=== PATIENT | male | born 1965 | race Caucasian/White ===

== ENCOUNTER 2024-03-07 09:35 | Inpatient (IN) ==
--- NOTE | 2024-03-07 09:56 | Emergency Department Note ---
Impression & Plan Stroke ADMIT ED Provider Note HPI: History obtained from patient. The patient is a 58-year-old gentleman who presents emergency department with a chief complaint of dizziness. Patient states that this is been ongoing for the past 3 days. Patient states this morning he woke up and he walked into a wall. Patient states that his symptoms are improved when he is at rest although not completely resolved. Patient states his symptoms seem to acutely worsen when he gets up to walk. Patient states he has had some nausea, on arrival here to the ED the patient is hypertensive but otherwise hemodynamically stable, he does not have any focal deficits on my initial evaluation. ROS: - Per HPI Differential Diagnosis: Peripheral vertigo, posterior circulation stroke, acute ischemic stroke, intracranial hemorrhage, critical electrolyte abnormalities to include hyponatremia, amongst other potential pathologies. *Outpatient medications and allergy history reviewed. PE: General: Alert HEENT: Normocephalic, trachea midline Eyes: Extraocular eye movement is intact, no scleral erythema Pulmonary: Clear to auscultation bilaterally, no wheezing Cardio: Regular rate and rhythm GI: Abdomen is soft to palpation : No suprapubic tenderness MSK: No evidence of trauma or malformation of the extremities, no edema Skin: No evidence of rash Neuro: Alert, no focal deficits, no drift of the upper extremities or lower extremities with testing against gravity, no ataxia with [id number] testing bilaterally Psychiatric: Cooperative INDEPENDENT INTERPRETATIONS: manager monitoring: (As interpreted by myself): - An order was placed for continuous cardiac monitoring - Patient was noted to be in sinus rhythm with a rate of 75 EKG: (As interpreted by myself): Rate: 72 Rhythm: Normal sinus rhythm Intervals: Within normal limits ST changes: No ST elevation Time: 0946 Interventions provided in ED: -IV fluid bolus, meclizine, aspirin NIH STROKE SCALE: 1A: Level of consciousness Alert; keenly responsive 0 1B: Ask month and age Both questions right 0 1C: 'Blink eyes' & 'squeeze hands' Performs both tasks 0 2: Horizontal extraocular movements Normal 0 3: Visual mendiola No visual loss 0 4: Facial palsy Normal symmetry 0 5A: Left arm motor drift No drift for 10 seconds 0 5B: Right arm motor drift No drift for 10 seconds 0 6A: Left leg motor drift No drift for 5 seconds 0 6B: Right leg motor drift No drift for 5 seconds 0 7: Limb Ataxia No ataxia 0 8: Sensation Normal; no sensory loss 0 9: Language/aphasia Normal; no aphasia 0 10: Dysarthria Normal 0 11: Extinction/inattention No abnormality 0 TOTAL NIH SCORE = 0 Medical Decision Making: Shortly after the patient arrived IV was established and lab work obtained. Patient was placed on manager monitoring. Patient has been symptomatic now for several days, therefore not considered a candidate for aggressive therapy such as thrombolysis for possibility of stroke. Lab work shows no leukocytosis, hemoglobin is normal, platelet count is normal, CMP does not show any critical findings, troponin is negative, EKG per my interpretation shows normal sinus rhythm without ischemic changes. CT imaging of the head as well as CT angiography of the head did not show any evidence of any critical findings, no evidence of large vessel occlusion/stroke. Patient was given IV fluids and meclizine here in the ED. On my reassessment he states that he continues to feel dizzy. Ambulatory trial was performed with the bedside RN and the patient had some difficulty walking. Therefore given his ongoing symptoms I did discuss with the patient obtaining an MRI and he is in agreement. MRI was obtained and does show evidence of an acute frontal lobe infarct in the left frontal lobe. Also noted are several areas of chronic appearing lacunar infarcts. Patient was given aspirin. I discussed this with the patient and he is in agreement for admission. Case was discussed with the on-call midlevel provider for the [facility] hospitalist service, Parvin Post PA-C, and the patient was placed for admission in stable condition to the service of Dr. Wren. Consultants/Discussions held with other healthcare providers: -Hospitalist, Dr. Wren Disposition discussion held by myself with: -Patient Diagnosis: 1. Stroke, acute, left frontal lobe 2. Ataxia on ambulation 3. History of hypertension 4. History of [id number] diabetes Disposition: Admission Isaías Giang DO Emergency Medicine Past Med/Surg History Medical History (Updated 03/07/24 @ 15:46 by Isaías Giang DO) PAOLA on CPAP HLD (hyperlipidemia) History of deviated nasal septum HTN (hypertension) Asthma Diverticulitis Bronchitis Weakness Laceration of scalp Head injury Dehydration Right knee injury Surgical History (Updated 03/07/24 @ 15:09 by Yesenia Post PA-C) Hx of vasectomy Hx of cystoscopy Hx of sinus surgery Family History Other Cancer Diabetes Heart disease Hypertension Social History (Updated 03/07/24 @ 15:10 by Yesenia Post PA-C) Smoking Status: Former smoker Tobacco Type: Cigarettes and Smokeless Tobacco (Dip or Chew) Preferred Language: Macanese Feels Safe at Home: Yes Allergies Allergies Allergy/AdvReac Type Severity Reaction Status Date / Time aspirin AdvReac Intermediate nose bleeds Verified 08/28/22 21:21 NSAIDS (Non-Steroidal AdvReac Intermediate to avoid Verified 08/28/22 21:21 Anti-Inflamma d/t stomach/esophagus irritation Pork/Porcine Containing AdvReac Intermediate diarrhea Verified 08/28/22 21:21 Products Home Meds Home Medications Medication Instructions Recorded Confirmed ascorbic acid (vitamin C) 500 mg 500 mg PO DAILY 06/28/19 08/28/22 tablet (Vitamin C) duloxetine 60 mg capsule,delayed 60 mg PO DAILY 06/28/19 08/28/22 release famotidine 40 mg tablet 40 mg PO BID 06/28/19 08/28/22 fluticasone propionate 50 2 spray intranasal BID PRN .after 06/28/19 08/28/22 mcg/actuation nasal saline irrigations spray,suspension hydrochlorothiazide 25 mg tablet 25 mg PO DAILY 06/28/19 08/28/22 levothyroxine 200 mcg tablet 200 mcg PO DAILY 06/28/19 08/28/22 lisinopril 40 mg tablet 40 mg PO DAILY 06/28/19 08/28/22 montelukast 10 mg tablet 10 mg PO DAILY 06/28/19 08/28/22 omega 2-arq-ohr-fish oil 1,000 mg 1 cap PO DAILY 06/28/19 08/28/22 (120 mg-180 mg) capsule (Fish Oil) tramadol 50 mg tablet 50 mg PO BID PRN Pain 06/28/19 08/28/22 vitamin B complex 1 tab PO DAILY 06/28/19 08/28/22 vitamin E 200 unit capsule 200 unit PO DAILY 06/28/19 08/28/22 albuterol sulfate 90 mcg/actuation 2 puff inhalation Q4 PRN Shortness 08/28/22 08/28/22 aerosol inhaler Of Breath Or Wheezing amlodipine 10 mg tablet 10 mg PO DAILY 08/28/22 08/28/22 atorvastatin 20 mg tablet 20 mg PO DAILY 08/28/22 08/28/22 cetirizine 10 mg tablet 10 mg PO DAILY 08/28/22 08/28/22 glucosamine sulfate 500 mg tablet 500 mg PO DAILY 08/28/22 08/28/22 (Glucosamine) metformin 500 mg tablet 500 mg PO BID 08/28/22 08/28/22 metoprolol succinate 25 mg 25 mg PO QAM 08/28/22 08/28/22 tablet,extended release 24 hr multivitamin 1 tab PO DAILY 08/28/22 08/28/22 sildenafil 100 mg tablet 100 mg PO DIRECTED PRN .before 08/28/22 08/28/22 intercoarse turmeric 400 mg capsule 400 mg PO DAILY 08/28/22 08/28/22 Results & Data (ED) Vital Signs Vital Signs - 24 hr 03/07/24 09:38 03/07/24 09:45 03/07/24 09:49 Temperature 36.4 C L Temperature Source Temporal Artery Scan Pulse Rate 75 75 80 Pulse Rate from SpO2 Sensor Pulse Rhythm Regular Pulse Strength Normal Respiratory Rate 20 21 Respiratory Effort / Characteristics Non-Labored Spontaneous Respiratory Depth Normal Respiratory Pattern Regular Blood Pressure 196/109 H 188/113 H Blood Pressure Mean 138 138 Blood Pressure Position Sitting Pulse Oximetry 98 97 Oxygen Delivery Method Room Air Room Air Sepsis Recent Fever Within 48 Hours No Sepsis New/Unexplained Change in Mental Status No Sepsis Action Taken by Nursing No Action Required 03/07/24 10:00 03/07/24 10:30 03/07/24 10:50 Temperature Temperature Source Pulse Rate 76 82 73 Pulse Rate from SpO2 Sensor Pulse Rhythm Pulse Strength Respiratory Rate 20 20 22 Respiratory Effort / Characteristics Respiratory Depth Respiratory Pattern Blood Pressure 176/103 H 179/110 H Blood Pressure Mean 127 133 Blood Pressure Position Pulse Oximetry 98 Oxygen Delivery Method Room Air Sepsis Recent Fever Within 48 Hours Sepsis New/Unexplained Change in Mental Status Sepsis Action Taken by Nursing 03/07/24 11:00 03/07/24 11:10 03/07/24 11:40 Temperature Temperature Source Pulse Rate 90 83 82 Pulse Rate from SpO2 Sensor 82 Pulse Rhythm Pulse Strength Respiratory Rate 16 32 H 13 Respiratory Effort / Characteristics Respiratory Depth Respiratory Pattern Blood Pressure Blood Pressure Mean Blood Pressure Position Pulse Oximetry 96 Oxygen Delivery Method Sepsis Recent Fever Within 48 Hours Sepsis New/Unexplained Change in Mental Status Sepsis Action Taken by Nursing 03/07/24 11:50 03/07/24 12:00 03/07/24 12:00 Temperature Temperature Source Pulse Rate 77 74 Pulse Rate from SpO2 Sensor 76 75 Pulse Rhythm Pulse Strength Respiratory Rate 23 27 H Respiratory Effort / Characteristics Respiratory Depth Respiratory Pattern Blood Pressure 147/85 H Blood Pressure Mean 101 Blood Pressure Position Pulse Oximetry 95 94 Oxygen Delivery Method Sepsis Recent Fever Within 48 Hours Sepsis New/Unexplained Change in Mental Status Sepsis Action Taken by Nursing 03/07/24 12:10 03/07/24 12:20 03/07/24 12:30 Temperature Temperature Source Pulse Rate 84 72 Pulse Rate from SpO2 Sensor 84 72 Pulse Rhythm Pulse Strength Respiratory Rate 25 H 21 Respiratory Effort / Characteristics Respiratory Depth Respiratory Pattern Blood Pressure 146/95 H Blood Pressure Mean 104 Blood Pressure Position Pulse Oximetry 97 96 Oxygen Delivery Method Sepsis Recent Fever Within 48 Hours Sepsis New/Unexplained Change in Mental Status Sepsis Action Taken by Nursing 03/07/24 12:30 03/07/24 12:40 03/07/24 12:50 Temperature Temperature Source Pulse Rate 76 78 73 Pulse Rate from SpO2 Sensor 73 72 73 Pulse Rhythm Pulse Strength Respiratory Rate 25 H 21 16 Respiratory Effort / Characteristics Respiratory Depth Respiratory Pattern Blood Pressure Blood Pressure Mean Blood Pressure Position Pulse Oximetry 94 93 97 Oxygen Delivery Method Sepsis Recent Fever Within 48 Hours Sepsis New/Unexplained Change in Mental Status Sepsis Action Taken by Nursing 03/07/24 13:00 03/07/24 13:00 03/07/24 13:16 Temperature Temperature Source Pulse Rate 74 78 Pulse Rate from SpO2 Sensor 75 75 Pulse Rhythm Pulse Strength Respiratory Rate 21 16 Respiratory Effort / Characteristics Respiratory Depth Respiratory Pattern Blood Pressure 110/87 Blood Pressure Mean 96 Blood Pressure Position Pulse Oximetry 93 96 Oxygen Delivery Method Sepsis Recent Fever Within 48 Hours Sepsis New/Unexplained Change in Mental Status Sepsis Action Taken by Nursing 03/07/24 13:20 03/07/24 13:30 03/07/24 13:40 Temperature Temperature Source Pulse Rate 81 72 75 Pulse Rate from SpO2 Sensor 69 72 69 Pulse Rhythm Pulse Strength Respiratory Rate 23 24 23 Respiratory Effort / Characteristics Respiratory Depth Respiratory Pattern Blood Pressure Blood Pressure Mean Blood Pressure Position Pulse Oximetry 96 95 96 Oxygen Delivery Method Sepsis Recent Fever Within 48 Hours Sepsis New/Unexplained Change in Mental Status Sepsis Action Taken by Nursing 03/07/24 13:45 Temperature Temperature Source Pulse Rate 77 Pulse Rate from SpO2 Sensor Pulse Rhythm Pulse Strength Respiratory Rate Respiratory Effort / Characteristics Respiratory Depth Respiratory Pattern Blood Pressure Blood Pressure Mean Blood Pressure Position Pulse Oximetry Oxygen Delivery Method Sepsis Recent Fever Within 48 Hours Sepsis New/Unexplained Change in Mental Status Sepsis Action Taken by Nursing Laboratory Data 03/07/24 09:50 03/07/24 09:50 Lab Results 03/07/24 03/07/24 Range/Units 09:50 10:04 WBC 7.04 (4.8-10.8) K/ul RBC 5.32 (4.70-6.10) M/uL Hgb 16.2 (14.0-18.0) g/dl Hct 45.4 (42.0-52.0) % MCV 85.3 (80.0-100.0) fL MCH 30.5 (25.0-34.0) pg MCHC 35.7 (32.0-36.0) g/dL RDW Std Deviation 38.9 (36.4-46.3) fL RDW Coeff of Chang 12.7 (11.5-14.5) % Plt Count 240 (130-400) K/uL MPV 9.7 (9.4-12.4) fL Immature Gran % (Auto) 0.6 % Neut % (Auto) 67.3 % Lymph % (Auto) 21.0 % Frederick % (Auto) 8.1 % Eos % (Auto) 1.7 % Baso % (Auto) 1.3 % Neut # (Auto) 4.74 (1.40-6.50) K/uL Lymph # (Auto) 1.48 (1.20-3.40) K/uL Frederick # (Auto) 0.57 (0.11-0.59) K/uL Eos # (Auto) 0.12 (0.00-0.50) K/uL Baso # (Auto) 0.09 (0.00-0.20) K/uL Immature Gran # (Auto) 0.04 (0.01-0.20) K/uL PT 10.7 (9.0-12.0) Seconds INR 1.0 (0.9-1.1) APTT 31 (21-31) Seconds PTT Ratio 1.1 Sodium 139 (136-145) mmol/L Potassium 3.6 (3.5-5.1) mmol/L Chloride 106 (98-107) mmol/L Carbon Dioxide 24 (21-32) mmol/L Anion Gap 9 (3-11) BUN 14 (6-23) mg/dl Creatinine 0.75 (0.6-1.4) mg/dl Est Cr Clr Drug Dosing 145.0 ml/min Est GFR ( Amer) 117.2 ml/min Est GFR (Non-Af Amer) 101.1 ml/min BUN/Creatinine Ratio 18.7 (10-20) Glucose 140 H (70-99(Fasting)) mg/dl Calcium 8.7 (8.6-10.3) mg/dl Magnesium 1.9 (1.7-2.4) mg/dl Total Bilirubin 0.6 (0.2-1.0) mg/dl AST 20 (13-39) U/L ALT 29 (7-52) U/L Alkaline Phosphatase 58 (34-104) U/L Troponin I High Sens 15.3 (0-20) pg/ml Total Protein 7.4 (6.0-8.3) gm/dl Albumin 4.3 (3.4-5.0) gm/dl Globulin 3.1 (2.5-4.0) gm/dl Albumin/Globulin Ratio 1.4 (0.9-2) Blood Type A Positive Antibody Screen NEGATIVE Administered Medications Discontinued Medications Aspirin (Aspirin Chew 324 Mg) 324 mg PO NOW STA Stop: 03/07/24 14:58 Last Admin: 03/07/24 15:10 Dose: 324 mg Documented By: DEAN Sodium Chloride (Nss) 500 mls @ 999 mls/hr IV .Q31M ONE Stop: 03/07/24 12:41 Last Infusion: 03/07/24 13:20 Dose: Infused Documented By: Admin: 03/07/24 12:18 Dose: 999 mls/hr Documented By: DEAN Ioversol (Optiray 320 125ml) 118 ml IV ONCE ONE Stop: 03/07/24 11:40 Last Admin: 03/07/24 11:34 Dose: 118 ml Documented By: JOVAN Meclizine HCl (Meclizine Hcl 25 Mg Tab) 25 mg PO NOW STA Stop: 03/07/24 12:12 Last Admin: 03/07/24 12:19 Dose: 25 mg Documented By: DEAN Imaging Data Radiologist's Impression: Head CT 04/29/24 09:[address] OF THE BRAIN; CT ANGIOGRAM OF THE BRAIN; CT ANGIOGRAM OF THE NECK CLINICAL HISTORY: Neurological deficit. Stroke like symptoms. Dizziness. COMPARISON STUDY: CT of the brain dated 06/28/2019. TECHNIQUE: Unenhanced axial CT scan of the brain is performed. Subsequently, following the IV administration of 118 of Optiray 320, CT angiogram of the head and neck was performed from the aortic arch to the vertex. Images are reviewed in the axial, sagittal, and coronal planes. 3-D MIPS images are created and assessed. IV contrast was administered without complication. All measurements were calculated based on NASCET criteria. A dose lowering technique was utilized adhering to the principles of ALARA. CT DOSE: 1204.35 mGy.cm FINDINGS: Brain parenchyma: There is age-related involutional change and a mild to moderate patchy subcortical and periventricular microhepatic disease. Chronic lacunar infarcts are noted in the right caudate head, the left basal ganglia, and the right thalamus. There is no hemorrhage, mass effect, or evidence of acute territorial ischemia by CT criteria. There is no evidence of enhancing mass lesion on the angiogram phase images. The ventricles, sulci, and cisterns are prominent secondary to involutional change. Elliott-white matter differentiation is preserved. No extra-axial fluid collection is seen. Thoracic aorta: Visualized portions of the thoracic aorta are normal in caliber. The aortic arch demonstrates standard 3-vessel anatomy. Right carotid arterial system: The right common carotid artery is widely patent, as are the right internal and external carotid arteries. Minimal calcified plaque is seen in the carotid bulb. Left carotid arterial system: The left common carotid artery is widely patent, as are the left internal and external carotid arteries. Vertebral arteries: Widely patent bilaterally noting mild left-sided dominance. Subclavian arteries: Widely patent bilaterally. Intracranial vasculature: There is atherosclerotic calcification of the cavernous carotid arteries. The sitka of Mccormick is developmentally complete. The internal carotid arteries are patent at the skull base, as are the anterior and middle cerebral arteries bilaterally. The vertebrobasilar system and posterior cerebral arteries are widely patent. The left vertebral artery is dominant. There is no aneurysm, high-grade stenosis, or focal vessel cut off seen throughout the intracranial circulation. Jugular veins: Patent bilaterally. Dural sinuses: Patent. Lung apices: Partially visualized upper lobe lung parenchyma appears clear. Soft tissues: The visualized pharyngeal soft tissues are normal in appearance noting angiographic phase technique. The oropharyngeal airway appears widely patent. The thyroid gland is mildly enlarged and heterogeneous. The salivary glands are normal in appearance. No cervical lymphadenopathy is seen. Skeletal structures: The skeletal structures appear osteopenic. The calvarium appears intact. The cervical spine is maintained noting multilevel spondylosis. Orbits: The bony orbits are intact. Orbital contents are normal as visualized. Sinuses and mastoids: Trace mucosal thickening is noted in the maxillary antra. The paranasal sinuses are otherwise clear. There is a left mastoid effusion. The right mastoid air cells are well pneumatized. IMPRESSION: 1. There is no hemorrhage, mass effect, or evidence of acute territorial ischemia by CT criteria. 2. Unremarkable CT angiogram of the brain. 3. Unremarkable CT angiogram of the neck. ACT 112: Negative or not required by law. Electronically signed by: Daryn Markham M.D. 03/07/2024 11:54 AM Head CTA 03/07/24 09:[address] OF THE BRAIN; CT ANGIOGRAM OF THE BRAIN; CT ANGIOGRAM OF THE NECK CLINICAL HISTORY: Neurological deficit. Stroke like symptoms. Dizziness. COMPARISON STUDY: CT of the brain dated 06/28/2019. TECHNIQUE: Unenhanced axial CT scan of the brain is performed. Subsequently, following the IV administration of 118 of Optiray 320, CT angiogram of the head and neck was performed from the aortic arch to the vertex. Images are reviewed in the axial, sagittal, and coronal planes. 3-D MIPS images are created and assessed. IV contrast was administered without complication. All measurements were calculated based on NASCET criteria. A dose lowering technique was utilized adhering to the principles of ALARA. CT DOSE: 1204.35 mGy.cm FINDINGS: Brain parenchyma: There is age-related involutional change and a mild to moderate patchy subcortical and periventricular microhepatic disease. Chronic lacunar infarcts are noted in the right caudate head, the left basal ganglia, and the right thalamus. There is no hemorrhage, mass effect, or evidence of acute territorial ischemia by CT criteria. There is no evidence of enhancing mass lesion on the angiogram phase images. The ventricles, sulci, and cisterns are prominent secondary to involutional change. Elliott-white matter differentiation is preserved. No extra-axial fluid collection is seen. Thoracic aorta: Visualized portions of the thoracic aorta are normal in caliber. The aortic arch demonstrates standard 3-vessel anatomy. Right carotid arterial system: The right common carotid artery is widely patent, as are the right internal and external carotid arteries. Minimal calcified plaque is seen in the carotid bulb. Left carotid arterial system: The left common carotid artery is widely patent, as are the left internal and external carotid arteries. Vertebral arteries: Widely patent bilaterally noting mild left-sided dominance. Subclavian arteries: Widely patent bilaterally. Intracranial vasculature: There is atherosclerotic calcification of the cavernous carotid arteries. The sitka of M[place] is developmentally complete. The internal carotid arteries are patent at the skull base, as are the anterior and middle cerebral arteries bilaterally. The vertebrobasilar system and posterior cerebral arteries are widely patent. The left vertebral artery is dominant. There is no aneurysm, high-grade stenosis, or focal vessel cut off seen throughout the intracranial circulation. Jugular veins: Patent bilaterally. Dural sinuses: Patent. Lung apices: Partially visualized upper lobe lung parenchyma appears clear. Soft tissues: The visualized pharyngeal soft tissues are normal in appearance noting angiographic phase technique. The oropharyngeal airway appears widely patent. The thyroid gland is mildly enlarged and heterogeneous. The salivary glands are normal in appearance. No cervical lymphadenopathy is seen. Skeletal structures: The skeletal structures appear osteopenic. The calvarium appears intact. The cervical spine is maintained noting multilevel spondylosis. Orbits: The bony orbits are intact. Orbital contents are normal as visualized. Sinuses and mastoids: Trace mucosal thickening is noted in the maxillary antra. The paranasal sinuses are otherwise clear. There is a left mastoid effusion. The right mastoid air cells are well pneumatized. IMPRESSION: 1. There is no hemorrhage, mass effect, or evidence of acute territorial ischemia by CT criteria. 2. Unremarkable CT angiogram of the brain. 3. Unremarkable CT angiogram of the neck. ACT 112: Negative or not required by law. Electronically signed by: Daryn Markham M.D. 03/07/2024 11:54 AM Neck CTA 03/07/24 09:[address] OF THE BRAIN; CT ANGIOGRAM OF THE BRAIN; CT ANGIOGRAM OF THE NECK CLINICAL HISTORY: Neurological deficit. Stroke like symptoms. Dizziness. COMPARISON STUDY: CT of the brain dated 06/28/2019. TECHNIQUE: Unenhanced axial CT scan of the brain is performed. Subsequently, following the IV administration of 118 of Optiray 320, CT angiogram of the head and neck was performed from the aortic arch to the vertex. Images are reviewed in the axial, sagittal, and coronal planes. 3-D MIPS images are created and assessed. IV contrast was administered without complication. All measurements were calculated based on NASCET criteria. A dose lowering technique was utilized adhering to the principles of ALARA. CT DOSE: 1204.35 mGy.cm FINDINGS: Brain parenchyma: There is age-related involutional change and a mild to moderate patchy subcortical and periventricular microhepatic disease. Chronic lacunar infarcts are noted in the right caudate head, the left basal ganglia, and the right thalamus. There is no hemorrhage, mass effect, or evidence of acute territorial ischemia by CT criteria. There is no evidence of enhancing mass lesion on the angiogram phase images. The ventricles, sulci, and cisterns are prominent secondary to involutional change. Elliott-white matter differentiation is preserved. No extra-axial fluid collection is seen. Thoracic aorta: Visualized portions of the thoracic aorta are normal in caliber. The aortic arch demonstrates standard 3-vessel anatomy. Right carotid arterial system: The right common carotid artery is widely patent, as are the right internal and external carotid arteries. Minimal calcified plaque is seen in the carotid bulb. Left carotid arterial system: The left common carotid artery is widely patent, as are the left internal and external carotid arteries. Vertebral arteries: Widely patent bilaterally noting mild left-sided dominance. Subclavian arteries: Widely patent bilaterally. Intracranial vasculature: There is atherosclerotic calcification of the cavernous carotid arteries. The sitka of M[place]orm[place] is developmentally complete. The internal carotid arteries are patent at the skull base, as are the anterior and middle cerebral arteries bilaterally. The vertebrobasilar system and posterior cerebral arteries are widely patent. The left vertebral artery is dominant. There is no aneurysm, high-grade stenosis, or focal vessel cut off seen throughout the intracranial circulation. Jugular veins: Patent bilaterally. Dural sinuses: Patent. Lung apices: Partially visualized upper lobe lung parenchyma appears clear. Soft tissues: The visualized pharyngeal soft tissues are normal in appearance noting angiographic phase technique. The oropharyngeal airway appears widely patent. The thyroid gland is mildly enlarged and heterogeneous. The salivary glands are normal in appearance. No cervical lymphadenopathy is seen. Skeletal structures: The skeletal structures appear osteopenic. The calvarium appears intact. The cervical spine is maintained noting multilevel spondylosis. Orbits: The bony orbits are intact. Orbital contents are normal as visualized. Sinuses and mastoids: Trace mucosal thickening is noted in the maxillary antra. The paranasal sinuses are otherwise clear. There is a left mastoid effusion. The right mastoid air cells are well pneumatized. IMPRESSION: 1. There is no hemorrhage, mass effect, or evidence of acute territorial ischemia by CT criteria. 2. Unremarkable CT angiogram of the brain. 3. Unremarkable CT angiogram of the neck. ACT 112: Negative or not required by law. Electronically signed by: Daryn Markham M.D. 03/07/2024 11:54 AM Brain MRI 03/07/24 12:59 Brain MRI WITHOUT CONTRAST HISTORY: vertigo TECHNIQUE: Multiplanar multisequence MRI of the brain was performed without the use of contrast. COMPARISON STUDY: Head CT 03/07/2024. FINDINGS: There is a 9 mm focus of restricted diffusion within the left high convexity on image 19 consistent with a small acute infarct. The midline structures are intact. Scattered foci of T2 hyperintensity seen within the periventricular and subcortical white matter of the supratentorial brain. These are nonspecific but favor mild microvascular ischemic change. There is no mass, hematoma, or midline shift. Mild mucosal thickening within the paranasal sinuses. The right mastoid air cells are clear. There is a small left mastoid effusion. The major vascular flow-voids at the skull base are well-maintained. There are old lacunar infarcts within the bilateral basal ganglia and bilateral thalami. The orbits are unremarkable. IMPRESSION: 1. A 9 mm acute infarct within the left posterior frontal lobe at the high convexity. 2. Old lacunar infarcts within the bilateral basal ganglia and thalami. 3. Mild atrophy and microvascular ischemic changes. ACT 112: Negative or not required by law. Electronically signed by: Daniel Boles M.D. 03/07/2024 2:50 PM Discharge Plan Visit Data Chief Complaint: Vertigo Stated Complaint: DIZZY/HARD TO WALK WOBBLY/ ED Provider: Isaías Giang Discharge Problem: Stroke Forms Stand Alone Forms: [facility] Prescriptions Prescriptions: No Action vitamin E 200 unit Capsule 200 unit PO DAILY famotidine 40 mg tablet 40 mg PO BID tramadol 50 mg tablet 50 mg PO BID PRN (Reason: Pain) ascorbic acid (vitamin C) [Vitamin C] 500 mg Tablet 500 mg PO DAILY vitamin B complex Tablet 1 tab PO DAILY montelukast 10 mg tablet 10 mg PO DAILY levothyroxine 200 mcg tablet 200 mcg PO DAILY hydrochlorothiazide 25 mg tablet 25 mg PO DAILY lisinopril 40 mg tablet 40 mg PO DAILY fluticasone propionate 50 mcg/actuation spray,suspension 2 spray intranasal BID PRN (Reason: .after saline irrigations) duloxetine 60 mg capsule,delayed release(DR/EC) 60 mg PO DAILY omega 3-uud-zql-fish oil [Fish Oil] 1,000 mg (120 mg-180 mg) Capsule 1 cap PO DAILY multivitamin Tablet 1 tab PO DAILY metformin 500 mg tablet 500 mg PO BID atorvastatin 20 mg tablet 20 mg PO DAILY cetirizine 10 mg Tablet 10 mg PO DAILY glucosamine sulfate [Glucosamine] 500 mg Tablet 500 mg PO DAILY Rx Instructions: administer with a meal sildenafil 100 mg tablet 100 mg PO DIRECTED PRN (Reason: .before intercoarse) amlodipine 10 mg tablet 10 mg PO DAILY metoprolol succinate 25 mg tablet extended release 24 hr 25 mg PO QAM albuterol sulfate 90 mcg/actuation HFA aerosol inhaler 2 puff INHALATION Q4 PRN (Reason: Shortness Of Breath Or Wheezing) turmeric 400 mg Capsule 400 mg PO DAILY Referrals Referrals: Sophie Licea MD [Primary Care Provider] - Discharge Problem: Stroke Qualifiers: CVA mechanism: unspecified Qualified Code(s): I63.9 - Cerebral infarction, unspecified
[2024-03-07 10:11] LABS: Basophils # (auto) 0.09 K/uL (0.00-0.20); Basophils % (auto) 1.3 %; Eosinophils # (auto) 0.12 K/uL (0.00-0.50); Eosinophils % (auto) 1.7 %; Hematocrit (blood only) 45.4 % (42.0-52.0); Hemoglobin 16.2 g/dl (14.0-18.0); Immature Granulocytes # (auto) 0.04 K/uL (0.01-0.20); Immature Granulocytes % (auto) 0.6 %; Lymphocytes # (auto) 1.48 K/uL (1.20-3.40); Mean Corpuscular Hemoglobin 30.5 pg (25.0-34.0); Mean Corpuscular Hgb Conc 35.7 g/dL (32.0-36.0); Mean Corpuscular Volume 85.3 fL (80.0-100.0); Mean Platelet Volume 9.7 fL (9.4-12.4); Monocytes # (auto) 0.57 K/uL (0.11-0.59); Monocytes % (auto) 8.1 %; Neutrophils # (auto) 4.74 K/uL (1.40-6.50); Neutrophils % (auto) 67.3 %; Platelet Count 240 K/uL (130-400); RDW Coefficient of Variation 12.7 % (11.5-14.5); RDW Standard Deviation 38.9 fL (36.4-46.3); Red Blood Count 5.32 M/uL (4.70-6.10); White Blood Count 7.04 K/ul (4.8-10.8)
[2024-03-07 10:30] LABS: Albumin Globulin Ratio 1.4 (0.9-2); Albumin Level 4.3 gm/dl (3.4-5.0); BUN Creatinine Ratio 18.7 (10-20); Bilirubin,Total 0.6 mg/dl (0.2-1.0); Calcium 8.7 mg/dl (8.6-10.3); Est GFR (African American) 117.2 ml/min; Est GFR (Non-African American) 101.1 ml/min; Globulin 3.1 gm/dl (2.5-4.0); Magnesium 1.9 mg/dl (1.7-2.4); Potassium 3.6 mmol/L (3.5-5.1); Total Protein 7.4 gm/dl (6.0-8.3)
[2024-03-07 10:36] LABS: Troponin I High Sensitivity 15.3 pg/ml (0-20)
[2024-03-07 10:38] LABS: Partial Thromboplastin Ratio 1.1; Partial Thromboplastin Time 31 Seconds (21-31); Prothrombin Time 10.7 Seconds (9.0-12.0)
[2024-03-07] MEDS: OPTIRAY 320 125ml IV ONE (11:34)
--- NOTE | 2024-03-07 11:55 | CT Scan Report ---
UNENHANCED CT OF THE BRAIN; CT ANGIOGRAM OF THE BRAIN; CT ANGIOGRAM OF THE NECK CLINICAL HISTORY: Neurological deficit. Stroke like symptoms. Dizziness. COMPARISON STUDY: CT of the brain dated 06/28/2019. TECHNIQUE: Unenhanced axial CT scan of the brain is performed. Subsequently, following the IV adminis tration of 118 of [address] 320, CT angiogram of the head and neck was performed from the aortic arch t o the vertex. Images are reviewed in the axial, sagittal, and coronal planes. 3-D MIPS images are cre ated and assessed. IV contrast was administered without complication. All measurements were calculate d based on NASCET criteria. A dose lowering technique was utilized adhering to the principles of ALA RA. CT DOSE: 1204.35 mGy.cm FINDINGS: Brain parenchyma: There is age-related involutional change and a mild to moderate patchy subcortical and periventricular microhepatic disease. Chronic lacunar infarcts are noted in the right caudate hea d, the left basal ganglia, and the right thalamus. There is no hemorrhage, mass effect, or evidence o f acute territorial ischemia by CT criteria. There is no evidence of enhancing mass lesion on the ang iogram phase images. The ventricles, sulci, and cisterns are prominent secondary to involutional cho ge. Elliott-white matter differentiation is preserved. No extra-axial fluid collection is seen. Thoracic aorta: Visualized portions of the thoracic aorta are normal in caliber. The aortic arch demo nstrates standard 3-vessel anatomy. Right carotid arterial system: The right common carotid artery is widely patent, as are the right int ernal and external carotid arteries. Minimal calcified plaque is seen in the carotid bulb. Left carotid arterial system: The left common carotid artery is widely patent, as are the left pharmacy graduate intern al and external carotid arteries. Vertebral arteries: Widely patent bilaterally noting mild left-sided dominance. Subclavian arteries: Widely patent bilaterally. Intracranial vasculature: There is atherosclerotic calcification of the cavernous carotid arteries. T he [place] is developmentally complete. The internal carotid arteries are patent at the skul l base, as are the anterior and middle cerebral arteries bilaterally. The vertebrobasilar system and posterior cerebral arteries are widely patent. The left vertebral artery is dominant. There is no ane urysm, high-grade stenosis, or focal vessel cut off seen throughout the intracranial circulation. Jugular veins: Patent bilaterally. Dural sinuses: Patent. Lung apices: Partially visualized upper lobe lung parenchyma appears clear. Soft tissues: The visualized pharyngeal soft tissues are normal in appearance noting angiographic pha se technique. The oropharyngeal airway appears widely patent. The thyroid gland is mildly enlarged an d heterogeneous. The salivary glands are normal in appearance. No cervical lymphadenopathy is seen. Skeletal structures: The skeletal structures appear osteopenic. The calvarium appears intact. The cer vical spine is maintained noting multilevel spondylosis. Orbits: The bony orbits are intact. Orbital contents are normal as visualized. Sinuses and mastoids: Trace mucosal thickening is noted in the maxillary antra. The paranasal sinuses are otherwise clear. There is a left mastoid effusion. The right mastoid air cells are well pneumati zed. IMPRESSION: 1. There is no hemorrhage, mass effect, or evidence of acute territorial ischemia by CT criteria. 2. Unremarkable CT angiogram of the brain. 3. Unremarkable CT angiogram of the neck. ACT 112: Negative or not required by law. Electronically signed by: Daryn Markham M.D. 03/07/2024 11:54 AM
--- OUTSIDE RECORDS SUMMARY | 2024-03-07 12:12 | External Medical Summary | Summary of Care ---
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 Role Phone Sophie Licea MD Primary Care Provide r Reason for Visit * Reason Comments eRx-Medication Refill Encounter Details Date Type Department Care Team (Late st Contact Info) Description 02/16/2024 Refill Allergy/Immunology Samantha Monte [place] [address] [facility] [place] [address] Kali Asher [facility] [address] [facility] [address] Allergies Active Allergy Reactions Criticality Noted Date Comments Ibuprofen 02/28/2008 Stomach problems Nsaids 01/10/2010 Has stomach problems Salicylates 10/17/2003 Nosebleeds documented as of this encounter (statuses as of 02/17/2024) Medications Medication Sig Dispensed Refills Start Date End Date Status Multiple Vitamins-Minerals (MULTIVITAMIN ADULT) TABS 0 Active [place]-3 Fatty Acids (FISH OIL) 1200 MG CAPS 0 Active Ascorbic Acid (VITAMIN C) 500 MG CAPS 0 Active Glucosamine 500 MG Capsule Take 1 Capsule by mouth in the morning and 1 Capsule before bedtime. 0 Active B Umawvdt-Jjpwgo-IE (B COMPLETE) TABS Take by mouth. 0 Act jonathan cetirizine (ZYRTEC) 10 MG Tablet Take 1 Tab by mouth daily. 0 8 Active Turmeric 500 MG Capsule Take 1 Capsule by mouth in the morning. 0 Active MEDICAL INSTRUCTIONS Use as directed. CPAP at bedtime on RA 0 Active oxygen GAS 3 LPM bled through CPAP 10-13 cwp during all hours of sleep 1 Each 0 9 Active Triamcinolone Acetonide 0.1 % External Cream (ARISTOCORT)Indicat ions:Other eczema APPLY TO AFFECTED AREA TWICE A DAY 60 g 1 0 Active OneTouch Verio w/Device KitIndications:Type 2 diabetes mellitus with hemoglobin A1c goal of less than 7.0% (HCC) Test once a day E11.9 1 Kit 0 1 Active Fluticasone Propionate 50 MCG/ACT Nasal Suspension (Flonase) INSTILL 2 SPRAYS INTO EACH NOSTRIL TWICE DAILY NEEDED FOR NASAL SYMPTOMS AFTER SALINE IRRIGATIONS 48 mL 4 2 Active Sildenafil Citrate 100 MG Oral TabletIndications:E rectile dysfunction TAKE 1 TAB BY MOUTH ONCE FOR 1 DOSE. 1-4 HOURS BEFORE INTERCOURSE, NO MORE THAN 1 DOSE IN 24 HOURS. 6 Tablet 3 3 Active Albuterol Sulfate HFA 108 (90 Base) MCG/ACT Inhalation Aerosol SolutionIndications :Mild intermittent asthma without complication INHALE 2 PUFFS BY MOUTH EVERY 4 HOURS NEEDED FOR COUGH,WHEEZING, OR SHORTNESS OF BREATH 18 g 1 3 Active traMADol HCl 50 MG Oral Tablet (Ultram)Indications :Generalized osteoarthritis of multiple sites TAKE 1 TABLET BY MOUTH TWICE A DAY NEEDED FOR PAIN 60 Tablet 0 3 Active CPAP every night at bedtime. 0 Active hydroCHLOROthiazide 25 MG Oral Tablet (Hydrodiuril)Indica tions:HTN, goal below 140/90 Take 1 Tablet by mouth in the morning. 90 Tablet 1 3 Active metFORMIN HCl 1000 MG Oral Tablet (Glucophage)Indicat ions:Type 2 diabetes mellitus with hemoglobin A1c goal of less than 7.0% (HCC) Take 1 Tablet by mouth daily. 180 Tablet 2 3 Active OneTouch Verio In Vitro Strip (Glucose Blood)Indications:T ype 2 diabetes mellitus with hemoglobin A1c goal of less than 7.0% (HCC) TEST ONCE A DAY DX E11.9 100 Strip 1 3 Active OneTouch Delica Lancets 33GIndications:Type 2 diabetes mellitus with hemoglobin A1c goal of less than 7.0% (HCC) TEST ONCE A DAY DX E11.9 100 Each 1 3 Active Dexcom G6 TransmitterIndicati ons:Type 2 diabetes mellitus with hemoglobin A1c goal of less than 7.0% ([facility]) USE DIRECTED . USE WITH FameCast G6 CLARITY ELVIRA FOR GLUCOSE MONITORING. DXE11.9 4 Each 1 3 Active Dexcom G6 SensorIndications:T ype 2 diabetes mellitus with hemoglobin A1c goal of less than 7.0% ([facility]) USE DIRECTED. USE WITH DEXQpyn CLARITY ELVIRA FOR GLUCOSE MONITORING. DXE11.9 9 Each 1 3 Active Trulicity 3 MG/0.5ML Subcutaneous Solution Pen-injector (Dulaglutide) INJECT 3 MG UNDER THE SKIN ONCE A WEEK. 0.5 mL 10 3 Active Famotidine 40 MG Oral Tablet (Pepcid)Indications :Reflux esophagitis TAKE 1 TABLET BY MOUTH EVERY DAY IN THE MORNING AND AT BEDTIME 180 Tablet 1 3 Active Lisinopril 40 MG Oral TabletIndications:H TN, goal below 140/90 TAKE 1 TABLET BY MOUTH EVERY DAY IN THE MORNING 90 Tablet 1 3 Active amLODIPine Besylate 10 MG Oral Tablet (Norvasc)Indication s:HTN, goal below 140/90 TAKE 1 TABLET BY MOUTH EVERY DAY IN THE MORNING 90 Tablet 3 4 Active Atorvastatin Calcium 20 MG Oral Tablet (Lipitor) TAKE 1 TABLET BY MOUTH EVERY DAY IN THE MORNING 9 Tablet 3 4 Active Metoprolol Succinate ER 25 MG Oral Tablet Extended Release 24 Hour (toPROL XL)Indications:HTN, goal below 140/90 TAKE 1 TABLET BY MOUTH EVERY DAY IN THE MORNING STRENGTH: 25 MG 90 Tablet 2 4 Active Levothyroxine Sodium 175 MCG Oral Tablet (Levoxyl)Indication s:Acquired hypothyroidism Take 1 Tablet by mouth daily first thing in the morning. 90 Tablet 3 4 Active Montelukast Sodium 10 MG Oral Tablet (Singulair) TAKE 1 TABLET BY MOUTH EVERY DAY IN THE EVENING 30 Tablet 11 4 Active Montelukast Sodium 10 MG Oral Tablet (Singulair) TAKE 1 TABLET BY MOUTH EVERY DAY IN THE EVENING 90 Tablet 3 3 02/17/20 24 Discontinued documented as of this encounter (statuses as of 02/17/2024) Active Problems Problem Noted Date Diagnosed Date Type 2 diabetes mellitus wit h hemoglobin A1c goal of less than 7.0% 03/20/2021 Controlled substance agreement signed 06/30/2019 PAOLA on CPAP 03/23/2018 Hypertrophy of both inferior nasal turbinates Deviated nasal septum 02/05/2018 Chronic maxillary sinusitis 01/29/2018 Paresthesia 10/07/2016 Rotator cuff syndrome of both shoulders 08/27/20 16 Serologic abnormality 08/27/2016 Generalized osteoarthritis of multiple sites Degenerative arthritis of finger 12/31/2015 Family history of MS (multiple sclerosis) 2013 Dyslipidemia, goal LDL below 100 10/16/2009 Overview: Per Lipid Taxonomy. chol 257, ldl 183, start Lipitor HTN, GOAL BELOW 140/90 09/14/2009 Overview: Modified per HTN Taxonomy. 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 Hypothyroidism 12/11/2003 Overview: tsh 5.86 Mild intermittent asthma without complication Allergic rhinitis Irritable bowel syndrome Reflux esophagitis Overview: a piece of meat got stuck in throat Other specified disorders of rotator cuff syndrome of shoulder and allied disorders documented as of this encounter (statuses as of 02/17/2024) Resolved Problems Problem Noted Date Diagnosed Date Resolved Date Severe obesity with body mas s index (BMI) of 35.0 to 39.9 with serious comorbidity 06/30/2019 Prediabetes 11/22/2018 09/16/2021 Overview: Per Prediabetes protocol #1 Body mass index (BMI) of 40. 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 015 Tobacco use disorder 10/31/2005 010 Arthropathy of shoulder region 10/28/2005 03/07/2019 Overview: Seen in [facility] for left shoulder pain radiating to chest, BP was real high HTN, goal below 140/90 10/28/200509/14 Overview: Modified per HTN Taxonomy. 177/104 given Castapres JOINT PAIN-SHLDER 08/04/2005 06/25/2015 OBESITY, UNSPECIFIED 02/16/2004 010 Overview: Per Obesity Taxonomy Dyslipidemia, goal LDL below 160 12/11/2003 10/16/2009 Overview: Per Lipid Taxonomy. chol 257, ldl 183, start Lipitor Calculus of kidney 9 CHR ALLRG CONJUNCTIV NEC documented as of this encounter (statuses as of 02/17/2024) Immunizations Name Administration Dates Next Due COVID-19 mRNA, LNP-s, No Pre serve, 2-Dose Series (I.Predictus) 09/17/2021,08/27/2021 Pneumococcal Conjugate Vacci ne, 20-valent ([id number]) 04/28/2022 Pneumococcal Polysaccharide PPV23 (Pneumovax) 02/06/2009 Seasonal Influenza, PF, 6 M & above, IM , (FluLaval or Fluzone) 08/11/2023,08/04/2022,07/30/2021,07/27,07/22/2019,08/30/2018 Seasonal Influenza, Quadriva lent, No Preserve, IM 07/20/2017,10/07/2016,08/25/2015 Seasonal Influenza, Split, I IV3, With Preserve, Inj 08/25/2014,07/26/2012,08/27/2011,08/02,08/15/2009,09/07/2008 TD - Tetanus/Diptheria (ADULT) 06/05/2004 TDAP (age 10 and older)(Boostrix) 03/20/2022 TDAP (age 11 and older)(Adacel) 04/02/20 11,09/07/2010(Deferred: Patient Refused) Zoster Vaccine Recombinant (Shingrix) 11/05/2020 ,07/27/2020 documented as of this encounter Social History Tobacco Use Types Packs/Day Years Used Date Smoking Tobacco: Former Cigarettes 0.1 10 0 11/09/1984 - 11/09/1994 Smokeless Tobacco: Former Chew Quit: 02/07/2006 Comments:quit chewing also Alcohol Use Standard Drinks/Week Comments Yes 0 (1 standard drink = 0.6 oz pur e alcohol) very little PHQ-2 Answer Date Recorded PHQ-2 Score 2 03/03/2020 Sex and Gender Information Value Date Recorded Sex Assigned at Male 02/25/2022 8:40 PM EDT Gender Identity Male 02/25/2022 8:40 PM EDT Sexual Orientation Straight 02/25/2022 8: 40 PM EDT Job Start Date Occupation Industry Not on file Not on file Not on file documented as of this encounter Miscellaneous Notes * Telephone Encounter - Kali Asher MD - 02/17/2024 7:38 AM EDTSigned Prescriptions: Disp Refills Montelukast Sodium 10 MG Oral Tablet (Sing*30 Tab*11 Sig: TAKE 1 TABLET BY MOUTH EVERY DAY IN THE EVENING Authorizing Provider: KALI ASHER * Telephone Encounter - Beth Carter LPN - 02/17/2024 7:19 AM EDT Pending Prescriptions: Disp Refills Montelukast Sodium 10 MG Oral Tablet [Phar*30 Tab*11 Sig: TAKE 1 TABLET BY MOUTH EVERY DAY IN THE EVENING * Telephone Encounter - Beth Carter LPN - 02/17/2024 7:19 AM EDT Pending Prescriptions: Disp Refills Montelukast Sodium 10 MG Oral Tablet (Sin*30 Tab*11 Sig: TAKE 1 TABLET BY MOUTH EVERY DAY IN THE EVENING Last Visit: 08/11/2023 (in office), Visit date not found (telemedicine) Next Visit: 08/11/2024 Last date the medication was ordered: 12/11/22 Health Maintenance Topic Date Due Hepatitis B (1 of 3 - 19+ 3-dose series) Never done Depression Screening 02/27/2021 COVID-19 Vaccine (3 - 2022-24 season) 2023 Diabetic Eye Exam 10/01/2023 Albumin/Creatinine Ratio 06/08/2024 HbA1c 06/22/2024 Diabetic Foot Exam 12/14/2024 GFR 12/23/2024 TSH 12/23/2024 Colorectal Cancer Screening 02/10/2026 Lipid Panel 12/23/2028 DTaP,Tdap,and Td Vaccines (3 - Td or Tdap) 03/20/2032 Influenza Vaccine (FLU shot) Completed Hepatitis C Screening Completed Zoster Vaccines Completed Pneumococcal Vaccine: Pediatrics (0 to 5 Years) and At-Risk Patients (6 to 64 Years) Completed MENINGOCOCCAL (MENACTRA/MENVEO) Aged Out GARDASIL-HPV IMMUNIZATION SERIES Aged Out Labs: Lab Results Component Value Date/Time CREATININE - [facility] 0.9 12/23/2023 08:41 AM CREATININE - [facility] 0.9 03/26/2020 08:08 AM CREATININE FRANCISCA - [facility] 188 06/08/2023 07:48 AM CREATININE, RANDOM URINE - [facility] 201 06/08/2023 07:48 AM CREATININE, RANDOM URINE - [facility] 74 08/27/2016 09:03 AM CREATININE-OUTSIDE LAB 1.06 09/27/2014 12:00 AM Lab Results Component Value Date/Time POTASSIUM - [facility] 3.9 12/23/2023 08:41 AM POTASSIUM - [facility] 3.7 03/26/2020 08:08 AM POTASSIUM-OUTSIDE LAB 3.8 09/27/2014 12:00 AM Lab Results Component Value Date/Time TSH - [facility] 7.69 (H) 12/23/2023 08:41 AM TSH - [facility] 4.44 (H) 08/10/2020 08:06 AM Lab Results Component Value Date/Time LDL CHOLESTEROL (CALCULATED) - [facility] 85 12/23/2023 08:41 AM LDL CHOLESTEROL (CALCULATED) - [facility] 92 02/10/2023 10:32 AM LDL CHOLESTEROL (CALCULATED) - [facility] 161 (H) 03/26/2020 08:08 AM LDL CHOLESTEROL (CALCULATED) - [facility] 111 02/05/2018 10:40 AM LDL CHOLESTEROL (DIRECT MEASURE) - [facility] 94 04/29/2022 09:33 AM LDL CHOLESTEROL (DIRECT MEASURE) - [facility] NOT APPLICABLE 03/26/2020 08:08 AM LDL CHOLESTEROL (DIRECT MEASURE) - [facility] NOT APPLICABLE 02/05/2018 10:40 AM Lab Results Component Value Date/Time ALT - [facility] 40 12/23/2023 08:41 AM ALT - [facility] 55 (H) 03/26/2020 08:08 AM Hemoglobin AIC Results: Lab Results Component Value Date/Time HEMOGLOBIN A1C - [facility] 6.3 (H) 12/23/2023 08:41 AM HEMOGLOBIN A1C - [facility] 6.0 (H) 02/10/2023 10:32 AM HEMOGLOBIN A1C - [facility] 9.1 (H) 10/03/2022 07:49 AM HEMOGLOBIN A1C - [facility] 6.1 (H) 03/26/2020 08:08 AM HEMOGLOBIN A1C - [facility] 5.6 08/31/2019 04:06 PM HEMOGLOBIN A1C - [facility] 5.9 (H) 08/30/2018 12:25 PM documented in this encounter Plan of Treatment Upcoming Encounters Date Type Department Care Team (Late st Contact Info) Description 05/17/2024 9:30 AM EDT Office Visit [facility] [employer] [address] [place] [phone] Sun Brush CRNP [address] [address] 06/14/2024 6:20 PM EDT Office [address] [facility] [address] [phone] Lukas Bain CRNP [address] [place] [address] [place] [phone] 07/15/2024 8:00 AM EDT Office Visit Rheumatology [address] [place] [phone] Lakisha Valverde CRNP [address] [place] [address] [place] [address] 08/11/2024 8:00 AM EDT Office Visit Allergy/Immunology [facility] [place] [address] [place] [address] Narda Castellano PA-C [address] [place] [address] 12/19/2024 6:40 PM EST Office Visit Family Medicine [address] [place] [phone] Sophie Licea MD [address] [place] [address] [place] [id number] Scheduled Procedures Name Priority Associated Diagnoses Date/Ti me COLONOSCOPY FLEXIBLE PROXIMAL DIAGNOSTIC Recall Colon cancer screening Health Maintenance Due Date Last Done Comments Hepatitis B (1 of 3 - 19+ 3-dose series) 1984 Cologuard 2010 Fecal Occult Blood Test 2010 Sigmoidoscopy 2010 Depression Screening 02/27/2021 02/28/2020 COVID-19 Vaccine ( season) 2023 09/17/2021, 08/27/2021 Diabetic Eye Exam 10/01/2023 10/01/2022, 09/16/2021 Albumin/Creatinine Ratio 06/08/2024 06/08/2023, 06/2 11/2021 HbA1c 06/22/2024 12/23/2023, 04/0 02/2023, 10/03/2022, Additional history exists Diabetic Foot Exam 12/14/2024 12/14/2023, 1 12/01/2021, 09/16/2021 GFR 12/23/2024 12/23/2023, 04/0 02/2023, 04/29/2022, Additional history exists TSH 12/23/2024 12/23/2023, 0711/2022, 02/10/2023, Additional history exists Colonoscopy 02/10/2026 02/11/2016, 02/11/2016 Colorectal Cancer Screening 02/10/2026 Lipid Panel 12/23/2028 12/23/2023, 04/0 02/2023, 04/29/2022, Additional history exists DTaP,Tdap,and Td Vaccines (3 - Td or Tdap) 03/20/2032 03/20/2022, 04/02/2011, 06/05/2004 Hepatitis C Screening Completed 08/25/2014 Zoster Vaccines Completed 11/05/2020, 07/27/2020 Pneumococcal Vaccine: Pediatrics (0 to 5 Years) and At-Risk Patients (6 to 64 Years) Completed 04/28/2022, 02/06/2009 Influenza Vaccine (FLU shot) Completed 01/2023, 08/04/2022, 07/30/2021, Additional history exists GARDASIL-HPV IMMUNIZATION SERIES Aged Out No longer eligible based on patient's age to complete this topic MENINGOCOCCAL (MENACTRA/MENVEO) Aged Out No longer eligible based on patient's age to complete this topic documented as of this encounter Medical Devices Not on filedocumented as of this encounter 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
--- OUTSIDE RECORDS SUMMARY | 2024-03-07 12:12 | External Medical Summary | Summary of Care ---
Author Name Unknown Organization [facility] Address [address] [place] [address] Phone [phone] Care Team Providers Care Arcade Game Technician Name Role Phone Sophie Licea MD Primary Care Provide r Reason for Visit * Reason Onset Date Comments Medication Refill 02/09/2024 Encounter Details Date Type Department Care Team (Late st Contact Info) Description 02/09/2024 Refill Family Medicine [address] [phone] Sophie Licea MD [address] [place] [address] [place] [address] Acquired hypothyroidism Allergies Active Allergy Reactions Criticality Noted Date Comments Ibuprofen 02/28/2008 Stomach problems Nsaids 01/10/2010 Has stomach problems Salicylates 10/17/2003 Nosebleeds documented as of this encounter (statuses as of 02/09/2024) Medications Medication Sig Dispensed Refills Start Date End Date Status Multiple Vitamins-Minerals (MULTIVITAMIN ADULT) TABS 0 Active [place]-3 Fatty Acids (FISH OIL) 1200 MG CAPS 0 Active Ascorbic Acid (VITAMIN C) 500 MG CAPS 0 Active Glucosamine 500 MG Capsule Take 1 Capsule by mouth in the morning and 1 Capsule before bedtime. 0 Active B Gdswmyw-Liiqds-JW (B COMPLETE) TABS Take by mouth. 0 Act jonathan cetirizine (ZYRTEC) 10 MG Tablet Take 1 Tab by mouth daily. 0 02/15/2018 Active Turmeric 500 MG Capsule Take 1 Capsule by mouth in the morning. 0 Active MEDICAL INSTRUCTIONS Use as directed. CPAP at bedtime on RA 0 Active oxygen GAS 3 LPM bled through CPAP 10-13 cwp during all hours of sleep 1 Each 0 09/09/2019 Active Triamcinolone Acetonide 0.1 % External Cream (ARISTOCORT)Indicat ions:Other eczema APPLY TO AFFECTED AREA TWICE A DAY 60 g 1 08/10/2020 Active OneTouch Verio w/Device KitIndications:Type 2 diabetes mellitus with hemoglobin A1c goal of less than 7.0% (HCC) Test once a day E11.9 1 Kit 0 09/16/2021 Active Fluticasone Propionate 50 MCG/ACT Nasal Suspension (Flonase) INSTILL 2 SPRAYS INTO EACH NOSTRIL TWICE DAILY NEEDED FOR NASAL SYMPTOMS AFTER SALINE IRRIGATIONS 48 mL 4 08/04/2022 Active Montelukast Sodium 10 MG Oral Tablet (Singulair) TAKE 1 TABLET BY MOUTH EVERY DAY IN THE EVENING 90 Tablet 3 12/11/2022 Active Sildenafil Citrate 100 MG Oral TabletIndications:E rectile dysfunction TAKE 1 TAB BY MOUTH ONCE FOR 1 DOSE. 1-4 HOURS BEFORE INTERCOURSE, NO MORE THAN 1 DOSE IN 24 HOURS. 6 Tablet 3 04/01/2023 Active Albuterol Sulfate HFA 108 (90 Base) MCG/ACT Inhalation Aerosol SolutionIndications :Mild intermittent asthma without complication INHALE 2 PUFFS BY MOUTH EVERY 4 HOURS NEEDED FOR COUGH,WHEEZING, OR SHORTNESS OF BREATH 18 g 1 04/10/2023 Active traMADol HCl 50 MG Oral Tablet (Ultram)Indications :Generalized osteoarthritis of multiple sites TAKE 1 TABLET BY MOUTH TWICE A DAY NEEDED FOR PAIN 60 Tablet 0 04/10/2023 Active CPAP every night at bedtime. 0 Active hydroCHLOROthiazide 25 MG Oral Tablet (Hydrodiuril)Indica tions:HTN, goal below 140/90 Take 1 Tablet by mouth in the morning. 90 Tablet 1 06/08/2023 Active metFORMIN HCl 1000 MG Oral Tablet (Glucophage)Indicat ions:Type 2 diabetes mellitus with hemoglobin A1c goal of less than 7.0% (HCC) Take 1 Tablet by mouth daily. 180 Tablet 2 06/08/2023 Active OneTouch Verio In Vitro Strip (Glucose Blood)Indications:T ype 2 diabetes mellitus with hemoglobin A1c goal of less than 7.0% (HCC) TEST ONCE A DAY DX E11.9 100 Strip 1 06/09/2023 Active OneJjuch Delpankaj Lancets 33GIndications:Type 2 diabetes mellitus with hemoglobin A1c goal of less than 7.0% (HCC) TEST ONCE A DAY DX E11.9 100 Each 1 06/09/2023 Active Dexcom G6 TransmitterIndicati ons:Type 2 diabetes mellitus with hemoglobin A1c goal of less than 7.0% (HCC) USE DIRECTED . USE WITH [employer] CLARITY ELVIRA FOR GLUCOSE MONITORING. DXE11.9 4 Each 1 07/29/2023 Active Dexcom G6 SensorIndications:T ype 2 diabetes mellitus with hemoglobin A1c goal of less than 7.0% (HCC) USE DIRECTED. USE WITH [employer] G6 CLARITY ELVIRA FOR GLUCOSE MONITORING. DXE11.9 9 Each 1 09/07/2023 Active Trulicity 3 MG/0.5ML Subcutaneous Solution Pen-injector (Dulaglutide) INJECT 3 MG UNDER THE SKIN ONCE A WEEK. 0.5 mL 10 10/19/2023 Active Famotidine 40 MG Oral Tablet (Pepcid)Indications :Reflux esophagitis TAKE 1 TABLET BY MOUTH EVERY DAY IN THE MORNING AND AT BEDTIME 180 Tablet 1 10/26/2023 Active Lisinopril 40 MG Oral TabletIndications:H TN, goal below 140/90 TAKE 1 TABLET BY MOUTH EVERY DAY IN THE MORNING 90 Tablet 1 10/26/2023 Active amLODIPine Besylate 10 MG Oral Tablet (Norvasc)Indication s:HTN, goal below 140/90 TAKE 1 TABLET BY MOUTH EVERY DAY IN THE MORNING 90 Tablet 3 11/23/2023 Active Atorvastatin Calcium 20 MG Oral Tablet (Lipitor) TAKE 1 TABLET BY MOUTH EVERY DAY IN THE MORNING 9 Tablet 3 11/23/2023 Active Metoprolol Succinate ER 25 MG Oral Tablet Extended Release 24 Hour (toPROL XL)Indications:HTN, goal below 140/90 TAKE 1 TABLET BY MOUTH EVERY DAY IN THE MORNING STRENGTH: 25 MG 90 Tablet 2 2023 Active Levothyroxine Sodium 175 MCG Oral Tablet (Levoxyl)Indication s:Acquired hypothyroidism Take 1 Tablet by mouth daily first thing in the morning. 90 Tablet 3 02/09/2024 Active Levothyroxine Sodium 175 MCG Oral Tablet (Levoxyl)Indication s:Acquired hypothyroidism Take 1 Tablet by mouth daily first thing in the morning. 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 07/25/2015 02/08/2018 Overview: Nonspecific white matter [...] as of this encounter (statuses as of 02/09/2024) Immunizations Name Administration Dates Next Due COVID-19 mRNA, LNP-s, No Pre serve, 2-Dose Series (Pfizer) 09/17/2021,08/27/2021 Pneumococcal Conjugate Vacci ne, 20-valent ([id number]) 04/28/2022 Pneumococcal Polysaccharide PPV23 (Pneumovax) 02/06/2009 Seasonal [...] encounter Miscellaneous Notes * Telephone Encounter - Sophie Licea MD - 02/09/2024 12:25 PM EDT Signed Prescriptions: Disp Refills Levothyroxine Sodium 175 MCG Oral Tablet (*90 Tab*3 Sig: Take 1 Tablet by mouth daily first thing in the morning. Authorizing Provider: SOPHIE LICEA * Telephone Encounter - Lorena Stanley RN - 02/09/2024 10:31 AM EDTPending Prescriptions: Disp Refills Levothyroxine Sodium 175 MCG Oral Tablet (*90 Tab*3 Sig: Take 1 Tablet by mouth daily first thing in the morning. * Telephone Encounter - Natalie Connell OSA - 02/09/2024 9:55 AM EDT Did you pend patient's preferred pharmacy and medication before forwarding?yes Pharmacy: [id number] Pending Prescriptions: Disp Refills Levothyroxine Sodium 175 MCG Oral Tablet *90 Tab*3 Sig: Take 1 Tablet by mouth daily first thing in the morning. Last Visit: 12/14/2023 (in office), Visit date not found (telemedicine) Next Visit: 06/14/2024 If no future appointments scheduled, and last appointment is greater than a year ago, please schedule patient for a follow-up appointment Last date the medication was ordered: 12.21.23 Is this request for a controlled substance?No Urine Drug Screen: Results for orders placed or performed in visit on 06/08/23 PAIN MANAGEMENT DRUG PANEL, URINE W/ INTERPRETATION Result Value Compliance Interpretation Based on the medication information provided: The absence of tramadol and o-desmethyltramadol could be due to tramadol last taken on 06/05/2023. Amphetamines Screen, U Negative Benzodiazepines Screen, U Negative Cannabinoids Screen, U Negative Cocaine Metabolite Screen, U Negative Fentanyl Screen, U Negative Hydrocodone Screen, U Negative Methadone Metabolite Screen, U Negative Morphine/Codeine Screen, U Negative Oxycodone Screen, U Negative Valid Interpretation Normal Creatinine, U 188 Narrative Cutoff Concentrations: Drug Level Amphetamines 500 ng/mL Benzodiazepines 100 ng/mL Cannabinoids 50 ng/mL Cocaine Metabolite 150 ng/mL Fentanyl 1 ng/mL Hydrocodone / Hydromorphone 300 ng/mL Methadone Metabolite 100 ng/mL Morphine / Codeine 300 ng/mL Oxycodone / Oxymorphone 100 ng/mL Screening results are presumptive and can only be used for medical purposes. Confirmatory testing is available upon request. *Note: Due to a large number of results and/or encounters for the requested time period, some results have not been displayed. A complete set of results can be found in Results Review. Patient Phone Numbers Labs: Lab Results Component Value Date/Time CREAT 0.9 12/23/2023 08:41 AM CREAT 0.9 03/26/2020 08:08 AM POTASSIUM 3.9 12/23/2023 08:41 AM POTASSIUM 3.7 03/26/2020 08:08 AM TSH 7.69 (H) 12/23/2023 08:41 AM TSH 4.44 (H) 08/10/2020 08:06 AM LDLCALC 85 12/23/2023 08:41 AM LDLCALC 161 (H) 03/26/2020 08:08 AM LDLDIRECT 94 04/29/2022 09:33 AM LDLDIRECT NOT APPLICABLE 03/26/2020 08:08 AM ALT 40 12/23/2023 08:41 AM ALT 55 (H) 03/26/2020 08:08 AM HGBA1C 6.3 (H) 12/23/2023 08:41 AM HGBA1C 6.1 (H) 03/26/2020 08:08 AM documented in this encounter Plan of Treatment Upcoming Encounters Date Type Department Care Team (Late st Contact Info) Description 05/17/2024 9:30 AM EDT Office Visit Sleep Disorders Ctr [facility] [address] [facility] [place] [phone] Sun Brush CRNP [address] [place] [address] 06/14/2024 6:20 PM EDT Office Visit Family Medicine [address] [phone] Lukas Bain CRNP [address] [place] [address] [place] [phone] 07/15/2024 8:00 AM EDT Office Visit Rheumatology [address] [place] [phone] Lakisha Valverde CRNP [address] [facility] [address] [place] [address] 08/11/2024 8:00 AM EDT Office Visit Allergy/Immunology [facility] [place] [address] [place] [address] Narda Castellano PA-C [address] [place] [address] 12/19/2024 6:40 PM EST Office [address] [phone] Sophie Licea MD [address] [place] [address] [place] [id number] Scheduled Procedures Name Priority Associated Diagnoses Date/Ti [...] 04/29/2022, Additional history exists TSH 12/23/2024 12/23/2023, 07/3 11/2022, 02/10/2023, Additional history exists Colonoscopy 02/10/2026 02/11/2016, [...] Not on filedocumented as of this encounter Visit Diagnoses Diagnosis Acquired hypothyroidism Unspecified hypothyroidism documented in this encounter Care Teams Arcade Game Technician Relationship Specialty Start Date End Date Sophie Licea MD [address] [place] [address] [place] [phone] PCP - General Family Medicine 03/07/19 documented as of this encounter
--- OUTSIDE RECORDS SUMMARY | 2024-03-07 12:13 | External Medical Summary | Summary of Care ---
Author Name Unknown Organization [facility] Address [address] [facility] [place] [address] Phone [phone] Care Team Providers Care Chief Operating Officer Name Role Phone Sophie Licea MD Primary Care Provide r Encounter Details Date Type Department Care Team (Late st Contact Info) Description 12/16/2023 Orders Only PATIENT PORTAL DO NOT DELETE THIS DEPT USED BY [place] [id number] Allergies Active Allergy Reactions Criticality Noted Date Comments Ibuprofen 02/28/2008 Stomach problems Nsaids 01/10/2010 Has stomach problems Salicylates 10/17/2003 Nosebleeds documented as of this encounter (statuses as of 12/16/2023) Medications Medication Sig Dispensed Refills Start Date End Date Status Multiple Vitamins-Minerals (MULTIVITAMIN ADULT) TABS 0 Active [place]-3 Fatty Acids (FISH OIL) 1200 MG CAPS 0 Active Ascorbic Acid (VITAMIN C) 500 MG CAPS 0 Active Glucosamine 500 MG Capsule Take 1 Capsule by mouth in the morning and 1 Capsule before bedtime. 0 Active B Yewslbj-Fvtspm-EL (B COMPLETE) TABS Take by mouth. 0 [...] Active Triamcinolone Acetonide 0.1 % External Cream (ARISTOCORT)Indicati ons:Other eczema APPLY TO AFFECTED AREA TWICE A [...] 12/11/2022 Active Sildenafil Citrate 100 MG Oral TabletIndications:Er ectile dysfunction TAKE 1 TAB BY MOUTH ONCE FOR 1 DOSE. 1-4 HOURS BEFORE INTERCOURSE, NO MORE THAN 1 DOSE IN 24 HOURS. 6 Tablet 3 04/01/2023 Active Albuterol Sulfate HFA 108 (90 Base) MCG/ACT Inhalation Aerosol SolutionIndications: Mild intermittent asthma without complication INHALE 2 PUFFS BY MOUTH EVERY 4 HOURS NEEDED FOR COUGH,WHEEZING, OR SHORTNESS OF BREATH 18 g 1 04/10/2023 Active traMADol HCl 50 MG Oral Tablet (Ultram)Indications: Generalized osteoarthritis of multiple sites TAKE 1 TABLET BY MOUTH TWICE A DAY NEEDED FOR PAIN 60 Tablet 0 04/10/2023 Active CPAP every night at bedtime. 0 Active hydroCHLOROthiazide 25 MG Oral Tablet (Hydrodiuril)Indicat ions:HTN, goal below 140/90 Take 1 Tablet by mouth in the morning. 90 Tablet 1 06/08/2023 Active metFORMIN HCl 1000 MG Oral Tablet (Glucophage)Indicati ons:Type 2 diabetes mellitus with hemoglobin A1c goal of less than 7.0% (HCC) Take 1 Tablet by mouth daily. 180 Tablet 2 06/08/2023 Active OneTouch Verio In Vitro Strip (Glucose Blood)Indications:Ty pe 2 diabetes mellitus with hemoglobin A1c goal of less than 7.0% (HCC) TEST ONCE A DAY DX E11.9 100 Strip 1 06/09/2023 Active OneTouch Delica Lancets 33GIndications:Type 2 diabetes mellitus with hemoglobin A1c goal of less than 7.0% (HCC) TEST ONCE A DAY DX E11.9 100 Each 1 06/09/2023 Active Dexcom G6 TransmitterIndicatio ns:Type 2 diabetes mellitus with hemoglobin A1c goal of less than 7.0% (HCC) USE DIRECTED . USE WITH Seeonic CLARITY ELVIRA FOR GLUCOSE MONITORING. DXE11.9 4 Each 1 07/29/2023 Active DexProperty Partner G6 SensorIndications:Ty pe 2 diabetes mellitus with hemoglobin A1c goal of less than 7.0% (HCC) USE DIRECTED. USE WITH Seeonic CLARITY ELVIRA FOR GLUCOSE MONITORING. DXE11.9 9 Each 1 09/07/2023 Active Trulicity 3 MG/0.5ML Subcutaneous Solution Pen-injector (Dulaglutide) INJECT 3 MG UNDER THE SKIN ONCE A WEEK. 0.5 mL 10 10/19/2023 Active Famotidine 40 MG Oral Tablet (Pepcid)Indications: Reflux esophagitis TAKE 1 TABLET BY MOUTH EVERY DAY IN THE MORNING AND AT BEDTIME 180 Tablet 1 10/26/2023 Active Lisinopril 40 MG Oral TabletIndications:HT N, goal below 140/90 TAKE 1 TABLET BY MOUTH EVERY DAY IN THE MORNING 90 Tablet 1 10/26/2023 Active amLODIPine Besylate 10 MG Oral Tablet (Norvasc)Indications :HTN, goal below 140/90 TAKE 1 TABLET BY MOUTH EVERY DAY IN THE MORNING 90 Tablet 3 11/23/2023 Active Atorvastatin Calcium 20 MG Oral Tablet (Lipitor) TAKE 1 TABLET BY MOUTH EVERY DAY IN THE MORNING 9 Tablet 3 11/23/2023 Active Levothyroxine Sodium 175 MCG Oral Tablet (Levoxyl)Indications :Acquired hypothyroidism Take 1 Tablet by mouth daily first thing in the morning. 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 07/25/2015 02/08/2018 Overview: Nonspecific white matter [...] as of this encounter (statuses as of 12/16/2023) Immunizations Name Administration Dates Next Due COVID-19 mRNA, LNP-s, No Pre serve, 2-Dose Series ([email or web address]) 09/17/2021,08/27/2021 Pneumococcal Conjugate Vacci ne, 20-valent ([id number]) 04/28/2022 Pneumococcal Polysaccharide PPV23 (Pneumovax) 02/06/2009 Seasonal [...] Used Date Smoking Tobacco: Former Cigarettes 0.1 0 11/09/1984 - 11/09/1994 Smokeless Tobacco: Former [...] on file documented as of this encounter Plan of Treatment Upcoming Encounters Date Type Department Care Team (Late st Contact Info) Description 05/02/2024 3:30 PM EDT Office Visit Rheumatology [address] [place] [phone] Lakisha Valverde CRNP [address] [facility] [place] [address] 05/17/2024 9:30 AM EDT Office Visit Sleep Disorders Ctr [facility] [place] [address] [place] [phone] Sun Brush CRNP [address] [place] [address] 06/14/2024 6:20 PM EDT Office Visit Family Medicine [address] [phone] Lukas Bain CRNP [address] [place] [address] [place] [address] 08/11/2024 8:00 AM EDT Office Visit Allergy/Immunology [employer] [address] [place] [address] Narda Castellano PA-C [address] [facility] [place] [address] 12/19/2024 6:40 PM EST Office Visit Family Medicine [address] [phone] Sophie Licea MD [address] [place] [address] [place] [phone] Scheduled Procedures Name Priority Associated Diagnoses Date/Ti me COLONOSCOPY FLEXIBLE PROXIMAL DIAGNOSTIC Recall Colon cancer screening Health Maintenance Due Date Last Done Comments Hepatitis B (1 of 3 - 3-dose series) 1965 Cologuard 2010 Fecal Occult Blood Test 2010 Sigmoidoscopy 2010 Depression Screening 02/27/2021 02/28/2020 COVID-19 Vaccine ( season) 2023 09/17/2021, 08/27/2021 HbA1c 08/12/2023 02/10/2023, 09/10, 04/29/2022, Additional history exists Diabetic Eye Exam 10/01/2023 10/01/2022, 09/16/2021 GFR 02/11/2024 02/10/2023, 04/10, 09/17/2021, Additional history exists Albumin/Creatinine Ratio 06/08/2024 06/08/2023, 04/10 TSH 06/08/2024 06/08/2023, 04/0 02/2023, 04/29/2022, Additional history exists Diabetic Foot Exam 12/14/2024 12/14/2023, 1 12/01/2021, 09/16/2021 Colonoscopy 02/10/2026 02/11/2016, 02/11/2016 Colorectal Cancer Screening 02/10/2026 Lipid Panel 02/11/2028 02/10/2023, 04/10, 09/17/2021, Additional history exists DTaP,Tdap,and Td Vaccines (3 [...] filedocumented as of this encounter Care Teams Chief Operating Officer Relationship Specialty Start Date End Date Sophie Licea MD [address] [place] [address] [place] [address] PCP - General Family Medicine 03/07/19 documented as of this encounter
--- OUTSIDE RECORDS SUMMARY | 2024-03-07 12:13 | External Medical Summary | Summary of Care ---
Author Name Unknown Organization [facility] Address [address] [place] [address] Phone [phone] Care Team Providers Care Assessment Manager Name Role Phone Sophie Licea MD Primary Care Provide r Reason for Visit * Reason Onset Date Comments Medication Refill 12/21/2023 Encounter Details Date Type Department Care Team (Late st Contact Info) Description 12/21/2023 Refill Family Medicine [address] [phone] Sophie Licea MD [address] [place] [address] [place] [address] Acquired hypothyroidism Allergies Active Allergy Reactions Criticality Noted Date Comments Ibuprofen 02/28/2008 Stomach problems Nsaids 01/10/2010 Has stomach problems Salicylates 10/17/2003 Nosebleeds documented as of this encounter (statuses as of 12/21/2023) Medications Medication Sig Dispensed Refills Start Date End Date Status Multiple Vitamins-Minerals (MULTIVITAMIN ADULT) TABS 0 Active [place]-3 Fatty Acids (FISH OIL) 1200 MG CAPS 0 Active Ascorbic Acid (VITAMIN C) 500 MG CAPS 0 Active Glucosamine 500 MG Capsule Take 1 Capsule by mouth in the morning and 1 Capsule before bedtime. 0 Active B Ajtziws-Iqceco-LJ (B COMPLETE) TABS Take by mouth. 0 [...] 7.0% (HCC) USE DIRECTED . USE WITH [employer] CLARITY ELVIRA FOR GLUCOSE MONITORING. DXE11.9 4 Each 1 07/29/2023 Active Dexcom G6 SensorIndications:T ype 2 diabetes mellitus with hemoglobin A1c goal of less than 7.0% (HCC) USE DIRECTED. USE WITH [employer] G6 CLARITY ELVIRA FOR GLUCOSE MONITORING. DXE11.9 [...] in the morning. 90 Tablet 3 12/21/2023 Active Levothyroxine Sodium 175 MCG Oral Tablet (Levoxyl)Indication s:Acquired hypothyroidism Take 1 Tablet by mouth daily first thing in the morning. 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 demyelination 07/25/2015 02/08/2018 Overview: Nonspecific white matter [...] as of this encounter (statuses as of 12/21/2023) Immunizations Name Administration Dates Next Due COVID-19 mRNA, LNP-s, No Pre serve, 2-Dose Series (Pfizer) 09/17/2021,08/27/2021 Pneumococcal Conjugate Vacci ne, 20-valent ([id number]) 04/28/2022 Pneumococcal Polysaccharide PPV23 (Pneumovax) 02/06/2009 Seasonal [...] Telephone Encounter - Sophie Licea MD - 12/21/2023 12:26 PM EST Signed Prescriptions: Disp Refills Levothyroxine Sodium 175 MCG Oral Tablet (*90 Tab*3 Sig: Take 1 Tablet by mouth daily first thing in the morning. Authorizing Provider: SOPHIE LICEA * Telephone Encounter - Aparna Goel CMA - 12/21/2023 11:47 AM ESTPending Prescriptions: Disp Refills Levothyroxine Sodium 175 MCG Oral Tablet (*90 Tab*3 Sig: Take 1 Tablet by mouth daily first thing in the morning. * Telephone Encounter - Alissa Herndon OSA - 12/21/2023 8:32 AM EST Did you pend patient's preferred pharmacy and medication before forwarding?yes Pharmacy: [id number] [id number] [facility] Pending Prescriptions: Disp Refills Levothyroxine Sodium 175 [...] appointment Last date the medication was ordered: [id number] 90 day supply req. Is this request for a controlled substance?No [...] Lab Results Component Value Date/Time CREAT 0.9 02/10/2023 10:32 AM CREAT 0.9 03/26/2020 08:08 AM POTASSIUM 4.4 02/10/2023 10:32 AM POTASSIUM 3.7 03/26/2020 08:08 AM TSH 1.09 06/08/2023 07:48 AM TSH 4.44 (H) 08/10/2020 08:06 AM LDLCALC 92 02/10/2023 10:32 AM LDLCALC 161 (H) 03/26/2020 08:08 AM LDLDIRECT 94 04/29/2022 09:33 AM LDLDIRECT NOT APPLICABLE 03/26/2020 08:08 AM ALT 29 02/10/2023 10:32 AM ALT 55 (H) 03/26/2020 08:08 AM HGBA1C 6.0 (H) 02/10/2023 10:32 AM HGBA1C 6.1 (H) 03/26/2020 08:08 AM documented in this encounter Plan of Treatment Upcoming Encounters Date Type Department Care Team (Late st Contact Info) Description 05/02/2024 3:30 PM EDT Office Visit Rheumatology [address] [place] [phone] Lakisha Valverde CRNP [address] [facility] [address] [place] [address] 05/17/2024 9:30 AM EDT Office Visit Sleep Disorders Ctr [facility] [place] [address] [place] [phone] Sun Brush CRNP [address] [place] [address] 06/14/2024 6:20 PM EDT Office Visit [address] [phone] Lukas Bain CRNP [address] [place] [address] [place] [address] 08/11/2024 8:00 AM EDT Office Visit Allergy/Immunology [facility] [place] [address] [place] [address] Narda Castellano PA-C [address] [place] [address] 12/19/2024 6:40 PM EST Office Visit [address] [phone] Sophie Licea MD [address] [place] [address] [place] [address] Scheduled Procedures Name Priority Associated Diagnoses Date/Ti [...] hypothyroidism documented in this encounter Care Teams Assessment Manager Relationship Specialty Start Date End Date Sophie Licea MD [address] [place] [address] [place] [address] PCP - General Family Medicine 03/07/19 documented as of this encounter
--- OUTSIDE RECORDS SUMMARY | 2024-03-07 12:13 | External Medical Summary ---
Author Name Unknown Address Unknown Organization K01:[facility] [place] - [address] [place] [id number] Laboratory Report Ordering Provider Test Date Status LEANN BHATT 12/23/2023 08:41:04 Final Observation Date Value Abnormality Reference (Units ) Status Vitamin B12 12/23/2023 08:41:04 [phone] (pg/mL) Final Performing Location [facility] [place] - [address] [place] [id number]
--- OUTSIDE RECORDS SUMMARY | 2024-03-07 12:13 | External Medical Summary ---
Author Name Unknown Address Unknown Organization [id number]:[facility]ATORY [facility] [place] - [address] [place] [address] Laboratory Report Ordering Provider Test Date Status LEANN BHATT 12/23/2023 08:41:04 Final Observation Date Value Abnormality Reference (Units ) Status TSH 12/23/2023 08:41:04 7.69 Above high normal 0. 27-4.20 (uIU/mL) Final Performing Location [facility] [place] - [address] [place] [address]
--- OUTSIDE RECORDS SUMMARY | 2024-03-07 12:13 | External Medical Summary | Summary of Care ---
Author Name Unknown Organization [facility] Address [address] [place] [address] Phone [phone] Care Team Providers Care Disk Sharpener Name Role Phone Sophie Licea MD Primary Care Provide r Reason for Visit * Reason Comments Re-Check Encounter Details Date Type Department Care Team (Late st Contact Info) Description 12/14/2023 6:40 PM EST Office Visit Family Medicine [address] [phone] Sophie Licea MD [address] [place], [place] [address] [address] Type 2 diabetes mellitus with hemoglobin A1c goal of less than 7.0% ([facility])*; HTN, GOAL BELOW 140/90; Dyslipidemia, goal LDL below 100; Acquired hypothyroidism; DM type 2 nursing care encounter ([facility]); Mild intermittent asthma without complication; Encounter for long-term (current) use of medications Allergies Active Allergy Reactions Criticality Noted Date Comments Ibuprofen 02/28/2008 Stomach problems Nsaids 01/10/2010 Has stomach problems Salicylates 10/17/2003 Nosebleeds documented as of this encounter (statuses as of 12/15/2023) Medications Medication Sig Dispensed Refills Start Date End Date Status Multiple Vitamins-Minerals (MULTIVITAMIN ADULT) TABS 0 Active [place]-3 Fatty Acids (FISH OIL) 1200 MG CAPS 0 Active Ascorbic Acid (VITAMIN C) 500 MG CAPS 0 Active Glucosamine 500 MG Capsule Take 1 Capsule by mouth in the morning and 1 Capsule before bedtime. 0 Active B Andiagi-Oihvsn-UW (B COMPLETE) TABS Take by mouth. 0 [...] 7.0% (HCC) USE DIRECTED . USE WITH [employer]EX[employer] CLARITY ELVIRA FOR GLUCOSE MONITORING. DXE11.9 4 Each 1 07/29/2023 Active Dexcom G6 SensorIndications:Ty pe 2 diabetes mellitus with hemoglobin A1c goal of less than 7.0% (HCC) USE DIRECTED. USE WITH DEXTraka G6 CLARITY ELVIRA FOR GLUCOSE MONITORING. DXE11.9 [...] as of this encounter (statuses as of 12/15/2023) Active Problems Problem Noted Date Diagnosed Date [...] as of this encounter (statuses as of 12/15/2023) Resolved Problems Problem Noted Date Diagnosed Date [...] Snoring 02/05/2018 08/30/2018 Daytime somnolence 02/05/2018 8 BLOOD TESTER demyelination 07/25/2015 02/08/2018 Overview: Nonspecific white matter [...] as of this encounter (statuses as of 12/15/2023) Immunizations Name Administration Dates Next Due COVID-19 mRNA, LNP-s, No Pre serve, 2-Dose Series (Pfizer) 09/17/2021,08/27/2021 Pneumococcal Conjugate Vacci ne, 20-valent ([id number]) 04/28/2022 Pneumococcal Polysaccharide PPV23 (Pneumovax) 02/06/2009 Seasonal [...] on file documented as of this encounter Last Filed Vital Signs Vital Sign Reading Time Taken Comments Blood Pressure 158/88 12/14/2023 6:35 PM EST Pulse 80 12/14/2023 6:35 PM EST Temperature 36.1 C (97 F) 12/14/2023 6:35 PM EST Respiratory Rate - - Oxygen Saturation 97% 12/14/2023 6:35 PM EST Inhaled Oxygen Concentration - - Weight 127 kg (280 lb) 12/14/2023 6:35 PM EST Height 177.8 cm (5' 10") 12/14/2023 6:35 PM EST Body Mass Index 40.18 12/14/2023 6:35 PM EST documented in this encounter Patient Instructions * Patient Instructions* Taina Almeida LPN - 12/14/2023 6:35 PM EST Diabetes: Keeping Feet Healthy Inspect your feet every day for signs of a problem. Diabetes can damage nerves in your feet and cause neuropathy. This condition makes it hard for you to feel injuries or sore spots. Diabetes can also change blood flow, making it harder for small problems, like a blister, to heal properly. In fact, minor injuries can quickly become serious infections that send you to the hospital. Practice self-care to protect your feet and keep them healthy. Take Special Care Inspect your feet daily for problems such as redness, blisters, cracks, dry skin, or numbness. Use a mirror to see the bottoms of your feet. Or, ask for help. Manage your diabetes. Monitor and control your blood sugar. Take all your medications as prescribed. Avoid walking barefoot, even indoors. Wash your feet with warm water and mild soap. Dry well, especially between toes. Dont treat corns or calluses yourself. Talk to your doctor or computer support specialist (a doctor who specializes in foot care) if you need assistance trimming your toenails. Use moisturizing cream or lotion if you have dry skin, but dont use it between toes. Dont use heating pads on your feet. If you have neuropathy, you could get a burn and not feel it. Stop smoking. Smoking restricts blood flow and can make it harder for wounds to heal. Have Regular Checkups Foot problems can develop quickly. So be sure to follow your healthcare teams schedule for regular checkups. During office visits, take off your shoes and socks as soon as you get in the exam room. Ask your healthcare provider to examine your feet for problems. This will make it easier to find and treat small skin irritations before they get worse. Regular checkups can also help keep track of the blood flow and feeling in your feet. If you have neuropathy, you may need to have checkups more often. Wear Proper Footwear Wearing proper footwear is very important. If areas of your feet have been damaged by too much pressure, your healthcare provider may recommend changing your footwear. In some cases, avoiding high heels or tight work boots may be all thats needed. Or, your healthcare provider may recommend special shoes or custom inserts. These help protect your feet and keep existing irritations from getting worse. If you need special footwear, ask your healthcare provider if you qualify for [employer] diabetic shoe program. Make Sure Shoes and Socks Fit Any pair of shoes--new or old--should feel comfortable as soon as you put them on. There shouldnt be any rubbing when you walk. Wear the right shoe for any activity. For instance, a running shoe is designed to keep your feet injury-free while jogging. Buy shoes at the end of the day, when your feet are larger. Make sure they provide support without feeling too loose. Make sure your socks fit, t oo. Wear soft, seamless, well-padded socks for activity. Cotton or microfiber socks are best to help to absorb sweat. To protect your feet, avoid shoes that are open-toed or open-heeled. If you have questions about what kinds of shoes and socks are best, talk to your healthcare team. Get Regular Exercise Regular exercise improves blood flow in your feet. It also increases foot strength and flexibility.Gentle exercises, like walking or riding a stationary bicycle, are best. You can also do special foot exercises. Just be sure to talk with your healthcare provider before starting any exercise program. Also mention if any exercise causes pain, redness, or other signs of foot problems. Note: If you have any kind of break in the skin of your foot or ankle, keep the area clean. Then call your doctor--especially if the area doesnt appear to be healing. [phone] [employer], [address] [place] [address], [place] [address]. All rights reserved. This information is not intended as a substitute for professional medical care. Always follow your healthcare professional's instructions. documented in this encounter Progress Notes * Sophie Licea MD - 12/14/2023 6:51 PM EST Subjective: Naresh Almendarez is a 58 year old male. Chief Complaint Patient presents with Re-Check HPI: Brief Clinical History Mr. Almendarez is a 58 year old man last seen in Family Medicine 5 months ago (06-17-23). He is not due for eval of any conditions. May be having some urinary issues. Has a lot of urgency and has to get to the bathroom right away. Has wet himself rarely if he waits too long so he no longer waits when he feels the urge to urinate.Denies any weak stream, difficulty starting stream, or dribbling. Blood pressure has been OK at home. Is usually in the 120-140 range systolic when he checks it a home. Compliant with his medications. Blood sugar was 109 this evening. Doing well with the Trulicity. Got one patch of rash where he took the Dexcom off. Has not happened any other time. Goes to [facility] for [facility] exams and will schedule an appointment. Results for orders placed or performed in visit on 06/08/23 TSH WITH FREE T4 IF INDICATED Result Value Ref Range TSH 1.09 0.27 - 4.20 uIU/mL ALBUMIN / CREATININE RATIO, URINE Result Value Ref Range Albumin, Random Urine 32.75 mg/dL Creatinine, Random Urine 201 mg/dL Albumin / Creatinine Ratio, Urine 163 (H) <30 mg/g Creat TESTOSTERONE: TOTAL, FREE AND BIOAVAILABLE Result Value Ref Range Albumin 4.6 3.8 - 5.0 g/dL Sex Hormone Binding Globulin 32 12 - 91 nmol/L Testosterone, Total 462.9 193.0 - 740.0 ng/dL Free Testosterone, Calculation 94.2 35.0 - 130.0 pg/mL Bioavailable Testosterone Calculation 235.5 79.0 - 335.0 ng/dL PAIN MANAGEMENT DRUG PANEL, URINE W/ INTERPRETATION Result Value Ref Range Compliance Interpretation Based on the medication information provided: The absence of tramadol and o-desmethyltramadol could be due to tramadol last taken on 06/05/2023. Amphetamines Screen, U Negative Negative Benzodiazepines Screen, U Negative Negative Cannabinoids Screen, U Negative Negative Cocaine Metabolite Screen, U Negative Negative Fentanyl Screen, U Negative Negative Hydrocodone Screen, U Negative Negative Methadone Metabolite Screen, U Negative Negative Morphine/Codeine Screen, U Negative Negative Oxycodone Screen, U Negative Negative Valid Interpretation Normal Creatinine, U 188 mg/dL TRAMADOL, URINE CONFIRMATION Result Value Ref Range Methodology LC-MS/MS Tramadol Confirmation, U Negative Negative O-Desmethyltramadol Confirmation, U Negative Negative *Note: Due to a large number of results and/or encounters for the requested time period, some results have not been displayed. A complete set of results can be found in Results Review. 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 Irritable bowel syndrome K58.9 Reflux esophagitis K21.00 HTN, GOAL BELOW 140/90 I10 Dyslipidemia, goal LDL below 100 E78.5 Other specified disorders of rotator cuff syndrome of shoulder and allied disorders [id number] Family history of MS (multiple sclerosis) Z82.0 Degenerative arthritis of finger M19.049 Generalized osteoarthritis of multiple sites M15.9 Rotator cuff syndrome of both shoulders M75.101, M75.102 Serologic abnormality R89.4 Paresthesia R20.2 Chronic maxillary sinusitis J32.0 Hypertrophy of both inferior nasal turbinates J34.3 Deviated nasal septum J34.2 Morbid obesity due to excess calories (HCC) E66.01 PAOLA on CPAP G47.33 Controlled substance agreement signed Z79.899 Type 2 diabetes mellitus with hemoglobin A1c goal of less than 7.0% (HCC) E11.9 Current Outpatient Medications Medication Sig Dispense Refill Multiple Vitamins-Minerals (MULTIVITAMIN ADULT) TABS [place]-3 Fatty Acids (FISH OIL) 1200 MG CAPS Ascorbic Acid (VITAMIN C) 500 MG CAPS Glucosamine 500 MG Capsule Take 1 Capsule by mouth in the morning and 1 Capsule before bedtime. B Ftrqfew-Fukkbr-XP (B COMPLETE) TABS Take by mouth. cetirizine (ZYRTEC) 10 MG Tablet Take 1 Tab by mouth daily. Turmeric 500 MG Capsule Take 1 Capsule by mouth in the morning. MEDICAL INSTRUCTIONS Use as directed. CPAP at bedtime on RA oxygen GAS 3 LPM bled through CPAP 10-13 cwp during all hours of sleep 1 Each 0 Triamcinolone Acetonide 0.1 % External Cream (ARISTOCORT) APPLY TO AFFECTED AREA TWICE A DAY 60 g 1 OneTouch Verio w/Device Kit Test once a day E11.9 1 Kit 0 Fluticasone Propionate 50 MCG/ACT Nasal Suspension (Flonase) INSTILL 2 SPRAYS INTO EACH NOSTRIL TWICE DAILY NEEDED FOR NASAL SYMPTOMS AFTER SALINE IRRIGATIONS 48 mL 4 Montelukast Sodium 10 MG Oral Tablet (Singulair) TAKE 1 TABLET BY MOUTH EVERY DAY IN THE EVENING 90Tablet 3 Sildenafil Citrate 100 MG Oral Tablet TAKE 1 TAB BY MOUTH ONCE FOR 1 DOSE. 1-4 HOURS BEFORE INTERCOURSE, NO MORE THAN 1 DOSE IN 24 HOURS. 6 Tablet 3 Albuterol Sulfate HFA 108 (90 Base) MCG/ACT Inhalation Aerosol Solution INHALE 2 PUFFS BY MOUTH EVERY 4 HOURS NEEDED FOR COUGH,WHEEZING, OR SHORTNESS OF BREATH 18 g 1 traMADol HCl 50 MG Oral Tablet (Ultram) TAKE 1 TABLET BY MOUTH TWICE A DAY NEEDED FOR PAIN 60 Tablet 0 CPAP every night at bedtime. hydroCHLOROthiazide 25 MG Oral Tablet (Hydrodiuril) Take 1 Tablet by mouth in the morning. 90 Tablet 1 metFORMIN HCl 1000 MG Oral Tablet (Glucophage) Take 1 Tablet by mouth daily. 180 Tablet 2 LawPalTouch Verio In Vitro Strip (Glucose Blood) TEST ONCE A DAY DX E11.9 100 Strip 1 OneTouch Delica Lancets 33G TEST ONCE A DAY DX E11.9 100 Each 1 Dexcom G6 Transmitter USE DIRECTED . USE WITH [employer] G6 CLARITY ELVIRA FOR GLUCOSE MONITORING. DXE11.9 4 Each 1 Dexcom G6 Sensor USE DIRECTED. USE WITH DEXTraka G6 CLARITY ELVIRA FOR GLUCOSE MONITORING. DXE11.9 9 Each 1 Trulicity 3 MG/0.5ML Subcutaneous Solution Pen-injector (Dulaglutide) INJECT 3 MG UNDER THE SKIN ONCE A WEEK. 0.5 mL 10 Famotidine 40 MG Oral Tablet (Pepcid) TAKE 1 TABLET BY MOUTH EVERY DAY IN THE MORNING AND AT BEDTIME 180 Tablet 1 Lisinopril 40 MG Oral Tablet TAKE 1 TABLET BY MOUTH EVERY DAY IN THE MORNING 90 Tablet 1 amLODIPine Besylate 10 MG Oral Tablet (Norvasc) TAKE 1 TABLET BY MOUTH EVERY DAY IN THE MORNING 90 Tablet 3 Atorvastatin Calcium 20 MG Oral Tablet (Lipitor) TAKE 1 TABLET BY MOUTH EVERY DAY IN THE MORNING 9 Tablet 3 Levothyroxine Sodium 175 MCG Oral Tablet (Levoxyl) Take 1 Tablet by mouth daily first thing in the morning. 90 Tablet 3 Metoprolol Succinate ER 25 MG Oral Tablet Extended Release 24 Hour (toPROL XL) TAKE 1 TABLET BY MOUTH EVERY DAY IN THE MORNING STRENGTH: 25 MG 90 Tablet 2 No current facility-administered medications for this visit. 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 Reflux esophagitis a piece of meat got stuck in throat Sleep apnea, obstructive Snoring 02/05/2018 Past Surgical History: Procedure Laterality Date COLONOSCOPY, DIAGNOSTIC (RECTUM) 02/11/2016 benign polyps, sm aphthous ulcer, diverticulosis, repeat 10 yrs/COLONOSCOPY FLEXIBLE PROXIMAL DIAGNOSTIC performed by Yokasta Mendoza MD at ENDOSCOPY [facility] CYSTOSCOPY 02-29-2012 stent placed CYSTOSCOPY 01/18/[address] Silver in office FLUORO ARTHROGRAM SHOULDER 01/14/07 no evidence for rotator cuff tear FRAGMENT KIDNEY STONE BY SHOCK WAVE 06/23/[address] Cr FRAGMENT KIDNEY STONE BY SHOCK WAVE 03-12-2012 ESWL (Extracorporeal Shock Wave Lithotripsy) MRI BRAIN W WO CONTRAST 07/2015 mult foci T2 prolong-repeat 1 year OTHER (INFORMATION) repair of deviated septum REMOVAL OF NOSE POLYP(S), EXTENSIVE 1994 REPAIR NASAL SEPTUM DEFECT 1994 SINUS SURGERY PROCEDURE NEC 1994 VASECTOMY 02-22-2010 Social History Socioeconomic History Marital status: Spouse name: Not on file Number of children: 0 Years of education: Not on file Highest education level: Not on file Occupational History Not on file Tobacco Use Smoking status: Former Packs/day: .1 Types: Cigarettes Start date: 11/09/1984 Quit date: 11/09/1994 Years since quittin.1 Smokeless tobacco: Former Types: Chew Quit date: 02/07/2006 Tobacco comments: quit chewing also Vaping Use Vaping Use: Never used Substance and Sexual Activity Alcohol use: Yes Comment: very little Drug use: No Sexual activity: Yes Partners: Female Other Topics Concern Not on file Social History Narrative Not on file Social Determinants of Health Financial Resource Strain: Not on file Food Insecurity: Not on file Transportation Needs: Not on file Physical Activity: Not on file Stress: Not on file Social Connections: Not on file Intimate Partner Violence: Not on file Housing Stability: Not on file Review of patient's allergies indicates: Allergen Reactions Ibuprofen Stomach problems Nsaids Has stomach problems Salicylates Nosebleeds Objective: BP 158/88 | Pulse 80 | Temp 36.1 C (97 F) (Tympanic) | Ht 1.778 m (5' 10") | Wt 127 kg (280 lb)| SpO2 97% | BMI 40.18 kg/m | BSA 2.5 m Physical Exam: General: alert, no distress, well nourished, well developed, and obese Head: Normocephalic, No masses, lesions, tenderness or abnormalities Eye Exam: PERRLA, extraocular movements intact, conjunctiva are pink and non- injected, sclera clear Ears: External ears normal, Canals clear, TM's Normal Nose: no mucosal erythema, no mucosal edema, no purulent discharge Oropharynx: no exudate, no erythema, lips, buccal mucosa, and tongue normal, and mucous membranes are moist Neck: supple, no adenopathy, no bruits Heart: regular rate & rhythm, no murmur, and no gallops Lungs: chest symmetric with normal AP diameter, no chest deformities noted, no chest wall tenderness, lungs clear to auscultation Extremities: no clubbing, no cyanosis, trace lower extremity edema bilaterally Neuro Exam: alert & oriented x 3 with fluent speech, no focal motor/sensory deficits Extensive ROS Constitutional (f/c/wt/vision/hearing): +hearing aids Resp (cough/sob/allen): Negative CV (cp/palp/fluttering/diaphoresis/allen/pnd):see above hpi GI (n/v/d/hrtburn): Negative Endo (hair/cold or heat intol/ 3 p's): see above hpi Neuro (shaking/weak/fatigu/parasthesi/): see above hpi Skin (rash/easy bruis/xerosis): Negative Psy (si/hi/halluc/): Negative (nocturia/hesit/drib/sexual review): see above hpi Lymph (swollen glands/b sx's/: Negative ASSESSMENT: Type 2 diabetes mellitus with hemoglobin A1c goal of less than 7.0% ([facility]) (Primary)--controlled with Trulicity 3 mg weekly andj Metformin 1000 mg twice daily, - HEMOGLOBIN A1C; Future; Expected date: 12/14/2023 HTN, GOAL BELOW 140/90--elevated today but has been controlled at home. Continue HCTZ 25 mg daily, metoprolol succinate 25 mg daily, amlodipine 10 mg daily, and lisinopril 40 mg daily Dyslipidemia, goal LDL below 100--continue atorvastatin 20 mg daily. - COMPREHENSIVE METABOLIC PANEL; Future; Expected date: 12/14/2023 - LIPID PANEL WITH DIRECT LDL IF TG IS HIGH; Future; Expected date: 12/14/2023 Acquired hypothyroidism--controlled with levothyroxine 175 mcg daily. Return for labs. - TSH WITH FREE T4 IF INDICATED; Future; Expected date: 12/14/2023 DM type 2 nursing care encounter (HCC) - DIABETES FOOT EXAM Mild intermittent asthma without complication--controlled. No recent flares. Continue montelukast 10 mg daily and albuterol PRN. Encounter for long-term (current) use of medications - VITAMIN B12; Future; Expected date: 12/14/2023 Follow Up: Return in about 6 months (around 06/13/2024) for Clinic Visit. | For: Clinic Visit PLAN: Continue present medication(s): Schedule labs: A1C, B12, CMP, lipid panel, and TSH Patient education: Discussed blood pressure monitoring, diabetes control. Discussed adding Detrol or similar for overactive bladder/urinary urgency but declines at this time. Follow up: in 6 month(s). Sophie Licea MD * Taina Almeida LPN - 12/14/2023 6:35 PM EST DM Foot Exam completed today. Provider aware. Taina Almeida LPN Socks and Shoes Removed for Annual Diabetic Foot Screening RIGHT FOOT: No Reddened, Cracking, Or Open Areas Noted. RIGHT Dorsalis Pedis Pulse: Palpable RIGHT Posterior Tibial Pulse: Palpable RIGHT Monofilament:Patient reports feeling monofilament pressure on plantar surface of foot LEFT FOOT: No Reddened, Cracking or Open Areas Noted. LEFT Dorsalis Pedis Pulse: Palpable LEFT Posterior Tibial Pulse: Palpable LEFT Monofilament:Patient reports feeling monofilament pressure on plantar surface of foot Do you need diabetic shoes: No documented in this encounter Nursing Notes * Taina Almeida LPN - 12/14/2023 6:35 PM EST 6 month recheck Issues with prostate? documented in this encounter Plan of Treatment Upcoming Encounters Date Type Department Care Team (Late st Contact Info) Description 05/02/2024 3:30 PM EDT Office Visit Rheumatology [address] [place] [phone] Lakisha Valverde CRNP [address] [place] [address] [place] [id number] 05/17/2024 9:30 AM EDT Office Visit [facility] Disorders [facility]tr Gerri Haque, [place] [address] [place] [phone] Sun Brush CRNP [address] [place] [id number] 06/14/2024 6:20 PM EDT Office Visit Family Medicine [address] [place] [phone] Lukas Bain CRNP [address] [place] [address] [place] [phone] 08/11/2024 8:00 AM EDT Office Visit Allergy/Immunology [facility] [place] [address] [facility] [place] [address] Narda Castellano PA-C [address] [facility] [place] [address] 12/19/2024 6:40 PM EST Office Visit Family Medicine [address] [place] [phone] Sophie Licea MD [address] [place] [address] [place] [phone] Scheduled Orders Name Type Priority Associated Diagnoses Orde r Schedule HEMOGLOBIN A1C Lab Routine Type 2 diabetes mellitus with hemoglobin A1c goal of less than 7.0% (HCC) Expected: 12/14/2023 (Approximate), Expires: 01/11/2025 COMPREHENSIVE METABOLIC PANEL Lab Routine Dyslipidemia, goal LDL below 100 Expected: 12/14/2023 (Approximate), Expires: 12/13/2024 LIPID PANEL WITH DIRECT LDL IF TG IS HIGH Lab Routine Dyslipidemia, goal LDL below 100 Expected: 12/14/2023, Expires: 12/14/2024 VITAMIN B12 Lab Routine Encounter for long-term (current) use of medications Expected: 12/14/2023 (Approximate), Expires: 12/13/2024 TSH WITH FREE T4 IF INDICATED Lab Routine Acquired hypothyroidism Expected: 12/14/2023 (Approximate), Expires: 12/13/2024 Scheduled Procedures Name Priority Associated Diagnoses Date/Ti [...] as of this encounter Visit Diagnoses Diagnosis Type 2 diabetes mellitus with hemoglobin A1c goal of less than 7.0% (HCC)- Primary HTN, GOAL BELOW 140/90 Unspecified essential hypertension Dyslipidemia, goal LDL below 100 Other and unspecified hyperlipidemia Acquired hypothyroidism Unspecified hypothyroidism DM type 2 nursing care encounter (HCC) Type II or unspecified type diabetes mellitus without mention of complication, not stated as uncontrolled Mild intermittent asthma without complication Unspecified asthma Encounter for long-term (current) use of medications Encounter for long-term (current) use of other medications documented in this encounter Care Teams Disk Sharpener Relationship Specialty Start Date End Date Sophie Licea MD [address] [place] [address] [place] [id number] PCP - General Family Medicine 03/07/19 documented as of this encounter
--- OUTSIDE RECORDS SUMMARY | 2024-03-07 12:13 | External Medical Summary ---
Author Name Unknown Address Unknown Organization [id number]:[place] [facility] [place] [address] [address] Laboratory Report Ordering Provider Test Date Status DINORAH CEBALLOS 12/23/2023 08:41:04 Final Observation Date Value Abnormality Reference (Units ) Status MYCODE SPECIMEN-SST 12/23/2023 08:41:04 Freezing of extracted DNA, whole blood and/or serum. Final Performing Location [facility] [place] [address] [address]
--- OUTSIDE RECORDS SUMMARY | 2024-03-07 12:13 | External Medical Summary ---
Author Name Unknown Address Unknown Organization [id number]:LABORATORY [facility] – [place], [place] - [address] [address] Laboratory Report Ordering Provider Test Date Status BRYONLAURAKRUNALLEANN 12/23/2023 08:41:04 Final Observation Date Value Abnormality Reference (Units ) Status BUN 12/23/2023 08:41:04 19 6-20 (mg/dL) Final Creatinine 12/23/2023 08:41:04 0.9 0.6-1.2 (mg/dL) Final Glomerular filtration rate/1.73 sq M.predicted [Volume Rate/Area] in Serum, Plasma or Blood by Creatinine-based formula (CKD-EPI) 12/23/2023 08:41:04 >90 >=60 (mL/min) Final eGFR is calculated based on the CKD-EPI 2020 equation SODIUM 12/23/2023 08:41:04 137 135-146 (m mol/L) Final Potassium 12/23/2023 08:41:04 3.9 3.5-5.1 (m mol/L) Final Cl 12/23/2023 08:41:04 100 98-107 (mm ol/L) Final CO2 12/23/2023 08:41:04 24 22-32 (mmo l/L) Final Anion gap 12/23/2023 08:41:04 13 7-15 (mmol /L) Final Glucose 12/23/2023 08:41:04 120 70-120 (mg /dL) Final Albumin 12/23/2023 08:41:04 4.7 3.8-5.0 (g /dL) Final AST (Aspartate aminotransferase) 12/23/2023 08:41:04 31 10-50 (U/L) Final Alk Phos 12/23/2023 08:41:04 66 35-130 (U/ L) Final Bilirubin, Total 12/23/2023 08:41:04 0.7 <=1 .2 (mg/dL) Final Calcium 12/23/2023 08:41:04 9.3 8.4-10.2 ( mg/dL) Final Protein 12/23/2023 08:41:04 7.0 6.0-8.3 (g /dL) Final ALT (Alanine aminotransferase) 12/23/2023 08:41:04 40 10-50 (U/L) Final Performing Location LABORATORY [facility] – [place], [place] - [address] [facility] [address]
--- OUTSIDE RECORDS SUMMARY | 2024-03-07 12:13 | External Medical Summary ---
Author Name Unknown Address Unknown Organization K01:[place] [facility] [place] [address] [address] Laboratory Report Ordering Provider Test Date Status DINORAH CEBALLOS 12/23/2023 08:41:04 Final Observation Date Value Abnormality Reference (Units ) Status MYCODE SPECIMEN-SST 12/23/2023 08:41:04 Freezing of extracted DNA, whole blood and/or serum. Final Performing Location [facility] [facility] [place] [address] [address]
--- OUTSIDE RECORDS SUMMARY | 2024-03-07 12:13 | External Medical Summary ---
Author Name Unknown Address Unknown Organization K01:[facility] [place] [address] [place] [address] Laboratory Report Ordering Provider Test Date Status LEANN BHATT 12/23/2023 08:41:04 Final Observation Date Value Abnormality Reference (Units ) Status HbA1C 12/23/2023 08:41:04 6.3 Above high normal 4. 0-5.6 (%) Final The use of HbA1c to monitor glycemic status is based on normal hemoglobin and HbA composition. This test should not be used in patients with abnormal hemoglobin that affects the half life of the red blood cell or the in vivo glycation rates. Glucose, estimated average 12/23/2023 08:41:04 134 Above high normal <126 (mg/dL) Yaniv ng Performing Location [facility] [place] [address] [place] [address]
--- OUTSIDE RECORDS SUMMARY | 2024-03-07 12:13 | External Medical Summary | Summary of Care ---
Author Name Unknown Organization [facility] Address [address] [place] [address] Phone [phone] Care Team Providers Care Major Gifts Officer Name Role Phone Sophie Licea MD Primary Care Provide r Reason for Visit * Reason Comments Outpatient Testing Encounter Details Date Type Department Care Team (Late st Contact Info) Description 12/23/2023 8:40 AM EST Laboratory Laboratory [address] [place] [phone] [facility] [address] [place] [address] Gather Other*[id number]; Type 2 diabetes mellitus with hemoglobin A1c goal of less than 7.0% ([facility]); Dyslipidemia, goal LDL below 100; Encounter for long-term (current) use of medications; Acquired hypothyroidism Allergies Active Allergy Reactions Criticality Noted Date Comments Ibuprofen 02/28/2008 Stomach problems Nsaids 01/10/2010 Has stomach problems Salicylates 10/17/2003 Nosebleeds documented as of this encounter (statuses as of 12/23/2023) Medications Medication Sig Dispensed Refills Start Date End Date Status Multiple Vitamins-Minerals (MULTIVITAMIN ADULT) TABS 0 Active [place]-3 Fatty Acids (FISH OIL) 1200 MG CAPS 0 Active Ascorbic Acid (VITAMIN C) 500 MG CAPS 0 Active Glucosamine 500 MG Capsule Take 1 Capsule by mouth in the morning and 1 Capsule before bedtime. 0 Active B Jpmljxa-Pgkcds-QQ (B COMPLETE) TABS Take by mouth. 0 [...] 7.0% (HCC) USE DIRECTED . USE WITH DEXGivU G6 CLARITY ELVIRA FOR GLUCOSE MONITORING. DXE11.9 4 Each 1 07/29/2023 Active Dexcom G6 SensorIndications:Ty pe 2 diabetes mellitus with hemoglobin A1c goal of less than 7.0% (HCC) USE DIRECTED. USE WITH DEXGivU G6 CLARITY ELVIRA FOR GLUCOSE MONITORING. DXE11.9 [...] the morning. 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 07/25/2015 02/08/2018 Overview: Nonspecific white matter [...] as of this encounter (statuses as of 12/23/2023) Immunizations Name Administration Dates Next Due COVID-19 mRNA, LNP-s, No Pre serve, 2-Dose Series ([email or web address]) 09/17/2021,08/27/2021 Pneumococcal Conjugate Vacci ne, 20-valent ([email or web address]) 04/28/2022 Pneumococcal Polysaccharide PPV23 (Pneumovax) 02/06/2009 Seasonal [...] 05/02/2024 3:30 PM EDT Office Visit Rheumatology [address] [place] [phone] Lakisha Valverde CRNP [address] [facility] [place], [place] [address] 05/17/2024 9:30 AM EDT [facility] [address] [place] [phone] Sun Brush CRNP [address] [place] [address] 06/14/2024 6:20 PM EDT Office Visit [address] [phone] Lukas Bain CRNP [address] [place] [address] [place] [address] 08/11/2024 8:00 AM EDT Office Visit Allergy/Immunology [facility] [place] [address] [place] [address] Narda Castellano PA-C [address] [place] [address] 12/19/2024 6:40 PM EST Office Visit [address] [phone] Sophie Licea MD [address] [place] [address] [place] [phone] Pending Results Name Type Priority Associated Diagnoses Date /Time MYCODE SUBSEQUENT ADULT Lab Routine MyCode Research Other*[id number] 12/23/2023 8:41 AM EST HEMOGLOBIN A1C Lab Routine Type 2 diabetes mellitus with hemoglobin A1c goal of less than 7.0% ([facility]) 12/23/2023 8:41 AM EST COMPREHENSIVE METABOLIC PANEL Lab Routine Dyslipidemia, goal LDL below 100 12/23/2023 8:41 AM EST LIPID PANEL WITH DIRECT LDL IF TG IS HIGH Lab Routine Dyslipidemia, goal LDL below 100 12/23/2023 8:41 AM EST VITAMIN B12 Lab Routine Encounter for long-term (current) use of medications 12/23/2023 8:41 AM EST TSH WITH FREE T4 IF INDICATED Lab Routine Acquired hypothyroidism 12/23/2023 8:41 AM EST MYCODE SST1 Lab Routine MyCode [employer] Other*[id number] 12/23/2023 8:41 AM EST MYCODE SST2 Lab Routine MyCode Research Other*[id number] 12/23/2023 8:41 AM EST Scheduled Procedures Name Priority Associated Diagnoses Date/Ti [...] as of this encounter Visit Diagnoses Diagnosis MyCode Research Other*[id number] Type 2 diabetes mellitus with hemoglobin A1c goal of less than 7.0% (HCC) Dyslipidemia, goal LDL below 100 Other and unspecified hyperlipidemia Encounter for long-term (current) use of medications Encounter for long-term (current) use of other medications Acquired hypothyroidism Unspecified hypothyroidism documented in this encounter Care Teams Major Gifts Officer Relationship Specialty Start Date End Date Sophie Licea MD [address] [place] [address] [place] [phone] PCP - General Family Medicine 03/07/19 documented as of this encounter
--- OUTSIDE RECORDS SUMMARY | 2024-03-07 12:13 | External Medical Summary ---
Author Name Unknown Address Unknown Organization K01:LABORATORY [facility] - [address] [address] Laboratory Report Ordering Provider Test Date Status LEANN BHATT 12/23/2023 08:41:04 Final Observation Date Value Abnormality Reference (Units ) Status T4, Free 12/23/2023 08:41:04 1.3 0.9-1.7 (n g/dL) Final Performing Location LABORATORY [facility] - [address] [address]
--- OUTSIDE RECORDS SUMMARY | 2024-03-07 12:13 | External Medical Summary ---
Author Name Unknown Address Unknown Organization K01:LAB[facility]ATORY [facility] – [place] - [address] [facility]. [facility] [address] Laboratory Report Ordering Provider Test Date Status BRYONLEATHAKRUNAL FatimaLEANN 12/23/2023 08:41:04 Final Observation Date Value Abnormality Reference (Units ) Status Triglyceride 12/23/2023 08:41:04 158 <=174 ( mg/dL) Final Triglyceride Reference Range s (mg/dL):
<150 Acceptable
150-174 Borderline high
175-499 High
>=500 Very high Cholesterol 12/23/2023 08:41:04 158 <200 (mg /dL) Final Total Cholesterol Reference Ranges (mg/dL):
<200 Desirable
200-239 Borderline high
>=240 High HDL 12/23/2023 08:41:04 41 >39 (mg/dL ) Final HDL Cholesterol Reference Ra nges (mg/dL):
>=60 High (Desirable)
<50 Low (Undesirable) For Females
<40 Low (Undesirable) For Males NON-HDL CHOLESTEROL 12/23/2023 08:41:04 117 <=159 (mg/dL) Final Non-HDL Cholesterol Referenc e Range (mg/dL):
<100 Target level for high risk ASCVD patient
<130 Optimal for general population
130-159 Near optimal for general population
160-189 Borderline High
190-219 High
>=220 Very High LDL, (calculated) 12/23/2023 08:41:04 85 <= 129 (mg/dL) Final LDL Cholesterol Reference Ra nges (mg/dL):
<70 Target level for high risk ASCVD patient
<100 Optimal for general population
100-129 Near optimal for general population
130-159 Borderline high
160-189 High
>=190 Very high Performing Location LABORATORY [facility] [place] - [address] [facility] [address]
--- OUTSIDE RECORDS SUMMARY | 2024-03-07 12:14 | External Medical Summary | Summary of Care ---
Author Name Unknown Organization [facility] Address [address] [place] [address] Phone [phone] Care Team Providers Care Mortgage Loan Specialist Name Role Phone Sophie Licea MD Primary Care Provide r Reason for Visit * Reason Comments eRx-Medication Refill Encounter Details Date Type Department Care Team (Late st Contact Info) Description 10/01/2023 Refill Family Medicine [address] [phone] Sophie Licea MD [address] [place], [place] [address] [address] HTN, goal below 140/90 Allergies Active Allergy Reactions Criticality Noted Date Comments Ibuprofen 02/28/2008 Stomach problems Nsaids 01/10/2010 Has stomach problems Salicylates 10/17/2003 Nosebleeds documented as of this encounter (statuses as of 10/02/2023) Medications Medication Sig Dispensed Refills Start Date End Date Status Multiple Vitamins-Minerals (MULTIVITAMIN ADULT) TABS 0 Active [place]-3 Fatty Acids (FISH OIL) 1200 MG CAPS 0 Active Ascorbic Acid (VITAMIN C) 500 MG CAPS 0 Active Glucosamine 500 MG Capsule Take 1 Capsule by mouth in the morning and 1 Capsule before bedtime. 0 Active B Kvrklmn-Spdyaf-CB (B COMPLETE) TABS Take by mouth. 0 [...] goal of less than 7.0% ([facility]) Test once a day E11.9 1 Kit 0 1 Active Fluticasone Propionate 50 MCG/ACT Nasal Suspension (Flonase) INSTILL 2 SPRAYS INTO EACH NOSTRIL TWICE DAILY NEEDED FOR NASAL SYMPTOMS AFTER SALINE IRRIGATIONS 48 mL 4 2 Active Montelukast Sodium 10 MG Oral Tablet (Singulair) TAKE 1 TABLET BY MOUTH EVERY DAY IN THE EVENING 90 Tablet 3 3 Active Sildenafil Citrate 100 MG Oral TabletIndications:E rectile dysfunction TAKE 1 TAB BY MOUTH ONCE FOR 1 DOSE. 1-4 HOURS BEFORE INTERCOURSE, NO MORE THAN 1 DOSE IN 24 HOURS. 6 Tablet 3 3 Active Atorvastatin Calcium 20 MG Oral Tablet (Lipitor) Take 1 Tablet by mouth in the morning. 90 Tablet 1 3 Active amLODIPine Besylate 10 MG Oral Tablet (Norvasc)Indication s:HTN, goal below 140/90 Take 1 Tablet by mouth in the morning. 90 Tablet 1 3 Active Albuterol Sulfate HFA 108 (90 [...] FOR PAIN 60 Tablet 0 3 Active Metoprolol Succinate ER 25 MG Oral Tablet Extended Release 24 Hour (toPROL XL)Indications:HTN, goal below 140/90 TAKE 1 TABLET BY MOUTH EVERY DAY IN THE MORNING Strength: 25 mg 90 Tablet 1 3 Active CPAP every night at bedtime. 0 Active hydroCHLOROthiazide 25 MG Oral Tablet (Hydrodiuril)Indica tions:HTN, goal below 140/90 Take 1 Tablet by mouth in the morning. 90 Tablet 1 3 Active Trulicity 3 MG/0.5ML Subcutaneous Solution Pen-injector (Dulaglutide) Inject 3 mg under the skin once a week. 2 mL 3 3 Active metFORMIN HCl 1000 MG Oral [...] 7.0% (HCC) USE DIRECTED . USE WITH DEXRentColumn Communications CLARITY ELVIRA FOR GLUCOSE MONITORING. DXE11.9 4 Each 1 3 Active Dexcom G6 SensorIndications:T ype 2 diabetes mellitus with hemoglobin A1c goal of less than 7.0% (HCC) USE DIRECTED. USE WITH DEXStartBull G6 CLARITY ELVIRA FOR GLUCOSE MONITORING. DXE11.9 9 Each 1 3 Active Levothyroxine Sodium 175 MCG Oral Tablet (Levoxyl)Indication s:Acquired hypothyroidism Take 1 Tablet by mouth daily first thing in the morning. 90 Tablet 1 3 Active Famotidine 40 MG Oral Tablet (Pepcid) TAKE 1 TABLET BY MOUTH EVERY DAY IN THE MORNING AND AT BEDTIME 60 Tablet 5 3 Active Lisinopril 40 MG Oral TabletIndications:H TN, goal below 140/90 TAKE 1 TABLET BY MOUTH EVERY DAY IN THE MORNING 30 Tablet 5 3 Active Lisinopril 40 MG Oral TabletIndications:H TN, goal below 140/90 TAKE 1 TABLET BY MOUTH EVERY DAY IN THE MORNING 90 Tablet 1 3 10/02/20 23 Discontinued Famotidine 40 MG Oral Tablet (Pepcid) TAKE 1 TABLET BY MOUTH EVERY DAY IN THE MORNING AND BEFORE BEDTIME 180 Tablet 1 3 10/02/20 23 Discontinued documented as of this encounter (statuses as of 10/02/2023) Active Problems Problem Noted Date Diagnosed Date Type 2 diabetes mellitus wit h hemoglobin A1c goal of less than 7.0% 03/20/2021 Controlled substance agreement signed 06/30/2019 PAOLA on CPAP 03/23/2018 Morbid obesity due to excess calories 02/08/2018 Hypertrophy of both inferior nasal turbinates Deviated [...] as of this encounter (statuses as of 10/02/2023) Resolved Problems Problem Noted Date Diagnosed Date Resolved Date Severe obesity with body mas s index (BMI) of 35.0 to 39.9 with serious comorbidity 06/30/2019 Prediabetes 11/22/2018 09/16/2021 Overview: Per Prediabetes protocol #1 Body mass index (BMI) of 40. 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 07/25/2015 02/08/2018 Overview: Nonspecific white matter [...] as of this encounter (statuses as of 10/02/2023) Immunizations Name Administration Dates Next Due COVID-19 mRNA, LNP-s, No Pre serve, 2-Dose Series ([employer]) 09/17/2021,08/27/2021 Pneumococcal Conjugate Vacci ne, 20-valent ([id number]) 04/28/2022 Pneumococcal Polysaccharide PPV23 (Pneumovax) 02/06/2009 SEASONAL INFLUENZA, PF, 6 M & Above, IM , (FLULAVAL or FLUZONE) 08/11/2023,08/04/2022,07/30/2021,07/27,07/22/2019,08/30/2018 Seasonal Influenza, Quadriva lent, No Preserve, [...] encounter Miscellaneous Notes * Telephone Encounter - Lokesh Luicano, [facility] - 10/02/2023 11:26 AM ESTSigned Prescriptions: Disp Refills Famotidine 40 MG Oral Tablet (Pepcid) 60 Tab*5 Sig: TAKE 1 TABLET BY MOUTH EVERY DAY IN THE MORNING AND AT BEDTIMEAuthorizing Provider: SOPHIE LICEA User: LOKESH LUCIANO Lisinopril 40 MG Oral Tablet 30 Tab*5 Sig: TAKE 1 TABLET BY MOUTH EVERY DAY IN THE MORNINGAuthorizing Provider: SOPHIE LICEA User: LOKESH LUCIANO documented in this encounter Plan of Treatment Upcoming Encounters Date Type Department Care Team (Late st Contact Info) Description 12/14/2023 6:40 PM EST Office Visit Family Medicine [address] [place] [phone] Sophie Licea MD [address] [place] [address] [place] [phone] 03/04/2024 10:00 AM EDT Office Visit Rheumatology [address] [place] [phone] Lakisha Valverde CRNP [address] [facility] [place] [address] 05/17/2024 9:30 AM EDT [facility] [place] [address] [place] [phone] Sun Brush CRNP [address] [place] [address] 08/11/2024 8:00 AM EDT Office Visit Allergy/Immunology [facility] [place] [address] [place] [address] Narda Castellano PA-C [address] [place] [address] Scheduled Procedures Name Priority Associated Diagnoses Date/Ti [...] exists Diabetic Eye Exam 10/01/2023 10/01/2022, 09/16/2021 Diabetic Foot Exam 10/01/2023 10/01/2022, 09/16/2021 GFR 02/11/2024 02/10/2023, 04/10, 09/17/2021, Additional history exists Albumin/Creatinine Ratio 06/08/2024 06/08/2023, 2 11/2021 TSH 06/08/2024 06/08/2023, 04/0 02/2023, 04/29/2022, Additional history exists Colonoscopy 02/10/2026 02/11/2016, 02/11/2016 [...] as of this encounter Visit Diagnoses Diagnosis HTN, goal below 140/90 Unspecified essential hypertension documented in this encounter Care Teams Mortgage Loan Specialist Relationship Specialty Start Date End Date Sophie Licea MD [address] [place] [address] [place] [phone] PCP - General Family Medicine 03/07/19 documented as of this encounter
--- OUTSIDE RECORDS SUMMARY | 2024-03-07 12:14 | External Medical Summary | Summary of Care ---
Author Name Unknown Organization [facility] Address [address] [place] [address] Phone [phone] Care Team Providers Care Machine Hamper Maker Name Role Phone Sophie Licea MD Primary Care Provide r Reason for Visit * Reason Comments eRx-Medication Refill Encounter Details Date Type Department Care Team (Late st Contact Info) Description 2023 Refill Family Medicine [address] [phone] Sophie Licea MD [address] [place], [place] [address] [address] HTN, goal below 140/90 Allergies Active Allergy Reactions Criticality Noted Date Comments Ibuprofen 02/28/2008 Stomach problems Nsaids 01/10/2010 Has stomach problems Salicylates 10/17/2003 Nosebleeds documented as of this encounter (statuses as of 2023) Medications Medication Sig Dispensed Refills Start Date End Date Status Multiple Vitamins-Minerals (MULTIVITAMIN ADULT) TABS 0 Active [place]-3 Fatty Acids (FISH OIL) 1200 MG CAPS 0 Active Ascorbic Acid (VITAMIN C) 500 MG CAPS 0 Active Glucosamine 500 MG Capsule Take 1 Capsule by mouth in the morning and 1 Capsule before bedtime. 0 Active B Tladgpp-Kkrfft-EW (B COMPLETE) TABS Take by mouth. 0 [...] 7.0% (HCC) USE DIRECTED . USE WITH [employer]de[employer]on CLARITY ELVIRA FOR GLUCOSE MONITORING. DXE11.9 4 Each 1 3 Active Dexcom G6 SensorIndications:T ype 2 diabetes mellitus with hemoglobin A1c goal of less than 7.0% (HCC) USE DIRECTED. USE WITH [employer] ELVIRA FOR GLUCOSE MONITORING. DXE11.9 9 Each [...] THE MORNING 9 Tablet 3 4 Active Levothyroxine Sodium 175 MCG Oral Tablet (Levoxyl)Indication s:Acquired hypothyroidism Take 1 Tablet by mouth daily first thing in the morning. 90 Tablet 3 4 Active Metoprolol Succinate ER 25 MG Oral Tablet Extended Release 24 Hour (toPROL XL)Indications:HTN, goal below 140/90 TAKE 1 TABLET BY MOUTH EVERY DAY IN THE MORNING STRENGTH: 25 MG 90 Tablet 2 4 Active Metoprolol Succinate ER 25 MG Oral Tablet Extended Release 24 Hour (toPROL XL)Indications:HTN, goal below 140/90 TAKE 1 TABLET BY MOUTH EVERY DAY IN THE MORNING Strength: 25 mg 90 Tablet 1 3 12/08/19 24 Discontinued documented as of this encounter (statuses as of 2023) Active Problems Problem Noted Date Diagnosed Date [...] as of this encounter (statuses as of 2023) Resolved Problems Problem Noted Date Diagnosed Date [...] Snoring 02/05/2018 08/30/2018 Daytime somnolence 02/05/2018 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 07/25/2015 02/08/2018 Overview: Nonspecific white matter [...] as of this encounter (statuses as of 2023) Immunizations Name Administration Dates Next Due COVID-19 mRNA, LNP-s, No Pre serve, 2-Dose Series ([email or web address]) 09/17/2021,08/27/2021 Pneumococcal Conjugate Vacci ne, 20-valent ([email or web address]) 04/28/2022 Pneumococcal Polysaccharide PPV23 (Pneumovax) 02/06/2009 Seasonal [...] encounter Miscellaneous Notes * [facility]38 PM ESTSigned Prescriptions: Disp Refills Metoprolol Succinate ER 25 MG Oral Tablet *90 Tab*2 Sig: TAKE 1 TABLET BY MOUTH EVERY DAY IN THE MORNING STRENGTH: 25 MGAuthorizing Provider: SOPHIE LICEA User: TY BREWSTER documented in this encounter Plan of Treatment Upcoming Encounters Date Type Department Care Team (Late st Contact Info) Description 12/09/2023 9:00 AM EST Office Visit Dermatology [address] [place] [address] Akilah Fox PA-C [address] [place] [address] [place] [address] 12/14/2023 6:40 PM EST Office Visit Family Medicine [address] [place] [phone] Sophie Licea MD [address] [place] [address] [place] [address] 05/02/2024 3:30 PM EDT Office Visit Rheumatology [address] [place] [phone] Lakisha Valverde CRNP [address] [place] [address] [place] [address] 05/17/2024 9:30 AM EDT Office Visit Sleep Disorders Ctr [facility] [address] [place] [phone] Sun Brush CRNP [address] [place] [address] 08/11/2024 8:00 AM EDT Office Visit Allergy/Immunology [facility] [place] [address] [place] [address] Narda Castellano PA-C [address] [place] [address] Scheduled Procedures Name Priority Associated Diagnoses Date/Ti [...] hypertension documented in this encounter Care Teams Machine Hamper Maker Relationship Specialty Start Date End Date Sophie Licea MD [address] [place] [address] [place] [phone] PCP - General Family Medicine 03/07/19 documented as of this encounter
--- OUTSIDE RECORDS SUMMARY | 2024-03-07 12:14 | External Medical Summary | Summary of Care ---
Author Name Unknown Organization [facility] Address [address] [place] [address] Phone [phone] Care Team Providers Care Pond Supervisor Name Role Phone Sophie Licea MD Primary Care Provide r Reason for Visit * Reason Onset Date Comments Medication Refill 11/23/2023 Encounter Details Date Type Department Care Team (Late st Contact Info) Description 11/23/2023 Refill Family Medicine [address] [phone] Sophie Licea MD [address] [place] [address] [place] [address] HTN, goal below 140/90; Acquired hypothyroidism Allergies Active Allergy Reactions Criticality Noted Date Comments Ibuprofen 02/28/2008 Stomach problems Nsaids 01/10/2010 Has stomach problems Salicylates 10/17/2003 Nosebleeds documented as of this encounter (statuses as of 11/23/2023) Medications Medication Sig Dispensed Refills Start Date End Date Status Multiple Vitamins-Minerals (MULTIVITAMIN ADULT) TABS 0 Active [place]-3 Fatty Acids (FISH OIL) 1200 MG CAPS 0 Active Ascorbic Acid (VITAMIN C) 500 MG CAPS 0 Active Glucosamine 500 MG Capsule Take 1 Capsule by mouth in the morning and 1 Capsule before bedtime. 0 Active B Wwzojrz-Ligssu-WQ (B COMPLETE) TABS Take by mouth. 0 [...] FOR PAIN 60 Tablet 0 04/10/2023 Active Metoprolol Succinate ER 25 MG Oral Tablet Extended Release 24 Hour (toPROL XL)Indications:HTN, goal below 140/90 TAKE 1 TABLET BY MOUTH EVERY DAY IN THE MORNING Strength: 25 mg 90 Tablet 1 04/30/2023 Active CPAP every night at bedtime. 0 [...] 7.0% (HCC) USE DIRECTED . USE WITH DEXMaterial Mix G6 CLARITY ELVIRA FOR GLUCOSE MONITORING. DXE11.9 4 Each 1 07/29/2023 Active Dexcom G6 SensorIndications:T ype 2 diabetes mellitus with hemoglobin A1c goal of less than 7.0% (HCC) USE DIRECTED. USE WITH DEXMaterial Mix G6 CLARITY ELVIRA FOR GLUCOSE MONITORING. DXE11.9 [...] the morning. 90 Tablet 3 11/23/2023 Active Levothyroxine Sodium 175 MCG Oral Tablet (Levoxyl)Indication s:Acquired hypothyroidism Take 1 Tablet by mouth daily first thing in the morning. 90 Tablet 1 09/30/2023 4 Discontinu ed(Refill) Atorvastatin Calcium 20 MG Oral Tablet (Lipitor) TAKE 1 TABLET BY MOUTH EVERY DAY IN THE MORNING 30 Tablet 5 10/29/2023 4 Discontinu ed(Refill) amLODIPine Besylate 10 MG Oral Tablet (Norvasc)Indication s:HTN, goal below 140/90 TAKE 1 TABLET BY MOUTH EVERY DAY IN THE MORNING 30 Tablet 5 10/29/2023 4 Discontinu ed(Refill) documented as of this encounter (statuses as of 11/23/2023) Active Problems Problem Noted Date Diagnosed Date [...] as of this encounter (statuses as of 11/23/2023) Resolved Problems Problem Noted Date Diagnosed Date [...] Snoring 02/05/2018 08/30/2018 Daytime somnolence 02/05/2018 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 07/25/2015 02/08/2018 Overview: Nonspecific white matter [...] as of this encounter (statuses as of 11/23/2023) Immunizations Name Administration Dates Next Due COVID-19 mRNA, LNP-s, No Pre serve, 2-Dose Series (Pfizer) 09/17/2021,08/27/2021 Pneumococcal Conjugate Vacci ne, 20-valent ([id number]) 04/28/2022 Pneumococcal Polysaccharide PPV23 (Pneumovax) 02/06/2009 Seasonal [...] Telephone Encounter - Sophie Licea MD - 11/23/2023 11:30 AM EST Signed Prescriptions: Disp Refills amLODIPine Besylate 10 MG Oral Tablet (Nor*90 Tab*3 Sig: TAKE 1 TABLET BY MOUTH EVERY DAY IN THE MORNING Authorizing Provider: SOPHIE LICEA Atorvastatin Calcium 20 MG Oral Tablet (Li*9 Tabl*3 Sig: TAKE 1 TABLET BY MOUTH EVERY DAY IN THE MORNING Authorizing Provider: SOPHIE LICEA Levothyroxine Sodium 175 MCG Oral Tab let (*90 Tab*3 Sig: Take 1 Tablet by mouth daily first thing in the morning. Authorizing Provider: SOPHIE LICEA * Telephone Encounter - Lorena Stanley RN - 11/23/2023 11:09 AM ESTPending Prescriptions: Disp Refills amLODIPine Besylate 10 MG Oral Tablet (Nor*90 Tab*3 Sig: TAKE 1 TABLET BY MOUTH EVERY DAY IN THE MORNING Atorvastatin Calcium 20 MG Oral Tablet (Li*9 Tabl*3 Sig: TAKE 1 TABLET BY MOUTH EVERY DAY IN THE MORNING Levothyroxine Sodium 175 MCG Oral Tablet (*90 Tab*3 Sig: Take 1 Tablet by mouth daily first thing in the morning. * Telephone Encounter - Natalie Connell OSA - 11/23/2023 10:57 AM EST Did you pend patient's preferred pharmacy and medication before forwarding?yes Pharmacy: [id number] [id number] [facility] 90 day Pending Prescriptions: Disp Refills amLODIPine Besylate 10 MG Oral Tablet (No*30 Tab*5 Atorvastatin Calcium 20 MG Oral Tablet (L*30 Tab*5 Levothyroxine Sodium 175 MCG Oral Tablet *90 Tab*1 Sig: Take 1 Tablet by mouth daily first thing in the morning. Last Visit: 06/17/2023 (in office), Visit date not found (telemedicine) Next Visit: 12/14/2023 If no future appointments scheduled, and last appointment is greater than a year ago, please schedule patient for a follow-up appointment Last date the medication was ordered: 09.30.23 Is this request for a controlled substance?No [...] 6:40 PM EST Office Visit Family Medicine [address] [place] [phone] Sophie Licea MD [address] [place] [address] [place] [phone] 01/18/2024 10:00 AM EDT Office Visit Dermatology [address] [place] [address] Akilah Fox PA-C [address] [place] [address] [place] [address] 05/02/2024 3:30 PM EDT Office Visit Rheumatology [address] [place] [phone] Lakisha Valverde CRNP [address] [facility] [place] [address] 05/17/2024 9:30 AM EDT Office Visit [facility] Disorders Ctr Gerri Haque [place] [address] [place] [phone] Sun Brush CRNP [address] [place] [address] 08/11/2024 8:00 AM EDT Office Visit Allergy/Immunology Samantha Monte [place] [address] [facility] [place] [address] Narda Castellano PA-C [address] [facility] [place] [address] Scheduled Procedures Name Priority Associated Diagnoses Date/Ti [...] HTN, goal below 140/90 Unspecified essential hypertension Acquired hypothyroidism Unspecified hypothyroidism documented in this encounter Care Teams Pond Supervisor Relationship Specialty Start Date End Date Sophie Licea MD [address] [place] [address] [place] [phone] PCP - General Family Medicine 03/07/19 documented as of this encounter
--- OUTSIDE RECORDS SUMMARY | 2024-03-07 12:14 | External Medical Summary | Summary of Care ---
Author Name Unknown Organization [facility] Address [address] [facility] [place] [address] Phone [phone] Care Team Providers Care Building Principal Name Role Phone Sophie Licea MD Primary Care Provide r Reason for Visit * Reason Comments NEW PATIENT Referred for skin ex am, spot L forearm Encounter Details Date Type Department Care Team (Late st Contact Info) Description 12/09/2023 9:00 AM EST Office Visit Dermatology [address] [place] [address] Akilah Fox PA-C [address] [place] [address] [place] [phone] Multiple nevi*; Skin exam, screening for cancer; Velásquez angioma; Seborrheic keratosis Allergies Active Allergy Reactions Criticality Noted Date Comments Ibuprofen 02/28/2008 Stomach problems Nsaids 01/10/2010 Has stomach problems Salicylates 10/17/2003 Nosebleeds documented as of this encounter (statuses as of 12/10/2023) Medications Medication Sig Dispensed Refills Start Date End Date Status Multiple Vitamins-Minerals (MULTIVITAMIN ADULT) TABS 0 Active [place]-3 Fatty Acids (FISH OIL) 1200 MG CAPS 0 Active Ascorbic Acid (VITAMIN C) 500 MG CAPS 0 Active Glucosamine 500 MG Capsule Take 1 Capsule by mouth in the morning and 1 Capsule before bedtime. 0 Active B Civcptd-Rtubod-DF (B COMPLETE) TABS Take by mouth. 0 Act gabby cetirizine (ZYRTEC) 10 MG Tablet Take 1 [...] DX E11.9 100 Strip 1 06/09/2023 Active Ruddy Pérez Lancets 33GIndications:Type 2 diabetes mellitus with hemoglobin A1c goal of less than 7.0% (HCC) TEST ONCE A DAY DX E11.9 100 Each 1 06/09/2023 Active Dexcom G6 TransmitterIndicatio ns:Type 2 diabetes mellitus with hemoglobin A1c goal of less than 7.0% (HCC) USE DIRECTED . USE WITH DEXVideoIQ G6 CLARITY ELVIRA FOR GLUCOSE MONITORING. DXE11.9 4 Each 1 07/29/2023 Active DexDNAe LTD G6 SensorIndications:Ty pe 2 diabetes mellitus with hemoglobin A1c goal of less than 7.0% (HCC) USE DIRECTED. USE WITH DEXVideoIQ G6 CLARITY ELVIRA FOR GLUCOSE MONITORING. 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 The best protection is sun avoidance. Seek shade if you can, especially between 10am to 4pm (peak sun hours). 2. Use sunscreen with an SPF (Sun Protection Factor - the number on most sunscreen bottles) of 30 or more that protects from Ultraviolet A (UVA) and Ultraviolet B (UVB) wavelength light (strongly recommend SPF 50). This is referred to as broad spectrum sun protection because it protects from most wa velengths in both spectrums of UVA and UVB light. Unfortunately, even though the protection is broad it is not complete, therefore making sun avoidance the best protection. UVB and UVA have both beenimplicated in causing skin cancers. Older sunscreens only protected from UVB and sunscreens with added UVA protection should contain Titanium dioxide, Zinc oxide, or Avobenzone. Other oil free, non-comedogenic lotion with SPF 30 or greater is fine. 3. Use sun protection if outside for 15 minutes or more. Apply 20-30 minutes before going out and reapply every 1-2 hours. No sunscreen is truly water ''proof'' and it will wash away with sweat, swimming and rubbing. 4. Wear tightly woven, loose fitting (cooler) long sleeved clothing, UV-blocking sun glasses (eyes need protection as well) and wide-brimmed hatwear (no straw hats with holes because light still getsthrough). Strongly recommended *Neutrogena Pure and Free Baby SPF 60 (have separate face and body lotions) orCeraVe AM facial lotion (with SPF 30). If looking for non toxic alternatives-look for non-izzy particle zinc. Product examples; Think sport, Think baby, Rush, OpptenanicalCashier Live, damntheradio, [place] baby. "Baby" products can be used for all ages. documented in this encounter Progress Notes * Ulysses Mathis MD - 12/10/2023 8:46 AM EST I have seen and examined the patient via teledermatology review of chart note and photos with Akilah Fox PA-C. I have reviewed and agree with the assessment and plan. * Akilah Fox PA-C - 12/09/2023 8:33 AM EST SUBJECTIVE: HPI: Naresh Almendarez is a 58 year old male seen at the request of Sophie Licea MD for evaluation and treatment of lesion/full skin exam. - Tanning bed history. + Blistering sunburns. Lesion on L forearm, present "forever" but has shrunk down to a scab. No tx to date. 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 REVIEW OF SYSTEMS: SKIN: No other new or changing moles. HEME/LYMPH: No new or enlarging lumps or bumps. CONSTITUTIONAL: No nausea, vomiting, fevers, chills, diarrhea. No recent unintended weight loss, night sweats, appetite or malaise. RESP: negative MSK/EXT: Negative or as per HPI GI: negative CV: Negative or as per HPI Rest of systems are negative or as per HPI SKIN CANCER HX: NONE Reviewed, same day as visit, 0 [facility] Dermatology lab work(s)/pathology report(s) as well as those sent by referring provider prior to seeing pt. Past Medical History: Diagnosis Date Allergic rhinitis [...] in throat Sleep apnea, obstructive Snoring 02/05/2018 FAMILY HISTORY: Skin CA: unknown skin cancer (possibly non-melanoma) in maternal grandfather Skin Disorders: none SOCIAL HISTORY: Social History Tobacco Use Smoking status: Former Packs/day: .1 Types: Cigarettes Start date: 11/09/1984 Quit date: 11/09/1994 Years since quittin.1 Smokeless tobacco: Former Types: Chew Quit date: 02/07/2006 Tobacco comments: quit chewing also Substance Use Topics Alcohol use: Yes Comment: very little Vaping/E-Cigarette Use Vaping/E-Cigarette Use Never User Vaping/E-Cigarette Substances Vaping/E-Cigarette Devices MEDICA TIONS: Current Outpatient Medications Medication Sig Dispense Refill Multiple Vitamins-Minerals (MULTIVITAMIN ADULT) TABS [place]-3 Fatty Acids (FISH OIL) 1200 MG CAPS Ascorbic Acid (VITAMIN C) 500 MG CAPS Glucosamine 500 MG Capsule Take 1 Capsule by mouth in the morning and 1 Capsule before bedtime. B Cbuoaql-Bbwfna-TF (B COMPLETE) TABS Take by mouth. cetirizine [...] Tablet by mouth daily. 180 Tablet 2 BillShrinkTouch Verio In Vitro Strip (Glucose Blood) TEST ONCE A DAY DX E11.9 100 Strip 1 Infotrieveuch Delica Lancets 33G TEST ONCE A DAY DX E11.9 100 Each 1 [employer] G6 Transmitter USE DIRECTED . USE WITH TestPlant ELVIRA FOR GLUCOSE MONITORING. DXE11.9 4 Each 1 [employer] G6 Sensor USE DIRECTED. USE WITH TestPlant ELVIRA FOR GLUCOSE MONITORING. DXE11.9 9 Each [...] No current facility-administered medications for this visit. ALLERGY: Ibuprofen, Nsaids, and Salicylates OBJECT GABBY: GEN: alert, no distress, appears oriented, pleasant, and cooperative. SKIN: Detailed exam of hair, face including lids and lips, neck, chest, abdomen, back, bilateral upper ext. (arm, hand, fingers), bilateral lower ext. (leg, foot, toes), palpation of scalp, fingernails, toenails, inguinal areas, groin (penis, scrotum and perineum), buttocks, and anus completed: 1. L forearm-About 1cm light brown smooth adherent. 2. Face (L nasal crease)/trunk/bilat arms and legs-About 90 total; 2-6mm (skin colored soft papule)mostly light and light-medium brown macules and very few soft papules. 3. Trunk-Scattered bright red to purple well defined 1-3mm macules and papules. ASSESS MENT/PLAN: 1. SK on L forearm-no tx needed, pt given reassurance and written education about diagnosis. 2. Nevi on face/trunk/bilat arms and legs-no tx needed, pt given reassurance and written education about diagnosis. Skin cancer brochure given and ABCDE's discussed with patient. Annual full body skin examination (unless I recommended otherwise), self-examination, and sun protection (SPF 30+ daily to sun exposed areas, with reapplication every 1-2 hours when out in sun for long periods of time) advised and discussed. Recommended sooner follow up for new or changing lesions. These changes include rapid enlargement, changes in color or shape or symptoms, bleeding, or other concerns. The common features and behavior of non-melanoma skin cancers (e.g. BCC/SCC) as well as the ABCDEs and ugly duckling features of melanoma were also reviewed. 3. 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 Patient alone today. Photo(s) of #1-3 taken, pt verbally consented to having photo(s) taken. Follow-up: 2-3 years for full skin exam Photos and chart reviewed by Dr. Ulysses Mathis. Presum ed diagnoses, expected natural histories, and management options discussed with the patient at length. Questions were addressed and anticipatory guidance provided. They were instructed to contact me if additional questions, concerns, or problems develop in the interim. -There were no barriers to learning and no other pain was related to today's visit. The patient and/or person accompanying patient demonstrates understanding of the visit and treatment. Akilah Fox PA-C 12/09/2023 8:33 AM Ref: SOPHIE LICEA[[id number]] [address] [place] [address] [place] [phone] (office) [phone] (fax) PCP: SOPHIE LICEA [address] [place] [address] [place] [phone] documented in this encounter Nursing Notes * Sanaz Pichardo LPN - 12/09/2023 8:38 AM EST Patient identified by full name and date of . Chief Complaint Patient presents with NEW PATIENT Referred for skin exam, spot L forearm documented in this encounter Plan of Treatment Upcoming Encounters Date Type Department Care Team (Late st Contact Info) Description 12/14/2023 6:40 PM EST Office Visit Family Medicine [address] [place] [phone] Sophie Licea MD [address] [place] [address] [place] [address] 05/02/2024 3:30 PM EDT Office Visit Rheumatology [address] [place] [phone] Lakisha Valverde CRNP [address] [facility] [place], [place] [address] 05/17/2024 9:30 AM EDT Office Visit Sleep Disorders Ctr Gerri Haque [place] [address] [place] [phone] Sun Brush CRNP [address] [place] [address] 08/11/2024 8:00 AM EDT Office Visit Allergy/Immunology Samantha Monte [place] [address] [place] [address] Narda Castellano PA-C [address] [place] [address] Scheduled Procedures Name Priority Associated Diagnoses Date/Ti [...] Not on filedocumented as of this encounter Procedures Procedure Name Priority Date/Time Associated Diagnosis Comments DERM IMAGE (SITE) Routine 12/09/2023 Skin exam, screening for cancer Velásquez angioma Multiple nevi Seborrheic keratosis documented in this encounter Results * DERM IMAGE (SITE) (12/09/2023) 12/09/2023 Akilah Fox PA-C DIGITAL PHOTOG LORI documented in this encounter Visit Diagnoses Diagnosis Multiple nevi- Primary Benign neoplasm of skin, site unspecified Skin exam, screening for cancer Screening for malignant neoplasm of the skin Velásquez angioma Nevus, non-neoplastic Seborrheic keratosis Other seborrheic keratosis documented in this encounter Care Teams Building Principal Relationship Specialty Start Date End Date Sophie Licea MD [address] [place] [address] [place] [address] PCP - General Family Medicine 03/07/19 documented as of this encounter
--- OUTSIDE RECORDS SUMMARY | 2024-03-07 12:14 | External Medical Summary | Summary of Care ---
Author Name Unknown Organization [facility] Address [address] [place] [address] Phone [phone] Care Team Providers Care Flotation Tank Operator Name Role Phone Sophie Licea MD Primary Care Provide r Reason for Visit * Reason Comments eRx-Medication Refill Encounter Details Date Type Department Care Team (Late st Contact Info) Description 10/28/2023 Refill Family Medicine [address] [phone] Sophie Licea MD [address] [place], [place] [address] [address] HTN, goal below 140/90 Allergies Active Allergy Reactions Criticality Noted Date Comments Ibuprofen 02/28/2008 Stomach problems Nsaids 01/10/2010 Has stomach problems Salicylates 10/17/2003 Nosebleeds documented as of this encounter (statuses as of 10/29/2023) Medications Medication Sig Dispensed Refills Start Date End Date Status Multiple Vitamins-Minerals (MULTIVITAMIN ADULT) TABS 0 Active [place]-3 Fatty Acids (FISH OIL) 1200 MG CAPS 0 Active Ascorbic Acid (VITAMIN C) 500 MG CAPS 0 Active Glucosamine 500 MG Capsule Take 1 Capsule by mouth in the morning and 1 Capsule before bedtime. 0 Active B Facfcom-Cmjeit-CV (B COMPLETE) TABS Take by mouth. 0 [...] 7.0% (HCC) USE DIRECTED . USE WITH DEXUNIFi Software G6 CLARITY ELVIRA FOR GLUCOSE MONITORING. DXE11.9 4 Each 1 3 Active Dexcom G6 SensorIndications:T ype 2 diabetes mellitus with hemoglobin A1c goal of less than 7.0% (HCC) USE DIRECTED. USE WITH DEXUNIFi Software G6 CLARITY ELVIRA FOR GLUCOSE MONITORING. DXE11.9 [...] THE MORNING 90 Tablet 1 3 Active Atorvastatin Calcium 20 MG Oral Tablet (Lipitor) TAKE 1 TABLET BY MOUTH EVERY DAY IN THE MORNING 30 Tablet 5 3 Active amLODIPine Besylate 10 MG Oral Tablet (Norvasc)Indication s:HTN, goal below 140/90 TAKE 1 TABLET BY MOUTH EVERY DAY IN THE MORNING 30 Tablet 5 3 Active Atorvastatin Calcium 20 MG Oral Tablet (Lipitor) Take 1 Tablet by mouth in the morning. 90 Tablet 1 3 10/29/20 23 Discontinued amLODIPine Besylate 10 MG Oral Tablet (Norvasc)Indication s:HTN, goal below 140/90 Take 1 Tablet by mouth in the morning. 90 Tablet 1 3 10/29/20 23 Discontinued documented as of this encounter (statuses as of 10/29/2023) Active Problems Problem Noted Date Diagnosed Date [...] as of this encounter (statuses as of 10/29/2023) Resolved Problems Problem Noted Date Diagnosed Date Resolved Date Severe obesity with body mas s index (BMI) of 35.0 to 39.9 with serious comorbidity 06/30/2019 Prediabetes 11/22/2018 09/16/2021 Overview: Per Prediabetes protocol #1 Body mass index (BMI) of 40. 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 02/08/2018 Overview: Nonspecific white matter [...] as of this encounter (statuses as of 10/29/2023) Immunizations Name Administration Dates Next Due COVID-19 mRNA, LNP-s, No Pre serve, 2-Dose Series (Pfizer) 09/17/2021,08/27/2021 Pneumococcal Conjugate Vacci ne, 20-valent ([id number]) 04/28/2022 Pneumococcal Polysaccharide PPV23 (Pneumovax) 02/06/2009 Seasonal [...] Miscellaneous Notes * Telephone Encounter - Lokesh Tirado [facility] - 10/29/2023 12:12 PM ESTSigned Prescriptions: Disp Refills Atorvastatin Calcium 20 MG Oral Tablet (Li*30 Tab*5 Sig: TAKE 1 TABLET BY MOUTH EVERY DAY IN THE MORNINGAuthorizing Provider: SOPHIE LICEA User:LOKESH TIRADO amLODIPine Besylate 10 MG Oral Tablet (Nor*30 Tab*5 Sig: TAKE 1 TABLET BY MOUTH EVERYDAY IN THE MORNINGAuthorizing Provider: SOPHIE LICEA User: LOKESH TIRADO documented in this encounter Plan of Treatment Upcoming Encounters Date Type Department Care Team (Late st Contact Info) Description 12/14/2023 6:40 PM EST Office Visit Family Medicine [address] [place] [phone] Sophie Licea MD [address] [place] [address] [place] [address] 01/18/2024 10:00 AM EDT Office Visit Dermatology [address] [place] [address] Akilah Fox PA-C [address] [place] [address] [place] [address] 05/02/2024 3:30 PM EDT Office Visit Rheumatology [address] [place] [phone] Lakisha Valverde CRNP [address] [facility] [place] [address] 05/17/2024 9:30 AM EDT Office Visit [facility] Disorders Ctr e[facility]ri Haque [place] [address] [place] [phone] Sun Brush CRNP [address] [place] [phone] 08/11/2024 8:00 AM EDT Office Visit Allergy/Immunology [place] Daniela Garcia [address] [facility] [place] [address] Narda Castellano PA-C [address] [facility] [place] [address] Scheduled Procedures Name Priority Associated Diagnoses Date/Ti [...] hypertension documented in this encounter Care Teams Flotation Tank Operator Relationship Specialty Start Date End Date Sophie Licea MD [address] [place] [address] [place] [address] PCP - General Family Medicine 03/07/19 documented as of this encounter
--- OUTSIDE RECORDS SUMMARY | 2024-03-07 12:14 | External Medical Summary | Summary of Care ---
Author Name Unknown Organization [facility] Address [address] [place] [address] Phone [phone] Care Team Providers Care Final Cigar And Box Examiner Name Role Phone Sophie Licea MD Primary Care Provide r Reason for Visit * Reason Comments eRx-Medication Refill Encounter Details Date Type Department Care Team (Late st Contact Info) Description 10/18/2023 Refill Pharmacy, [address] [place] [phone] Sophie Licea MD [address] [place] [address] [place] [phone] Allergies Active Allergy Reactions Criticality Noted Date Comments Ibuprofen 02/28/2008 Stomach problems Nsaids 01/10/2010 Has stomach problems Salicylates 10/17/2003 Nosebleeds documented as of this encounter (statuses as of 10/19/2023) Medications Medication Sig Dispensed Refills Start Date End Date Status Multiple Vitamins-Minerals (MULTIVITAMIN ADULT) TABS 0 Active [place]-3 Fatty Acids (FISH OIL) 1200 MG CAPS 0 Active Ascorbic Acid (VITAMIN C) 500 MG CAPS 0 Active Glucosamine 500 MG Capsule Take 1 Capsule by mouth in the morning and 1 Capsule before bedtime. 0 Active B Izizfdj-Qzbgrl-IV (B COMPLETE) TABS Take by mouth. 0 [...] hemoglobin A1c goal of less than 7.0% ([facility]) Test once a day E11.9 1 Kit [...] 7.0% (HCC) USE DIRECTED . USE WITH [employer]EX[employer] G6 CLARITY ELVIRA FOR GLUCOSE MONITORING. DXE11.9 4 Each 1 3 Active Dexcom G6 SensorIndications:T ype 2 diabetes mellitus with hemoglobin A1c goal of less than 7.0% (HCC) USE DIRECTED. USE WITH DEX[employer] G6 CLARITY ELVIRA FOR GLUCOSE MONITORING. DXE11.9 [...] THE MORNING 30 Tablet 5 3 Active Trulicity 3 MG/0.5ML Subcutaneous Solution Pen-injector (Dulaglutide) INJECT 3 MG UNDER THE SKIN ONCE A WEEK. 0.5 mL 10 3 Active Trulicity 3 MG/0.5ML Subcutaneous Solution Pen-injector (Dulaglutide) Inject 3 mg under the skin once a week. 2 mL 3 3 10/19/20 23 Discontinued documented as of this encounter (statuses as of 10/19/2023) Active Problems Problem Noted Date Diagnosed Date [...] as of this encounter (statuses as of 10/19/2023) Resolved Problems Problem Noted Date Diagnosed Date [...] Snoring 02/05/2018 08/30/2018 Daytime somnolence 02/05/2018 8 GENERAL REPAIR MECHANIC demyelination 07/25/2015 02/08/2018 Overview: Nonspecific white [...] as of this encounter (statuses as of 10/19/2023) Immunizations Name Administration Dates Next Due COVID-19 mRNA, LNP-s, No Pre serve, 2-Dose Series (Pfizer) 09/17/2021,08/27/2021 Pneumococcal Conjugate Vacci ne, 20-valent ([id number]) 04/28/2022 Pneumococcal Polysaccharide PPV23 (Pneumovax) 02/06/2009 SEASONAL [...] encounter Miscellaneous Notes * Telephone Encounter - Estrella Huerta MD - 10/19/2023 9:14 AM ESTSigned Prescriptions: Disp Refills Trulicity 3 MG/0.5ML Subcutaneous Solution*0.5 mL 10 Sig: INJECT 3 MG UNDER THE SKIN ONCE A WEEK. Authorizing Provider: ESTRELLA HUERTA * Telephone Encounter - Katie Garcia [facility] - 10/19/2023 8:30 AM EST Pending Prescriptions: Disp Refills Trulicity 3 MG/0.5ML Subcutaneous Solution* 3 Sig: Inject 3 mgunder the skin once a week. documented in this encounter Plan of Treatment Upcoming Encounters Date Type Department Care Team (Late st Contact Info) Description 10/21/2023 9:00 AM EST Office Visit Dermatology [address] [place] [phone] Akilah Fox PA-C [address] [place] [address] [place] [phone] 12/14/2023 6:40 PM EST Office Visit Family Medicine [address] [place] [phone] Sophie Licea MD [address] [place] [address] [place] [phone] 05/02/2024 3:30 PM EDT Office Visit Rheumatology [address] [place] [phone] Lakisha Valverde CRNP [address] [place] [address] [place] [address] 05/17/2024 9:30 AM EDT Office Visit Sleep Disorders [facility] Haque [place] [address] [facility] [place] [phone] Sun Brush CRNP [address] [place] [address] 08/11/2024 8:00 AM EDT Office Visit Allergy/Immunology [facility] [place] [address] [facility] [place] [address] Narda Castellano PA-C [address] [facility] [place] [address] Scheduled Procedures Name Priority Associated Diagnoses Date/Ti [...] filedocumented as of this encounter Care Teams Final Cigar And Box Examiner Relationship Specialty Start Date End Date Sophie Licea MD [address] [place] [address] [place] [phone] PCP - General Family Medicine 03/07/19 documented as of this encounter
--- OUTSIDE RECORDS SUMMARY | 2024-03-07 12:14 | External Medical Summary | Summary of Care ---
Author Name Unknown Organization [facility] Address [address] [place] [address] Phone [phone] Care Team Providers Care Storage Architect Name Role Phone Nova Licea MD Primary Care Provide r Reason for Visit * Reason Onset Date Comments Medication Refill 10/26/2023 Encounter Details Date Type Department Care Team (Late st Contact Info) Description 10/26/2023 Refill Family Medicine [address] [phone] Nova Licea MD [address] [place] [address] [place] [address] Reflux esophagitis* Allergies Active Allergy Reactions Criticality Noted Date Comments Ibuprofen 02/28/2008 Stomach problems Nsaids 01/10/2010 Has stomach problems Salicylates 10/17/2003 Nosebleeds documented as of this encounter (statuses as of 10/26/2023) Medications Medication Sig Dispensed Refills Start Date End Date Status Multiple Vitamins-Minerals (MULTIVITAMIN ADULT) TABS 0 Active [place]-3 Fatty Acids (FISH OIL) 1200 MG CAPS 0 Active Ascorbic Acid (VITAMIN C) 500 MG CAPS 0 Active Glucosamine 500 MG Capsule Take 1 Capsule by mouth in the morning and 1 Capsule before bedtime. 0 Active B Fahgpgr-Rwseqc-CZ (B COMPLETE) TABS Take by mouth. 0 [...] A1c goal of less than 7.0% ([facility]) Test once a day E11.9 1 Kit [...] 24 HOURS. 6 Tablet 3 04/01/2023 Active Atorvastatin Calcium 20 MG Oral Tablet (Lipitor) Take 1 Tablet by mouth in the morning. 90 Tablet 1 04/07/2023 Active amLODIPine Besylate 10 MG Oral Tablet (Norvasc)Indication s:HTN, goal below 140/90 Take 1 Tablet by mouth in the morning. 90 Tablet 1 04/07/2023 Active Albuterol Sulfate HFA 108 (90 Base) [...] 7.0% (HCC) USE DIRECTED . USE WITH [employer]enz ELVIRA FOR GLUCOSE MONITORING. DXE11.9 4 Each 1 07/29/2023 Active DexNoovo G6 SensorIndications:T ype 2 diabetes mellitus with hemoglobin A1c goal of less than 7.0% (HCC) USE DIRECTED. USE WITH Ascenz ELVIRA FOR GLUCOSE MONITORING. DXE11.9 9 Each 1 09/07/2023 Active Levothyroxine Sodium 175 MCG Oral Tablet (Levoxyl)Indication s:Acquired hypothyroidism Take 1 Tablet by mouth daily first thing in the morning. 90 Tablet 1 09/30/2023 Active Trulicity 3 MG/0.5ML Subcutaneous Solution Pen-injector (Dulaglutide) INJECT 3 MG UNDER THE SKIN ONCE A WEEK. 0.5 mL 10 10/19/2023 Active Famotidine 40 MG Oral Tablet (Pepcid)Indications :Reflux esophagitis TAKE 1 TABLET BY MOUTH EVERY DAY IN THE MORNING AND AT BEDTIME 180 Tablet 1 10/26/2023 Active Famotidine 40 MG Oral Tablet (Pepcid) TAKE 1 TABLET BY MOUTH EVERY DAY IN THE MORNING AND AT BEDTIME 60 Tablet 5 10/02/2023 3 Discontinu ed(Refill) documented as of this encounter (statuses as of 10/26/2023) Active Problems Problem Noted Date Diagnosed Date [...] as of this encounter (statuses as of 10/26/2023) Resolved Problems Problem Noted Date Diagnosed Date [...] Snoring 02/05/2018 08/30/2018 Daytime somnolence 02/05/2018 8 CLINICAL RESEARCHER demyelination 07/25/2015 02/08/2018 Overview: Nonspecific white matter [...] as of this encounter (statuses as of 10/26/2023) Immunizations Name Administration Dates Next Due COVID-19 mRNA, LNP-s, No Pre serve, 2-Dose Series ([employer]) 09/17/2021,08/27/2021 Pneumococcal Conjugate Vacci ne, 20-valent ([id number]) 04/28/2022 Pneumococcal Polysaccharide PPV23 (Pneumovax) 02/06/2009 Seasonal [...] encounter Miscellaneous Notes * Telephone Encounter - Nova Licea MD - 10/26/2023 1:07 PM EST Signed Prescriptions: Disp Refills Famotidine 40 MG Oral Tablet (Pepcid) 180 Ta*1 Sig: TAKE 1 TABLET BY MOUTH EVERY DAY IN THE MORNING AND AT BEDTIME Authorizing Provider: NOVA LICEA * Telephone Encounter - Aparna Goel CMA - 10/26/2023 11:57 AM ESTPending Prescriptions: Disp Refills Famotidine 40 MG Oral Tablet (Pepcid) 180 Ta*1 Sig: TAKE 1 TABLET BY MOUTH EVERY DAY IN THE MORNING AND AT BEDTIME * Telephone Encounter - Alissa Herndon OSA - 10/26/2023 11:06 AM EST Did you pend patient's preferred pharmacy and medication before forwarding?yes Pharmacy: [id number] [id number] [facility] Pending Prescriptions: Disp Refills Famotidine 40 MG Oral Tablet (Pepcid) 60 Tab*5 Last Visit: 06/17/2023 (in office), Visit date not found (telemedicine) Next Visit: 12/14/2023 If no future appointments scheduled, and last appointment is greater than a year ago, please schedule patient for a follow-up appointment Last date the medication was ordered: 10/02/23 FYI 90 day refill request Is this request for a controlled substance?No [...] 6:40 PM EST Office Visit Family Medicine [address] [place] [phone] Nova Licea MD [address] [place] [address] [place] [phone] 01/18/2024 10:00 AM EDT Office Visit Dermatology [address] [place] [phone] Akilah Fox PA-C [address] [place] [address] [place] [phone] 05/02/2024 3:30 PM EDT Office Visit Rheumatology [address] [place] [phone] Lakisha Valverde CRNP [address] [facility] [place] [address] 05/17/2024 9:30 AM EDT Office Visit Sleep Disorders [facility] [place] [phone] Sun Brush CRNP [address] [facility] [place] [address] 08/11/2024 8:00 AM EDT Office Visit Allergy/Immunology [facility] [address] [place] [address] Narda Castellano PA-C [address] [place] [address] Scheduled Procedures Name Priority Associated Diagnoses Date/Ti [...] as of this encounter Visit Diagnoses Diagnosis Reflux esophagitis- Primary documented in this encounter Care Teams Storage Architect Relationship Specialty Start Date End Date Nova Licea MD [address] [place] [address] [place] [phone] PCP - General Family Medicine 03/07/19 documented as of this encounter
--- OUTSIDE RECORDS SUMMARY | 2024-03-07 12:14 | External Medical Summary | Summary of Care ---
Author Name Unknown Organization [facility] Address [address] [facility] [place] [address] Phone [phone] Care Team Providers Care Traffic Circuit Engineer Name Role Phone Sophie Licea MD Primary Care Provide r Reason for Visit * Reason Comments NEW PATIENT Referred for skin ex am, spot L forearm Encounter Details Date Type Department Care Team (Late st Contact Info) Description 12/09/2023 9:00 AM EST Office Visit Dermatology [address] [place] [phone] Akilah Fox PA-C [address] [place] [address] [place] [phone] Multiple nevi*; Skin exam, screening for cancer; Velásquez angioma; Seborrheic keratosis Allergies Active Allergy Reactions Criticality Noted Date Comments Ibuprofen 02/28/2008 Stomach problems Nsaids 01/10/2010 Has stomach problems Salicylates 10/17/2003 Nosebleeds documented as of this encounter (statuses as of 12/09/2023) Medications Medication Sig Dispensed Refills Start Date End Date Status Multiple Vitamins-Minerals (MULTIVITAMIN ADULT) TABS 0 Active [place]-3 Fatty Acids (FISH OIL) 1200 MG CAPS 0 Active Ascorbic Acid (VITAMIN C) 500 MG CAPS 0 Active Glucosamine 500 MG Capsule Take 1 Capsule by mouth in the morning and 1 Capsule before bedtime. 0 Active B Sxtkhpv-Elimuc-OI (B COMPLETE) TABS Take by mouth. 0 [...] 7.0% (HCC) USE DIRECTED . USE WITH DEXArmune BioScience G6 CLARITY ELVIRA FOR GLUCOSE MONITORING. DXE11.9 4 Each 1 07/29/2023 Active DexSynbody Biotechnology G6 SensorIndications:Ty pe 2 diabetes mellitus with hemoglobin A1c goal of less than 7.0% (HCC) USE DIRECTED. USE WITH DEXArmune [employer] G6 CLARITY ELVIRA FOR GLUCOSE MONITORING. DXE11.9 [...] as of this encounter (statuses as of 12/09/2023) Active Problems Problem Noted Date Diagnosed Date [...] as of this encounter (statuses as of 12/09/2023) Resolved Problems Problem Noted Date Diagnosed Date [...] Snoring 02/05/2018 08/30/2018 Daytime somnolence 02/05/2018 8 SUGAR DRIER demyelination 07/25/2015 02/08/2018 Overview: Nonspecific white matter [...] as of this encounter (statuses as of 12/09/2023) Immunizations Name Administration Dates Next Due COVID-19 mRNA, LNP-s, No Pre serve, 2-Dose Series (Pfizer) 09/17/2021,08/27/2021 Pneumococcal Conjugate Vacci ne, 20-valent ([id number]) 04/28/2022 Pneumococcal Polysaccharide PPV23 (Pneumovax) 02/06/2009 Seasonal [...] zinc. Product examples; Think sport, Think baby, [place], [employer], kompany, [place] baby. "Baby" products can be used for all ages. documented in this encounter Progress Notes * Akilah Fox PA-C - 12/09/2023 8:33 AM EST SUBJECTIVE: HPI: Naresh Almendarez is a 58 year old male seen at the request of Sophie Licea MD for evaluation and treatment of lesion/full skin exam. - Tanning bed history. + Blistering sunburns. Lesion on L forearm, present "forever" but has shrunk down to a scab. No tx to date. Manager Report Documentation Patient offered shift boss and declined. REVIEW OF SYSTEMS: SKIN: No [...] NONE Reviewed, same day as visit, 0 [facility] Dermatology lab work(s)/pathology report(s) as well as [...] Dispense Refill Multiple Vitamins-Minerals (MULTIVITAMIN ADULT) TABS [place]-3 Fatty Acids (FISH OIL) 1200 MG CAPS Ascorbic Acid (VITAMIN C) 500 MG CAPS Glucosamine 500 MG Capsule Take 1 Capsule by mouth in the morning and 1 Capsule before bedtime. B Artjart-Peyxxg-EY (B COMPLETE) TABS Take by mouth. cetirizine [...] Tablet by mouth daily. 180 Tablet 2 Western OncolyticsTouch Verio In Vitro Strip (Glucose Blood) TEST ONCE A DAY DX E11.9 100 Strip 1 OneTouch Delica Lancets 33G TEST ONCE A DAY DX E11.9 100 Each 1 [employer] G6 Transmitter USE DIRECTED . USE WITH [employer] CLARITY ELVIRA FOR GLUCOSE MONITORING. DXE11.9 4 Each 1 DexSynbody Biotechnology G6 Sensor USE DIRECTED. USE WITH [employer] CLARITY ELVIRA FOR GLUCOSE MONITORING. DXE11.9 9 [...] Fox PA-C 12/09/2023 8:33 AM Ref: SOPHIE LICEA[[id number]] [address] [place] [address] [place] [phone] (office) [phone] (fax) PCP: SOPHIE LICEA [address] [place] [address] [place] [phone] documented in this encounter Nursing Notes * [...] 6:40 PM EST Office Visit Family Medicine [address] [place] [phone] Sophie Licea MD [address] [place] [address] [place] [phone] 05/02/2024 3:30 PM EDT Office Visit Rheumatology [address] [place] [phone] Lakisha Valverde CRNP [address] [facility] [place] [address] 05/17/2024 9:30 AM EDT Office Visit Sleep Disorders Ctr [facility] [place] [address] [place] [phone] Sun Brush CRNP [address] [place] [address] 08/11/2024 8:00 AM EDT Office Visit Allergy/Immunology [facility] [place] [address] [facility] [place] [address] Narda Castellano PA-C [address] [facility] [place] [address] Scheduled Procedures Name Priority Associated Diagnoses Date/Ti [...] as of this encounter Visit Diagnoses Diagnosis Multiple nevi- Primary Benign neoplasm of skin, site unspecified Skin exam, screening for cancer Screening for malignant neoplasm of the skin Velásquez angioma Nevus, non-neoplastic Seborrheic keratosis Other seborrheic keratosis documented in this encounter Care Teams Traffic Circuit Engineer Relationship Specialty Start Date End Date Sophie Licea MD [address] [place] [address] [place] [phone] PCP - General Family Medicine 03/07/19 documented as of this encounter
--- OUTSIDE RECORDS SUMMARY | 2024-03-07 12:14 | External Medical Summary | Summary of Care ---
Author Name Unknown Organization [facility] Address [address] [place] [address] Phone [phone] Care Team Providers Care Staff Occupational Therapist Name Role Phone Nova Licea MD Primary Care Provide r Reason for Visit * Reason Onset Date Comments Medication Refill 10/26/2023 Encounter Details Date Type Department Care Team (Late st Contact Info) Description 10/26/2023 Refill Family Medicine [address] [phone] Nova Licea MD [address] [place] [address] [place] [id number] HTN, goal below 140/90 Allergies Active Allergy Reactions Criticality Noted Date Comments Ibuprofen 02/28/2008 Stomach problems Nsaids 01/10/2010 Has stomach problems Salicylates 10/17/2003 Nosebleeds documented as of this encounter (statuses as of 10/26/2023) Medications Medication Sig Dispensed Refills Start Date End Date Status Multiple Vitamins-Minerals (MULTIVITAMIN ADULT) TABS 0 Active Wellpinit-3 Fatty Acids (FISH OIL) 1200 MG CAPS 0 Active Ascorbic Acid (VITAMIN C) 500 MG CAPS 0 Active Glucosamine 500 MG Capsule Take 1 Capsule by mouth in the morning and 1 Capsule before bedtime. 0 Active B Zeyjspa-Bhstxr-EY (B COMPLETE) TABS Take by mouth. 0 [...] hemoglobin A1c goal of less than 7.0% ([facility]) Test once a day E11.9 1 Kit [...] 7.0% (HCC) USE DIRECTED . USE WITH [employer] ELVIRA FOR GLUCOSE MONITORING. DXE11.9 4 Each 1 07/29/2023 Active Dexcom G6 SensorIndications:T ype 2 diabetes mellitus with hemoglobin A1c goal of less than 7.0% (HCC) USE DIRECTED. USE WITH [employer] ELVIRA FOR GLUCOSE MONITORING. DXE11.9 9 Each 1 09/07/2023 Active Levothyroxine Sodium 175 MCG Oral Tablet (Levoxyl)Indication s:Acquired hypothyroidism Take 1 Tablet by mouth daily first thing in the morning. 90 Tablet 1 09/30/2023 Active Trulicity 3 MG/0.5ML Subcutaneous Solution Pen-injector (Dulaglutide) INJECT 3 MG UNDER THE SKIN ONCE A WEEK. 0.5 mL 10/19/2023 Active Lisinopril 40 MG Oral TabletIndications:H TN, goal below 140/90 TAKE 1 TABLET BY MOUTH EVERY DAY IN THE MORNING 90 Tablet 1 10/26/2023 Active Famotidine 40 MG Oral Tablet (Pepcid) TAKE 1 TABLET BY MOUTH EVERY DAY IN THE MORNING AND AT BEDTIME 60 Tablet 5 10/02/2023 3 Discontinu ed(Refill) Lisinopril 40 MG Oral TabletIndications:H TN, goal below 140/90 TAKE 1 TABLET BY MOUTH EVERY DAY IN THE MORNING 30 Tablet 5 10/02/2023 3 Discontinu ed(Refill) documented [...] Snoring 02/05/2018 08/30/2018 Daytime somnolence 02/05/2018 8 WARDROBE CONSULTANT demyelination 07/25/2015 02/08/2018 Overview: Nonspecific white matter [...] (Pfizer) 09/17/2021,08/27/2021 Pneumococcal Conjugate Vacci ne, 20-valent ([id number]) 04/28/2022 Pneumococcal Polysaccharide PPV23 (Pneumovax) 02/06/2009 Seasonal [...] 1:07 PM EST Signed Prescriptions: Disp Refills Lisinopril 40 MG Oral Tablet 90 Tab*1 Sig: TAKE 1 TABLET BY MOUTH EVERY DAY IN THE MORNING Authorizing Provider: NOVA LICEA * Telephone Encounter - Aparna Goel CMA - 10/26/2023 11:55 AM ESTPending Prescriptions: Disp Refills Lisinopril 40 MG Oral Tablet 90 Tab*1 Sig: TAKE 1 TABLET BY MOUTH EVERY DAY IN THE MORNING * Telephone Encounter - Nelida Salmon OSA - 10/26/2023 11:14 AM EST Did you pend patient's preferred pharmacy and medication before forwarding?yes Pharmacy: [id number] [id number] [facility] Pending Prescriptions: Disp Refills Lisinopril 40 MG Oral Tablet 30 Tab*5 Last Visit: 06/17/2023 (in office), Visit date not found (telemedicine) Next Visit: 12/14/2023 If no future appointments scheduled, and last appointment is greater than a year ago, please schedule patient for a follow-up appointment Last date the medication was ordered: 10.02.2023 90 DAY RX REQUEST Is this request for a controlled substance?No [...] 6:40 PM EST Office Visit Family Medicine [address] [place] [phone] Nova Licea MD [address] [place] [address] [place] [phone] 01/18/2024 10:00 AM EDT Office Visit Dermatology [address] [place] [address] Akilah Fox PA-C [address] [place] [address] [place] [phone] 05/02/2024 3:30 PM EDT Office Visit Rheumatology [address] [place] [phone] Lakisha Valverde CRNP [address] [place] [address] 05/17/2024 9:30 AM EDT Office [facility] [place] [phone] Sun [facility]ush [facility] [place] [address] 08/11/2024 8:00 AM EDT Office Visit Allergy/Immunology [facility] [address] [place] [address] Narda Castellano PA-C [address] [place] [address] Scheduled Procedures Name Priority Associated Diagnoses Date/Ti [...] hypertension documented in this encounter Care Teams Staff Occupational Therapist Relationship Specialty Start Date End Date Nova Licea MD [address] [place] [address] [place] [phone] PCP - General Family Medicine 03/07/19 documented as of this encounter
--- OUTSIDE RECORDS SUMMARY | 2024-03-07 12:14 | External Medical Summary | Summary of Care ---
Author Name Unknown Organization [facility] Address [address] [place] [address] Phone [phone] Care Team Providers Care Roller Mill Tender Name Role Phone Sophie Licea MD Primary Care Provide r Reason for Visit * Reason Onset Date Comments Health Maintenance 10/05/2023 Encounter Details Date Type Department Care Team (Late st Contact Info) Description 10/05/2023 Telephone Family Medicine [address] [phone] Sophie Licea MD [address] [place], [place] [address] [address] Health Maintenance Allergies Active Allergy Reactions Criticality Noted Date Comments Ibuprofen 02/28/2008 Stomach problems Nsaids 01/10/2010 Has stomach problems Salicylates 10/17/2003 Nosebleeds documented as of this encounter (statuses as of 10/05/2023) Medications Medication Sig Dispensed Refills Start Date End Date Status Multiple Vitamins-Minerals (MULTIVITAMIN ADULT) TABS 0 Active [place]-3 Fatty Acids (FISH OIL) 1200 MG CAPS 0 Active Ascorbic Acid (VITAMIN C) 500 MG CAPS 0 Active Glucosamine 500 MG Capsule Take 1 Capsule by mouth in the morning and 1 Capsule before bedtime. 0 Active B Xtxegxg-Rnhgyg-QH (B COMPLETE) TABS Take by mouth. 0 [...] hemoglobin A1c goal of less than 7.0% ([facility]) Test once a day E11.9 1 [...] Oral Tablet (Norvasc)Indications :HTN, goal below 140/90 Take 1 Tablet by [...] the morning. 90 Tablet 1 06/08/2023 Active Trulicity 3 MG/0.5ML Subcutaneous Solution Pen-injector (Dulaglutide) Inject 3 mg under the skin once a week. 2 mL 3 06/08/2023 Active metFORMIN HCl 1000 MG Oral [...] 7.0% (HCC) USE DIRECTED . USE WITH DEXGiritech G6 CLARITY ELVIRA FOR GLUCOSE MONITORING. DXE11.9 4 Each 1 07/29/2023 Active Dexcom G6 SensorIndications:Ty pe 2 diabetes mellitus with hemoglobin A1c goal of less than 7.0% (HCC) USE DIRECTED. USE WITH DEXGiritech G6 CLARITY ELVIRA FOR GLUCOSE MONITORING. DXE11.9 9 Each 1 09/07/2023 Active Levothyroxine Sodium 175 MCG Oral Tablet (Levoxyl)Indications :Acquired hypothyroidism Take 1 Tablet by mouth daily first thing in the morning. 90 Tablet 1 09/30/2023 Active Famotidine 40 MG Oral Tablet (Pepcid) TAKE 1 TABLET BY MOUTH EVERY DAY IN THE MORNING AND AT BEDTIME 60 Tablet 5 10/02/2023 Active Lisinopril 40 MG Oral TabletIndications:HT N, goal below 140/90 TAKE 1 TABLET BY MOUTH EVERY DAY IN THE MORNING 30 Tablet 5 10/02/2023 Active documented as of this encounter (statuses as of 10/05/2023) Active Problems Problem Noted Date Diagnosed Date [...] as of this encounter (statuses as of 10/05/2023) Resolved Problems Problem Noted Date Diagnosed Date Resolved Date Severe obesity with body mas s index (BMI) of 35.0 to 39.9 with serious comorbidity 06/30/2019 Prediabetes 11/22/2018 09/16/2021 Overview: Per Prediabetes protocol #1 Body mass index (BMI) of 40. 0 to 44.9 in adult 02/16/2018 08/30/2018 Overview: Per Obesity protocol #1 Mixed rhinitis 02/15/2018 08/30/2018 Other chronic sinusitis 02/05/2018 04/2 07/2019 Snoring 02/05/2018 08/30/2018 Daytime somnolence 02/05/2018 8 LINSEED OIL TEMPERER demyelination 07/25/2015 02/08/2018 Overview: Nonspecific white matter [...] as of this encounter (statuses as of 10/05/2023) Immunizations Name Administration Dates Next Due COVID-19 mRNA, LNP-s, No Pre serve, 2-Dose Series (Pfizer) 09/17/2021,08/27/2021 Pneumococcal Conjugate Vacci ne, 20-valent ([id number]) 04/28/2022 Pneumococcal Polysaccharide PPV23 (Pneumovax) 02/06/2009 SEASONAL [...] encounter Miscellaneous Notes * Telephone Encounter - Maxine German LPN - 10/05/2023 9:27 AM EST Care Gaps Comprehensive Care Outreach Last Office/Telemedicine Visit: 06/17/2023 (in office), Visit date not found (telemedicine) Next Office Visit: 12/14/2023 Hemoglobin AIC Results: Lab Results Component Value Date/Time HEMOGLOBIN A1C - [facility] 6.0 (H) 02/10/2023 10:32 AM HEMOGLOBIN A1C - [facility] 9.1 (H) 10/03/2022 07:49 AM HEMOGLOBIN A1C - [facility] 7.7 (H) 04/29/2022 09:33 AM HEMOGLOBIN A1C - [facility] 6.1 (H) 03/26/2020 08:08 AM HEMOGLOBIN A1C - [facility] 5.6 08/31/2019 04:06 PM HEMOGLOBIN A1C - [facility] 5.9 (H) 08/30/2018 12:25 PM Reviewed Health Maintenance below: Health Maintenance Topic Date Due Hepatitis B (1 of 3 - 3-dose series) Never done Depression Screening 02/27/2021 COVID-19 Vaccine ( season) 2023 HbA1c 08/12/2023 Diabetic Eye Exam 10/01/2023 Diabetic Foot Exam 10/01/2023 Lab Eye foot Care Gap Outreach Action Taken: Unable to reach no answer documented in this encounter Plan of Treatment Upcoming Encounters Date Type Department Care Team (Late st Contact Info) Description 12/14/2023 6:40 PM EST Office Visit Family Medicine [address] [place] [phone] Sophie Licea MD [address] [place] [address] [place] [phone] 03/04/2024 10:00 AM EDT Office Visit Rheumatology [address] [place] [phone] Lakisha Valverde CRNP [address] [facility] [place] [address] 05/17/2024 9:30 AM EDT Office Visit Sleep Disorders Ctr Gerri Haque [place] [address] [place] [phone] Sun Brush CRNP [address] [place] [address] 08/11/2024 8:00 AM EDT Office Visit Allergy/Immunology [place] Daniela Garcia [address] [facility] [place] [address] Narda Castellano PA-C [address] [facility] [place] [phone] Scheduled Procedures Name Priority Associated Diagnoses Date/Ti [...] filedocumented as of this encounter Care Teams Roller Mill Tender Relationship Specialty Start Date End Date Sophie Licea MD [address] [place] [address] [place] [phone] PCP - General Family Medicine 03/07/19 documented as of this encounter
--- OUTSIDE RECORDS SUMMARY | 2024-03-07 12:15 | External Medical Summary | Summary of Care ---
Author Name Unknown Organization [facility] Address [address] [place] [address] Phone [phone] Care Team Providers Care Hand Cell Tuber Name Role Phone Sophie Licea MD Primary Care Provide r Reason for Visit * Reason Onset Date Comments Medication Refill 09/30/2023 Encounter Details Date Type Department Care Team (Late st Contact Info) Description 09/30/2023 Refill Family Medicine [address] [phone] Sophie Licea MD [address] [place] [address] [place] [id number] Acquired hypothyroidism Allergies Active Allergy Reactions Criticality Noted Date Comments Ibuprofen 02/28/2008 Stomach problems Nsaids 01/10/2010 Has stomach problems Salicylates 10/17/2003 Nosebleeds documented as of this encounter (statuses as of 09/30/2023) Medications Medication Sig Dispensed Refills Start Date End Date Status Multiple Vitamins-Minerals (MULTIVITAMIN ADULT) TABS 0 Active [place]-3 Fatty Acids (FISH OIL) 1200 MG CAPS 0 Active Ascorbic Acid (VITAMIN C) 500 MG CAPS 0 Active Glucosamine 500 MG Capsule Take 1 Capsule by mouth in the morning and 1 Capsule before bedtime. 0 Active B Ukopymf-Drlchd-BH (B COMPLETE) TABS Take by mouth. 0 [...] hemoglobin A1c goal of less than 7.0% ([facility]) Test once a day E11.9 1 Kit 0 09/16/2021 Active Fluticasone Propionate 50 MCG/ACT Nasal Suspension (Flonase) INSTILL 2 SPRAYS INTO EACH NOSTRIL TWICE DAILY NEEDED FOR NASAL SYMPTOMS AFTER SALINE IRRIGATIONS 48 mL 4 08/04/2022 Active Montelukast Sodium 10 MG Oral Tablet (Singulair) TAKE 1 TABLET BY MOUTH EVERY DAY IN THE EVENING 90 Tablet 3 12/11/2022 Active Lisinopril 40 MG Oral TabletIndications:H TN, goal below 140/90 TAKE 1 TABLET BY MOUTH EVERY DAY IN THE MORNING 90 Tablet 1 03/09/2023 Active Famotidine 40 MG Oral Tablet (Pepcid) TAKE 1 TABLET BY MOUTH EVERY DAY IN THE MORNING AND BEFORE BEDTIME 180 Tablet 1 03/09/2023 Active Sildenafil Citrate 100 MG Oral TabletIndications:E [...] 7.0% (HCC) USE DIRECTED . USE WITH DEX[employer] Skills G6 CLARITY ELVIRA FOR GLUCOSE MONITORING. DXE11.9 4 Each 1 07/29/2023 Active Dexcom G6 SensorIndications:T ype 2 diabetes mellitus with hemoglobin A1c goal of less than 7.0% (HCC) USE DIRECTED. USE WITH DEX[employer] Skills G6 CLARITY ELVIRA FOR GLUCOSE MONITORING. DXE11.9 9 Each 1 09/07/2023 Active Levothyroxine Sodium 175 MCG Oral Tablet (Levoxyl)Indication s:Acquired hypothyroidism Take 1 Tablet by mouth daily first thing in the morning. 90 Tablet 1 09/30/2023 Active Levothyroxine Sodium 175 MCG Oral Tablet (Levoxyl)Indication s:Acquired hypothyroidism Take 1 Tablet by mouth daily first thing in the morning. 90 Tablet 1 08/04/2023 3 Discontinu ed(Refill) documented as of this encounter (statuses as of 09/30/2023) Active Problems Problem Noted Date Diagnosed Date [...] as of this encounter (statuses as of 09/30/2023) Resolved Problems Problem Noted Date Diagnosed Date [...] Snoring 02/05/2018 08/30/2018 Daytime somnolence 02/05/2018 8 WINDOW AND SIDING CRAFTSMAN demyelination 07/25/2015 02/08/2018 Overview: Nonspecific white matter [...] as of this encounter (statuses as of 09/30/2023) Immunizations Name Administration Dates Next Due COVID-19 mRNA, LNP-s, No Pre serve, 2-Dose Series (Pfizer) 09/17/2021,08/27/2021 Pneumococcal Conjugate Vacci ne, 20-valent ([id number]) 04/28/2022 Pneumococcal Polysaccharide PPV23 (Pneumovax) 02/06/2009 SEASONAL [...] Telephone Encounter - Sophie Licea MD - 09/30/2023 9:29 AM EST Signed Prescriptions: Disp Refills Levothyroxine Sodium 175 MCG Oral Tablet (*90 Tab*1 Sig: Take 1 Tablet by mouth daily first thing in the morning. Authorizing Provider: SOPHIE LICEA * Telephone Encounter - Lucie Mendoza LPN - 09/30/2023 8:45 AM ESTPending Prescriptions: Disp Refills Levothyroxine Sodium 175 MCG Oral Tablet (*90 Tab*1 Sig: Take 1 Tablet by mouth daily first thing in the morning. * Telephone Encounter - Natalie Connell - 09/30/2023 7:53 AM EST Did you pend patient's preferred pharmacy and medication before forwarding?yes Pharmacy: [id number] [id number] [facility] Pending Prescriptions: Disp Refills Levothyroxine Sodium 175 [...] appointment Last date the medication was ordered: 08.04.23 Is this request for a controlled substance?No Urine Drug Screen: Results for orders placed or performed in visit on 06/08/23 PAIN MANAGEMENT DRUG PANEL, URINE W/ INTERPRETATION Result Value Compliance Interpretation Based on the medication information provided: The absence of tramadol and o-desmethyltramadol could be due to tramadol last taken on 06/05/2023. Amphetamine Negative Benzodiazepines Negative Cannabinoids Negative Cocaine Metabolite Negative Fentanyl Negative Hydrocodone / Hydromorphone Negative Methadone Metabolite Negative Morphine / Codeine Negative Oxycodone / Oxymorphone Negative Valid Interpretation Normal Creatinine FRANCISCA 188 Narrative Cutoff Concentrations: Drug Level Amphetamines [...] 6:40 PM EST Office Visit Family Medicine [address] [place] [phone] Sophie Licea MD [address] [place] [address] [place] [phone] 03/04/2024 10:00 AM EDT Office Visit Rheumatology [address] [place] [phone] Lakisha Valverde CRNP [address] [place] [address] 05/17/2024 9:30 AM EDT [facility] [address] [place] [phone] Sun Brush CRNP [address] [place] [address] 08/11/2024 8:00 AM EDT Office Visit Allergy/Immunology [facility] [place] [address] [place] [address] Narda Castellano PA-C [address] [place] [address] Scheduled Procedures Name Priority Associated Diagnoses Date/Ti [...] Ratio 06/08/2024 06/08/2023, 04/10 TSH 06/08/2024 06/08/2023, 04/02/2023, 04/29/2022, Additional history exists Colonoscopy 02/10/2026 02/11/2016, [...] hypothyroidism documented in this encounter Care Teams Hand Cell Tuber Relationship Specialty Start Date End Date Sophie Licea MD [address] [place] [address] [place] [phone] PCP - General Family Medicine 03/07/19 documented as of this encounter
[2024-03-07] MEDS: SODIUM CHLORIDE 0.9% 500 ML IV ONE (12:18)
[2024-03-07] MEDS: MECLIZINE HCL 25 MG TAB PO STA (12:19)
--- NOTE | 2024-03-07 13:16 | Electrocardiogram Report ---
Test Reason : Blood Pressure : / mmHG Vent. Rate : 072 BPM Atrial Rate : 072 BPM P-R Int : 160 ms QRS Dur : 100 ms QT Int : 416 ms P-R-T Axes : 035 -43 036 degrees QTc Int : 455 ms Normal sinus rhythm Left axis deviation Incomplete right bundle branch block Minimal voltage criteria for LVH, may be normal variant ( R in aVL ) Abnormal ECG When compared with ECG of 28-AUG-2022 20:36, No significant change was found Confirmed by Gregory Rincon ([id number]) on 03/07/2024 1:16:26 PM Referred By: Sophie Licea Confirmed By:Gregory Rincon
--- NOTE | 2024-03-07 14:51 | Magnetic Resonance Report ---
Brain MRI WITHOUT CONTRAST HISTORY: vertigo TECHNIQUE: Multiplanar multisequence MRI of the brain was performed without the use of contrast. COMPARISON STUDY: Head CT 03/07/2024. FINDINGS: There is a 9 mm focus of restricted diffusion within the left high convexity on image 19 co nsistent with a small acute infarct. The midline structures are intact. Scattered foci of T2 hyperint ensity seen within the periventricular and subcortical white matter of the supratentorial brain. Thes e are nonspecific but favor mild microvascular ischemic change. There is no mass, hematoma, or midlin e shift. Mild mucosal thickening within the paranasal sinuses. The right mastoid air cells are clear. There is a small left mastoid effusion. The major vascular flow-voids at the skull base are well-angel ntained. There are old lacunar infarcts within the bilateral basal ganglia and bilateral thalami. The orbits are unremarkable. IMPRESSION: 1. A 9 mm acute infarct within the left posterior frontal lobe at the high convexity. 2. Old lacunar infarcts within the bilateral basal ganglia and thalami. 3. Mild atrophy and microvascular ischemic changes. ACT 112: Negative or not required by law. Electronically signed by: Daniel Boles M.D. 03/07/2024 2:50 PM
[2024-03-07] MEDS: ASPIRIN CHEW 324 MG PO STA (15:10)
[2024-03-07] MEDS ORDERED: PHARMACIST DISCHARGE MED REC CONSULT PRN (15:12)
--- NOTE | 2024-03-07 15:13 | History & Physical Report ---
Date of Service March 07, 2024 Assessment & Plan (1) Acute CVA (cerebrovascular accident): Plan: - Admit to PCU - Stroke order set completed, no indication for thrombolytic as sx started 2 days ago - CT head reviewed and is negative, CTA neck negative - MRI brain wo contrast completed showing 9 mm acute lesion in posterior frontal region - Given full dose aspirin in the ER, will add atorvastatin 80 mg - Will allow permissive hypertension with SBP 140-170 - Neurology consulted - PT/OT consults placed (2) DM II (diabetes mellitus, type II), controlled: Plan: -ISS with Accu-Cheks ACHS -Check A1c with a.m. labs -Has Dexcom on arm normally, off s/p MRI and he does not have replacement with him - Hold metformin (3) HTN (hypertension): Plan: -Patient is on amlodipine, lisinopril, metoprolol, HCTZ, continue (4) HLD (hyperlipidemia): Plan: -Increase statin therapy from 20 to 80 mg daily with new acute stroke (5) Morbid obesity: Plan: - Diet and exercise to be encouraged throughout hospital stay - BMI of 40.9 on admission (6) Hypothyroid: Plan: -Chronic, stable, continue levothyroxine 175 mcg daily (7) Asthma: Plan: -May continue use of allergy medications as well as albuterol -No acute exacerbation, no respiratory complaints -O2 sats 96% on RA (8) PAOLA on CPAP: Plan: -May continue CPAP at bedtime DVT ppx: teds, scds Lines: PIV x 1 FEN/GI: HH/DM diet CODE: Full code Dispo: From home, likely to remain in the hospital x 1-2 days A total of 75 minutes were spent with greater than 50% of that time face to face with the patient, personally reviewing all current laboratories, imaging studies, past medication reconciliation, outpatient chart review, and discussion with specialists to collaborate care for the patient with attending. Please see attending documentation for corrections and/or additions. History of Present Illness Chief Complaint: Vertigo/dizziness Primary Care Provider: Sophie Licea MD This is a 58-year-old male with PMHx of DM type II, HTN, HLD, PAOLA on CPAP who presents to the hospital with vertigo, ataxia for 2 days. Pt has not been feeling well/ symptoms persisted so presented to the ER. Patient states that on Thursday morning he noticed a change in his ability to walk straight forward felt like he was unbalanced, and improved throughout the day. Similar thing happened on Thursday when he woke in the morning again had difficulty walking, improved throughout the day. This morning when he attempted to get up his imbalance was much more significant, and took a longer time to resolve. He feels that he may have been leaning more to the right with inability to control it. He denies any slurred speech, word finding, visual changes, focal deficits or strength discrepancies. His brother is present with him at bedside and supports the history. Patient states that he did take all of his normally scheduled medications this morning. His Dexcom monitor is now off since having an MRI. He has not eaten much today and is hungry. CT head and neck, CT neck angio was negative. MRI is showing acute 9 mm in left posterior frontal lobe. Old lacunar infarcts within the by lateral basal ganglia and thalami noted, mild atrophy and microvascular ischemic changes. Allergies Allergy/AdvReac Type Severity Reaction Status Date / Time aspirin AdvReac Intermediate nose bleeds Verified 08/28/22 21:21 NSAIDS (Non-Steroidal AdvReac Intermediate to avoid Verified 08/28/22 21:21 Anti-Inflamma d/t stomach/esophagus irritation Pork/Porcine Containing AdvReac Intermediate diarrhea Verified 08/28/22 21:21 Products Home Medications Medication Instructions Recorded Confirmed Type ascorbic acid (vitamin C) 500 mg 500 mg PO DAILY 06/28/19 03/07/24 History tablet (Vitamin C) duloxetine 60 mg capsule,delayed 60 mg PO DAILY 06/28/19 03/07/24 History release famotidine 40 mg tablet 40 mg PO BID 06/28/19 03/07/24 History hydrochlorothiazide 25 mg tablet 25 mg PO DAILY 06/28/19 03/07/24 History lisinopril 40 mg tablet 40 mg PO DAILY 06/28/19 03/07/24 History montelukast 10 mg tablet 10 mg PO DAILY 06/28/19 03/07/24 History omega 8-vnh-wwk-fish oil 1,000 mg 1 cap PO DAILY 06/28/19 03/07/24 History (120 mg-180 mg) capsule (Fish Oil) tramadol 50 mg tablet 50 mg PO BID PRN Pain 06/28/19 03/07/24 History vitamin B complex 1 tab PO DAILY 06/28/19 03/07/24 History vitamin E 200 unit capsule 200 unit PO DAILY 06/28/19 03/07/24 History albuterol sulfate 90 mcg/actuation 2 puff inhalation Q4 PRN Shortness 08/28/22 03/07/24 History aerosol inhaler Of Breath Or Wheezing amlodipine 10 mg tablet 10 mg PO DAILY 08/28/22 03/07/24 History atorvastatin 20 mg tablet 20 mg PO DAILY 08/28/22 03/07/24 History cetirizine 10 mg tablet 10 mg PO DAILY 08/28/22 03/07/24 History glucosamine sulfate 500 mg tablet 500 mg PO DAILY 08/28/22 03/07/24 History (Glucosamine) metformin 500 mg tablet 1,000 mg PO QAM 08/28/22 03/07/24 History metoprolol succinate 25 mg 25 mg PO QAM 08/28/22 03/07/24 History tablet,extended release 24 hr multivitamin 1 tab PO DAILY 08/28/22 03/07/24 History sildenafil 100 mg tablet 100 mg PO DIRECTED PRN .before 08/28/22 03/07/24 History intercoarse turmeric 400 mg capsule 400 mg PO DAILY 08/28/22 03/07/24 History levothyroxine 175 mcg tablet 175 mcg PO QAM 03/07/24 03/07/24 History Past Med/Surg History Medical History (Updated 03/07/24 @ 16:13 by Yesenia Post PA-C) Hypothyroid PAOLA on CPAP HLD (hyperlipidemia) History of deviated nasal septum HTN (hypertension) Asthma Diverticulitis Bronchitis Weakness Laceration of scalp Head injury Dehydration Right knee injury Surgical History (Updated 03/07/24 @ 15:09 by Yesenia Post PA-C) Hx of vasectomy Hx of cystoscopy Hx of sinus surgery Family History Other Cancer Diabetes Heart disease Hypertension Social History (Updated 03/07/24 @ 15:10 by Yesenia Post PA-C) Smoking Status: Former smoker Tobacco Type: Cigarettes and Smokeless Tobacco (Dip or Chew) Second Hand Exposure: No; Do You Dip or Chew Tobacco: No; Tobacco Cessation Education Requested by Patient: No Hx Alcohol Use: No Hx Substance Use: No Preferred Language: Kazakh Communication Ability: Effective Operater Required: No Beliefs That Will Affect Care: None Current Living Situation: Spouse Other Information That Helps Us Care for You: No Feels Safe at Home: Yes Safety Concerns: Feels Safe At This Time Assistive Devices: Denture - Upper, Denture - Lower, Glasses and Hearing Aid - Bilateral Assistive Devices Comment: BPAP Review of Systems Review of Systems: Constitutional: No fever, sweats or chills Eyes: No diplopia, no worsening or blurred vision ENT: normal hearing, no trouble swallowing Respiratory: No cough, sputum, dyspnea at rest or on exertion Cardiovascular: No chest pain, tightness or palpitations Abdomen: No pain, nausea, vomiting, diarrhea or constipation Musculoskeletal: No joint pain, calf pain, swelling Neurologic: No weakness, numbness/tingling, + balance problems as per HPI Psychiatric: No anxiety or depression Skin: No rash or itch Physical Exam Physical Exam: General: awake, alert, no apparent distress, + obese white male Head: Normocephalic, atraumatic ENT: PERRL, EOMI, no pharyngeal exudate, mucous membranes moist Chest: Clear to auscultation, on room air, O2 sats 96%, no adventitious breath sounds Cardiac: Regular rate and rhythm, no murmur, no JVD, normal peripheral pulses, good capillary refill Abdominal: NABS x 4 quadrants, soft, + umbilical hernia, nondistended, nontender to palpation, no rebound or guarding Extremities: Normal inspection, no peripheral edema or erythema, calfs nontender to palpation Psych: Normal mood and affect Neuro: AAO x 3, strength intact bilaterally and rated 5/5, no motor deficits, speech is clear, no peripheral sensory deficits, gait was not assessed Results & Data Results & Data Vital Signs (Past 12 Hours) Vital Signs Temp Pulse Resp BP Pulse Ox O2 Del Method 03/07/24 13:45 77 03/07/24 13:40 75 23 96 03/07/24 13:30 72 24 95 03/07/24 13:20 81 23 96 03/07/24 13:16 78 16 96 03/07/24 13:00 74 21 93 03/07/24 13:00 110/87 03/07/24 12:50 73 16 97 03/07/24 12:40 78 21 93 03/07/24 12:30 76 25 H 94 03/07/24 12:30 146/95 H 03/07/24 12:20 72 21 96 03/07/24 12:10 84 25 H 97 03/07/24 12:00 74 27 H 94 03/07/24 12:00 147/85 H 03/07/24 11:50 77 23 95 03/07/24 11:40 82 13 96 03/07/24 11:10 83 32 H 03/07/24 11:00 90 16 03/07/24 10:50 73 22 03/07/24 10:30 82 20 179/110 H 03/07/24 10:00 76 20 176/103 H 98 Room Air 03/07/24 09:49 80 21 188/113 H 97 Room Air 03/07/24 09:45 75 03/07/24 09:38 36.4 C L 75 20 196/109 H 98 Room Air Laboratory Results 03/07/24 03/07/24 10:04 09:50 WBC 7.04 RBC 5.32 Hgb 16.2 Hct 45.4 MCV 85.3 MCH 30.5 MCHC 35.7 RDW Std Deviation 38.9 RDW Coeff of Chang 12.7 Plt Count 240 MPV 9.7 Immature Gran % (Auto) 0.6 Neut % (Auto) 67.3 Lymph % (Auto) 21.0 Motley % (Auto) 8.1 Eos % (Auto) 1.7 Baso % (Auto) 1.3 Neut # (Auto) 4.74 Lymph # (Auto) 1.48 Motley # (Auto) 0.57 Eos # (Auto) 0.12 Baso # (Auto) 0.09 Immature Gran # (Auto) 0.04 PT 10.7 INR 1.0 APTT 31 PTT Ratio 1.1 Sodium 139 Potassium 3.6 Chloride 106 Carbon Dioxide 24 Anion Gap 9 BUN 14 Creatinine 0.75 Est Cr Clr Drug Dosing 145.0 Est GFR ( Amer) 117.2 Est GFR (Non-Af Amer) 101.1 BUN/Creatinine Ratio 18.7 Glucose 140 H Calcium 8.7 Magnesium 1.9 Total Bilirubin 0.6 AST 20 ALT 29 Alkaline Phosphatase 58 Troponin I High Sens 15.3 Total Protein 7.4 Albumin 4.3 Globulin 3.1 Albumin/Globulin Ratio 1.4 Blood Type A Positive Antibody Screen NEGATIVE Diagnostic Findings Head CT 03/07/24 09:[address] OF THE BRAIN; CT ANGIOGRAM OF THE BRAIN; CT ANGIOGRAM OF THE NECK CLINICAL HISTORY: Neurological deficit. Stroke like symptoms. Dizziness. COMPARISON STUDY: CT of the brain dated 06/28/2019. TECHNIQUE: Unenhanced axial CT scan of the brain is performed. Subsequently, following the IV administration of 118 of Optiray 320, CT angiogram of the head and neck was performed from the aortic arch to the vertex. Images are reviewed in the axial, sagittal, and coronal planes. 3-D MIPS images are created and assessed. IV contrast was administered without complication. All measurements were calculated based on NASCET criteria. A dose lowering technique was utilized adhering to the principles of ALARA. CT DOSE: 1204.35 mGy.cm FINDINGS: Brain parenchyma: There is age-related involutional change and a mild to moderate patchy subcortical and periventricular microhepatic disease. Chronic lacunar infarcts are noted in the right caudate head, the left basal ganglia, and the right thalamus. There is no hemorrhage, mass effect, or evidence of acute territorial ischemia by CT criteria. There is no evidence of enhancing mas s lesion on the angiogram phase images. The ventricles, sulci, and cisterns are prominent secondary to involutional change. Elliott-white matter differentiation is preserved. No extra-axial fluid collection is seen. Thoracic aorta: Visualized portions of the thoracic aorta are normal in caliber. The aortic arch demonstrates standard 3-vessel anatomy. Right carotid arterial system: The right common carotid artery is widely patent, as are the right internal and external carotid arteries. Minimal calcified plaque is seen in the carotid bulb. Left carotid arterial system: The left common carotid artery is widely patent, as are the left internal and external carotid arteries. Vertebral arteries: Widely patent bilaterally noting mild left-sided dominance. Subclavian arteries: Widely patent bilaterally. Intracranial vasculature: There is atherosclerotic calcification of the cavernous carotid arteries. The marshall of Mccormick is developmentally complete. The internal carotid arteries are patent at the skull base, as are the anterior and middle cerebral arteries bilaterally. The vertebrobasilar system and posterior cerebral arteries are widely patent. The left vertebral artery is brandon nant. There is no aneurysm, high-grade stenosis, or focal vessel cut off seen throughout the intracranial circulation. Jugular veins: Patent bilaterally. Dural sinuses: Patent. Lung apices: Partially visualized upper lobe lung parenchyma appears clear. Soft tissues: The visualized pharyngeal soft tissues are normal in appearance noting angiographic phase technique. The oropharyngeal airway appears widely patent. The thyroid gland is mildly enlarged and heterogeneous. The salivary glands are normal in appearance. No cervical lymphadenopathy is seen. Skeletal structures: The skeletal structures appear osteopenic. The calvarium appears intact. The cervical spine is maintained noting multilevel spondylosis. Orbits: The bony orbits are intact. Orbital contents are normal as visualized. Sinuses and mastoids: Trace mucosal thickening is noted in the maxillary antra. The paranasal sinuses are otherwise clear. There is a left mastoid effusion. The right mastoid air cells are well pneumatized. IMPRESSION: 1. There is no hemorrhage, mass effect, or evidence of acute territorial ischemia by CT criteria. 2. Unremarkable CT angiogram of the brain. 3. Unremarkable CT angiogram of the neck. ACT 112: Negative or not required by law. Electronically signed by: Daryn Markham M.D. 03/07/2024 11:54 AM Head CTA 03/07/24 09:[address] OF THE BRAIN; CT ANGIOGRAM OF THE BRAIN; CT ANGIOGRAM OF THE NECK CLINICAL HISTORY: Neurological deficit. Stroke like symptoms. Dizziness. COMPARISON STUDY: CT of the brain dated 06/28/2019. TECHNIQUE: Unenhanced axial CT scan of the brain is performed. Subsequently, following the IV administration of 118 of Optiray 320, CT angiogram of the head and neck was performed from the aortic arch to the vertex. Images are reviewed in the axial, sagittal, and coronal planes. 3-D MIPS images are created and assessed. IV contrast was administered without complication. All measurements were calculated based on NASCET criteria. A dose lowering technique was utilized adhering to the principles of ALARA. CT DOSE: 1204.35 mGy.cm FINDINGS: Brain parenchyma: There is age-related involutional change and a mild to moderate patchy subcortical and periventricular microhepatic disease. Chronic lacunar infarcts are noted in the right caudate head, the left basal ganglia, and the right thalamus. There is no hemorrhage, mass effect, or evidence of acute territorial ischemia by CT criteria. There is no evidence of enhancing mass lesion on the angiogram phase images. The ventricles, sulci, and cisterns are prominent secondary to involutional change. Elliott-white matter differentiation is preserved. No extra-axial fluid collection is seen. Thoracic aorta: Visualized portions of the thoracic aorta are normal in caliber. The aortic arch demonstrates standard 3-vessel anatomy. Right carotid arterial system: The right common carotid artery is widely patent, as are the right internal and external carotid arteries. Minimal calcified plaque is seen in the carotid bulb. Left carotid arterial system: The left common carotid artery is widely patent, as are the left internal and external carotid arteries. Vertebral arteries: Widely patent bilaterally noting mild left-sided dominance. Subclavian arteries: Widely patent bilaterally. Intracranial vasculature: There is atherosclerotic calcification of the cavernous carotid arteries. The marshall of Mccormick is developmentally complete. The internal carotid arteries are patent at the skull base, as are the anterior and middle cerebral arteries bilaterally. The vertebrobasilar system and posterior cerebral arteries are widely patent. The left vertebral artery is dominant. There is no aneurysm, high-grade stenosis, or focal vessel cut off seen throughout the intracranial circulation. Jugular veins: Patent bilaterally. Dural sinuses: Patent. Lung apices: Partially visualized upper lobe lung parenchyma appears clear. Soft tissues: The visualized pharyngeal soft tissues are normal in appearance noting angiographic phase technique. The oropharyngeal airway appears widely patent. The thyroid gland is mildly enlarged and heterogeneous. The salivary glands are normal in appearance. No cervical lymphadenopathy is seen. Skeletal structures: The skeletal structures appear osteopenic. The calvarium appears intact. The cervical spine is maintained noting multilevel spondylosis. Orbits: The bony orbits are intact. Orbital contents are normal as visualized. Sinuses and mastoids: Trace mucosal thickening is noted in the maxillary antra. The paranasal sinuses are otherwise clear. There is a left mastoid effusion. The right mastoid air cells are well pneumatized. IMPRESSION: 1. There is no hemorrhage, mass effect, or evidence of acute territorial ischemia by CT criteria. 2. Unremarkable CT angiogram of the brain. 3. Unremarkable CT angiogram of the neck. ACT 112: Negative or not required by law. Electronically signed by: Daryn Markham M.D. 03/07/2024 11:54 AM Neck CTA 03/07/24 09:[address] OF THE BRAIN; CT ANGIOGRAM OF THE BRAIN; CT ANGIOGRAM OF THE NECK CLINICAL HISTORY: Neurological deficit. Stroke like symptoms. Dizziness. COMPARISON STUDY: CT of the brain dated 06/28/2019. TECHNIQUE: Unenhanced axial CT scan of the brain is performed. Subsequently, following the IV administration of 118 of Optiray 320, CT angiogram of the head and neck was performed from the aortic arch to the vertex. Images are reviewed in the axial, sagittal, and coronal planes. 3-D MIPS images are created and assessed. IV contrast was administered without complication. All measurements were calculated based on NASCET criteria. A dose lowering technique was utilized adhering to the principles of ALARA. CT DOSE: 1204.35 mGy.cm FINDINGS: Brain parenchyma: There is age-related involutional change and a mild to moderate patchy subcortical and periventricular microhepatic disease. Chronic lacunar infarcts are noted in the right caudate head, the left basal ganglia, and the right thalamus. There is no hemorrhage, mass effect, or evidence of acute territorial ischemia by CT criteria. There is no evidence of enhancing mass lesion on the angiogram phase images. The ventricles, sulci, and cisterns are prominent secondary to involutional change. Elliott-white matter differentiation is preserved. No extra-axial fluid collection is seen. Thoracic aorta: Visualized portions of the thoracic aorta are normal in caliber. The aortic arch demonstrates standard 3-vessel anatomy. Right carotid arterial system: The right common carotid artery is widely patent, as are the right internal and external carotid arteries. Minimal calcified plaque is seen in the carotid bulb. Left carotid arterial system: The left common carotid artery is widely patent, as are the left internal and external carotid arteries. Vertebral arteries: Widely patent bilaterally noting mild left-sided dominance. Subclavian arteries: Widely patent bilaterally. Intracranial vasculature: There is atherosclerotic calcification of the cavernous carotid arteries. The marshall of Mccormick is developmentally complete. The internal carotid arteries are patent at the skull base, as are the anterior and middle cerebral arteries bilaterally. The vertebrobasilar system and posterior cerebral arteries are widely patent. The left vertebral artery is dominant. There is no aneurysm, high-grade stenosis, or focal vessel cut off seen throughout the intracranial circulation. Jugular veins: Patent bilaterally. Dural sinuses: Patent. Lung apices: Partially visualized upper lobe lung parenchyma appears clear. Soft tissues: The visualized pharyngeal soft tissues are normal in appearance noting angiographic phase technique. The oropharyngeal airway appears widely patent. The thyroid gland is mildly enlarged and heterogeneous. The salivary glands are normal in appearance. No cervical lymphadenopathy is seen. Skeletal structures: The skeletal structures appear osteopenic. The calvarium appears intact. The cervical spine is maintained noting multilevel spondylosis. Orbits: The bony orbits are intact. Orbital contents are normal as visualized. Sinuses and mastoids: Trace mucosal thickening is noted in the maxillary antra. The paranasal sinuses are otherwise clear. There is a left mastoid effusion. The right mastoid air cells are well pneumatized. IMPRESSION: 1. There is no hemorrhage, mass effect, or evidence of acute territorial ischemia by CT criteria. 2. Unremarkable CT angiogram of the brain. 3. Unremarkable CT angiogram of the neck. ACT 112: Negative or not required by law. Electronically signed by: Daryn Markham M.D. 03/07/2024 11:54 AM Brain MRI 03/07/24 12:59 Brain MRI WITHOUT CONTRAST HISTORY: vertigo TECHNIQUE: Multiplanar multisequence MRI of the brain was performed without the use of contrast. COMPARISON STUDY: Head CT 03/07/2024. FINDINGS: There is a 9 mm focus of restricted diffusion within the left high convexity on image 19 consistent with a small acute infarct. The midline structures are intact. Scattered foci of T2 hyperintensity seen within the periventricular and subcortical white matter of the supratentorial brain. These are nonspecific but favor mild microvascular ischemic change. There is no mass, hematoma, or midline shift. Mild mucosal thickening within the paranasal sinuses. The right mastoid air cells are clear. There is a small left mastoid effusion. The major vascular flow-voids at the skull base are well-maintained. There are old lacunar infarcts within the bilateral basal ganglia and bilateral thalami. The orbits are unremarkable. IMPRESSION: 1. A 9 mm acute infarct within the left posterior frontal lobe at the high convexity. 2. Old lacunar infarcts within the bilateral basal ganglia and thalami. 3. Mild atrophy and microvascular ischemic changes. ACT 112: Negative or not required by law. Electronically signed by: Daniel Boles M.D. 03/07/2024 2:50 PM ECG Additional Comments: Reviewed personally, NSR with RBBB Code Status & VTE Plan Code Status Full code - discussed with pt at bedside Supervising Physician Co-Signing Physician Notes I have seen and discussed the case with the collaborating advanced practitioner. I agree with the above H&P. I have reviewed and confirmed the patients medical history, the findings on physical examination, and the patients diagnosis and treatment plan with Sincere LAIRD and agree with the information documented. Mr. Almendarez is a 58-year-old male with PMHx of DM type II, HTN, HLD, PAOLA on CPAP who is admitted s/p acute CVA. Patient reports symptoms of vertigo and ataxia x 48 hours which were progressive in nature--thus prompting his presentation to the ED. Patient denies any other neurologic symptoms. He denies any dysphagia, dysarthria, or vision changes GENERAL APPEARANCE: AxOx4, generally well-appearing gentleman no acute distress. HEENT: NC, AT. MMM. EOMI, clear conjunctiva, oropharynx clear. NECK: Supple without lymphadenopathy. No stiffness or restricted ROM. HEART: Normal rate and regular rhythm, normal S1/S1, no m/r/g LUNGS: CTAB, moving air well. No crackles or wheezes are heard. ABDOMEN: Soft, nontender, nondistended with good bowel sounds heard. BACK: No CVAT, no obvious deformity. EXTREMITIES: Without cyanosis, clubbing or edema. NEUROLOGICAL: Grossly nonfocal. Alert and oriented, moving all 4 extremities. CN II-XII intact Acute CVA MRI brain wo contrast completed showing 9 mm acute lesion in posterior frontal region high intensity statin permissive HTN at this time Neurology consult continue asa daily plavix now, and daily ( no hemorrhage noted on imaging) Admit tele Type 2 diabetes mellitus 12/2023 6.3 HTN Home HCTZ 25 mg daily, metoprolol succinate 25 mg daily, amlodipine 10 mg daily, and lisinopril 40 mg daily Dyslipidemia home atorvastatin 20 mg daily---increase to 80mg Acquired hypothyroidism levothyroxine 175 mcg daily. Mild intermittent asthma without complication--controlled. No recent flares. Continue montelukast 10 mg daily and albuterol PRN. rest of plan as above I spent a total of 35 minutes coordinating, documenting, and providing care for this patient excluding time spent in the performance of separately billed services. All of the aforementioned completed outside of collaborating with the assigned advanced practitioner for a full treatment plan. I have reviewed the advanced practitioner's documentation, and I agree with, and take responsibility for the plan of care
[2024-03-07] MEDS ORDERED: ALBUTEROL HFA 8 GM INHALER INH PRN (15:45)
[2024-03-07] MEDS: CLOPIDOGREL BISULFATE 75 MG TAB PO ONE (18:25)
[2024-03-07] MEDS: ATORVASTATIN 20 MG TAB PO ONE (18:55)
[2024-03-07] MEDS: MONTELUKAST SODIUM 10 MG TABLET PO SCH (19:44)
[2024-03-07] MEDS: FAMOTIDINE 40 MG TABLET PO SCH (19:49)
[2024-03-08] MEDS: LEVOTHYROXINE SODIUM 175 MCG TABLET PO SCH (05:57)
[2024-03-08 07:30] LABS: Basophils # (auto) 0.09 K/uL (0.00-0.20); Basophils % (auto) 1.2 %; Eosinophils # (auto) 0.16 K/uL (0.00-0.50); Eosinophils % (auto) 2.2 %; Hematocrit (blood only) 45.3 % (42.0-52.0); Hemoglobin 15.5 g/dl (14.0-18.0); Immature Granulocytes # (auto) 0.03 K/uL (0.01-0.20); Immature Granulocytes % (auto) 0.4 %; Lymphocytes # (auto) 1.37 K/uL (1.20-3.40); Lymphocytes % (auto) 18.7 %; Mean Corpuscular Hemoglobin 29.3 pg (25.0-34.0); Mean Corpuscular Hgb Conc 34.2 g/dL (32.0-36.0); Mean Corpuscular Volume 85.6 fL (80.0-100.0); Mean Platelet Volume 9.7 fL (9.4-12.4); Monocytes # (auto) 0.59 K/uL (0.11-0.59); Monocytes % (auto) 8.1 %; Neutrophils # (auto) 5.07 K/uL (1.40-6.50); Neutrophils % (auto) 69.4 %; Platelet Count 244 K/uL (130-400); RDW Coefficient of Variation 12.5 % (11.5-14.5); RDW Standard Deviation 38.6 fL (36.4-46.3); Red Blood Count 5.29 M/uL (4.70-6.10); White Blood Count 7.31 K/ul (4.8-10.8)
[2024-03-08 07:55] LABS: BUN Creatinine Ratio 22.1 (10-20); Creatinine Clr Calc Pharmacy 123.6 ml/min; Est GFR (African American) 110.8 ml/min; Est GFR (Non-African American) 95.6 ml/min; Potassium 3.4 mmol/L (3.5-5.1)
[2024-03-08 08:40] LABS: Estimated Average Glucose 128 mg/dl; Hemoglobin A1C 6.1 % (4.5-5.6)
[2024-03-08] MEDS: lisinopril 40 MG TAB PO SCH (08:43)
[2024-03-08] MEDS: CETIRIZINE HCL 10 MG TABLET PO SCH (08:43)
[2024-03-08] MEDS: ATORVASTATIN 40 MG TAB PO SCH (08:43)
[2024-03-08] MEDS: DULoxetine HCL 60 MG CAP PO SCH (08:43)
[2024-03-08] MEDS: TOCOPHERYL, DL-ALPHA 100 UNITS 67 MG CAP PO SCH (08:43)
[2024-03-08] MEDS: hydroCHLOROthiazide 25 MG TAB PO SCH (08:43)
[2024-03-08] MEDS: METOPROLOL SUCC 25MG EXT REL TAB PO SCH (08:43)
[2024-03-08] MEDS: amLODIPine BESYLATE 5 MG TAB PO SCH (08:43)
[2024-03-08] MEDS: ASCORBIC ACID 500 MG TAB PO SCH (08:43)
[2024-03-08] MEDS: MULTIVITAMIN TAB PO SCH (08:43)
[2024-03-08] MEDS: VITAMIN B COMPLEX TAB PO SCH (08:44)
[2024-03-08] MEDS: CLOPIDOGREL BISULFATE 75 MG TAB PO SCH (08:44)
[2024-03-08] MEDS: traMADol HCL 50 MG TABLET PO PRN (08:44)
[2024-03-08] MEDS: OMEGA-3 (PURIFIED FISH OIL) 1 GM CAP PO SCH (08:44)
[2024-03-08] MEDS: ASPIRIN 81 MG ECTAB PO SCH (08:44)
[2024-03-08] MEDS: GLUCOSAMINE SULFATE 500 MG CAP PO SCH (08:44)
[2024-03-08] MEDS ORDERED: ATORVASTATIN 40 MG TAB PO SCH (09:00)
[2024-03-08] MEDS ORDERED: NON-FORMULARY MEDICATION (Turmeric 400 mg Capsule) PO SCH (09:00)
--- NOTE | 2024-03-08 11:14 | Neurology Consultation ---
Date of Consultation March 08, 2024 Assessment & Plan (1) Acute ischemic stroke: Recommend continued stroke work up to include the following: Echocardiogram as part of complete stroke workup Continue frequent neurological assessments Obtain stat CT brain without contrast for any acute neurological decline Continue to monitor/control blood pressure & blood glucose Continue to monitor telemetry closely Recommend ZioPatch at DC if no evidence of arrhythmia during inpatient monitoring Metabolic workup should include hgbA1c, fasting lipids, homocysteine, TSH, D Dimer Recommend DAPT for at least 3 weeks Recommend high dose statin therapy indefinitely if tolerated Ok from neurology perspective for VTE prophylaxis PT/OT/SLT to eval and treat Continue CPAP QHS Follow up outpatient neurology Telehealth Consultation Telehealth Information Telehealth Information: I performed this visit using a real-time telehealth connection between my location and the patients location ([facility]). After connecting through interactive tele-video, patient was identified by name and date of and/or wristband check.Patient (or authorized healthcare sales representative girls' apparel) was informed that this was a telemedicine visit and it was being conducted confidentially over secure lines. My office door was closed and no one else was present in the room with me.Patient (or authorized healthcare sales representative girls' apparel) provided consent to proceed with the visit, expressed an understanding of privacy and security of the telemedicine visit, and gave permission to have a hospital sales representative girls' apparel in the room in order to assist with the visit and to conduct portions of the visit, as needed. I informed the patient (or authorized healthcare sales representative girls' apparel) that I reviewed their record and presented the opportunity for them to ask any questions regarding the visit today. The patient agreed to participate. History of Present Illness Reason for Consultation: Stroke like symptoms Requesting Physician: Dr. Sierra Attending Physician: Raghu Sierra MD History of Present Illness 58yo morbidly obese male with significant hx of previous stroke HTN hyperlipidemia DM and PAOLA presented with reported feeling of dizziness. Symptoms reportedly began several days prior to presentation. No reported syncope/loss of consciousness. He reported having increased difficulty with ambulation. He has undergone stroke imaging including CT brain without contrast, personally reviewed today, revealing no overt evidence of hemorrhage. CT angiographic studies of head and neck, also personally reviewed today, reveal no overt evidence of large vessel occlusion or significant/flow limiting stenosis. MRI brain reviewed depicts evidence suspicious for chronic bilateral subcortical ischemic strokes. There is new/acute infarct posterior left frontal lobe. I have performed televideo consultation. He is alert & oriented; able to answer all questions appropriately, name objects on televideo monitor, repeat phrases and perform complex/embedded commands without deficit. Neurological exam is non lateralizing/nonfocal in terms of motor strength and coordination. NIHSS=0. Suspected dysarthria- patient denies speaking differently at this time states he is at baseline. No reported cephalgia or cervicalgia Denies chest pain/palpitations or shortness of breath No reported changes in vision hearing dizziness syncope seizure like activity or paresthesia Denies recent fevers chills nausea vomiting changes in bowels or bladder Denies recent medication changes, recent illness or sick contacts, no reported recent travel Allergies Allergy/AdvReac Type Severity Reaction Status Date / Time aspirin AdvReac Intermediate nose bleeds Verified 08/28/22 21:21 NSAIDS (Non-Steroidal AdvReac Intermediate to avoid Verified 08/28/22 21:21 Anti-Inflamma d/t stomach/esophagus irritation Pork/Porcine Containing AdvReac Intermediate diarrhea Verified 08/28/22 21:21 Products Home Medications Medication Instructions Recorded Confirmed Type ascorbic acid (vitamin C) 500 mg 500 mg PO DAILY 06/28/19 03/07/24 History tablet (Vitamin C) duloxetine 60 mg capsule,delayed 60 mg PO DAILY 06/28/19 03/07/24 History release famotidine 40 mg tablet 40 mg PO BID 06/28/19 03/07/24 History hydrochlorothiazide 25 mg tablet 25 mg PO DAILY 06/28/19 03/07/24 History lisinopril 40 mg tablet 40 mg PO DAILY 06/28/19 03/07/24 History montelukast 10 mg tablet 10 mg PO DAILY 06/28/19 03/07/24 History omega 4-azw-vow-fish oil 1,000 mg 1 cap PO DAILY 06/28/19 03/07/24 History (120 mg-180 mg) capsule (Fish Oil) tramadol 50 mg tablet 50 mg PO BID PRN Pain 06/28/19 03/07/24 History vitamin B complex 1 tab PO DAILY 06/28/19 03/07/24 History vitamin E 200 unit capsule 200 unit PO DAILY 06/28/19 03/07/24 History albuterol sulfate 90 mcg/actuation 2 puff inhalation Q4 PRN Shortness 08/28/22 03/07/24 History aerosol inhaler Of Breath Or Wheezing amlodipine 10 mg tablet 10 mg PO DAILY 08/28/22 03/07/24 History atorvastatin 20 mg tablet 20 mg PO DAILY 08/28/22 03/07/24 History cetirizine 10 mg tablet 10 mg PO DAILY 08/28/22 03/07/24 History glucosamine sulfate 500 mg tablet 500 mg PO DAILY 08/28/22 03/07/24 History (Glucosamine) metformin 500 mg tablet 1,000 mg PO QAM 08/28/22 03/07/24 History metoprolol succinate 25 mg 25 mg PO QAM 08/28/22 03/07/24 History tablet,extended release 24 hr multivitamin 1 tab PO DAILY 08/28/22 03/07/24 History sildenafil 100 mg tablet 100 mg PO DIRECTED PRN .before 08/28/22 03/07/24 History intercoarse turmeric 400 mg capsule 400 mg PO DAILY 08/28/22 03/07/24 History levothyroxine 175 mcg tablet 175 mcg PO QAM 03/07/24 03/07/24 History Patient History Medical History (Updated 03/08/24 @ 11:12 by Tushar Ku DO) Hypothyroid PAOLA on CPAP HLD (hyperlipidemia) History of deviated nasal septum HTN (hypertension) Asthma Diverticulitis Bronchitis Weakness Laceration of scalp Head injury Dehydration Right knee injury Surgical History (Updated 03/07/24 @ 15:09 by Yesenia Post PA-C) Hx of vasectomy Hx of cystoscopy Hx of sinus surgery Family History Other Cancer Diabetes Heart disease Hypertension Social History (Updated 03/07/24 @ 15:10 by Yesenia Post PA-C) Smoking Status: Former smoker Tobacco Type: Cigarettes and Smokeless Tobacco (Dip or Chew) Second Hand Exposure: No; Do You Dip or Chew Tobacco: No; Tobacco Cessation Education Requested by Patient: No Hx Alcohol Use: No Hx Substance Use: No Preferred Language: Indonesian Communication Ability: Effective [employer] Required: No Beliefs That Will Affect Care: None Current Living Situation: Spouse Other Information That Helps Us Care for You: No Feels Safe at Home: Yes Safety Concerns: Feels Safe At This Time Assistive Devices: Denture - Upper, Denture - Lower, Glasses and Hearing Aid - Bilateral Assistive Devices Comment: BPAP Physical Exam Neurological Examination: Mental Status: Awake and alert. Oriented to person, place, and time. Fluency naming repetition and comprehension appear grossly intact. Affect remains appropriate. CN testing: I: Denies changes in ability to smell II:Reports no changes in visual acuity III/IV/: No evidence of gaze preference, hippus, nystagmus or roving eye movements V: Facial sensation reportedly grossly intact to light touch bilaterally VII: Facial movements appear without evidence of asymmetry VIII: Hearing appears grossly intact to loud voice bilaterally IX/X: Palate appears to elevate symmetrically XI: Shoulder shrug appears symmetric/ grossly intact bilaterally XII: Tongue protrudes midline without evidence of biting Motor exam: Strength appears grossly intact/symmetric in all extremities Sensory: Sensation is reportedly grossly intact throughout Coordination: Finger to nose and heel to harp were intact. No apparent evidence of dysmetria or dysdiadochokinesia Reflexes: Deferred Gait: Deferred Results & Data Vital Signs (Past 12 Hours) Vital Signs Temp Pulse Pulse Resp BP Pulse Ox O2 Del Method 03/08/24 07:32 80 03/08/24 07:18 36.7 C 73 18 130/78 93 Room Air 03/08/24 03:48 61 17 96 03/08/24 02:46 36.5 C 71 18 136/51 L 97 Room Air 03/08/24 00:19 76 O2 Flow Rate 03/08/24 07:32 03/08/24 07:18 03/08/24 03:48 4 03/08/24 02:46 03/08/24 00:19 Laboratory Results Abnormal lab results 03/08/24 03/08/24 Range/Units 06:52 07:15 Sodium 135 L (136-145) mmol/L Potassium 3.4 L (3.5-5.1) mmol/L BUN/Creatinine Ratio 22.1 H (10-20) Glucose 115 H (70-99(Fasting)) mg/dl POC Glucose 111 H (70-99) mg/dl Hemoglobin A1c 6.1 H (4.5-5.6) % Triglycerides 234 H (0-150) mg/dl VLDL Cholesterol, Calc 47 H (0-30) mg/dl Diagnostic Findings Head CT 03/07/24 09:[address] OF THE BRAIN; CT ANGIOGRAM OF THE BRAIN; CT ANGIOGRAM OF THE NECK CLINICAL HISTORY: Neurological deficit. Stroke like symptoms. Dizziness. COMPARISON STUDY: CT of the brain dated 06/28/2019. TECHNIQUE: Unenhanced axial CT scan of the brain is performed. Subsequently, following the IV administration of 118 of Optiray 320, CT angiogram of the head and neck was performed from the aortic arch to the vertex. Images are reviewed in the axial, sagittal, and coronal planes. 3-D MIPS images are created and assessed. IV contrast was administered without complication. All measurements were calculated based on NASCET criteria. A dose lowering technique was utilized adhering to the principles of ALARA. CT DOSE: 1204.35 mGy.cm FINDINGS: Brain parenchyma: There is age-related involutional change and a mild to moderate patchy subcortical and periventricular microhepatic disease. Chronic lacunar infarcts are noted in the right caudate head, the left basal ganglia, and the right thalamus. There is no hemorrhage, mass effect, or evidence of acute territorial ischemia by CT criteria. There is no evidence of enhancing mass lesion on the angiogram phase images. The ventricles, sulci, and cisterns a re prominent secondary to involutional change. Elliott-white matter differentiation is preserved. No extra-axial fluid collection is seen. Thoracic aorta: Visualized portions of the thoracic aorta are normal in caliber. The aortic arch demonstrates standard 3-vessel anatomy. Right carotid arterial system: The right common carotid artery is widely patent, as are the right internal and external carotid arteries. Minimal calcified plaque is seen in the carotid bulb. Left carotid arterial system: The left common carotid artery is widely patent, as are the left internal and external carotid arteries. Vertebral arteries: Widely patent bilaterally noting mild left-sided dominance. Subclavian arteries: Widely patent bilaterally. Intracranial vasculature: There is atherosclerotic calcification of the cavernous carotid arteries. The [place] is developmentally complete. The internal carotid arteries are patent at the skull base, as are the anterior and middle cerebral arteries bilaterally. The vertebrobasilar system and posterior cerebral arteries are widely patent. The left vertebral artery is dominant. There is no aneurysm, high-grade stenosis, or focal vessel cut off seen throughout the intracranial circulation. Jugular veins: Patent bilaterally. Dural sinuses: Patent. Lung apices: Partially visualized upper lobe lung parenchyma appears clear. Soft tissues: The visualized pharyngeal soft tissues are normal in appearance noting angiographic phase technique. The oropharyngeal airway appears widely patent. The thyroid gland is mildly enlarged and heterogeneous. The salivary glands are normal in appearance. No cervical lymphadenopathy is seen. Skeletal structures: The skeletal structures appear osteopenic. The calvarium appears intact. The cervical spine is maintained noting multilevel spondylosis. Orbits: The bony orbits are intact. Orbital contents are normal as visualized. Sinuses and mastoids: Trace mucosal thickening is noted in the maxillary antra. The paranasal sinuses are otherwise clear. There is a left mastoid effusion. The right mastoid air cells are well pneumatized. IMPRESSION: 1. There is no hemorrhage, mass effect, or evidence of acute territorial ischemia by CT criteria. 2. Unremarkable CT angiogram of the brain. 3. Unremarkable CT angiogram of the neck. ACT 112: Negative or not required by law. Electronically signed by: Daryn Markham M.D. 03/07/2024 11:54 AM Head CTA 03/07/24 09:[address] OF THE BRAIN; CT ANGIOGRAM OF THE BRAIN; CT ANGIOGRAM OF THE NECK CLINICAL HISTORY: Neurological deficit. Stroke like symptoms. Dizziness. COMPARISON STUDY: CT of the brain dated 06/28/2019. TECHNIQUE: Unenhanced axial CT scan of the brain is performed. Subsequently, following the IV administration of 118 of Optiray 320, CT angiogram of the head and neck was performed from the aortic arch to the vertex. Images are reviewed in the axial, sagittal, and coronal planes. 3-D MIPS images are created and assessed. IV contrast was administered without complication. All measurements were calculated based on NASCET criteria. A dose lowering technique was utilized adhering to the principles of ALARA. CT DOSE: 1204.35 mGy.cm FINDINGS: Brain parenchyma: There is age-related involutional change and a mild to moderate patchy subcortical and periventricular microhepatic disease. Chronic lacunar infarcts are noted in the right caudate head, the left basal ganglia, and the right thalamus. There is no hemorrhage, mass effect, or evidence of acute territorial ischemia by CT criteria. There is no evidence of enhancing mass lesion on the angiogram phase images. The ventricles, sulci, and cisterns are prominent secondary to involutional change. Elliott-white matter differentiation is preserved. No extra-axial fluid collection is seen. Thoracic aorta: Visualized portions of the thoracic aorta are normal in caliber. The aortic arch demonstrates standard 3-vessel anatomy. Right carotid arterial system: The right common carotid artery is widely patent, as are the right internal and external carotid arteries. Minimal calcified plaque is seen in the carotid bulb. Left carotid arterial system: The left common carotid artery is widely patent, as are the left internal and external carotid arteries. Vertebral arteries: Widely patent bilaterally noting mild left-sided dominance. Subclavian arteries: Widely patent bilaterally. Intracranial vasculature: There is atherosclerotic calcification of the cavernous carotid arteries. The [place] is developmentally complete. The internal carotid arteries are patent at the skull base, as are the anterior and middle cerebral arteries bilaterally. The vertebrobasilar system and posterior cerebral arteries are widely patent. The left vertebral artery is dominant. There is no aneurysm, high-grade stenosis, or focal vessel cut off seen throughout the intracranial circulation. Jugular veins: Patent bilaterally. Dural sinuses: Patent. Lung apices: Partially visualized upper lobe lung parenchyma appears clear. Soft tissues: The visualized pharyngeal soft tissues are normal in appearance no ting angiographic phase technique. The oropharyngeal airway appears widely patent. The thyroid gland is mildly enlarged and heterogeneous. The salivary glands are normal in appearance. No cervical lymphadenopathy is seen. Skeletal structures: The skeletal structures appear osteopenic. The calvarium appears intact. The cervical spine is maintained noting multilevel spondylosis. Orbits: The bony orbits are intact. Orbital contents are normal as visualized. Sinuses and mastoids: Trace mucosal thickening is noted in the maxillary antra. The paranasal sinuses are otherwise clear. There is a left mastoid effusion. The right mastoid air cells are well pneumatized. IMPRESSION: 1. There is no hemorrhage, mass effect, or evidence of acute territorial ischemia by CT criteria. 2. Unremarkable CT angiogram of the brain. 3. Unremarkable CT angiogram of the neck. ACT 112: Negative or not required by law. Electronically signed by: Daryn Markham M.D. 03/07/2024 11:54 AM Neck CTA 03/07/24 09:[address] OF THE BRAIN; CT ANGIOGRAM OF THE BRAIN; CT ANGIOGRAM OF THE NECK CLINICAL HISTORY: Neurological deficit. Stroke like symptoms. Dizziness. COMPARISON STUDY: CT of the brain dated 06/28/2019. TECHNIQUE: Unenhanced axial CT scan of the brain is performed. Subsequently, following the IV administration of 118 of Optiray 320, CT angiogram of the head and neck was performed from the aortic arch to the vertex. Images are reviewed in the axial, sagittal, and coronal planes. 3-D MIPS images are created and assessed. IV contrast was administered without complication. All measurements were calculated based on NASCET criteria. A dose lowering technique was utilized adhering to the principles of ALARA. CT DOSE: 1204.35 mGy.cm FINDINGS: Brain parenchyma: There is age-related involutional change and a mild to moderate patchy subcortical and periventricular microhepatic disease. Chronic lacunar infarcts are noted in the right caudate head, the left basal ganglia, and the right thalamus. There is no hemorrhage, mass effect, or evidence of acute territorial ischemia by CT criteria. There is no evidence of enhancing mass lesion on the angiogram phase images. The ventricles, sulci, and cisterns are prominent secondary to involutional change. Elliott-white matter differentiation is preserved. No extra-axial fluid collection is seen. Thoracic aorta: Visualized portions of the thoracic aorta are normal in caliber. The aortic arch demonstrates standard 3-vessel anatomy. Right carotid arterial system: The right common carotid artery is widely patent, as are the right internal and external carotid arteries. Minimal calcified plaque is seen in the carotid bulb. Left carotid arterial system: The left common carotid artery is widely patent, as are the left internal and external carotid arteries. Vertebral arteries: Widely patent bilaterally noting mild left-sided dominance. Subclavian arteries: Widely patent bilaterally. Intracranial vasculature: There is atherosclerotic calcification of the cavernous carotid arteries. The [place] is developmentally complete. The internal carotid arteries are patent at the skull base, as are the anterior and middle cerebral arteries bilaterally. The vertebrobasilar system and posterior cerebral arteries are widely patent. The left vertebral artery is dominant. There is no aneurysm, high-grade stenosis, or focal vessel cut off seen throughout the intracranial circulation. Jugular veins: Patent bilaterally. Dural sinuses: Patent. Lung apices: Partially visualized upper lobe lung parenchyma appears clear. Soft tissues: The visualized pharyngeal soft tissues are normal in appearance noting angiographic phase technique. The oropharyngeal airway appears widely patent. The thyroid gland is mildly enlarged and heterogeneous. The salivary glands are normal in appearance. No cervical lymphadenopathy is seen. Skeletal structures: The skeletal structures appear osteopenic. The calvarium appears intact. The cervical spine is maintained noting multilevel spondylosis. Orbits: The bony orbits are intact. Orbital contents are normal as visualized. Sinuses and mastoids: Trace mucosal thickening is noted in the maxillary antra. The paranasal sinuses are otherwise clear. There is a left mastoid effusion. The right mastoid air cells are well pneumatized. IMPRESSION: 1. There is no hemorrhage, mass effect, or evidence of acute territorial ischemia by CT criteria. 2. Unremarkable CT angiogram of the brain. 3. Unremarkable CT angiogram of the neck. ACT 112: Negative or not required by law. Electronically signed by: Daryn Markham M.D. 03/07/2024 11:54 AM Brain MRI 03/07/24 12:59 Brain MRI WITHOUT CONTRAST HISTORY: vertigo TECHNIQUE: Multiplanar multisequence MRI of the brain was performed without the use of contrast. COMPARISON STUDY: Head CT 03/07/2024. FINDINGS: There is a 9 mm focus of restricted diffusion within the left high convexity on image 19 consistent with a small acute infarct. The midline structures are intact. Scattered foci of T2 hyperintensity seen within the p eriventricular and subcortical white matter of the supratentorial brain. These are nonspecific but favor mild microvascular ischemic change. There is no mass, hematoma, or midline shift. Mild mucosal thickening within the paranasal sinuses. The right mastoid air cells are clear. There is a small left mastoid effusion. The major vascular flow-voids at the skull base are well-maintained. There are old lacunar infarcts within the bilateral basal ganglia and bilateral thalami. The orbits are unremarkable. IMPRESSION: 1. A 9 mm acute infarct within the left posterior frontal lobe at the high convexity. 2. Old lacunar infarcts within the bilateral basal ganglia and thalami. 3. Mild atrophy and microvascular ischemic changes. ACT 112: Negative or not required by law. Electronically signed by: Daniel Boles M.D. 03/07/2024 2:50 PM Medications Administered Home Medications Medication Instructions Recorded Confirmed Last Taken ascorbic acid (vitamin C) 500 mg 500 mg PO DAILY 06/28/19 03/07/24 03/06/24 tablet (Vitamin C) duloxetine 60 mg capsule,delayed 60 mg PO DAILY 06/28/19 03/07/24 03/07/24 release famotidine 40 mg tablet 40 mg PO BID 06/28/19 03/07/24 03/07/24 hydrochlorothiazide 25 mg tablet 25 mg PO DAILY 06/28/19 03/07/24 03/07/24 lisinopril 40 mg tablet 40 mg PO DAILY 06/28/19 03/07/24 03/07/24 montelukast 10 mg tablet 10 mg PO DAILY 06/28/19 03/07/24 03/06/24 omega 9-mtt-vfc-fish oil 1,000 mg 1 cap PO DAILY 06/28/19 03/07/24 03/07/24 (120 mg-180 mg) capsule (Fish Oil) tramadol 50 mg tablet 50 mg PO BID PRN Pain 06/28/19 03/07/24 03/06/24 vitamin B complex 1 tab PO DAILY 06/28/19 03/07/24 03/06/24 vitamin E 200 unit capsule 200 unit PO DAILY 06/28/19 03/07/24 03/06/24 albuterol sulfate 90 mcg/actuation 2 puff inhalation Q4 PRN Shortness 08/28/22 03/07/24 03/06/24 aerosol inhaler Of Breath Or Wheezing amlodipine 10 mg tablet 10 mg PO DAILY 08/28/22 03/07/24 03/07/24 atorvastatin 20 mg tablet 20 mg PO DAILY 08/28/22 03/07/24 03/07/24 cetirizine 10 mg tablet 10 mg PO DAILY 08/28/22 03/07/24 03/06/24 glucosamine sulfate 500 mg tablet 500 mg PO DAILY 08/28/22 03/07/24 03/07/24 (Glucosamine) metformin 500 mg tablet 1,000 mg PO QAM 08/28/22 03/07/24 03/07/24 metoprolol succinate 25 mg 25 mg PO QAM 08/28/22 03/07/24 03/07/24 tablet,extended release 24 hr multivitamin 1 tab PO DAILY 08/28/22 03/07/24 03/06/24 sildenafil 100 mg tablet 100 mg PO DIRECTED PRN .before 08/28/22 03/07/24 Unknown intercoarse turmeric 400 mg capsule 400 mg PO DAILY 08/28/22 03/07/24 03/06/24 levothyroxine 175 mcg tablet 175 mcg PO QAM 03/07/24 03/07/24 03/07/24 Active Medications Generic Name Dose Route Start Last Admin Trade Name Freq PRN Reason Stop Dose Admin Amlodipine Besylate 10 mg 03/08/24 09:00 03/08/24 08:43 Amlodipine Besylate 5 Mg Tab PO 04/07/24 08:59 10 mg DAILY NETO Administration Ascorbic Acid 500 mg 03/08/24 09:00 03/08/24 08:43 Ascorbic Acid 500 Mg Tab PO 04/07/24 08:59 500 mg DAILY NETO Administration Aspirin 81 mg 03/08/24 09:00 03/08/24 08:44 Aspirin 81 Mg Ectab PO 04/07/24 08:59 81 mg QAM NETO Administration Atorvastatin Calcium 80 mg 03/08/24 09:00 03/08/24 08:43 Atorvastatin 40 Mg Tab PO 04/07/24 08:59 80 mg DAILY NETO Administration Cetirizine HCl 10 mg 03/08/24 09:00 03/08/24 08:43 Cetirizine Hcl 10 Mg Tablet PO 04/07/24 08:59 10 mg DAILY NETO Administration Clopidogrel Bisulfate 75 mg 03/08/24 09:00 03/08/24 08:44 Clopidogrel Bisulfate 75 Mg Tab PO 04/07/24 08:59 75 mg QAM NETO Administration Duloxetine HCl 60 mg 03/08/24 09:00 03/08/24 08:43 Duloxetine Hcl 60 Mg Cap PO 04/07/24 08:59 60 mg DAILY NETO Administration Famotidine 40 mg 03/07/24 21:00 03/08/24 08:43 Famotidine 40 Mg Tablet PO 04/06/24 20:59 40 mg BID NETO Administration Fish Oil 1 gm 03/08/24 09:00 03/08/24 08:44 [place]-3 (Purified Fish Oil) 1 Gm Cap PO 04/07/24 08:59 1 gm DAILY NETO Administration Glucosamine Sulfate 500 mg 03/08/24 08:00 03/08/24 08:44 Glucosamine Sulfate 500 Mg Cap PO 04/07/24 07:59 500 mg DAILY@0800 NETO Administration Hydrochlorothiazide 25 mg 03/08/24 09:00 03/08/24 08:43 Hydrochlorothiazide 25 Mg Tab PO 04/07/24 08:59 25 mg DAILY NETO Administration Levothyroxine Sodium 175 mcg 03/08/24 06:30 03/08/24 05:57 Levothyroxine Sodium 175 Mcg Tablet PO 04/07/24 06:29 175 mcg DAILYBB NETO Administration Lisinopril 40 mg 03/08/24 09:00 03/08/24 08:43 Lisinopril 40 Mg Tab PO 04/07/24 08:59 40 mg DAILY NETO Administration Metoprolol Succinate 25 mg 03/08/24 09:00 03/08/24 08:43 Metoprolol Succ 25mg Ext Rel Tab PO 04/07/24 08:59 25 mg QAM NETO Administration Montelukast Sodium 10 mg 03/07/24 21:00 03/07/24 19:44 Montelukast Sodium 10 Mg Tablet PO 04/06/24 20:59 10 mg HS NETO Administration Protocol Multivitamins 1 tab 03/08/24 09:00 03/08/24 08:43 Multivitamin Tab PO 04/07/24 08:59 1 tab QAM NETO Administration Tramadol HCl 50 mg 03/07/24 15:45 03/08/24 08:44 Tramadol Hcl 50 Mg Tablet PO 04/06/24 15:44 50 mg BID PRN Administration Pain Vitamin B Complex 1 tab 03/08/24 09:00 03/08/24 08:44 Vitamin B Complex Tab PO 04/07/24 08:59 1 tab DAILY NETO Administration Vitamin E 200 units 03/08/24 09:00 03/08/24 08:43 Tocopheryl, Dl-Alpha 100 Units 67 Mg Cap PO 04/07/24 08:59 200 units DAILY NETO Administration
--- NOTE | 2024-03-08 12:51 | Pharmacy Report ---
- Date of Service March 08, 2024 - Pharmacy CVA/TIA Medication Review Medications to Prevent Stroke handout has been added to the patients discharge packet. Antiplatelet(s) * aspirin 81 mg PO daily + clopidogrel 75 mg PO daily x 3 weeks (at least) Cholesterol * High intensity statin: atorvastatin 80 mg daily DVT Prophylaxis * SCDs knee Therapeutic Anticoagulation * No history of Afib/Aflutter noted Type 2 Diabetes * Patient has T2DM, but per Dr. Sierra, a diabetes medication with proven CVD benefit will be deferred to their outpatient provider due to familiarity with risks/benefits of such therapies. "Medications to prevent stroke" handout has already been added to the patient's discharge packet, which instructs the patient to follow up with their outpatient provider to evaluate which diabetes medication with proven CVD benefit is best for them
--- NOTE | 2024-03-08 18:40 | Hospitalist Progress Note ---
Date of Service March 08, 2024 Assessment & Plan (1) Acute CVA (cerebrovascular accident): Plan: - Admit to PCU - no indication for thrombolytic as sx started 2 days ago - CT head negative, CTA neck negative - MRI brain wo contrast completed showing 9 mm acute lesion in posterior frontal region - Given full dose aspirin in the ER, will add atorvastatin 80 mg , and plavix - Neurology consulted - PT/OT consults placed - will obtain Echo Pt is feeling improved but still dizzy when he worked w/ PT (2) DM II (diabetes mellitus, type II), controlled: Plan: -ISS with Accu-Cheks ACHS -Hgb A1c 6.1% -Has Dexcom on arm normally, off s/p MRI and he does not have replacement with him - Hold metformin (3) HTN (hypertension): Plan: -Patient is on amlodipine, lisinopril, metoprolol, HCTZ, continue (4) HLD (hyperlipidemia): Plan: -Increase statin therapy from 20 to 80 mg daily with new acute stroke (5) Morbid obesity: Plan: - BMI ~ 40 - weight loss encouraged (6) Hypothyroid: Plan: -Chronic, stable, continue levothyroxine 175 mcg daily (7) Asthma: Plan: -May continue use of allergy medications as well as albuterol -No acute exacerbation, no respiratory complaints -O2 sats 96% on RA (8) PAOLA on CPAP: Plan: -CPAP at bedtime DVT ppx: teds, scds FEN/GI: HH/DM diet CODE: Full code Dispo: From home, likely DC tmrw Admission and Anticipated Discharge Date Admission Date: March 07, 2024 Subjective Pt seen in follow up CVA pt seen early AM Sitting up in chair in NAD Says he feels improved but when he worked with PT still had episodes of dizziness Awaiting neuro consult Echo not ordered on admission - will obtain Contacted by PT - they plan to evaluate for BPPV as well Review of Systems Review of Systems: All systems reviewed & are unremarkable except as noted in Subjective Physical Exam Physical Exam: General: awake, alert, no apparent distress, + obese white male Head: Normocephalic, atraumatic ENT: PERRL, EOMI,mucous membranes moist Chest: Clear to auscultation, on room air, no adventitious breath sounds Cardiac: Regular rate and rhythm, no murmur, no JVD Abdominal: NABS x 4 quadrants, soft, obese, + umbilical hernia, nondistended, nontender to palpation Extremities: Normal inspection, no peripheral edema or erythema Psych: Normal mood and affect Neuro: AAO x 3, strength intact bilaterally and rated 5/5, no motor deficits, speech is clear, no peripheral sensory deficits Results & Data Results & Data Vital Signs (Past 12 Hours) Vital Signs Temp Pulse Pulse Resp BP Pulse Ox O2 Del Method 03/08/24 16:00 75 03/08/24 15:34 36.5 C 74 18 163/87 H 96 Room Air 03/08/24 11:59 36.8 C 68 18 149/79 H 94 Room Air 03/08/24 07:32 80 03/08/24 07:18 36.7 C 73 18 130/78 93 Room Air Laboratory Results 03/08/24 03/08/24 03/08/24 Range/Units 16:19 11:11 07:15 WBC (4.8-10.8) K/ul RBC (4.70-6.10) M/uL Hgb (14.0-18.0) g/dl Hct (42.0-52.0) % MCV (80.0-100.0) fL MCH (25.0-34.0) pg MCHC (32.0-36.0) g/dL RDW Std Deviation (36.4-46.3) fL RDW Coeff of Chang (11.5-14.5) % Plt Count (130-400) K/uL MPV (9.4-12.4) fL Immature Gran % (Auto) % Neut % (Auto) % Lymph % (Auto) % [place] % (Auto) % Eos % (Auto) % Baso % (Auto) % Neut # (Auto) (1.40-6.50) K/uL Lymph # (Auto) (1.20-3.40) K/uL [place] # (Auto) (0.11-0.59) K/uL Eos # (Auto) (0.00-0.50) K/uL Baso # (Auto) (0.00-0.20) K/uL Immature Gran # (Auto) (0.01-0.20) K/uL Sodium (136-145) mmol/L Potassium (3.5-5.1) mmol/L Chloride (98-107) mmol/L Carbon Dioxide (21-32) mmol/L Anion Gap (3-11) BUN (6-23) mg/dl Creatinine (0.6-1.4) mg/dl Est Cr Clr Drug Dosing ml/min Est GFR ( Amer) ml/min Est GFR (Non-Af Amer) ml/min BUN/Creatinine Ratio (10-20) Glucose (70-99(Fasting)) mg/dl POC Glucose 108 H 122 H 111 H (70-99) mg/dl Estimat Average Glucose mg/dl Hemoglobin A1c (4.5-5.6) % Calcium (8.6-10.3) mg/dl Triglycerides (0-150) mg/dl Cholesterol (0-200) mg/dl LDL Cholesterol, Calc mg/dl VLDL Cholesterol, Calc (0-30) mg/dl HDL Cholesterol mg/dl Cholesterol/HDL Ratio (0-5) 03/08/24 03/07/24 Range/Units 06:52 20:03 WBC 7.31 (4.8-10.8) K/ul RBC 5.29 (4.70-6.10) M/uL Hgb 15.5 (14.0-18.0) g/dl Hct 45.3 (42.0-52.0) % MCV 85.6 (80.0-100.0) fL MCH 29.3 (25.0-34.0) pg MCHC 34.2 (32.0-36.0) g/dL RDW Std Deviation 38.6 (36.4-46.3) fL RDW Coeff of Chang 12.5 (11.5-14.5) % Plt Count 244 (130-400) K/uL MPV 9.7 (9.4-12.4) fL Immature Gran % (Auto) 0.4 % Neut % (Auto) 69.4 % Lymph % (Auto) 18.7 % [place] % (Auto) 8.1 % Eos % (Auto) 2.2 % Baso % (Auto) 1.2 % Neut # (Auto) 5.07 (1.40-6.50) K/uL Lymph # (Auto) 1.37 (1.20-3.40) K/uL [place] # (Auto) 0.59 (0.11-0.59) K/uL Eos # (Auto) 0.16 (0.00-0.50) K/uL Baso # (Auto) 0.09 (0.00-0.20) K/uL Immature Gran # (Auto) 0.03 (0.01-0.20) K/uL Sodium 135 L (136-145) mmol/L Potassium 3.4 L (3.5-5.1) mmol/L Chloride 102 (98-107) mmol/L Carbon Dioxide 25 (21-32) mmol/L Anion Gap 8 (3-11) BUN 19 (6-23) mg/dl Creatinine 0.86 (0.6-1.4) mg/dl Est Cr Clr Drug Dosing 123.6 ml/min Est GFR ( Amer) 110.8 ml/min Est GFR (Non-Af Amer) 95.6 ml/min BUN/Creatinine Ratio 22.1 H (10-20) Glucose 115 H (70-99(Fasting)) mg/dl POC Glucose 94 (70-99) mg/dl Estimat Average Glucose 128 mg/dl Hemoglobin A1c 6.1 H (4.5-5.6) % Calcium 9.0 (8.6-10.3) mg/dl Triglycerides 234 H (0-150) mg/dl Cholesterol 140 (0-200) mg/dl LDL Cholesterol, Calc 58 mg/dl VLDL Cholesterol, Calc 47 H (0-30) mg/dl HDL Cholesterol 35 mg/dl Cholesterol/HDL Ratio 4.0 (0-5) Medications Administered Current Inpatient Medications Albuterol (Albuterol Hfa 8 Gm Inhaler) 2 puffs INH Q4 PRN PRN Reason: Shortness Of Breath Or Wheezing Stop: 04/06/24 15:44 Amlodipine Besylate (Amlodipine Besylate 5 Mg Tab) 10 mg PO DAILY [facility] Stop: 04/07/24 08:59 Last Admin: 03/08/24 08:43 Dose: 10 mg Ascorbic Acid (Ascorbic Acid 500 Mg Tab) 500 mg PO DAILY [facility] Stop: 04/07/24 08:59 Last Admin: 03/08/24 08:43 Dose: 500 mg Aspirin (Aspirin 81 Mg Ectab) 81 mg PO QAM [facility] Stop: 04/07/24 08:59 Last Admin: 03/08/24 08:44 Dose: 81 mg Atorvastatin Calcium (Atorvastatin 40 Mg Tab) 80 mg PO DAILY [facility] Stop: 04/07/24 08:59 Last Admin: 03/08/24 08:43 Dose: 80 mg Cetirizine HCl (Cetirizine Hcl 10 Mg Tablet) 10 mg PO DAILY [facility] Stop: 04/07/24 08:59 Last Admin: 03/08/24 08:43 Dose: 10 mg Clopidogrel Bisulfate (Clopidogrel Bisulfate 75 Mg Tab) 75 mg PO QAM [facility] Stop: 04/07/24 08:59 Last Admin: 03/08/24 08:44 Dose: 75 mg Duloxetine HCl (Duloxetine Hcl 60 Mg Cap) 60 mg PO DAILY [facility] Stop: 04/07/24 08:59 Last Admin: 03/08/24 08:43 Dose: 60 mg Famotidine (Famotidine 40 Mg Tablet) 40 mg PO BID [facility] Stop: 04/06/24 20:59 Last Admin: 03/08/24 08:43 Dose: 40 mg Fish Oil ([place]-3 (Purified Fish Oil) 1 Gm Cap) 1 gm PO DAILY [facility] Stop: 04/07/24 08:59 Last Admin: 03/08/24 08:44 Dose: 1 gm Glucosamine Sulfate (Glucosamine Sulfate 500 Mg Cap) 500 mg PO DAILY@0800 [facility] Stop: 04/07/24 07:59 Last Admin: 03/08/24 08:44 Dose: 500 mg Hydrochlorothiazide (Hydrochlorothiazide 25 Mg Tab) 25 mg PO DAILY [facility] Stop: 04/07/24 08:59 Last Admin: 03/08/24 08:43 Dose: 25 mg Levothyroxine Sodium (Levothyroxine Sodium 175 Mcg Tablet) [facility]: 04/07/24 06:29 Last Admin: 03/08/24 05:57 Dose: 175 mcg Lisinopril (Lisinopril 40 Mg Tab) 40 mg PO DAILY [facility] Stop: 04/07/24 08:59 Last Admin: 03/08/24 08:43 Dose: 40 mg Metoprolol Succinate (Metoprolol Succ 25mg Ext Rel Tab) [facility] [place] Stop: 04/07/24 08:59 Last Admin: 03/08/24 08:43 Dose: 25 mg Montelukast Sodium (Montelukast Sodium 10 Mg Tablet) 10 mg PO [facility]; Protocol Stop: 04/06/24 20:59 Last Admin: 03/07/24 19:44 Dose: 10 mg Multivitamins (Multivitamin Tab) 1 tab PO QAM [facility] Stop: 04/07/24 08:59 Last Admin: 03/08/24 08:43 Dose: 1 tab Tramadol HCl (Tramadol Hcl 50 Mg Tablet) 50 mg PO BID PRN PRN Reason: Pain Stop: 04/06/24 15:44 Last Admin: 03/08/24 08:44 Dose: 50 mg Vitamin B Complex (Vitamin B Complex Tab) 1 tab PO DAILY [facility] Stop: 04/07/24 08:59 Last Admin: 03/08/24 08:44 Dose: 1 tab Vitamin E (Tocopheryl, Dl-Alpha 100 Units 67 Mg Cap) 200 units PO DAILY [facility] Stop: 04/07/24 08:59 Last Admin: 03/08/24 08:43 Dose: 200 units
[2024-03-08 20:46] LABS: D Dimer 400 ug/L FEU (0-500)
[2024-03-09 07:42] LABS: Basophils # (auto) 0.09 K/uL (0.00-0.20); Basophils % (auto) 1.3 %; Eosinophils # (auto) 0.18 K/uL (0.00-0.50); Eosinophils % (auto) 2.5 %; Hematocrit (blood only) 45.1 % (42.0-52.0); Hemoglobin 16.4 g/dl (14.0-18.0); Immature Granulocytes # (auto) 0.05 K/uL (0.01-0.20); Immature Granulocytes % (auto) 0.7 %; Lymphocytes # (auto) 1.32 K/uL (1.20-3.40); Lymphocytes % (auto) 18.5 %; Mean Corpuscular Hemoglobin 30.2 pg (25.0-34.0); Mean Corpuscular Hgb Conc 36.4 g/dL (32.0-36.0); Mean Corpuscular Volume 83.1 fL (80.0-100.0); Mean Platelet Volume 9.3 fL (9.4-12.4); Monocytes % (auto) 8.4 %; Neutrophils # (auto) 4.88 K/uL (1.40-6.50); Neutrophils % (auto) 68.6 %; Platelet Count 238 K/uL (130-400); RDW Coefficient of Variation 12.2 % (11.5-14.5); RDW Standard Deviation 36.8 fL (36.4-46.3); Red Blood Count 5.43 M/uL (4.70-6.10); White Blood Count 7.12 K/ul (4.8-10.8)
[2024-03-09 08:01] LABS: BUN Creatinine Ratio 23.5 (10-20); Calcium 8.6 mg/dl (8.6-10.3); Creatinine Clr Calc Pharmacy 130.9 ml/min; Est GFR (African American) 113.5 ml/min; Phosphorus 3.4 mg/dl (2.5-4.9); Potassium 3.6 mmol/L (3.5-5.1)
[2024-03-09 08:14] LABS: Thyroid Stimulating Hormone 4.041 uIu/ml (0.300-4.500)
--- NOTE | 2024-03-09 15:32 | Hospitalist Progress Note ---
Date of Service March 09, 2024 Assessment & Plan (1) Acute CVA (cerebrovascular accident): Plan: per admitting service notes with addendum: - no indication for thrombolytic as sx started 2 days ago - CT head negative, CTA neck negative - MRI brain wo contrast completed showing 9 mm acute lesion in posterior frontal region - Given full dose aspirin in the ER, will add atorvastatin 80 mg , and plavix - Neurology consulted - PT/OT consults placed 03/09 echo: EF 55-60%, mild concentric LVH, no evidence of intracardiac shunt, a patent foramen ovale cannot be definitively excluded due to the technical limitations of the study Neurology service consulted: Recommend ZioPatch at DC if no evidence of arrhythmia during inpatient monitoring hgbA1c 6.1; fasting lipids: TG 234, LDL 58, HDL 35; homocysteine: pending Recommend DAPT for at least 3 weeks- Plavix + Aspirin Recommend high dose statin therapy indefinitely if tolerated: increase from 20 to 40mg po daily Follow up outpatient neurology (2) DM II (diabetes mellitus, type II), controlled: Plan: -ISS with Accu-Cheks ACHS -Hgb A1c 6.1% -Has Dexcom on arm normally, off s/p MRI and he does not have replacement with him continue Metformin (3) HTN (hypertension): Plan: -Patient is on amlodipine, lisinopril, metoprolol, HCTZ, continue (4) HLD (hyperlipidemia): Plan: -Increase statin therapy from 20 to 40 mg daily with new acute stroke (5) Morbid obesity: Plan: - BMI ~ 40 - weight loss encouraged (6) Hypothyroid: Plan: -Chronic, stable, continue levothyroxine 175 mcg daily (7) Asthma: Plan: -May continue use of allergy medications as well as albuterol -No acute exacerbation, no respiratory complaints -O2 sats 96% on RA (8) PAOLA on CPAP: Plan: -CPAP at bedtime DVT ppx: teds, scds FEN/GI: HH/DM diet CODE: Full code Dispo: d/c home ff up with PCP in 1 week ff up with Neurologist in 3-4 weeks Admission and Anticipated Discharge Date Admission Date: March 07, 2024 Subjective ff up for acute CVA, etc seen resting in bed, comfortable states he feels fine overall no focal weakness, numbness, problems with speech, swallowing, neurologic symptoms, etc no chest pain, dyspnea, palpitations, dizziness no other symptoms Review of Systems Review of Systems: all noted and negative except for above Physical Exam Physical Exam: General- oriented x 3, not in distress, speaks in sentences with no effort or accessory muscle use Eyes- anicteric Neck- no JVD Lungs- clear breath sounds bilaterally, no crackles/wheezing Heart- normal rate, regular rhythm; no murmurs Abdomen- normal bowel sounds, nondistended, soft, nontender Extremities- no pretibial edema, no calf tenderness Neuro- alert, oriented x 3; no gross focal neurologic deficits Skin- warm & dry Results & Data Results & Data Vital Signs (Past 12 Hours) Vital Signs Temp Pulse Resp BP Pulse Ox O2 Del Method 03/09/24 15:12 65 20 150/79 H 95 Room Air 03/09/24 11:01 36.4 C L 69 18 149/80 H 97 Room Air 03/09/24 07:10 36.6 C 60 17 148/82 H 93 Room Air 03/09/24 04:15 36.5 C 66 18 144/84 H 99 CPAP all noted and reviewed including below
--- NOTE | 2024-03-09 15:43 | Discharge Summary ---
Discharge Summary Date of Service March 09, 2024 Notes For Next Care Provider Medication Changes From Visit Aspirin, Plavix-antiplatelets for stroke prevention Increase Atorvastatin from 20 to 40 mg daily Admission HPI Per Admitting Provider This is a 58-year-old male with PMHx of DM type II, HTN, HLD, PAOLA on CPAP who presents to the hospital with vertigo, ataxia for 2 days. Pt has not been feeling well/ symptoms persisted so presented to the ER. Patient states that on Thursday morning he noticed a change in his ability to walk straight forward felt like he was unbalanced, and improved throughout the day. Similar thing happened on Thursday when he woke in the morning again had difficulty walking, improved throughout the day. This morning when he attempted to get up his imbalance was much more significant, and took a longer time to resolve. He feels that he may have been leaning more to the right with inability to control it. He denies any slurred speech, word finding, visual changes, focal deficits or strength discrepancies. His brother is present with him at bedside and supports the history. Patient states that he did take all of his normally scheduled medications this morning. His Dexcom monitor is now off since having an MRI. He has not eaten much today and is hungry. CT head and neck, CT neck angio was negative. MRI is showing acute 9 mm in left posterior frontal lobe. Old lacunar infarcts within the by lateral basal ganglia and thalami noted, mild atrophy and microvascular ischemic changes. Admission Exam Per Admitting Provider General: awake, alert, no apparent distress, + obese white male Head: Normocephalic, atraumatic ENT: PERRL, EOMI, no pharyngeal exudate, mucous membranes moist Chest: Clear to auscultation, on room air, O2 sats 96%, no adventitious breath sounds Cardiac: Regular rate and rhythm, no murmur, no JVD, normal peripheral pulses, good capillary refill Abdominal: NABS x 4 quadrants, soft, + umbilical hernia, nondistended, nontender to palpation, no rebound or guarding Extremities: Normal inspection, no peripheral edema or erythema, calfs nontender to palpation Psych: Normal mood and affect Neuro: AAO x 3, strength intact bilaterally and rated 5/5, no motor deficits, speech is clear, no peripheral sensory deficits, gait was not assessed Principal Dx & Hospital Course #1 = Principal Diagnosis (1) Acute CVA (cerebrovascular accident): per admitting service notes with addendum: - no indication for thrombolytic as sx started 2 days ago - CT head negative, CTA neck negative - MRI brain wo contrast completed showing 9 mm acute lesion in posterior frontal region - Given full dose aspirin in the ER, will add atorvastatin 80 mg , and plavix - Neurology consulted - PT/OT consults placed 03/09 echo: EF 55-60%, mild concentric LVH, no evidence of intracardiac shunt, a patent foramen ovale cannot be definitively excluded due to the technical limitations of the study Neurology service consulted: Recommend ZioPatch at DC if no evidence of arrhythmia during inpatient monitoring hgbA1c 6.1; fasting lipids: TG 234, LDL 58, HDL 35; homocysteine: pending Recommend DAPT for at least 3 weeks- Plavix + Aspirin Recommend high dose statin therapy indefinitely if tolerated: increase from 20 to 40mg po daily Follow up outpatient neurology (2) DM II (diabetes mellitus, type II), controlled: -ISS with Accu-Cheks ACHS -Hgb A1c 6.1% -Has Dexcom on arm normally, off s/p MRI and he does not have replacement with him continue Metformin (3) HTN (hypertension): -Patient is on amlodipine, lisinopril, metoprolol, HCTZ, continue (4) HLD (hyperlipidemia): -Increase statin therapy from 20 to 40 mg daily with new acute stroke (5) Morbid obesity: - BMI ~ 40 - weight loss encouraged (6) Hypothyroid: -Chronic, stable, continue levothyroxine 175 mcg daily (7) Asthma: -May continue use of allergy medications as well as albuterol -No acute exacerbation, no respiratory complaints -O2 sats 96% on RA (8) PAOLA on CPAP: -CPAP at bedtime DVT ppx: teds, scds FEN/GI: HH/DM diet CODE: Full code Dispo: d/c home ff up with PCP in 1 week ff up with Neurologist in 3-4 weeks Discharge Exam General- oriented x 3, not in distress, speaks in sentences with no effort or accessory muscle use Eyes- anicteric Neck- no JVD Lungs- clear breath sounds bilaterally, no crackles/wheezing Heart- normal rate, regular rhythm; no murmurs Abdomen- normal bowel sounds, nondistended, soft, nontender Extremities- no pretibial edema, no calf tenderness Neuro- alert, oriented x 3; no gross focal neurologic deficits Skin- warm & dry Updated Medication List Medication Instructions Recorded Confirmed Type ascorbic acid (vitamin C) 500 mg 500 mg PO DAILY 06/28/19 03/07/24 History tablet (Vitamin C) duloxetine 60 mg capsule,delayed 60 mg PO DAILY 06/28/19 03/07/24 History release famotidine 40 mg tablet 40 mg PO BID 06/28/19 03/07/24 History hydrochlorothiazide 25 mg tablet 25 mg PO DAILY 06/28/19 03/07/24 History lisinopril 40 mg tablet 40 mg PO DAILY 06/28/19 03/07/24 History montelukast 10 mg tablet 10 mg PO DAILY 06/28/19 03/07/24 History omega 4-jkd-duh-fish oil 1,000 mg 1 cap PO DAILY 06/28/19 03/07/24 History (120 mg-180 mg) capsule (Fish Oil) tramadol 50 mg tablet 50 mg PO BID PRN Pain 06/28/19 03/07/24 History vitamin B complex 1 tab PO DAILY 06/28/19 03/07/24 History vitamin E 200 unit capsule 200 unit PO DAILY 06/28/19 03/07/24 History albuterol sulfate 90 mcg/actuation 2 puff inhalation Q4 PRN Shortness 08/28/22 03/07/24 History aerosol inhaler Of Breath Or Wheezing amlodipine 10 mg tablet 10 mg PO DAILY 08/28/22 03/07/24 History cetirizine 10 mg tablet 10 mg PO DAILY 08/28/22 03/07/24 History glucosamine sulfate 500 mg tablet 500 mg PO DAILY 08/28/22 03/07/24 History (Glucosamine) metformin 500 mg tablet 1,000 mg PO QAM 08/28/22 03/07/24 History metoprolol succinate 25 mg 25 mg PO QAM 08/28/22 03/07/24 History tablet,extended release 24 hr multivitamin 1 tab PO DAILY 08/28/22 03/07/24 History sildenafil 100 mg tablet 100 mg PO DIRECTED PRN .before 08/28/22 03/07/24 History intercoarse turmeric 400 mg capsule 400 mg PO DAILY 08/28/22 03/07/24 History levothyroxine 175 mcg tablet 175 mcg PO QAM 03/07/24 03/07/24 History aspirin 81 mg tablet,delayed 81 mg PO QAM #30 tabs 03/09/24 Rx release atorvastatin 20 mg tablet 40 mg (2 x 20 mg) PO DAILY #60 tabs 03/09/24 Rx clopidogrel 75 mg tablet 75 mg PO QAM #21 tabs 03/09/24 Rx Hospital Stay Data Consultations 03/07/24 15:02 ED Decision to Admit Stat 03/07/24 15:12 Consult Neurology Routine Diagnostic Imagining Performed Laboratory Results WBC 7.12 K/ul (4.8-10.8) 03/09/24 07:22 RBC 5.43 M/uL (4.70-6.10) 03/09/24 07:22 Hgb 16.4 g/dl (14.0-18.0) 03/09/24 07:22 Hct 45.1 % (42.0-52.0) 03/09/24 07:22 MCV 83.1 fL (80.0-100.0) 03/09/24 07:22 MCH 30.2 pg (25.0-34.0) 03/09/24 07:22 MCHC 36.4 g/dL (32.0-36.0) H 03/09/24 07:22 RDW Std Deviation 36.8 fL (36.4-46.3) 03/09/24 07:22 RDW Coeff of Chang 12.2 % (11.5-14.5) 03/09/24 07:22 Plt Count 238 K/uL (130-400) 03/09/24 07:22 MPV 9.3 fL (9.4-12.4) L 03/09/24 07:22 Immature Gran % (Auto) 0.7 % 03/09/24 07:22 Neut % (Auto) 68.6 % 03/09/24 07:22 Lymph % (Auto) 18.5 % 03/09/24 07:22 [place] % (Auto) 8.4 % 03/09/24 07:22 Eos % (Auto) 2.5 % 03/09/24 07:22 Baso % (Auto) 1.3 % 03/09/24 07:22 Neut # (Auto) 4.88 K/uL (1.40-6.50) 03/09/24 07:22 Lymph # (Auto) 1.32 K/uL (1.20-3.40) 03/09/24 07:22 [place] # (Auto) 0.60 K/uL (0.11-0.59) H 03/09/24 07:22 Eos # (Auto) 0.18 K/uL (0.00-0.50) 03/09/24 07:22 Baso # (Auto) 0.09 K/uL (0.00-0.20) 03/09/24 07:22 Immature Gran # (Auto) 0.05 K/uL (0.01-0.20) 03/09/24 07:22 PT 10.7 Seconds (9.0-12.0) 03/07/24 09:50 INR 1.0 (0.9-1.1) 03/07/24 09:50 APTT 31 Seconds (21-31) 03/07/24 09:50 PTT Ratio 1.1 03/07/24 09:50 D-Dimer 400 ug/L FEU (0-500) 03/08/24 19:50 Sodium 133 mmol/L (136-145) L 03/09/24 07:22 Potassium 3.6 mmol/L (3.5-5.1) 03/09/24 07:22 Chloride 101 mmol/L (98-107) 03/09/24 07:22 Carbon Dioxide 25 mmol/L (21-32) 03/09/24 07:22 Anion Gap 7 (3-11) 03/09/24 07:22 BUN 19 mg/dl (6-23) 03/09/24 07:22 Creatinine 0.81 mg/dl (0.6-1.4) 03/09/24 07:22 Est Cr Clr Drug Dosing 130.9 ml/min 03/09/24 07:22 Est GFR ( Amer) 113.5 ml/min 03/09/24 07:22 Est GFR (Non-Af Amer) 98.0 ml/min 03/09/24 07:22 BUN/Creatinine Ratio 23.5 (10-20) H 03/09/24 07:22 Glucose 130 mg/dl (70-99(Fasting)) H 03/09/24 07:22 POC Glucose 85 mg/dl (70-99) 03/09/24 11:42 Estimat Average Glucose 128 mg/dl 03/08/24 06:52 Hemoglobin A1c 6.1 % (4.5-5.6) H 03/08/24 06:52 Calcium 8.6 mg/dl (8.6-10.3) 03/09/24 07:22 Phosphorus 3.4 mg/dl (2.5-4.9) 03/09/24 07:22 Magnesium 2.0 mg/dl (1.7-2.4) 03/09/24 07:22 Total Bilirubin 0.6 mg/dl (0.2-1.0) 03/07/24 09:50 AST 20 U/L (13-39) 03/07/24 09:50 ALT 29 U/L (7-52) 03/07/24 09:50 Alkaline Phosphatase 58 U/L (34-104) 03/07/24 09:50 Troponin I High Sens 15.3 pg/ml (0-20) 03/07/24 09:50 Total Protein 7.4 gm/dl (6.0-8.3) 03/07/24 09:50 Albumin 4.3 gm/dl (3.4-5.0) 03/07/24 09:50 Globulin 3.1 gm/dl (2.5-4.0) 03/07/24 09:50 Albumin/Globulin Ratio 1.4 (0.9-2) 03/07/24 09:50 Triglycerides 234 mg/dl (0-150) H 03/08/24 06:52 Cholesterol 140 mg/dl (0-200) 03/08/24 06:52 LDL Cholesterol, Calc 58 mg/dl 03/08/24 06:52 VLDL Cholesterol, Calc 47 mg/dl (0-30) H 03/08/24 06:52 HDL Cholesterol 35 mg/dl 03/08/24 06:52 Cholesterol/HDL Ratio 4.0 (0-5) 03/08/24 06:52 TSH 4.041 uIu/ml (0.300-4.500) 03/09/24 07:22 Blood Type A Positive 03/07/24 10:04 Antibody Screen NEGATIVE 03/07/24 10:[address] 03/07/24 09:[address] OF THE BRAIN; CT ANGIOGRAM OF THE BRAIN; CT ANGIOGRAM OF THE NECK CLINICAL HISTORY: Neurological deficit. Stroke like symptoms. Dizziness. COMPARISON STUDY: CT of the brain dated 06/28/2019. TECHNIQUE: Unenhanced axial CT scan of the brain is performed. Subsequently, following the IV administration of 118 of Optiray 320, CT angiogram of the head and neck was performed from the aortic arch to the vertex. Images are reviewed in the axial, sagittal, and coronal planes. 3-D MIPS images are created and assessed. IV contrast was administered without complication. All measurements were calculated based on NASCET criteria. A dose lowering technique was utilized adhering to the principles of ALARA. CT DOSE: 1204.35 mGy.cm FINDINGS: Brain parenchyma: There is age-related involutional change and a mild to moderate patchy subcortical and periventricular microhepatic disease. Chronic lacunar infarcts are noted in the right caudate head, the left basal ganglia, and the right thalamus. There is no hemorrhage, mass effect, or evidence of acute territorial ischemia by CT criteria. There is no evidence of enhancing mass lesion on the angiogram phase images. The ventricles, sulci, and cisterns are prominent secondary to involutional change. Elliott-white matter differentiation is preserved. No extra-axial fluid collection is seen. Thoracic aorta: Visualized portions of the thoracic aorta are normal in caliber. The aortic arch demonstrates standard 3-vessel anatomy. Right carotid arterial system: The right common carotid artery is widely patent, as are the right internal and external carotid arteries. Minimal calcified plaque is seen in the carotid bulb. Left carotid arterial system: The left common carotid artery is widely patent, as are the left internal and external carotid arteries. Vertebral arteries: Widely patent bilaterally noting mild left-sided dominance. Subclavian arteries: Widely patent bilaterally. Intracranial vasculature: There is atherosclerotic calcification of the cavernous carotid arteries. The grindstone of Mccormick is developmentally complete. The internal carotid arteries are patent at the skull base, as are the anterior and middle cerebral arteries bilaterally. The vertebrobasilar system and posterior cerebral arteries are widely patent. The left vertebral artery is dominant. There is no aneurysm, high-grade stenosis, or focal vessel cut off seen throughout the intracranial circulation. Jugular veins: Patent bilaterally. Dural sinuses: Patent. Lung apices: Partially visualized upper lobe lung parenchyma appears clear. Soft tissues: The visualized pharyngeal soft tissues are normal in appearance noting angiographic phase technique. The oropharyngeal airway appears widely patent. The thyroid gland is mildly enlarged and heterogeneous. The salivary glands are normal in appearance. No cervical lymphadenopathy is seen. Skeletal structures: The skeletal structures appear osteopenic. The calvarium appears intact. The cervical spine is maintained noting multilevel spondylosis. Orbits: The bony orbits are intact. Orbital contents are normal as visualized. Sinuses and mastoids: Trace mucosal thickening is noted in the maxillary antra. The paranasal sinuses are otherwise clear. There is a left mastoid effusion. The right mastoid air cells are well pneumatized. IMPRESSION: 1. There is no hemorrhage, mass effect, or evidence of acute territorial ischemia by CT criteria. 2. Unremarkable CT angiogram of the brain. 3. Unremarkable CT angiogram of the neck. ACT 112: Negative or not required by law. Electronically signed by: Daryn Markham M.D. 03/07/2024 11:54 AM Head CTA 03/07/24 09:[address] OF THE BRAIN; CT ANGIOGRAM OF THE BRAIN; CT ANGIOGRAM OF THE NECK CLINICAL HISTORY: Neurological deficit. Stroke like symptoms. Dizziness. COMPARISON STUDY: CT of the brain dated 06/28/2019. TECHNIQUE: Unenhanced axial CT scan of the brain is performed. Subsequently, following the IV administration of 118 of Optiray 320, CT angiogram of the head and neck was performed from the aortic arch to the vertex. Images are reviewed in the axial, sagittal, and coronal planes. 3-D MIPS images are created and assessed. IV contrast was administered without complication. All measurements were calculated based on NASCET criteria. A dose lowering technique was utilized adhering to the principles of ALARA. CT DOSE: 1204.35 mGy.cm FINDINGS: Brain parenchyma: There is age-related involutional change and a mild to moderate patchy subcortical and periventricular microhepatic disease. Chronic lacunar infarcts are noted in the right caudate head, the left basal ganglia, and the right thalamus. There is no hemorrhage, mass effect, or evidence of acute territorial ischemia by CT criteria. There is no evidence of enhancing mass lesion on the angiogram phase images. The ventricles, sulci, and cisterns are prominent secondary to involutional change. Elliott-white matter differentiation is preserved. No extra-axial fluid collection is seen. Thoracic aorta: Visualized portions of the thoracic aorta are normal in caliber. The aortic arch demonstrates standard 3-vessel anatomy. Right carotid arterial system: The right common carotid artery is widely patent, as are the right internal and external carotid arteries. Minimal calcified plaque is seen in the carotid bulb. Left carotid arterial system: The left common carotid artery is widely patent, as are the left internal and external carotid arteries. Vertebral arteries: Widely patent bilaterally noting mild left-sided dominance. Subclavian arteries: Widely patent bilaterally. Intracranial vasculature: There is atherosclerotic calcification of the cavernous carotid arteries. The grindstone of Mcc[place] is developmentally complete. The internal carotid arteries are patent at the skull base, as are the anterior and middle cerebral arteries bilaterally. The vertebrobasilar system and posterior cerebral arteries are widely patent. The left vertebral artery is dominant. There is no aneurysm, high-grade stenosis, or focal vessel cut off seen throughout the intracranial circulation. Jugular veins: Patent bilaterally. Dural sinuses: Patent. Lung apices: Partially visualized upper lobe lung parenchyma appears clear. Soft tissues: The visualized pharyngeal soft tissues are normal in appearance noting angiographic phase technique. The oropharyngeal airway appears widely patent. The thyroid gland is mildly enlarged and heterogeneous. The salivary glands are normal in appearance. No cervical lymphadenopathy is seen. Skeletal structures: The skeletal structures appear osteopenic. The calvarium appears intact. The cervical spine is maintained noting multilevel spondylosis. Orbits: The bony orbits are intact. Orbital contents are normal as visualized. Sinuses and mastoids: Trace mucosal thickening is noted in the maxillary antra. The paranasal sinuses are otherwise clear. There is a left mastoid effusion. The right mastoid air cells are well pneumatized. IMPRESSION: 1. There is no hemorrhage, mass effect, or evidence of acute territorial ischemia by CT criteria. 2. Unremarkable CT angiogram of the brain. 3. Unremarkable CT angiogram of the neck. ACT 112: Negative or not required by law. Electronically signed by: Daryn Markham M.D. 03/07/2024 11:54 AM Neck CTA 03/07/24 09:[address] OF THE BRAIN; CT ANGIOGRAM OF THE BRAIN; CT ANGIOGRAM OF THE NECK CLINICAL HISTORY: Neurological deficit. Stroke like symptoms. Dizziness. COMPARISON STUDY: CT of the brain dated 06/28/2019. TECHNIQUE: Unenhanced axial CT scan of the brain is performed. Subsequently, following the IV administration of 118 of Optiray 320, CT angiogram of the head and neck was performed from the aortic arch to the vertex. Images are reviewed in the axial, sagittal, and coronal planes. 3-D MIPS images are created and assessed. IV contrast was administered without complication. All measurements were calculated based on NASCET criteria. A dose lowering technique was utilized adhering to the principles of ALARA. CT DOSE: 1204.35 mGy.cm FINDINGS: Brain parenchyma: There is age-related involutional change and a mild to moderate patchy subcortical and periventricular microhepatic disease. Chronic lacunar infarcts are noted in the right caudate head, the left basal ganglia, and the right thalamus. There is no hemorrhage, mass effect, or evidence of acu te territorial ischemia by CT criteria. There is no evidence of enhancing mass lesion on the angiogram phase images. The ventricles, sulci, and cisterns are prominent secondary to involutional change. Elliott-white matter differentiation is preserved. No extra-axial fluid collection is seen. Thoracic aorta: Visualized portions of the thoracic aorta are normal in caliber. The aortic arch demonstrates standard 3-vessel anatomy. Right carotid arterial system: The right common carotid artery is widely patent, as are the right internal and external carotid arteries. Minimal calcified plaque is seen in the carotid bulb. Left carotid arterial system: The left common carotid artery is widely patent, as are the left internal and external carotid arteries. Vertebral arteries: Widely patent bilaterally noting mild left-sided dominance. Subclavian arteries: Widely patent bilaterally. Intracranial vasculature: There is atherosclerotic calcification of the cavernous carotid arteries. The grindstone of M[place] is developmentally complete. The internal carotid arteries are patent at the skull base, as are the anterior and middle cerebral arteries bilaterally. The vertebrobasilar system and pos terior cerebral arteries are widely patent. The left vertebral artery is dominant. There is no aneurysm, high-grade stenosis, or focal vessel cut off seen throughout the intracranial circulation. Jugular veins: Patent bilaterally. Dural sinuses: Patent. Lung apices: Partially visualized upper lobe lung parenchyma appears clear. Soft tissues: The visualized pharyngeal soft tissues are normal in appearance noting angiographic phase technique. The oropharyngeal airway appears widely patent. The thyroid gland is mildly enlarged and heterogeneous. The salivary glands are normal in appearance. No cervical lymphadenopathy is seen. Skeletal structures: The skeletal structures appear osteopenic. The calvarium appears intact. The cervical spine is maintained noting multilevel spondylosis. Orbits: The bony orbits are intact. Orbital contents are normal as visualized. Sinuses and mastoids: Trace mucosal thickening is noted in the maxillary antra. The paranasal sinuses are otherwise clear. There is a left mastoid effusion. The right mastoid air cells are well pneumatized. IMPRESSION: 1. There is no hemorrhage, mass effect, or evidence of acute territorial ischemia by CT criteria. 2. Unremarkable CT angiogram of the brain. 3. Unremarkable CT angiogram of the neck. ACT 112: Negative or not required by law. Electronically signed by: Daryn Markham M.D. 03/07/2024 11:54 AM Brain MRI 03/07/24 12:59 Brain MRI WITHOUT CONTRAST HISTORY: vertigo TECHNIQUE: Multiplanar multisequence MRI of the brain was performed without the use of contrast. COMPARISON STUDY: Head CT 03/07/2024. FINDINGS: There is a 9 mm focus of restricted diffusion within the left high convexity on image 19 consistent with a small acute infarct. The midline structures are intact. Scattered foci of T2 hyperintensity seen within the periventricular and subcortical white matter of the supratentorial brain. These are nonspecific but favor mild microvascular ischemic change. There is no mass, hematoma, or midline shift. Mild mucosal thickening within the paranasal sinuses. The right mastoid air cells are clear. There is a small left mastoid effusion. The major vascular flow-voids at the skull base are well-maintained. There are old lacunar infarcts within the bilateral basal ganglia and bilateral thalami. The orbits are unremarkable. IMPRESSION: 1. A 9 mm acute infarct within the left posterior frontal lobe at the high convexity. 2. Old lacunar infarcts within the bilateral basal ganglia and thalami. 3. Mild atrophy and microvascular ischemic changes. ACT 112: Negative or not required by law. Electronically signed by: Daniel Boles M.D. 03/07/2024 2:50 PM Pending Results Patient Have Any Pending Studies at Discharge: Yes Discharge Instructions Given to Patient (Per Discharging Provider) PLEASE REFER TO YOUR NEW MEDICATION LIST AND FOLLOW INSTRUCTIONS CAREFULLY. YOUR NEW MEDICATIONS INCLUDE: Aspirin, Plavix-antiplatelets for stroke prevention Increase Atorvastatin from 20 to 40 mg daily You need to have a heart monitor-Zio patch, placed to evaluate for possible underlying heart rhythm problems. Your primary care physician can assist with arranging this. FOLLOW UP WITH PRIMARY CARE PHYSICIAN AND NEUROLOGIST OUTLINED ABOVE. Who to Call and When: Medical Emergencies: Call 911 immediately if you experience any of the following warning signs and symptoms of Stroke: Sudden numbness or weakness of the face, arm or leg, especially on one side of the body Sudden confusion, trouble speaking or understanding Sudden trouble seeing in one or both eyes Sudden trouble walking, dizziness, loss of balance or coordination Sudden severe headache with no cause Do not delay calling 911 if you experience any warning signs or symptoms of a stroke. Delay in seeking medical attention may affect what treatments can be given to you. Risk Factors for Stroke: You can reduce your chances of stroke by working with your medical provider to adopt a healthy lifestyle. Some specific ways to lower your chance of stroke are: If you are a smoker, now is the time to stop smoking cigarettes If you are diabetic, improve the control of your blood sugars Avoid excessive amounts of alcohol Control high blood pressure Lose weight if you are overweight Be sure to lead an active lifestyle Eat a healthy diet low in salt, cholesterol and fat You should know about other risk factors for stroke that you are unable to control. These include: Age 55 years or older Male gender Certain racial groups: , or / Family History of Stroke, Mini stroke or Heart Attack Sickle Cell Disease Follow Up: It is important for you to keep your follow up appointments with your medical provider. Total Time Total Time Spent Total Time Spent (In Minutes): >30 minutes
== END 2024-03-09 16:51 | disposition home or self-care (01) | DRG 65 ==
LOC: ED 09:35 → SUATTDRO 15:15 → 2S 15:15

== ENCOUNTER 2024-03-31 13:09 | Observation (INO) ==
--- NOTE | 2024-03-31 13:08 | Emergency Department Note ---
Impression & Plan Dizziness, History of ischemic stroke, Acute headache, Nausea ED Provider Note Provider: Rico Caraballo MD DATE OF SERVICE: 03/31/2024 CHIEF COMPLAINT: Dizziness headache, nausea HISTORY OF PRESENT ILLNESS: Patient is a 58-year-old gentleman history of hypertension, diabetes, and recent CVA presenting via ambulance from the [facility] today. Patient had sudden onset 1220 this afternoon of severe headache with nausea and dizziness. Similar by his report to his presentation recently when he was diagnosed with a stroke. No trauma reported. No significant weakness or numbness in the extremities or speech issues reported. Patient is maintained on aspirin and Plavix. Has been taking them. States otherwise been well. Does have a history of tinnitus at some point. No significant vertigo history. Headache is moderated and after some nausea medication nausea is moderated at this time. Occasionally gets a little bit of facial numbness but nonspecific. Denies significant speech issues currently or numbness or tingling in the extremities again. PAST MEDICAL HISTORY: As noted above MEDICATIONS: Reviewed home medications SOCIAL HISTORY: Former smoker PHYSICAL EXAM: GENERAL: alert and oriented in no acute distress on stretcher Head: normocephalic and atraumatic EYES: No injection, discharge or icterus. PERRL, EOMI. NECK: Trachea midline. Supple. ENT: Mucous membranes pink and moist. LUNGS: Airway patent. No retractions or tachypnea HEART: Regular rate and rhythm. No chest wall tenderness ABDOMEN: Soft and non-tender, without guarding or rebound. SKIN: Acyanotic, warm, dry, without rashes EXTREMITIES: Without swelling, tenderness or deformity NEUROLOGICAL: No focal deficits. No aphasia. No facial droop or slurred speech. Normal strength and tone in the extremities. Sensation to gross touch normal. Ambulatory. No finger-nose ataxia. No leg drift. EK beats per minute. Normal sinus rhythm without PVC or PAC. Artifact in V2. No acute ST segment elevation or depression with a QTc of 438 CONTINUOUS CARDIAC MONITORING: was ordered and showed a heart rate of 60s bpm in normal sinus rhythm Patient's laboratory studies and imaging reviewed. Differential includes Infection, dehydration, metabolic abnormality, hypo/hyperglycemia, electrolyte disturbance, anemia, hypoxia, cardiac sources, intracerebral event, toxicologic, neurologic, as well as other pathologies. IMPRESSION/MEDICAL DECISION MAKING: Made a stroke alert based on the history of recent stroke with similar symptoms. CT and CT angiograms obtained. Want to exclude bleed. Deficits on exam when returning to exam room seems somewhat minimal. Still having some dizziness symptoms with movement. No significant speech issues or new visual deficits by his report of significant numbness or weakness of the extremities. [facility] Basic blood work is sent. CT and CT angiograms per report are normal. Blood pressure only mildly elevated. NIH does not seem significant elevated and while little dizzy with ambulation is able to stand and walk briefly. Agree with telestroke I do not feel lytic therapy is indicated. Further recommendations additional aspirin for full dose ordered as well as additional Lipitor. Will bring in for further evaluation. Given that he has a mild headache and some nausea still will give a little bit of Reglan to see if this helps the symptoms. Blood obtained here without significant abnormalities noted. DIAGNOSIS: Dizziness, headache DISPOSITION: Hospitalist will evaluate Patient was agreeable with this plan. Past Med/Surg History Problem List (Updated 03/31/24 @ 18:38 by Rico Caraballo M.D.) Nausea (Acute) Dizziness (Acute) Generalized osteoarthritis of multiple sites Nausea alone Dizziness on standing Acute headache (Acute) Hypothyroidism, unspecified Esophageal reflux History of ischemic stroke (Acute) Morbid obesity PAOLA on CPAP HLD (hyperlipidemia) DM II (diabetes mellitus, type II), controlled HTN (hypertension) Asthma Head injury (Acute) Medical History Acute CVA (cerebrovascular accident) Diverticulitis Bronchitis Right knee injury Hydronephrosis History of deviated nasal septum Surgical History Hx of vasectomy Hx of cystoscopy Hx of sinus surgery Family History Other Cancer Diabetes Heart disease Hypertension Social History Smoking Status: Former smoker Tobacco Type: Cigarettes and Smokeless Tobacco (Dip or Chew) Second Hand Exposure: No; Do You Dip or Chew Tobacco: No; Hx Alcohol Use: No Hx Substance Use: No Preferred Language: Kinyarwanda Communication Ability: Effective Consultant Intern Required: No Beliefs That Will Affect Care: None Current Living Situation: Spouse Feels Safe at Home: Yes Assistive Devices: None Allergies Allergies Allergy/AdvReac Type Severity Reaction Status Date / Time aspirin AdvReac Intermediate nose bleeds Verified 08/28/22 21:21 NSAIDS (Non-Steroidal AdvReac Intermediate to avoid Verified 08/28/22 21:21 Anti-Inflamma d/t stomach/esophagus irritation Pork/Porcine Containing AdvReac Intermediate diarrhea Verified 08/28/22 21:21 Products Home Meds Home Medications Medication Instructions Recorded Confirmed ascorbic acid (vitamin C) 500 mg 500 mg PO DAILY 06/28/19 03/31/24 tablet (Vitamin C) duloxetine 60 mg capsule,delayed 60 mg PO DAILY 06/28/19 03/31/24 release famotidine 40 mg tablet 40 mg PO BID 06/28/19 03/31/24 lisinopril 40 mg tablet 40 mg PO DAILY 06/28/19 03/31/24 montelukast 10 mg tablet 10 mg PO DAILY 06/28/19 03/31/24 omega [id number] oil 1,000 mg 1 cap PO DAILY 06/28/19 03/31/24 (120 mg-180 mg) capsule (Fish Oil) tramadol 50 mg tablet 50 mg PO BID PRN Pain 06/28/19 03/31/24 vitamin B complex 1 tab PO DAILY 06/28/19 03/31/24 vitamin E 200 unit capsule 200 unit PO DAILY 06/28/19 03/31/24 albuterol sulfate 90 mcg/actuation 2 puff inhalation Q4 PRN Shortness 08/28/22 03/31/24 aerosol inhaler Of Breath Or Wheezing amlodipine 10 mg tablet 10 mg PO DAILY 08/28/22 03/31/24 cetirizine 10 mg tablet 10 mg PO DAILY 08/28/22 03/31/24 glucosamine sulfate 500 mg tablet 500 mg PO DAILY 08/28/22 03/31/24 (Glucosamine) metformin 500 mg tablet 1,000 mg PO QAM 08/28/22 03/31/24 metoprolol succinate 25 mg 25 mg PO QAM 08/28/22 03/31/24 tablet,extended release 24 hr multivitamin 1 tab PO DAILY 08/28/22 03/31/24 sildenafil 100 mg tablet 100 mg PO DIRECTED PRN .before 08/28/22 03/31/24 intercoarse turmeric 400 mg capsule 400 mg PO DAILY 08/28/22 03/31/24 levothyroxine 175 mcg tablet 175 mcg PO QAM 03/07/24 03/31/24 Previous Rx's Medication Instructions Recorded aspirin 81 mg tablet,delayed 81 mg PO QAM #30 tabs 03/09/24 release atorvastatin 20 mg tablet 40 mg (2 x 20 mg) PO DAILY #60 tabs 03/09/24 clopidogrel 75 mg tablet 75 mg PO QAM #21 tabs 03/09/24 Results & Data (ED) Vital Signs Vital Signs - 24 hr 03/31/24 13:22 03/31/24 13:23 03/31/24 13:23 Temperature Temperature Source Pulse Rate - Lying Pulse Rate - Sitting Pulse Rate - Standing Pulse Rate 64 60 Pulse Rate [Apical] Pulse Rate from SpO2 Sensor 64 61 Respiratory Rate 14 14 Respiratory Effort / Characteristics Respiratory Depth Blood Pressure - Lying Blood Pressure - Sitting Blood Pressure- Standing Blood Pressure 141/80 H Blood Pressure [Right Arm] Blood Pressure Mean 90 Blood Pressure Mean [Right Arm] Blood Pressure Position Pulse Oximetry 97 97 Oxygen Delivery Method Room Air Room Air Sepsis Recent Fever Within 48 Hours Sepsis New/Unexplained Change in Mental Status Sepsis Action Taken by Nursing 03/31/24 13:24 03/31/24 13:26 03/31/24 13:26 Temperature 36.5 C Temperature Source Oral Pulse Rate - Lying Pulse Rate - Sitting Pulse Rate - Standing Pulse Rate 62 70 Pulse Rate [Apical] Pulse Rate from SpO2 Sensor Respiratory Rate 18 Respiratory Effort / Characteristics Non-Labored Spontaneous Respiratory Depth Normal Blood Pressure - Lying Blood Pressure - Sitting Blood Pressure- Standing Blood Pressure 147/77 H 147/77 H Blood Pressure [Right Arm] Blood Pressure Mean 100 95 Blood Pressure Mean [Right Arm] Blood Pressure Position Sitting Pulse Oximetry 96 Oxygen Delivery Method Room Air Sepsis Recent Fever Within 48 Hours No Sepsis New/Unexplained Change in Mental Status No Sepsis Action Taken by Nursing No Action Required 03/31/24 13:26 03/31/24 13:30 03/31/24 13:30 Temperature Temperature Source Pulse Rate - Lying Pulse Rate - Sitting Pulse Rate - Standing Pulse Rate 67 62 Pulse Rate [Apical] Pulse Rate from SpO2 Sensor 66 65 Respiratory Rate 16 17 Respiratory Effort / Characteristics Respiratory Depth Blood Pressure - Lying Blood Pressure - Sitting Blood Pressure- Standing Blood Pressure 136/73 Blood Pressure [Right Arm] Blood Pressure Mean 82 Blood Pressure Mean [Right Arm] Blood Pressure Position Pulse Oximetry 98 93 Oxygen Delivery Method Room Air Room Air Sepsis Recent Fever Within 48 Hours Sepsis New/Unexplained Change in Mental Status Sepsis Action Taken by Nursing 03/31/24 13:45 03/31/24 13:45 03/31/24 13:49 Temperature Temperature Source Pulse Rate - Lying Pulse Rate - Sitting Pulse Rate - Standing Pulse Rate 61 Pulse Rate [Apical] Pulse Rate from SpO2 Sensor 61 Respiratory Rate 14 Respiratory Effort / Characteristics Respiratory Depth Blood Pressure - Lying Blood Pressure - Sitting Blood Pressure- Standing Blood Pressure 111/74 126/76 Blood Pressure [Right Arm] Blood Pressure Mean 89 89 Blood Pressure Mean [Right Arm] Blood Pressure Position Pulse Oximetry 97 Oxygen Delivery Method Room Air Sepsis Recent Fever Within 48 Hours Sepsis New/Unexplained Change in Mental Status Sepsis Action Taken by Nursing 03/31/24 13:49 03/31/24 14:00 03/31/24 14:00 Temperature Temperature Source Pulse Rate - Lying Pulse Rate - Sitting Pulse Rate - Standing Pulse Rate 60 66 Pulse Rate [Apical] Pulse Rate from SpO2 Sensor 60 66 Respiratory Rate 14 23 Respiratory Effort / Characteristics Respiratory Depth Blood Pressure - Lying Blood Pressure - Sitting Blood Pressure- Standing Blood Pressure 140/76 Blood Pressure [Right Arm] Blood Pressure Mean 88 Blood Pressure Mean [Right Arm] Blood Pressure Position Pulse Oximetry 96 96 Oxygen Delivery Method Room Air Room Air Sepsis Recent Fever Within 48 Hours Sepsis New/Unexplained Change in Mental Status Sepsis Action Taken by Nursing 03/31/24 14:15 03/31/24 14:16 03/31/24 14:16 Temperature Temperature Source Pulse Rate - Lying Pulse Rate - Sitting Pulse Rate - Standing Pulse Rate 62 61 Pulse Rate [Apical] Pulse Rate from SpO2 Sensor Respiratory Rate 20 20 Respiratory Effort / Characteristics Respiratory Depth Blood Pressure - Lying Blood Pressure - Sitting Blood Pressure- Standing Blood Pressure 110/65 Blood Pressure [Right Arm] Blood Pressure Mean 80 Blood Pressure Mean [Right Arm] Blood Pressure Position Pulse Oximetry Oxygen Delivery Method Sepsis Recent Fever Within 48 Hours Sepsis New/Unexplained Change in Mental Status Sepsis Action Taken by Nursing 03/31/24 15:01 03/31/24 15:52 03/31/24 18:29 Temperature Temperature Source Pulse Rate - Lying 55 L Pulse Rate - Sitting 66 Pulse Rate - Standing 63 Pulse Rate Pulse Rate [Apical] 68 61 Pulse Rate from SpO2 Sensor Respiratory Rate 18 20 Respiratory Effort / Characteristics Respiratory Depth Blood Pressure - Lying 132/79 Blood Pressure - Sitting 132/74 Blood Pressure- Standing 134/80 Blood Pressure Blood Pressure [Right Arm] 119/66 129/76 Blood Pressure Mean Blood Pressure Mean [Right Arm] 83 93 Blood Pressure Position Pulse Oximetry 91 97 Oxygen Delivery Method Room Air Sepsis Recent Fever Within 48 Hours Sepsis New/Unexplained Change in Mental Status Sepsis Action Taken by Nursing Laboratory Data 03/31/24 13:11 03/31/24 13:11 Lab Results 03/31/24 03/31/24 03/31/24 Range/Units 13:11 13:21 13:39 WBC 6.75 (4.8-10.8) K/ul RBC 4.91 (4.70-6.10) M/uL Hgb 14.7 (14.0-18.0) g/dl Hct 41.9 L (42.0-52.0) % MCV 85.3 (80.0-100.0) fL MCH 29.9 (25.0-34.0) pg MCHC 35.1 (32.0-36.0) g/dL RDW Std Deviation 38.7 (36.4-46.3) fL RDW Coeff of Chang 12.6 (11.5-14.5) % Plt Count 257 (130-400) K/uL MPV 10.1 (9.4-12.4) fL Immature Gran % (Auto) 0.3 % Neut % (Auto) 68.2 % Lymph % (Auto) 19.3 % [place] % (Auto) 8.9 % Eos % (Auto) 2.4 % Baso % (Auto) 0.9 % Neut # (Auto) 4.61 (1.40-6.50) K/uL Lymph # (Auto) 1.30 (1.20-3.40) K/uL [place] # (Auto) 0.60 H (0.11-0.59) K/uL Eos # (Auto) 0.16 (0.00-0.50) K/uL Baso # (Auto) 0.06 (0.00-0.20) K/uL Immature Gran # (Auto) 0.02 (0.01-0.20) K/uL PT 10.9 (9.0-12.0) Seconds INR 1.0 (0.9-1.1) APTT 30 (21-31) Seconds PTT Ratio 1.1 Sodium 135 L (136-145) mmol/L Potassium 3.8 (3.5-5.1) mmol/L Chloride 104 (98-107) mmol/L Carbon Dioxide 23 (21-32) mmol/L Anion Gap 8 (3-11) BUN 20 (6-23) mg/dl Creatinine 1.03 (0.6-1.4) mg/dl Est Cr Clr Drug Dosing 104.0 ml/min Est GFR ( Amer) 92.4 ml/min Est GFR (Non-Af Amer) 79.7 ml/min BUN/Creatinine Ratio 19.4 (10-20) Glucose 143 H (70-99(Fasting)) mg/dl POC Glucose 143 H (70-99) mg/dl Calcium 9.4 (8.6-10.3) mg/dl Magnesium 2.1 (1.7-2.4) mg/dl Total Bilirubin 0.9 (0.2-1.0) mg/dl AST 38 (13-39) U/L ALT 44 (7-52) U/L Alkaline Phosphatase 66 (34-104) U/L Troponin I High Sens 10.8 (0-20) pg/ml Total Protein 7.8 (6.0-8.3) gm/dl Albumin 4.6 (3.4-5.0) gm/dl Globulin 3.2 (2.5-4.0) gm/dl Albumin/Globulin Ratio 1.4 (0.9-2) Urine Color Urine Appearance (Clear) Urine pH (4.5-7.5) Ur Specific [place] (1.000-1.030) Urine Protein (Negative) Urine Glucose (UA) (Negative) Urine Ketones (Negative) Urine Blood (Negative) Urine Nitrite (Negative) Urine Bilirubin (Negative) Urine Urobilinogen (Negative) Ur Leukocyte Esterase (Negative) Urine WBC (Auto) (0-5) /hpf Urine RBC (Auto) (0-2) /hpf U Hyaline Cast (Auto) (0-2) /lpf U Epithel Cells (Auto) (0-2) /hpf Urine Bacteria (Auto) (None Seen) Blood Type A Positive Antibody Screen NEGATIVE 03/31/24 Range/Units 14:17 WBC (4.8-10.8) K/ul RBC (4.70-6.10) M/uL Hgb (14.0-18.0) g/dl Hct (42.0-52.0) % MCV (80.0-100.0) fL MCH (25.0-34.0) pg MCHC (32.0-36.0) g/dL RDW Std Deviation (36.4-46.3) fL RDW Coeff of Chang (11.5-14.5) % Plt Count (130-400) K/uL MPV (9.4-12.4) fL Immature Gran % (Auto) % Neut % (Auto) % Lymph % (Auto) % [place] % (Auto) % Eos % (Auto) % Baso % (Auto) % Neut # (Auto) (1.40-6.50) K/uL Lymph # (Auto) (1.20-3.40) K/uL [place] # (Auto) (0.11-0.59) K/uL Eos # (Auto) (0.00-0.50) K/uL Baso # (Auto) (0.00-0.20) K/uL Immature Gran # (Auto) (0.01-0.20) K/uL PT (9.0-12.0) Seconds INR (0.9-1.1) APTT (21-31) Seconds PTT Ratio Sodium (136-145) mmol/L Potassium (3.5-5.1) mmol/L Chloride (98-107) mmol/L Carbon Dioxide (21-32) mmol/L Anion Gap (3-11) BUN (6-23) mg/dl Creatinine (0.6-1.4) mg/dl Est Cr Clr Drug Dosing ml/min Est GFR ( Amer) ml/min Est GFR (Non-Af Amer) ml/min BUN/Creatinine Ratio (10-20) Glucose (70-99(Fasting)) mg/dl POC Glucose (70-99) mg/dl Calcium (8.6-10.3) mg/dl Magnesium (1.7-2.4) mg/dl Total Bilirubin (0.2-1.0) mg/dl AST (13-39) U/L ALT (7-52) U/L Alkaline Phosphatase (34-104) U/L Troponin I High Sens (0-20) pg/ml Total Protein (6.0-8.3) gm/dl Albumin (3.4-5.0) gm/dl Globulin (2.5-4.0) gm/dl Albumin/Globulin Ratio (0.9-2) Urine Color Yellow Urine Appearance Clear (Clear) Urine pH 7.0 (4.5-7.5) Ur Specific [place] 1.030 (1.000-1.030) Urine Protein 1+ H (Negative) Urine Glucose (UA) Negative (Negative) Urine Ketones Negative (Negative) Urine Blood Negative (Negative) Urine Nitrite Negative (Negative) Urine Bilirubin Negative (Negative) Urine Urobilinogen Negative (Negative) Ur Leukocyte Esterase Negative (Negative) Urine WBC (Auto) 0-5 (0-5) /hpf Urine RBC (Auto) 0-2 (0-2) /hpf U Hyaline Cast (Auto) 0-2 (0-2) /lpf U Epithel Cells (Auto) 0-2 (0-2) /hpf Urine Bacteria (Auto) None Seen (None Seen) Blood Type Antibody Screen Administered Medications Discontinued Medications Aspirin (Aspirin 81 Mg Chew) 243 mg PO NOW STA Stop: 03/31/24 14:03 Last Admin: 03/31/24 14:06 Dose: 243 mg Documented By: KALPESH Atorvastatin Calcium (Atorvastatin 40 Mg Tab) 40 mg PO QAM STA Stop: 03/31/24 14:04 Last Admin: 03/31/24 14:12 Dose: 40 mg Documented By: KALPESH Gadobutrol (Gadobutrol 65ml Vial) 12.5 ml IV ONCE ONE Stop: 03/31/24 18:13 Last Admin: 03/31/24 18:13 Dose: 12.5 ml Documented By: CHARLETTE Ioversol (Optiray 320 125ml) 112 ml IV ONCE ONE Stop: 03/31/24 13:12 Last Admin: 03/31/24 13:12 Dose: 112 ml Documented By: HESHAM Metoclopramide HCl (Metoclopramide Hcl Inj 5 Mg/Ml 2 Ml Vial) 5 mg IV ONE ONE Stop: 03/31/24 14:07 Last Admin: 03/31/24 14:13 Dose: 5 mg Documented By: KALPESH Imaging Data Radiologist's Impression: Head CT 03/31/24 13:01 CT angio head w con, CT head/brain wo con, CT angio neck with con CLINICAL HISTORY: neuro deficit, acute stroke suspected TECHNIQUE: Contiguous axial CT images of the head were acquired from the base of the skull to the vertex without intravenous contrast administration. CT angiography of the head and neck was performed following intravenous administration of iodinated contrast. Coronal and sagittal MIPS were obtained from the axial data set and were submitted for review. Automated dose lowering techniques and/or adjustment according to patient size were utilized for this examination. All measurements were calculated based on NASCET criteria. CT DOSE: 1372.7 mGy.cm Comparison: Comparison is made to MRI brain 03/07/2024 FINDINGS: CT head: Areas of decreased attenuation are present in the periventricular and subcortical white matter bilaterally consistent with small vessel ischemic disease. Generalized cerebral atrophy with commensurate enlargement of the ventricles, sulci, and cisterns is also present. There is no acute intracranial hemorrhage or evidence of acute territorial infarction. No shift of the midline structures, mass effect, or extra-axial abnormalities are shown. Atherosclerotic calcifications are present in the intracranial segments of the internal carotid arteries. Focal encephalomalacia in the left basal ganglia and right periventricular white matter is unchanged from prior exam. Lungs and soft tissues are unremarkable. CTA Neck: A 3 vessel aortic arch is shown. There is no significant atherosclerotic plaque in the aortic arch or the origins of the innominate, left common carotid, and left subclavian arteries. The common carotid, external carotid, cervical segments of the internal carotid arteries, and the cervical segments of the vertebral arteries are patent without hemodynamically significant stenosis. The left vertebral artery is dominant. CTA Head: The anterior and posterior cerebral circulations are patent. origin of the bilateral posterior cerebral arteries noted. IMPRESSION: 1. No acute intracranial hemorrhage, evidence of acute territorial infarction, or other acute intracranial disease process. 2. No occlusion, hemodynamically significant stenosis, or dissection in the major cervical arteries. 3. No occlusion, hemodynamically significant stenosis, aneurysm, dissection, or arteriovenous malformation in the major intracranial arteries. Assessment of stenosis of the internal carotid arteries is based on NASCET criteria. ACT 112: Negative or not required by law. Electronically signed by: Prem Gill M.D. 03/31/2024 1:34 PM Head CTA 03/31/24 13:01 CT angio head w con, CT head/brain wo con, CT angio neck with con CLINICAL HISTORY: neuro deficit, acute stroke suspected TECHNIQUE: Contiguous axial CT images of the head were acquired from the base of the skull to the vertex without intravenous contrast administration. CT angiography of the head and neck was performed following intravenous administration of iodinated contrast. Coronal and sagittal MIPS were obtained from the axial data set and were submitted for review. Automated dose lowering techniques and/or adjustment according to patient size were utilized for this examination. All measurements were calculated based on NASCET criteria. CT DOSE: 1372.7 mGy.cm Comparison: Comparison is made to MRI brain 03/07/2024 FINDINGS: CT head: Areas of decreased attenuation are present in the periventricular and subcortical white matter bilaterally consistent with small vessel ischemic disease. Generalized cerebral atrophy with commensurate enlargement of the ventricles, sulci, and cisterns is also present. There is no acute intracranial hemorrhage or evidence of acute territorial infarction. No shift of the midline structures, mass effect, or extra-axial abnormalities are shown. Atherosclerotic calcifications are present in the intracranial segments of the internal carotid arteries. Focal encephalomalacia in the left basal ganglia and right periventricular white matter is unchanged from prior exam. Lungs and soft tissues are unremarkable. CTA Neck: A 3 vessel aortic arch is shown. There is no significant atherosclerotic plaque in the aortic arch or the origins of the innominate, left common carotid, and left subclavian arteries. The common carotid, external carotid, cervical segments of the internal carotid arteries, and the cervical segments of the vertebral arteries are patent without hemodynamically significant stenosis. The left vertebral artery is dominant. CTA Head: The anterior and posterior cerebral circulations are patent. origin of the bilateral posterior cerebral arteries noted. IMPRESSION: 1. No acute intracranial hemorrhage, evidence of acute territorial infarction, or other acute intracranial disease process. 2. No occlusion, hemodynamically significant stenosis, or dissection in the major cervical arteries. 3. No occlusion, hemodynamically significant stenosis, aneurysm, dissection, or arteriovenous malformation in the major intracranial arteries. Assessment of stenosis of the internal carotid arteries is based on NASCET criteria. ACT 112: Negative or not required by law. Electronically signed by: Prem Gill M.D. 03/31/2024 1:34 PM Neck CTA 03/31/24 13:01 CT angio head w con, CT head/brain wo con, CT angio neck with con CLINICAL HISTORY: neuro deficit, acute stroke suspected TECHNIQUE: Contiguous axial CT images of the head were acquired from the base of the skull to the vertex without intravenous contrast administration. CT angiography of the head and neck was performed following intravenous administration of iodinated contrast. Coronal and sagittal MIPS were obtained from the axial data set and were submitted for review. Automated dose lowering techniques and/or adjustment according to patient size were utilized for this examination. All measurements were calculated based on NASCET criteria. CT DOSE: 1372.7 mGy.cm Comparison: Comparison is made to MRI brain 03/07/2024 FINDINGS: CT head: Areas of decreased attenuation are present in the periventricular and subcortical white matter bilaterally consistent with small vessel ischemic disease. Generalized cerebral atrophy with commensurate enlargement of the ventricles, sulci, and cisterns is also present. There is no acute intracranial hemorrhage or evidence of acute territorial infarction. No shift of the midline structures, mass effect, or extra-axial abnormalities are shown. Atherosclerotic calcifications are present in the intracranial segments of the internal carotid arteries. Focal encephalomalacia in the left basal ganglia and right periventricular white matter is unchanged from prior exam. Lungs and soft tissues are unremarkable. CTA Neck: A 3 vessel aortic arch is shown. There is no significant atherosclerotic plaque in the aortic arch or the origins of the innominate, left common carotid, and left subclavian arteries. The common carotid, external carotid, cervical segments of the internal carotid arteries, and the cervical segments of the vertebral arteries are patent without hemodynamically significant stenosis. The left vertebral artery is dominant. CTA Head: The anterior and posterior cerebral circulations are patent. origin of the bilateral posterior cerebral arteries noted. IMPRESSION: 1. No acute intracranial hemorrhage, evidence of acute territorial infarction, or other acute intracranial disease process. 2. No occlusion, hemodynamically significant stenosis, or dissection in the major cervical arteries. 3. No occlusion, hemodynamically significant stenosis, aneurysm, dissection, or arteriovenous malformation in the major intracranial arteries. Assessment of stenosis of the internal carotid arteries is based on NASCET criteria. ACT 112: Negative or not required by law. Electronically signed by: Prem Gill M.D. 03/31/2024 1:34 PM Brain MRI 03/31/24 15:30 MRI OF THE BRAIN COMBO CLINICAL HISTORY: Strokelike symptoms. Dizziness. COMPARISON STUDY: CT of the brain dated 03/31/2024. MRI of the brain dated 03/07/2024. TECHNIQUE: MRI of the brain was performed utilizing various T1 and T2-weighted sequences in the axial, sagittal, and coronal planes. Contrast-enhanced sequences were acquired following the administration of 12.5 cc of Gadavist. FINDINGS: Brain parenchyma: An 8 mm focus of restricted diffusion is again seen in the high left posterior frontal lobe on axial image #20. This was also seen on 03/07/2024 and is consistent with a subacute/evolving infarct. No new foci of restricted diffusion are identified. There is no hemorrhage or mass effect. There is age related involutional change noting moderate subcortical and periventricular microangiopathic disease. Small chronic lacunar infarcts are again seen within the basal ganglia and thalami bilaterally. No enhancing mass lesion is identified on the postcontrast images. Elliott-white matter differentiation is preserved. No extra-axial fluid collection is seen. The cerebellar tonsils are normal in configuration. Ventricles, sulci, and cisterns: Prominent secondary to involutional change. Pituitary and sella: Unremarkable. Intracranial vasculature: Normal flow voids are maintained at the skull base. Orbits: The bony orbits are grossly intact. Orbital contents are normal in appearance. Sinuses and mastoids: There is a left mastoid effusion. The right mastoid air cells are clear. There is trace mucosal thickening within the ethmoid sinuses. Calvarium: Unremarkable. Cervical cord: Partially visualized cervical spinal cord is normal in morphology and signal intensity. IMPRESSION: 1. A subcentimeter focus of restricted diffusion is again seen in the high left posterior frontal cortex. This was also seen on 03/07/2024 and is consistent with a subacute/evolving infarct. 2. No new foci of acute ischemia are identified. 3. There is no hemorrhage or mass effect. 4. Left mastoid effusion. ACT 112: Negative or not required by law. Electronically signed by: Daryn Markham M.D. 03/31/2024 6:30 PM Discharge Plan Visit Data Chief Complaint: Stroke Alert ED Provider: Rico Caraballo Discharge Problem: Dizziness, History of ischemic stroke, Acute headache, Nausea Patient Disposition: Being Evaluated by Hospitalist Forms Stand Alone Forms: My [facility] [employer] Prescriptions Prescriptions: No Action vitamin E 200 unit Capsule 200 unit PO DAILY famotidine 40 mg tablet 40 mg PO BID tramadol 50 mg tablet 50 mg PO BID PRN (Reason: Pain) ascorbic acid (vitamin C) [Vitamin C] 500 mg Tablet 500 mg PO DAILY vitamin B complex Tablet 1 tab PO DAILY montelukast 10 mg tablet 10 mg PO DAILY lisinopril 40 mg tablet 40 mg PO DAILY duloxetine 60 mg capsule,delayed release(DR/EC) 60 mg PO DAILY omega [id number]-fish oil [Fish Oil] 1,000 mg (120 mg-180 mg) Capsule 1 cap PO DAILY multivitamin Tablet 1 tab PO DAILY metformin 500 mg tablet 1,000 mg PO QAM cetirizine 10 mg Tablet 10 mg PO DAILY glucosamine sulfate [Glucosamine] 500 mg Tablet 500 mg PO DAILY Rx Instructions: administer with a meal sildenafil 100 mg tablet 100 mg PO DIRECTED PRN (Reason: .before intercoarse) amlodipine 10 mg tablet 10 mg PO DAILY metoprolol succinate 25 mg tablet extended release 24 hr 25 mg PO QAM albuterol sulfate 90 mcg/actuation HFA aerosol inhaler 2 puff INHALATION Q4 PRN (Reason: Shortness Of Breath Or Wheezing) turmeric 400 mg Capsule 400 mg PO DAILY levothyroxine 175 mcg tablet 175 mcg PO QAM clopidogrel 75 mg Tablet 75 mg PO QAM Qty: 21 0RF aspirin 81 mg Tablet,Delayed Release (Dr/Ec) 81 mg PO QAM Qty: 30 1RF atorvastatin 20 mg tablet 40 mg PO DAILY Qty: 60 1RF Referrals Referrals: Sophie Licea MD [Primary Care Provider] -
[2024-03-31] MEDS: OPTIRAY 320 125ml IV ONE (13:12)
--- NOTE | 2024-03-31 13:36 | CT Scan Report ---
CT angio head w con, CT head/brain wo con, CT angio neck with con CLINICAL HISTORY: neuro deficit, acute stroke suspected TECHNIQUE: Contiguous axial CT images of the head were acquired from the base of the skull to the bisi aliza without intravenous contrast administration. CT angiography of the head and neck was performed f ollowing intravenous administration of iodinated contrast. Coronal and sagittal MIPS were obtained fr om the axial data set and were submitted for review. Automated dose lowering techniques and/or adjus tment according to patient size were utilized for this examination. All measurements were calculated based on NASCET criteria. CT DOSE: 1372.7 mGy.cm Comparison: Comparison is made to MRI brain 03/07/2024 FINDINGS: CT head: Areas of decreased attenuation are present in the periventricular and subcortical white isabelle er bilaterally consistent with small vessel ischemic disease. Generalized cerebral atrophy with comme nsurate enlargement of the ventricles, sulci, and cisterns is also present. There is no acute intracr anial hemorrhage or evidence of acute territorial infarction. No shift of the midline structures, mas s effect, or extra-axial abnormalities are shown. Atherosclerotic calcifications are present in the intracranial segments of the internal carotid arteries. Focal encephalomalacia in the left basal gang kirti and right periventricular white matter is unchanged from prior exam. Lungs and soft tissues are unremarkable. CTA Neck: A 3 vessel aortic arch is shown. There is no significant atherosclerotic plaque in the aor tic arch or the origins of the innominate, left common carotid, and left subclavian arteries. The co mmon carotid, external carotid, cervical segments of the internal carotid arteries, and the cervical segments of the vertebral arteries are patent without hemodynamically significant stenosis. The left vertebral artery is dominant. CTA Head: The anterior and posterior cerebral circulations are patent. origin of the bilateral posterior cerebral arteries noted. IMPRESSION: 1. No acute intracranial hemorrhage, evidence of acute territorial infarction, or other acute intrac ranial disease process. 2. No occlusion, hemodynamically significant stenosis, or dissection in the major cervical arteries. 3. No occlusion, hemodynamically significant stenosis, aneurysm, dissection, or arteriovenous malfor mation in the major intracranial arteries. Assessment of stenosis of the internal carotid arteries is based on NASCET criteria. ACT 112: Negative or not required by law. Electronically signed by: Prem Gill M.D. 03/31/2024 1:34 PM
[2024-03-31 13:50] LABS: Basophils # (auto) 0.06 K/uL (0.00-0.20); Basophils % (auto) 0.9 %; Eosinophils # (auto) 0.16 K/uL (0.00-0.50); Eosinophils % (auto) 2.4 %; Hematocrit (blood only) 41.9 % (42.0-52.0); Hemoglobin 14.7 g/dl (14.0-18.0); Immature Granulocytes # (auto) 0.02 K/uL (0.01-0.20); Immature Granulocytes % (auto) 0.3 %; Lymphocytes % (auto) 19.3 %; Mean Corpuscular Hemoglobin 29.9 pg (25.0-34.0); Mean Corpuscular Hgb Conc 35.1 g/dL (32.0-36.0); Mean Corpuscular Volume 85.3 fL (80.0-100.0); Mean Platelet Volume 10.1 fL (9.4-12.4); Monocytes % (auto) 8.9 %; Neutrophils # (auto) 4.61 K/uL (1.40-6.50); Neutrophils % (auto) 68.2 %; Platelet Count 257 K/uL (130-400); RDW Coefficient of Variation 12.6 % (11.5-14.5); RDW Standard Deviation 38.7 fL (36.4-46.3); Red Blood Count 4.91 M/uL (4.70-6.10); White Blood Count 6.75 K/ul (4.8-10.8)
[2024-03-31] MEDS: ASPIRIN 81 MG CHEW PO STA (14:06)
[2024-03-31 14:08] LABS: Albumin Globulin Ratio 1.4 (0.9-2); Albumin Level 4.6 gm/dl (3.4-5.0); BUN Creatinine Ratio 19.4 (10-20); Bilirubin,Total 0.9 mg/dl (0.2-1.0); Calcium 9.4 mg/dl (8.6-10.3); Est GFR (African American) 92.4 ml/min; Est GFR (Non-African American) 79.7 ml/min; Globulin 3.2 gm/dl (2.5-4.0); Magnesium 2.1 mg/dl (1.7-2.4); Potassium 3.8 mmol/L (3.5-5.1); Total Protein 7.8 gm/dl (6.0-8.3)
[2024-03-31 14:10] LABS: Partial Thromboplastin Ratio 1.1; Partial Thromboplastin Time 30 Seconds (21-31); Prothrombin Time 10.9 Seconds (9.0-12.0)
[2024-03-31] MEDS: ATORVASTATIN 40 MG TAB PO STA (14:12)
[2024-03-31 14:13] LABS: Troponin I High Sensitivity 10.8 pg/ml (0-20)
[2024-03-31] MEDS: METOCLOPRAMIDE HCL INJ 5 MG/ML 2 ML VIAL IV ONE (14:13)
--- NOTE | 2024-03-31 14:28 | History & Physical Report ---
Date of Service March 31, 2024 Assessment & Plan (1) Acute headache: (2) Dizziness on standing: (3) Nausea alone: (4) History of ischemic stroke: Plan: Naresh Almendarez is a 58y/o M with PMHx of HTN, DM type II, hypothyroidism, HLD, asthma, IBS, diverticulosis, cerebrovascular disease/recent CVA and PAOLA on CPAP who presented to the ED today via EMS for evaluation of sudden onset severe headache with associated nausea and dizziness. Of note, patient was recently admitted 03/07/24-03/09/24 and diagnosed with an acute ischemic stroke following initial presentation of vertigo/ataxia symptoms. Brain MRI during that stay revealed a 9mm infarct within the left posterior frontal lobe at the convexity, old lacunar infarcts within the bilateral basal ganglia/thalami and mild atrophy/microvascular ischemic changes. No thrombolytics were given at that time. Neurology had recommended dual antiplatelet therapy for at least 3 weeks. Aspirin and clopidogrel were added. Atorvastatin was increased from 20 mg/day to 40 mg/day. Cardiology was not involved except to interpret the resting echocardiography, which revealed the following: LVEF = 55-60%, mild concentric left ventricular hypertrophy and a mildly dilated left atrium. Patient did have a Zio patch in place from PCP that was removed yesterday, but those results are not yet available. He was scheduled to see neurology in the o/p clinic tomorrow. Patient did f/u with [facility] on 03/25/24, and they discontinued his previous prescription of hydrochlorothiazide. Patient did have a Zio patch in place from PCP that was removed yesterday, but those results are not yet available. Head CT performed in the ED revealed no acute findings. Head CTA and Neck CTA imaging performed in the ED were both clear, no evidence of acute findings. Labs, UA unremarkable. Routine urine culture pending. Neuro Telehealth did see patient in the ED and he was administered the followinmg po aspirin, 40mg po atorvastatin and 5mg IV metoclopramide (w/ resolution of nausea). -MRI w/ + w/o contrast and orthostatic vital signs ordered, results pending. -Could consider neurology consult, but not currently ordered. -Fall precautions, PT/OT, speech therapy ordered. -Continuous cardiac monitoring, neuro checks. -Continue aspirin, clopidogrel and atorvastatin. -PRN IV Zofran, PRN PO meclizine ordered. -1L NSS ordered to start upon transfer. -Repeat CBC and BMP in the AM. (5) PAOLA on CPAP: Plan: -May continue CPAP at bedtime. (6) HLD (hyperlipidemia): Plan: -Continue atorvastatin, fasting lipid profile ordered to be completed in the AM. (7) DM II (diabetes mellitus, type II), controlled: Plan: -Hold home metformin, normally has Dexcom on his arm. Most recent hemoglobin A1C 6.1 on 03/08/24. -SSI therapy ordered, BSG checks ACHS. Repeat hemoglobin A1C in AM. (8) HTN (hypertension): Plan: -Continue amlodipine, lisinopril and metoprolol succinate. (9) Asthma: Plan: -Order placed for PRN albuterol inhaler, continue montelukast. Stable exertional dyspnea at baseline. -O2 sat 96% on RA, no acute exacerbation or respiratory complaints. -May continue use of cetirizine for seasonal allergies. (10) Esophageal reflux: Plan: -Continue famotidine (11) Morbid obesity: Plan: -Diet and exercise to be encouraged throughout hospital stay, BMI 39.8 on admission. (12) Generalized osteoarthritis of multiple sites: Plan: -Continue duloxetine, tramadol (13) Hypothyroidism, unspecified: Plan: -Continue levothyroxine DVT Prophylaxis: SCDs, TEDs - For now Code Status: Full Code PCP: Sophie Licea MD Dispo: Admit to PCU/Telemetry Patient seen in collaboration with Dr. Parisi. Please see addendum. I spent a total of 75 minutes coordinating, documenting, and providing care for this patient excluding time spent in the performance of separately billed services. This included personally reviewing all current laboratories and imaging studies, medical reconciliation, outpatient chart review and discussion with specialists. History of Present Illness Chief Complaint: New-Onset Headache, Nausea & Dizziness Primary Care Provider: Sophie Licea MD Naresh Almendarez is a 58y/o M with PMHx of HTN, DM type II, hypothyroidism, HLD, asthma, IBS, diverticulosis, cerebrovascular disease/recent CVA and PAOLA on CPAP who presented to the ED today via EMS for evaluation of sudden onset severe headache with associated nausea and dizziness. Patient seen at bedside with Dr. Parisi. History obtained from the patient, and associated ED/PCP/specialist records. Of note, patient was recently admitted 03/07/24-03/09/24 and diagnosed with an acute ischemic stroke following initial presentation of vertigo/ataxia symptoms. Brain MRI during that stay revealed a 9mm infarct within the left posterior frontal lobe at the convexity, old lacunar infarcts within the bilateral basal ganglia/thalami and mild atrophy/microvascular ischemic changes. No thrombolytics were given at that time. Neurology had recommended dual antiplatelet therapy for at least 3 weeks. Aspirin and clopidogrel were added. Atorvastatin was increased from 20 mg/day to 40 mg/day. Cardiology was not involved except to interpret the resting echocardiography, which revealed the following: LVEF = 55-60%, mild concentric left ventricular hypertrophy and a mildly dilated left atrium. Patient did have a Zio patch in place from PCP that was removed yesterday, but those results are not yet available. He was scheduled to see neurology in the o/p clinic tomorrow. Patient did f/u with [facility] on 03/25/24, and they discontinued his previous prescription of hydrochlorothiazide. Patient reports sudden onset of a headache w/ associated dizziness and nausea when attempting to get up off the floor after fixing a pipe underneath his kitchen sink this morning. Patient endorses that these symptoms were similar to what he experienced previously when he was ultimately diagnosed with a stroke. He reports that his balance is still "completely off" and that he cannot stand w/o the sudden onset of dizziness. His headache has since subsided, but he mentions it had radiated from the anterior aspect of his head to the posterior aspect when it was occurring. He was able to get off of the floor eventually and look at himself in a nearby mirror to assess for any signs of stroke-like facial symptoms (drooping), which he did NOT have. He denies any weakness, numbness or tingling. He also denies any episodes of vomiting, abdominal pain/discomfort, bowel habit/urinary habit changes. Patient states he has been able to swallow just fine at home, and has been taking his medications as prescribed. He denies any difficulty speaking or recent visual changes. He does report having a hx of tinnitus, but currently denies any changes in his hearing. States he generally "gets dizzy when standing up too fast." He does complain of some ataxia issues as described above, but denies any recent falls/head trauma. Allergies Allergy/AdvReac Type Severity Reaction Status Date / Time aspirin AdvReac Intermediate nose bleeds Verified 08/28/22 21:21 NSAIDS (Non-Steroidal AdvReac Intermediate to avoid Verified 08/28/22 21:21 Anti-Inflamma d/t stomach/esophagus irritation Pork/Porcine Containing AdvReac Intermediate diarrhea Verified 08/28/22 21:21 Products Home Medications Medication Instructions Recorded Confirmed Type ascorbic acid (vitamin C) 500 mg 500 mg PO DAILY 06/28/19 03/31/24 History tablet (Vitamin C) duloxetine 60 mg capsule,delayed 60 mg PO DAILY 06/28/19 03/31/24 History release famotidine 40 mg tablet 40 mg PO BID 06/28/19 03/31/24 History lisinopril 40 mg tablet 40 mg PO DAILY 06/28/19 03/31/24 History montelukast 10 mg tablet 10 mg PO DAILY 06/28/19 03/31/24 History omega 1-gfb-btq-fish oil 1,000 mg 1 cap PO DAILY 06/28/19 03/31/24 History (120 mg-180 mg) capsule (Fish Oil) tramadol 50 mg tablet 50 mg PO BID PRN Pain 06/28/19 03/31/24 History vitamin B complex 1 tab PO DAILY 06/28/19 03/31/24 History vitamin E 200 unit capsule 200 unit PO DAILY 06/28/19 03/31/24 History albuterol sulfate 90 mcg/actuation 2 puff inhalation Q4 PRN Shortness 08/28/22 03/31/24 History aerosol inhaler Of Breath Or Wheezing amlodipine 10 mg tablet 10 mg PO DAILY 08/28/22 03/31/24 History cetirizine 10 mg tablet 10 mg PO DAILY 08/28/22 03/31/24 History glucosamine sulfate 500 mg tablet 500 mg PO DAILY 08/28/22 03/31/24 History (Glucosamine) metformin 500 mg tablet 1,000 mg PO QAM 08/28/22 03/31/24 History metoprolol succinate 25 mg 25 mg PO QAM 08/28/22 03/31/24 History tablet,extended release 24 hr multivitamin 1 tab PO DAILY 08/28/22 03/31/24 History sildenafil 100 mg tablet 100 mg PO DIRECTED PRN .before 08/28/22 03/31/24 History intercoarse turmeric 400 mg capsule 400 mg PO DAILY 08/28/22 03/31/24 History levothyroxine 175 mcg tablet 175 mcg PO QAM 03/07/24 03/31/24 History aspirin 81 mg tablet,delayed 81 mg PO QAM #30 tabs 03/09/24 03/31/24 Rx release atorvastatin 20 mg tablet 40 mg (2 x 20 mg) PO DAILY #60 tabs 03/09/24 03/31/24 Rx clopidogrel 75 mg tablet 75 mg PO QAM #21 tabs 03/09/24 03/31/24 Rx Past Med/Surg History Problem List Nausea (Acute) Dizziness (Acute) Generalized osteoarthritis of multiple sites Nausea alone Dizziness on standing Acute headache (Acute) Hypothyroidism, unspecified Esophageal reflux History of ischemic stroke (Acute) Morbid obesity PAOLA on CPAP HLD (hyperlipidemia) DM II (diabetes mellitus, type II), controlled HTN (hypertension) Asthma Head injury (Acute) Medical History Acute CVA (cerebrovascular accident) Diverticulitis Bronchitis Right knee injury Hydronephrosis History of deviated nasal septum Surgical History Hx of vasectomy Hx of cystoscopy Hx of sinus surgery Family History Other Cancer Diabetes Heart disease Hypertension Social History Smoking Status: Former smoker Tobacco Type: Cigarettes and Smokeless Tobacco (Dip or Chew) Second Hand Exposure: No; Do You Dip or Chew Tobacco: No; Hx Alcohol Use: No Hx Substance Use: No Preferred Language: Kyrgyz Communication Ability: Effective 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 Physical Exam Physical Exam: Please refer to Dr. Parisi's addendum for physical examination findings. Results & Data Results & Data Vital Signs (Past 12 Hours) Vital Signs Temp Pulse Resp BP Pulse Ox O2 Del Method 03/31/24 14:16 110/65 03/31/24 14:16 61 20 03/31/24 14:15 62 20 03/31/24 14:00 66 23 96 Room Air 03/31/24 14:00 140/76 03/31/24 13:49 60 14 96 Room Air 03/31/24 13:49 126/76 03/31/24 13:45 111/74 03/31/24 13:45 61 14 97 Room Air 03/31/24 13:30 62 17 93 Room Air 03/31/24 13:30 136/73 03/31/24 13:26 67 16 98 Room Air 03/31/24 13:26 147/77 H 03/31/24 13:26 70 03/31/24 13:24 36.5 C 62 18 147/77 H 96 Room Air 03/31/24 13:23 60 14 97 Room Air 03/31/24 13:23 141/80 H 03/31/24 13:22 64 14 97 Room Air Laboratory Results Short CBC 03/31/24 Range/Units 13:11 WBC 6.75 (4.8-10.8) K/ul Hgb 14.7 (14.0-18.0) g/dl Hct 41.9 L (42.0-52.0) % Plt Count 257 (130-400) K/uL BMP 03/31/24 13:11 Sodium 135 L Potassium 3.8 Chloride 104 Carbon Dioxide 23 BUN 20 Creatinine 1.03 Glucose 143 H Calcium 9.4 Liver Function 03/31/24 Range/Units 13:11 Total Bilirubin 0.9 (0.2-1.0) mg/dl AST 38 (13-39) U/L ALT 44 (7-52) U/L Alkaline Phosphatase 66 (34-104) U/L Albumin 4.6 (3.4-5.0) gm/dl Diagnostic Findings Head CT 03/31/24 13:01 CT angio head w con, CT head/brain wo con, CT angio neck with con CLINICAL HISTORY: neuro deficit, acute stroke suspected TECHNIQUE: Contiguous axial CT images of the head were acquired from the base of the skull to the vertex without intravenous contrast administration. CT angiography of the head and neck was performed following intravenous administration of iodinated contrast. Coronal and sagittal MIPS were obtained from the axial data set and were submitted for review. Automated dose lowering techniques and/or adjustment according to patient size were utilized for this examination. All measurements were calculated based on NASCET criteria. CT DOSE: 1372.7 mGy.cm Comparison: Comparison is made to MRI brain 03/07/2024 FINDINGS: CT head: Areas of decreased attenuation are present in the periventricular and subcortical white matter bilaterally consistent with small vessel ischemic disease. Generalized cerebral atrophy with commensurate enlargement of the ventricles, sulci, and cisterns is also present. There is no acute intracranial hemorrhage or evidence of acute territorial infarction. No shift of the midline structures, mass effect, or extra-axial abnormalities are shown. Atherosclerotic calcifications are present in the intracranial segments of the internal carotid arteries. Focal encephalomalacia in the left basal ganglia and right periventricular white matter is unchanged from prior exam. Lungs and soft tissues are unremarkable. CTA Neck: A 3 vessel aortic arch is shown. There is no significant atherosclerotic plaque in the aortic arch or the origins of the innominate, left common carotid, and left subclavian arteries. The common carotid, external carotid, cervical segments of the internal carotid arteries, and the cervical segments of the vertebral arteries are patent without hemodynamically significant stenosis. The left vertebral artery is dominant. CTA Head: The anterior and posterior cerebral circulations are patent. origin of the bilateral posterior cerebral arteries noted. IMPRESSION: 1. No acute intracranial hemorrhage, evidence of acute territorial infarction, or other acute intracranial disease process. 2. No occlusion, hemodynamically significant stenosis, or dissection in the major cervical arteries. 3. No occlusion, hemodynamically significant stenosis, aneurysm, dissection, or arteriovenous malformation in the major intracranial arteries. Assessment of stenosis of the internal carotid arteries is based on NASCET criteria. ACT 112: Negative or not required by law. Electronically signed by: Prem Gill M.D. 03/31/2024 1:34 PM Head CTA 03/31/24 13:01 CT angio head w con, CT head/brain wo con, CT angio neck with con CLINICAL HISTORY: neuro deficit, acute stroke suspected TECHNIQUE: Contiguous axial CT images of the head were acquired from the base of the skull to the vertex without intravenous contrast administration. CT angiography of the head and neck was performed following intravenous administration of iodinated contrast. Coronal and sagittal MIPS were obtained from the axial data set and were submitted for review. Automated dose lowering techniques and/or adjustment according to patient size were utilized for this examination. All measurements were calculated based on NASCET criteria. CT DOSE: 1372.7 mGy.cm Comparison: Comparison is made to MRI brain 03/07/2024 FINDINGS: CT head: Areas of decreased attenuation are present in the periventricular and subcortical white matter bilaterally consistent with small vessel ischemic disease. Generalized cerebral atrophy with commensurate enlargement of the ventricles, sulci, and cisterns is also present. There is no acute intracranial hemorrhage or evidence of acute territorial infarction. No shift of the midline structures, mass effect, or extra-axial abnormalities are shown. Atherosclerotic calcifications are present in the intracranial segments of the internal carotid arteries. Focal encephalomalacia in the left basal ganglia and right periventricular white matter is unchanged from prior exam. Lungs and soft tissues are unremarkable. CTA Neck: A 3 vessel aortic arch is shown. There is no significant atherosclerotic plaque in the aortic arch or the origins of the innominate, left common carotid, and left subclavian arteries. The common carotid, external carotid, cervical segments of the internal carotid arteries, and the cervical segments of the vertebral arteries are patent without hemodynamically significant stenosis. The left vertebral artery is dominant. CTA Head: The anterior and posterior cerebral circulations are patent. origin of the bilateral posterior cerebral arteries noted. IMPRESSION: 1. No acute intracranial hemorrhage, evidence of acute territorial infarction, or other acute intracranial disease process. 2. No occlusion, hemodynamically significant stenosis, or dissection in the major cervical arteries. 3. No occlusion, hemodynamically significant stenosis, aneurysm, dissection, or arteriovenous malformation in the major intracranial arteries. Assessment of stenosis of the internal carotid arteries is based on NASCET criteria. ACT 112: Negative or not required by law. Electronically signed by: Prem Gill M.D. 03/31/2024 1:34 PM Neck CTA 03/31/24 13:01 CT angio head w con, CT head/brain wo con, CT angio neck with con CLINICAL HISTORY: neuro deficit, acute stroke suspected TECHNIQUE: Contiguous axial CT images of the head were acquired from the base of the skull to the vertex without intravenous contrast administration. CT angiography of the head and neck was performed following intravenous administration of iodinated contrast. Coronal and sagittal MIPS were obtained from the axial data set and were submitted for review. Automated dose lowering techniques and/or adjustment according to patient size were utilized for this examination. All measurements were calculated based on NASCET criteria. CT DOSE: 1372.7 mGy.cm Comparison: Comparison is made to MRI brain 03/07/2024 FINDINGS: CT head: Areas of decreased attenuation are present in the periventricular and subcortical white matter bilaterally consistent with small vessel ischemic disease. Generalized cerebral atrophy with commensurate enlargement of the ventricles, sulci, and cisterns is also present. There is no acute intracranial hemorrhage or evidence of acute territorial infarction. No shift of the midline structures, mass effect, or extra-axial abnormalities are shown. Atherosclerotic calcifications are present in the intracranial segments of the internal carotid arteries. Focal encephalomalacia in the left basal ganglia and right periventricular white matter is unchanged from prior exam. Lungs and soft tissues are unremarkable. CTA Neck: A 3 vessel aortic arch is shown. There is no significant atherosclerotic plaque in the aortic arch or the origins of the innominate, left common carotid, and left subclavian arteries. The common carotid, external carotid, cervical segments of the internal carotid arteries, and the cervical segments of the vertebral arteries are patent without hemodynamically significant stenosis. The left vertebral artery is dominant. CTA Head: The anterior and posterior cerebral circulations are patent. origin of the bilateral posterior cerebral arteries noted. IMPRESSION: 1. No acute intracranial hemorrhage, evidence of acute territorial infarction, or other acute intracranial disease process. 2. No occlusion, hemodynamically significant stenosis, or dissection in the major cervical arteries. 3. No occlusion, hemodynamically significant stenosis, aneurysm, dissection, or arteriovenous malformation in the major intracranial arteries. Assessment of stenosis of the internal carotid arteries is based on NASCET criteria. ACT 112: Negative or not required by law. Electronically signed by: Prem Gill M.D. 03/31/2024 1:34 PM Medications Administered Discontinued Medications Aspirin (Aspirin 81 Mg Chew) 243 mg PO NOW STA Stop: 03/31/24 14:03 Last Admin: 03/31/24 14:06 Dose: 243 mg Documented By: CC Atorvastatin Calcium (Atorvastatin 40 Mg Tab) 40 mg PO QAM STA Stop: 03/31/24 14:04 Last Admin: 03/31/24 14:12 Dose: 40 mg Documented By: CC Ioversol (Optiray 320 125ml) 112 ml IV ONCE ONE Stop: 03/31/24 13:12 Last Admin: 03/31/24 13:12 Dose: 112 ml Documented By: HESHAM Metoclopramide HCl (Metoclopramide Hcl Inj 5 Mg/Ml 2 Ml Vial) 5 mg IV ONE ONE Stop: 03/31/24 14:07 Last Admin: 03/31/24 14:13 Dose: 5 mg Documented By: KALPESH ECG Additional Comments: Per my interpretation, EKG performed in the ED revealed the following: NSR w/ HR 62bpm, LAD, [place] interval 170ms, QRS duration 96ms and QT/QTc 432/438ms. Code Status & VTE Plan Code Status FULL CODE Supervising Physician Co-Signing Physician Notes Patient is a 58-year-old male with history of recent CVA, diabetes mellitus, hypertension, obesity, PAOLA, hypothyroidism and other medical problems presents with history of headache associated with dizziness and nausea. He states the dizziness worse with positional change. And has been having some balance issues as well. He describes the symptoms similar to his CVA on recent admission but denies any focal weakness, numbness, change in vision, facial deformity, dysarthria, dysphagia. He admits to have history of tinnitus. Please review HPI for complete details of presentation. Blood work mostly within normal limits. Glucose elevated 143, sodium 135. CT head, CTA head and neck showed no acute process. MRI brain showed a subcentimeter focus of restricted diffusion is again seen in the high left posterior frontal cortex consistent with subacute/evolving infarct. No new foci of acute ischemia. Patient admits to be compliant with his medications. Physical Exam: Vitals signs as noted above General Appearance:Obese, no apparent distress Head: normocephalic, Atraumatic, + decreased hearing, hearing aids Eyes: normal inspection, EOMI Neck: supple, Trachea midline Respiratory/Chest: Normal breath sounds, CTA, No accessory muscle use Cardiovascular: S1, S2, No murmur Abdomen/GI:Soft, Non tender, Bowel sounds present Extremities/Musculoskeletal:normal inspection, trace pedal edema Neurologic/Psych:AAOX3, grossly no focal neurological deficits Skin: normal color, warm Evolving subacute CVA Presented with dizziness, headache, nausea DD: Orthostatic hypotension, BBPV, vertigo Continue aspirin, Plavix, atorvastatin Neurochecks PT OT Fall precautions Meclizine as needed Will consult neurology Check orthostatics Was recently evaluated with ZIO--results pending Gentle IV fluids I personally interviewed and examined at bedside. Patient's care is coordinated with Viktoria Trevino PA-C. I have reviewed the advanced practitioner's documentation, and I agree with plan of care. Please refer to the documentation above for details of patient's presentation and for discussion of other issues. I spent a total [id number] coordinating, documenting, and providing care for this patient excluding time spent in the performance of separately billed services. (1) Acute headache Headache type: unspecified Intractability: not intractable Qualified Code(s): R51.9 - Headache, unspecified (6) HLD (hyperlipidemia) Hyperlipidemia type: unspecified Qualified Code(s): E78.5 - Hyperlipidemia, unspecified (7) DM II (diabetes mellitus, type II), controlled Diabetes mellitus complication status: without complication Diabetes mellitus watermaster insulin use: without mcfp use Qualified Code(s): E11.9 - Type 2 diabetes mellitus without complications (8) HTN (hypertension) Hypertension type: unspecified Qualified Code(s): I10 - Essential (primary) hypertension (9) Asthma Asthma complication type: uncomplicated Asthma persistence: unspecified Asthma severity: unspecified severity Qualified Code(s): J45.909 - Unspecified asthma, uncomplicated (10) Esophageal reflux Esophagitis presence: esophagitis presence not specified Qualified Code(s): K21.9 - Gastro-esophageal reflux disease without esophagitis (13) Hypothyroidism, unspecified Hypothyroidism type: unspecified Qualified Code(s): E03.9 - Hypothyroidism, unspecified
[2024-03-31 14:52] LABS: Appearance Urine Clear (Clear); Bacteria Urine Automated None Seen (None Seen); Bilirubin Urine Negative (Negative); Blood Urine Negative (Negative); Cast Urine Automated 0-2 /lpf (0-2); Color Urine Yellow; Epithelial Cell Urine Auto 0-2 /hpf (0-2); Glucose Urine UA Negative (Negative); Ketones Urine Negative (Negative); Leukocyte Esterase Urine Negative (Negative); Nitrite Urine Negative (Negative); Protein Urine 1+ (Negative); RBC Urine Automated 0-2 /hpf (0-2); Urobilinogen Urine Negative (Negative); WBC Urine Automated 0-5 /hpf (0-5)
--- NOTE | 2024-03-31 15:41 | Electrocardiogram Report ---
Test Reason : Blood Pressure : / mmHG Vent. Rate : 062 BPM Atrial Rate : 062 BPM P-R Int : 170 ms QRS Dur : 096 ms QT Int : 432 ms P-R-T Axes : 028 -38 002 degrees QTc Int : 438 ms Normal sinus rhythm Left axis deviation Minimal voltage criteria for LVH, may be normal variant ( R in aVL ) Abnormal ECG When compared with ECG of 07-MAR-2024 09:46, Incomplete right bundle branch block is no longer Present Confirmed by Noam Collazo ([id number]) on 03/31/2024 3:40:59 PM Referred By: REFERRED SELF Confirmed By:Noam Collazo
[2024-03-31] MEDS: GADOBUTROL 65ML VIAL IV ONE (18:13)
--- NOTE | 2024-03-31 18:32 | Magnetic Resonance Report ---
MRI OF THE BRAIN COMBO CLINICAL HISTORY: Strokelike symptoms. Dizziness. COMPARISON STUDY: CT of the brain dated 03/31/2024. MRI of the brain dated 03/07/2024. TECHNIQUE: MRI of the brain was performed utilizing various T1 and T2-weighted sequences in the axial , sagittal, and coronal planes. Contrast-enhanced sequences were acquired following the administratio n of 12.5 cc of Gadavist. FINDINGS: Brain parenchyma: An 8 mm focus of restricted diffusion is again seen in the high left posterior fron aaliyah lobe on axial image #20. This was also seen on 03/07/2024 and is consistent with a subacute/evolvi ng infarct. No new foci of restricted diffusion are identified. There is no hemorrhage or mass effect . 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 Small chronic lacunar infarcts are again seen within the basal ganglia and thalami b ilaterally. No enhancing mass lesion is identified on the postcontrast images. Elliott-white matter diff erentiation is preserved. No extra-axial fluid collection is seen. The cerebellar tonsils are normal in configuration. Ventricles, sulci, and cisterns: Prominent secondary to involutional change. Pituitary and sella: Unremarkable. Intracranial vasculature: Normal flow voids are maintained at the skull base. Orbits: The bony orbits are grossly intact. Orbital contents are normal in appearance. Sinuses and mastoids: There is a left mastoid effusion. The right mastoid air cells are clear. There is trace mucosal thickening within the ethmoid sinuses. Calvarium: Unremarkable. Cervical cord: Partially visualized cervical spinal cord is normal in morphology and signal intensity . IMPRESSION: 1. A subcentimeter focus of restricted diffusion is again seen in the high left posterior frontal cor aliza. This was also seen on 03/07/2024 and is consistent with a subacute/evolving infarct. 2. No new foci of acute ischemia are identified. 3. There is no hemorrhage or mass effect. 4. Left mastoid effusion. ACT 112: Negative or not required by law. Electronically signed by: Daryn Markham M.D. 03/31/2024 6:30 PM
[2024-03-31] MEDS ORDERED: GLUCOSE 10 TAB/TUBE PO PRN (21:44)
[2024-03-31] MEDS ORDERED: POLYETHYLENE (MIRALAX) 17 GM PACK PO PRN (21:44)
[2024-03-31] MEDS ORDERED: ALUMINUM/MAGNESIUM SUSP 30 ML UDC PO PRN (21:44)
[2024-03-31] MEDS ORDERED: CARBOHYDRATES FOR HYPOGLYCEMIA PO PRN (21:44)
[2024-03-31] MEDS ORDERED: GLUCAGON FOR INJ 1 MG VIAL SQ PRN (21:44)
[2024-03-31] MEDS ORDERED: ONDANSETRON INJ 2 MG/ML 2 ML VIAL IV PRN (21:44)
[2024-03-31] MEDS ORDERED: GLUCOSE 40% GEL 15 GM TUBE PO PRN (21:44)
[2024-03-31] MEDS ORDERED: MECLIZINE HCL 25 MG TAB PO PRN (21:44)
[2024-03-31] MEDS ORDERED: DEXTROSE 50% 50 ML SYRINGE IV PRN (21:44)
[2024-03-31] MEDS ORDERED: ACETAMINOPHEN 325 MG TAB PO PRN (21:44)
[2024-03-31] MEDS ORDERED: ALBUTEROL HFA 8 GM INHALER INH PRN (21:44)
[2024-03-31] MEDS ORDERED: MAGNESIUM HYDROXIDE SUSP 30 ML UDC PO PRN (21:44)
[2024-03-31] MEDS ORDERED: PHARMACIST DISCHARGE MED REC CONSULT PRN (21:44)
[2024-03-31] MEDS: INSULIN ASPART PER UNIT CHARGE SC SCH (22:07)
[2024-03-31] MEDS: SODIUM CHLORIDE 0.9% 1,000 ML IV SCH (22:19)
[2024-03-31] MEDS: traMADol HCL 50 MG TABLET PO PRN (22:19)
[2024-03-31] MEDS: FAMOTIDINE 40 MG TABLET PO SCH (23:18)
[2024-04-01 05:58] LABS: Hematocrit (blood only) 38.6 % (42.0-52.0); Hemoglobin 13.3 g/dl (14.0-18.0); Mean Corpuscular Hemoglobin 29.9 pg (25.0-34.0); Mean Corpuscular Hgb Conc 34.5 g/dL (32.0-36.0); Mean Corpuscular Volume 86.7 fL (80.0-100.0); Mean Platelet Volume 9.8 fL (9.4-12.4); Platelet Count 221 K/uL (130-400); RDW Coefficient of Variation 12.6 % (11.5-14.5); RDW Standard Deviation 39.7 fL (36.4-46.3); Red Blood Count 4.45 M/uL (4.70-6.10); White Blood Count 6.11 K/ul (4.8-10.8)
[2024-04-01] MEDS: LEVOTHYROXINE SODIUM 175 MCG TABLET PO SCH (05:58)
[2024-04-01 06:15] LABS: BUN Creatinine Ratio 18.5 (10-20); Calcium 8.1 mg/dl (8.6-10.3); Creatinine Clr Calc Pharmacy 130.2 ml/min; Est GFR (African American) 113.5 ml/min; Potassium 3.7 mmol/L (3.5-5.1)
[2024-04-01] MEDS: lisinopril 40 MG TAB PO SCH (07:49)
[2024-04-01] MEDS: CLOPIDOGREL BISULFATE 75 MG TAB PO SCH (07:50)
[2024-04-01] MEDS: amLODIPine BESYLATE 5 MG TAB PO SCH (07:50)
[2024-04-01] MEDS: METOPROLOL SUCC 25MG EXT REL TAB PO SCH (07:50)
[2024-04-01] MEDS: ASPIRIN 81 MG ECTAB PO SCH (07:50)
[2024-04-01] MEDS: MONTELUKAST SODIUM 10 MG TABLET PO SCH (07:50)
[2024-04-01] MEDS: CETIRIZINE HCL 10 MG TABLET PO SCH (07:50)
[2024-04-01] MEDS: MULTIVITAMIN TAB PO SCH (07:50)
[2024-04-01] MEDS: DULoxetine HCL 60 MG CAP PO SCH (07:50)
[2024-04-01] MEDS: ATORVASTATIN 40 MG TAB PO SCH (07:51)
--- NOTE | 2024-04-01 08:46 | Neurology Consultation ---
Date of Consultation April 01, 2024 Assessment & Plan (1) Nausea: (2) Dizziness: (3) Acute headache: Plan 58 yo man with multiple vascular risk factors including recent embolic appearing stroke in February 2024, presents with headache, nausea that resolved. His NIHSS is 0. MRI of brain was personally reviewed, no acute findings, the evolving left frontal stroke is seen, he also has extensive chronic microvascular changes and lacunar strokes. Suspect his positional lightheadedness (not vertigo) is due to orthostatic hypotension, recommend chekcing orthostatic vitals and adjust BP meds if needed. He is currently undergoing stroke workup and cardiology is planning to repeat TTE and possibly ILR pending external cardiac exercise specialist results. Given his age would recommend arterial hypercoagulable workup, venous hypercoagulable labs are not needed as there is no evidence of PFO. -Orthostatic vitals/BP management per primary team -Outpatient labs for stroke w/up: antiphospholipid antibodies. Beta 2 glycoprotein, lupus anticoagulant, anticardiolipins and homocysteine. -Follow up with cardiology as planned -Follow up with neurology as scheduled -Please avoid tramadol for headache treatment -Treat headache with the following PRN Magnesium 1 gr IV Toradol 30 mg IV Compazine 10 mg IV Bennadryl 25 mg IV IVF 1 lt -Neurology will sign off, please contact with any question/concern. Telehealth Consultation Telehealth Information Telehealth Information: I performed this visit using a real-time telehealth connection between my location and the patients location ([facility]). After connecting through interactive tele-video, patient was identified by name and date of and/or wristband check.Patient (or authorized healthcare traffic workforce representative) was informed that this was a telemedicine visit and it was being conducted confidentially over secure lines. My office door was closed and no one else was present in the room with me.Patient (or authorized healthcare traffic workforce representative) provided consent to proceed with the visit, expressed an understanding of privacy and security of the telemedicine visit, and gave permission to have a hospital traffic workforce representative in the room in order to assist with the visit and to conduct portions of the visit, as needed. I informed the patient (or authorized healthcare traffic workforce representative) that I reviewed their record and presented the opportunity for them to ask any questions regarding the visit today. The patient agreed to participate. History of Present Illness Reason for Consultation: Headache, unsteadiness Attending Physician: Arpan Andrade MD History of Present Illness 58 yo man with hx of hypothyroidism, PAOLA, diabetes, DLD, HTN, left frontal stroke February 2024, presented on 03/31 with headache and unsteadiness without bisi tigo. His symptoms improved, NIHSS was 0. He did not receive acute treatment. BP 136/74. On aspirin and Plavix for 21 days at home for recent ischemic stroke 03/07/24, etiology of stroke is unknown. His workup included TTE that showed normal EF, mild LV hypertrophy, mild LA dilation, no PFO -however limited study. Vessel imaging, no significant atherosclerosis. Ziopatch results are pending. Patient was seen by Cardiology 03/25/24, planning to repeat TTE, ILR placement. When he stands up, he feels unsteady, while in bed he is asymptomatic. Sometimes associated with head movement. Better when he stands up slowly and waits before walking. Allergies Allergy/AdvReac Type Severity Reaction Status Date / Time aspirin AdvReac Intermediate nose bleeds Verified 08/28/22 21:21 NSAIDS (Non-Steroidal AdvReac Intermediate to avoid Verified 08/28/22 21:21 Anti-Inflamma d/t stomach/esophagus irritation Pork/Porcine Containing AdvReac Intermediate diarrhea Verified 08/28/22 21:21 Products Home Medications Medication Instructions Recorded Confirmed Type ascorbic acid (vitamin C) 500 mg 500 mg PO DAILY 06/28/19 03/31/24 History tablet (Vitamin C) duloxetine 60 mg capsule,delayed 60 mg PO DAILY 06/28/19 03/31/24 History release famotidine 40 mg tablet 40 mg PO BID 06/28/19 03/31/24 History lisinopril 40 mg tablet 40 mg PO DAILY 06/28/19 03/31/24 History montelukast 10 mg tablet 10 mg PO DAILY 06/28/19 03/31/24 History omega 5-spd-los-fish oil 1,000 mg 1 cap PO DAILY 06/28/19 03/31/24 History (120 mg-180 mg) capsule (Fish Oil) tramadol 50 mg tablet 50 mg PO BID PRN Pain 06/28/19 03/31/24 History vitamin B complex 1 tab PO DAILY 06/28/19 03/31/24 History vitamin E 200 unit capsule 200 unit PO DAILY 06/28/19 03/31/24 History albuterol sulfate 90 mcg/actuation 2 puff inhalation Q4 PRN Shortness 08/28/22 03/31/24 History aerosol inhaler Of Breath Or Wheezing amlodipine 10 mg tablet 10 mg PO DAILY 08/28/22 03/31/24 History cetirizine 10 mg tablet 10 mg PO DAILY 08/28/22 03/31/24 History glucosamine sulfate 500 mg tablet 500 mg PO DAILY 08/28/22 03/31/24 History (Glucosamine) metformin 500 mg tablet 1,000 mg PO QAM 08/28/22 03/31/24 History metoprolol succinate 25 mg 25 mg PO QAM 08/28/22 03/31/24 History tablet,extended release 24 hr multivitamin 1 tab PO DAILY 08/28/22 03/31/24 History sildenafil 100 mg tablet 100 mg PO DIRECTED PRN .before 08/28/22 03/31/24 History intercoarse turmeric 400 mg capsule 400 mg PO DAILY 08/28/22 03/31/24 History levothyroxine 175 mcg tablet 175 mcg PO QAM 03/07/24 03/31/24 History aspirin 81 mg tablet,delayed 81 mg PO QAM #30 tabs 03/09/24 03/31/24 Rx release atorvastatin 20 mg tablet 40 mg (2 x 20 mg) PO DAILY #60 tabs 03/09/24 03/31/24 Rx clopidogrel 75 mg tablet 75 mg PO QAM #21 tabs 03/09/24 03/31/24 Rx Patient History Medical History Acute CVA (cerebrovascular accident) Diverticulitis Bronchitis Right knee injury Hydronephrosis History of deviated nasal septum Surgical History Hx of vasectomy Hx of cystoscopy Hx of sinus surgery Family History Other Cancer Diabetes Heart disease Hypertension Social History Smoking Status: Unknown if ever smoked Tobacco Type: Cigarettes and Smokeless Tobacco (Dip or Chew) Second Hand Exposure: No; Do You Dip or Chew Tobacco: No; Hx Alcohol Use: Yes Alcohol type: beer Hx Substance Use: No Preferred Language: Italian Communication Ability: Effective Upper Marker Required: No Beliefs That Will Affect Care: None Current Living Situation: Spouse Other Information That Helps Us Care for You: No Feels Safe at Home: Yes Safety Concerns: Feels Safe At This Time Assistive Devices: BiPap, Denture - Upper, Denture - Lower, Glasses and Hearing Aid - Bilateral Review of Systems dizziness, all reviewed and negative Physical Exam NIH Stroke Scale: 1a. Level of Consciousness: alert = 0 1b. LOC Questions: (month, age): both correct = 0 1c. LOC Commands (open and close eyes, make fist and let go using non-paretic hand): obeys both correctly = 0 2. Best Gaze (eyes open and patient follows examiner's finger or face): normal = 0 3. Visual (visual threat or finger counting in each quadrant): no loss = 0 4. Facial Palsy (show teeth, raise eye brows and squeeze eyes shut, or grimace symmetry in a comatose patient): normal = 0 5a. Motor Arm (extend arm (palms down) to 90 degrees and score drift/movement (10 seconds) - Left: no drift = 0 5b. Motor Arm: (extend arm (palms down) to 90 degrees and score drift/movement (10 seconds) - Right: no drift = 0 6a. Motor Leg (elevate leg 30 degrees and score drift/ movement (5 seconds) - Left: no drift = 0 6b. Motor Leg (elevate leg 30 degrees and score drift/ movement (5 seconds) - Right: no drift = 0 7. Limb Ataxia (finger to nose, heel down harp): absent = 0 8. Sensory (pin prick to face, arm, trunk and leg, compare side to side): normal = 0 9. Best Language: no aphasia = 0 10. Dysarthria (evaluate speech clarity by patient repeating listed words): normal articulation = 0 11. Extinction and Inattention: no neglect = 0 Total: 0 Results & Data Vital Signs (Past 12 Hours) Vital Signs Temp Pulse Pulse Resp BP BP Pulse Ox 04/01/24 08:00 51 L 04/01/24 07:27 36.6 C 60 17 136/73 94 04/01/24 03:04 36.3 C L 52 L 20 126/73 97 05/24/24 02:25 19 03/31/24 22:35 58 L 17 96 03/31/24 22:01 60 03/31/24 21:50 36.4 C L 57 L 20 152/81 H 98 03/31/24 21:40 03/31/24 21:33 65 03/31/24 21:15 64 18 125/92 95 O2 Del Method O2 Flow Rate 04/01/24 08:00 04/01/24 07:27 Room Air 04/01/24 03:04 Room Air 04/01/24 02:25 3 03/31/24 22:35 3 03/31/24 22:01 03/31/24 21:50 Room Air 03/31/24 21:40 Room Air 03/31/24 21:33 03/31/24 21:15 Room Air Laboratory Results Abnormal lab results 03/31/24 03/31/24 03/31/24 Range/Units 13:11 13:39 14:17 RBC (4.70-6.10) M/uL Hgb (14.0-18.0) g/dl Hct 41.9 L (42.0-52.0) % [place] # (Auto) 0.60 H (0.11-0.59) K/uL Sodium 135 L (136-145) mmol/L Glucose 143 H (70-99(Fasting)) mg/dl POC Glucose 143 H (70-99) mg/dl Calcium (8.6-10.3) mg/dl Urine Protein 1+ H (Negative) 03/31/24 04/01/24 04/01/24 Range/Units 21:37 05:23 07:25 RBC 4.45 L (4.70-6.10) M/uL Hgb 13.3 L (14.0-18.0) g/dl Hct 38.6 L (42.0-52.0) % [place] # (Auto) (0.11-0.59) K/uL Sodium (136-145) mmol/L Glucose 114 H (70-99(Fasting)) mg/dl POC Glucose 103 H 122 H (70-99) mg/dl Calcium 8.1 L (8.6-10.3) mg/dl Urine Protein (Negative) Diagnostic Findings Head CT 03/31/24 13:01 CT angio head w con, CT head/brain wo con, CT angio neck with con CLINICAL HISTORY: neuro deficit, acute stroke suspected TECHNIQUE: Contiguous axial CT images of the head were acquired from the base of the skull to the vertex without intravenous contrast administration. CT angiography of the head and neck was performed following intravenous administration of iodinated contrast. Coronal and sagittal MIPS were obtained from the axial data set and were submitted for review. Automated dose lowering techniques and/or adjustment according to patient size were utilized for this examination. All measurements were calculated based on NASCET criteria. CT DOSE: 1372.7 mGy.cm Comparison: Comparison is made to MRI brain 03/07/2024 FINDINGS: CT head: Areas of decreased attenuation are present in the periventricular and subcortical white matter bilaterally consistent with small vessel ischemic disease. Generalized cerebral atrophy with commensurate enlargement of the ventricles, sulci, and cisterns is also present. There is no acute intracranial hemorrhage or evidence of acute territorial infarction. No shift of the midline structures, mass effect, or extra-axial abnormalities are shown. Atherosc lerotic calcifications are present in the intracranial segments of the internal carotid arteries. Focal encephalomalacia in the left basal ganglia and right periventricular white matter is unchanged from prior exam. Lungs and soft tissues are unremarkable. CTA Neck: A 3 vessel aortic arch is shown. There is no significant atherosclerotic plaque in the aortic arch or the origins of the innominate, left common carotid, and left subclavian arteries. The common carotid, external carotid, cervical segments of the internal carotid arteries, and the cervical segments of the vertebral arteries are patent without hemodynamically significant stenosis. The left vertebral artery is dominant. CTA Head: The anterior and posterior cerebral circulations are patent. origin of the bilateral posterior cerebral arteries noted. IMPRESSION: 1. No acute intracranial hemorrhage, evidence of acute territorial infarction, or other acute intracranial disease process. 2. No occlusion, hemodynamically significant stenosis, or dissection in the major cervical arteries. 3. No occlusion, hemodynamically significant stenosis, aneurysm, dissection, or arteriovenous malformation in the major intracranial arteries. Assessment of stenosis of the internal carotid arteries is based on NASCET criteria. ACT 112: Negative or not required by law. Electronically signed by: Prem Gill M.D. 03/31/2024 1:34 PM Head CTA 03/31/24 13:01 CT angio head w con, CT head/brain wo con, CT angio neck with con CLINICAL HISTORY: neuro deficit, acute stroke suspected TECHNIQUE: Contiguous axial CT images of the head were acquired from the base of the skull to the vertex without intravenous contrast administration. CT angiography of the head and neck was performed following intravenous administration of iodinated contrast. Coronal and sagittal MIPS were obtained from the axial data set and were submitted for review. Automated dose lowering techniques and/or adjustment according to patient size were utilized for this examination. All measurements were calculated based on NASCET criteria. CT DOSE: 1372.7 mGy.cm Comparison: Comparison is made to MRI brain 03/07/2024 FINDINGS: CT head: Areas of decreased attenuation are present in the periventricular and subcortical white matter bilaterally consistent with small vessel ischemic disease. Generalized cerebral atrophy with commensurate enlargement of the ventricles, sulci, and cisterns is also present. There is no acute intracranial hemorrhage or evidence of acute territorial infarction. No shift of the midline structures, mass effect, or extra-axial abnormalities are shown. Atherosclerotic calcifications are present in the intracranial segments of the internal carotid arteries. Focal encephalomalacia in the left basal ganglia and right periventricular white matter is unchanged from prior exam. Lungs and soft tissues are unremarkable. CTA Neck: A 3 vessel aortic arch is shown. There is no significant atherosclerotic plaque in the aortic arch or the origins of the innominate, left common carotid, and left subclavian arteries. The common carotid, external carotid, cervical segments of the internal carotid arteries, and the cervical segments of the vertebral arteries are patent without hemodynamically significant stenosis. The left vertebral artery is dominant. CTA Head: The anterior and posterior cerebral circulations are patent. origin of the bilateral posterior cerebral arteries noted. IMPRESSION: 1. No acute intracranial hemorrhage, evidence of acute territorial infarction, or other acute intracranial disease process. 2. No occlusion, hemodynamically significant stenosis, or dissection in the major cervical arteries. 3. No occlusion, hemodynamically significant stenosis, aneurysm, dissection, or arteriovenous malformation in the major intracranial arteries. Assessment of stenosis of the internal carotid arteries is based on NASCET criteria. ACT 112: Negative or not required by law. Electronically signed by: Prem Gill M.D. 03/31/2024 1:34 PM Neck CTA 03/31/24 13:01 CT angio head w con, CT head/brain wo con, CT angio neck with con CLINICAL HISTORY: neuro deficit, acute stroke suspected TECHNIQUE: Contiguous axial CT images of the head were acquired from the base of the skull to the vertex without intravenous contrast administration. CT angiography of the head and neck was performed following intravenous administration of iodinated contrast. Coronal and sagittal MIPS were obtained from the axial data set and were submitted for review. Automated dose lowering techniques and/or adjustment according to patient size were utilized for this examination. All measurements were calculated based on NASCET criteria. CT DOSE: 1372.7 mGy.cm Comparison: Comparison is made to MRI brain 03/07/2024 FINDINGS: CT head: Areas of decreased attenuation are present in the periventricular and subcortical white matter bilaterally consistent with small vessel ischemic disease. Generalized cerebral atrophy with commensurate enlargement of the ventricles, sulci, and cisterns is also present. There is no acute intracranial hemorrhage or evidence of acute territorial infarction. No shift of the midline structures, mass effect, or extra-axial abnormalities are shown. Atherosclerotic calcifications are present in the intracranial segments of the internal carotid arteries. Focal encephalomalacia in the left basal ganglia and right periventricular white matter is unchanged from prior exam. Lungs and soft tissues are unremarkable. CTA Neck: A 3 vessel aortic arch is shown. There is no significant atherosclerotic plaque in the aortic arch or the origins of the innominate, left common carotid, and left subclavian arteries. The common carotid, external carotid, cervical segments of the internal carotid arteries, and the cervical segments of the vertebral arteries are patent without hemodynamically significant stenosis. The left vertebral artery is dominant. CTA Head: The anterior and posterior cerebral circulations are patent. origin of the bilateral posterior cerebral arteries noted. IMPRESSION: 1. No acute intracranial hemorrhage, evidence of acute territorial infarction, or other acute intracranial disease process. 2. No occlusion, hemodynamically significant stenosis, or dissection in the major cervical arteries. 3. No occlusion, hemodynamically significant stenosis, aneurysm, dissection, or arteriovenous malformation in the major intracranial arteries. Assessment of stenosis of the internal carotid arteries is based on NASCET criteria. ACT 112: Negative or not required by law. Electronically signed by: Prem Gill M.D. 03/31/2024 1:34 PM Brain MRI 03/31/24 15:30 MRI OF THE BRAIN COMBO CLINICAL HISTORY: Strokelike symptoms. Dizziness. COMPARISON STUDY: CT of the brain dated 03/31/2024. MRI of the brain dated 03/07/2024. TECHNIQUE: MRI of the brain was performed utilizing various T1 and T2-weighted sequences in the axial, sagittal, and coronal planes. Contrast-enhanced sequences were acquired following the administration of 12.5 cc of Gadavist. FINDINGS: Brain parenchyma: An 8 mm focus of restricted diffusion is again seen in the high left posterior frontal lobe on axial image #20. This was also seen on 03/07/2024 and is consistent with a subacute/evolving infarct. No new foci of restricted diffusion are identified. There is no hemorrhage or mass effect. There is age related involutional change noting moderate subcortical and periventricular microangiopathic disease. Small chronic lacunar infarcts are again seen within the basal ganglia and thalami bilaterally. No enhancing mass lesion is identified on the postcontrast images. Elliott-white matter differentiation is preserved. No extra-axial fluid collection is seen. The cerebellar tonsils are normal in configuration. Ventricles, sulci, and cisterns: Prominent secondary to involutional change. Pituitary and sella: Unremarkable. Intracranial vasculature: Normal flow voids are maintained at the skull base. Orbits: The bony orbits are grossly intact. Orbital contents are normal in appearance. Sinuses and mastoids: There is a left mastoid effusion. The right mastoid air cells are clear. There is trace mucosal thickening within the ethmoid sinuses. Calvarium: Unremarkable. Cervical cord: Partially visualized cervical spinal cord is normal in morphology and signal intensity. IMPRESSION: 1. A subcentimeter focus of restricted diffusion is again seen in the high left posterior frontal cortex. This was also seen on 03/07/2024 and is consistent with a subacute/evolving infarct. 2. No new foci of acute ischemia are identified. 3. There is no hemorrhage or mass effect. 4. Left mastoid effusion. ACT 112: Negative or not required by law. Electronically signed by: Daryn Markham M.D. 03/31/2024 6:30 PM Medications Administered Home Medications Medication Instructions Recorded Confirmed Last Taken ascorbic acid (vitamin C) 500 mg 500 mg PO DAILY 06/28/19 03/31/24 03/06/24 tablet (Vitamin C) duloxetine 60 mg capsule,delayed 60 mg PO DAILY 06/28/19 03/31/24 03/07/24 release famotidine 40 mg tablet 40 mg PO BID 06/28/19 03/31/24 03/07/24 lisinopril 40 mg tablet 40 mg PO DAILY 06/28/19 03/31/24 03/07/24 montelukast 10 mg tablet 10 mg PO DAILY 06/28/19 03/31/24 03/06/24 omega 5-fod-qlu-fish oil 1,000 mg 1 cap PO DAILY 06/28/19 03/31/24 03/07/24 (120 mg-180 mg) capsule (Fish Oil) tramadol 50 mg tablet 50 mg PO BID PRN Pain 06/28/19 03/31/24 03/06/24 vitamin B complex 1 tab PO DAILY 06/28/19 03/31/24 03/06/24 vitamin E 200 unit capsule 200 unit PO DAILY 06/28/19 03/31/24 03/06/24 albuterol sulfate 90 mcg/actuation 2 puff inhalation Q4 PRN Shortness 08/28/22 03/31/24 03/06/24 aerosol inhaler Of Breath Or Wheezing amlodipine 10 mg tablet 10 mg PO DAILY 08/28/22 03/31/24 03/07/24 cetirizine 10 mg tablet 10 mg PO DAILY 08/28/22 03/31/24 03/06/24 glucosamine sulfate 500 mg tablet 500 mg PO DAILY 08/28/22 03/31/24 03/07/24 (Glucosamine) metformin 500 mg tablet 1,000 mg PO QAM 08/28/22 03/31/24 03/07/24 metoprolol succinate 25 mg 25 mg PO QAM 08/28/22 03/31/24 03/07/24 tablet,extended release 24 hr multivitamin 1 tab PO DAILY 08/28/22 03/31/24 03/06/24 sildenafil 100 mg tablet 100 mg PO DIRECTED PRN .before 08/28/22 03/31/24 Unknown intercoarse turmeric 400 mg capsule 400 mg PO DAILY 08/28/22 03/31/24 03/06/24 levothyroxine 175 mcg tablet 175 mcg PO QAM 03/07/24 03/31/24 03/07/24 aspirin 81 mg tablet,delayed 81 mg PO QAM #30 tabs 03/09/24 03/31/24 Unknown release atorvastatin 20 mg tablet 40 mg (2 x 20 mg) PO DAILY #60 tabs 03/09/24 03/31/24 Unknown clopidogrel 75 mg tablet 75 mg PO QAM #21 tabs 03/09/24 03/31/24 Unknown Active Medications Generic Name Dose Route Start Last Admin Trade Name Silvina PRN Reason Stop Dose Admin Amlodipine Besylate 10 mg 04/01/24 09:00 04/01/24 07:50 Amlodipine Besylate 5 Mg Tab PO 05/01/24 08:59 10 mg DAILY NETO Administration Aspirin 81 mg 04/01/24 09:00 04/01/24 07:50 Aspirin 81 Mg Ectab PO 05/01/24 08:59 81 mg QAM NETO Administration Atorvastatin Calcium 40 mg 04/01/24 09:00 04/01/24 07:51 Atorvastatin 40 Mg Tab PO 05/01/24 08:59 40 mg DAILY NETO Administration Cetirizine HCl 10 mg 04/01/24 09:00 04/01/24 07:50 Cetirizine Hcl 10 Mg Tablet PO 05/01/24 08:59 10 mg DAILY NETO Administration Clopidogrel Bisulfate 75 mg 04/01/24 09:00 04/01/24 07:50 Clopidogrel Bisulfate 75 Mg Tab PO 05/01/24 08:59 75 mg QAM NETO Administration Duloxetine HCl 60 mg 04/01/24 09:00 04/01/24 07:50 Duloxetine Hcl 60 Mg Cap PO 05/01/24 08:59 60 mg DAILY NETO Administration Famotidine 40 mg 03/31/24 21:44 04/01/24 07:49 Famotidine 40 Mg Tablet PO 04/30/24 21:43 40 mg BID NETO Administration Sodium Chloride 1,000 mls @ 100 mls/hr 03/31/24 21:44 04/01/24 07:49 Nss IV 04/30/24 21:43 100 mls/hr .Q10H NETO Administration Insulin Aspart 0 units 03/31/24 21:44 04/01/24 07:49 Insulin Aspart Per Unit Charge SC 04/30/24 21:43 7 units ACHS NETO Administration Levothyroxine Sodium 175 mcg 04/01/24 06:30 04/01/24 05:58 Levothyroxine Sodium 175 Mcg Tablet PO 05/01/24 06:29 175 mcg DAILYBB NETO Administration Lisinopril 40 mg 04/01/24 09:00 04/01/24 07:49 Lisinopril 40 Mg Tab PO 05/01/24 08:59 40 mg DAILY NETO Administration Metoprolol Succinate 25 mg 04/01/24 09:00 04/01/24 07:50 Metoprolol Succ 25mg Ext Rel Tab PO 05/01/24 08:59 25 mg QAM NETO Administration Montelukast Sodium 10 mg 04/01/24 09:00 04/01/24 07:50 Montelukast Sodium 10 Mg Tablet PO 05/01/24 08:59 10 mg DAILY NETO Administration Multivitamins 1 tab 04/01/24 09:00 04/01/24 07:50 Multivitamin Tab PO 05/01/24 08:59 1 tab DAILY NETO Administration Tramadol HCl 50 mg 03/31/24 21:44 03/31/24 22:19 Tramadol Hcl 50 Mg Tablet PO 04/30/24 21:43 50 mg BID PRN Administration Pain
--- NOTE | 2024-04-01 13:04 | Electrocardiogram Report ---
Test Reason : Blood Pressure : / mmHG Vent. Rate : 055 BPM Atrial Rate : 055 BPM P-R Int : 168 ms QRS Dur : 094 ms QT Int : 470 ms P-R-T Axes : 031 -36 -07 degrees QTc Int : 449 ms Sinus bradycardia Left axis deviation Abnormal ECG When compared with ECG of 31-MAR-2024 13:27, No significant change was found Confirmed by Noam Collazo ([id number]) on 04/01/2024 1:03:53 PM Referred By: REFERRED SELF Confirmed By:Noam Collazo
--- NOTE | 2024-04-01 16:58 | Hospitalist Progress Note ---
Date of Service April 01, 2024 Assessment & Plan (1) Acute headache: Plan: Presented to the ED today via EMS for evaluation of sudden onset severe headache with associated nausea and dizziness. PMHx of HTN, DM type II, hypothyroidism, HLD, asthma, IBS, diverticulosis, cerebrovascular disease/recent CVA and PAOLA on CPAP who Head CT performed in the ED revealed no acute findings. Head CTA and Neck CTA imaging performed in the ED were both clear, no evidence of acute findings. Labs, UA unremarkable. Routine urine culture pending. Neuro Telehealth did see patient in the ED and he was administered the followinmg po aspirin, 40mg po atorvastatin and 5mg IV metoclopramide (w/ resolution of nausea). MRI w/ + w/o contrast -revealed recent stroke as mentioned in the report Patient did have a Zio patch in place from PCP that was removed yesterday, but those results are not yet available. He has been feeling much better since admission and denies any more neurological symptoms Appreciate neurology input and recommendation We will continue management for symptoms of nausea and vomiting Continue aspirin, Lipitor, Plavix as before Orthostatic vitals to evaluate orthostatic changes and treat accordingly Will continue with current medical management, PT and OT evaluation Avoid any tramadol for headache For headache Will try IV magnesium, Toradol., Benadryl, Compazine and IV fluid as advised Of note, patient was recently admitted 03/07/24-03/09/24 and diagnosed with an acute ischemic stroke following initial presentation of vertigo/ataxia symptoms. Brain MRI during that stay revealed a 9mm infarct within the left posterior frontal lobe at the convexity, old lacunar infarcts within the bilateral basal ganglia/thalami and mild atrophy/microvascular ischemic changes. No thrombolytics were given at that time. Neurology had recommended dual antiplatelet therapy for at least 3 weeks. Aspirin and clopidogrel were added. Atorvastatin was increased from 20 mg/day to 40 mg/day. Cardiology was not involved except to interpret the resting echocardiography, which revealed the following: LVEF = 55-60%, mild concentric left ventricular hypertrophy and a mildly dilated left atrium. Patient did have a Zio patch in place from PCP that was removed yesterday, but those results are not yet available. He was scheduled to see neurology in the o/p clinic tomorrow. Patient did f/u with [facility] on 03/25/24, and they discontinued his previous prescription of hydrochlorothiazide. (2) Dizziness on standing: Plan: As above (3) Nausea alone: (4) History of ischemic stroke: (5) PAOLA on CPAP: Plan: -May continue CPAP at bedtime. (6) HLD (hyperlipidemia): Plan: -Continue atorvastatin, fasting lipid profile ordered to be completed in the AM. (7) DM II (diabetes mellitus, type II), controlled: Plan: -Hold home metformin, normally has Dexcom on his arm. Most recent hemoglobin A1C 6.1 on 03/08/24. -SSI therapy ordered, BSG checks ACHS. Repeat hemoglobin A1C in AM. (8) HTN (hypertension): Plan: -Continue amlodipine, lisinopril and metoprolol succinate. -Was seen by the metal expediter as an outpatient recently and his hydrochlorothiazide was discontinued -He has been put on his spironolactone and furosemide on top of lisinopril which will be continued (9) Asthma: Plan: -Order placed for PRN albuterol inhaler, continue montelukast. Stable exertional dyspnea at baseline. -O2 sat 96% on RA, no acute exacerbation or respiratory complaints. -May continue use of cetirizine for seasonal allergies. (10) Esophageal reflux: Plan: -Continue famotidine (11) Morbid obesity: Plan: -Diet and exercise to be encouraged throughout hospital stay, BMI 39.8 on admission. (12) Generalized osteoarthritis of multiple sites: Plan: -Continue duloxetine, tramadol (13) Hypothyroidism, unspecified: Plan: -Continue levothyroxine DVT Prophylaxis: SCDs, TEDs - For now Code Status: Full Code PCP: Sophie Licea MD Dispo: Admit to PCU/Telemetry Admission and Anticipated Discharge Date Admission Date: March 31, 2024 Subjective 04/01/2024 The patient was seen and examined in telemetry unit He has been feeling much better Minimal weakness involving the left upper extremity and no other neurological symptoms Denies any other significant symptoms Review of Systems Review of Systems: All systems reviewed and are unremarkable except as noted below Physical Exam Physical Exam: Lying in bed without any acute distress Constitutional: well developed, well nourished, + ill appearing and + obese Eyes: PERRL, conjunctivae normal, anicteric sclerae ENMT: external ear and nose normal, oropharynx normal Neck: trachea midline, no thyromegaly Respiratory: no respiratory distress Auscultation: lungs clear to auscultation bilaterally Cardiovascular: Rate/Rhythm: regular rate and regular rhythm; not tachycardic Heart Sounds: normal S1 and normal S2; no murmur Extremities: no edema Gastrointestinal (Abdomen): Inspection/Auscultation: normal bowel sounds; abdomen not distended Percussion/Palpation: abdomen soft; abdomen nontender Musculoskeletal: No acute arthritis involving any of the joints Neurologic: normal touch/pain/proprioception, moves all extremities and + focal motor deficit (Minimal weakness involving left upper extremity) Psychiatric: A+Ox3, euthymic affect Lymphatic: no cervical or axillary lymphadenopathy Results & Data Results & Data Vital Signs (Past 12 Hours) Vital Signs Temp Pulse Pulse Resp BP Pulse Ox O2 Del Method 04/01/24 15:09 61 04/01/24 14:57 36.5 C 62 17 152/75 H 96 Room Air 04/01/24 10:34 36.7 C 64 17 139/76 96 Room Air 04/01/24 08:00 51 L 04/01/24 07:27 36.6 C 60 17 136/73 94 Room Air Laboratory Results Short CBC 04/01/24 Range/Units 05:23 WBC 6.11 (4.8-10.8) K/ul Hgb 13.3 L (14.0-18.0) g/dl Hct 38.6 L (42.0-52.0) % Plt Count 221 (130-400) K/uL BMP 04/01/24 05:23 Sodium 137 Potassium 3.7 Chloride 107 Carbon Dioxide 25 BUN 15 Creatinine 0.81 Glucose 114 H Calcium 8.1 L Medications Administered Current Inpatient Medications Acetaminophen (Acetaminophen 325 Mg Tab) 650 mg PO Q4H PRN PRN Reason: Pain or Fever Stop: 04/30/24 21:43 Al Hydrox/Mg Hydrox/Simethicone (Aluminum/Magnesium Susp 30 Ml Udc) 15 ml PO Q4H PRN PRN Reason: Dyspepsia Stop: 04/30/24 21:43 Albuterol (Albuterol Hfa 8 Gm Inhaler) 2 puffs INH Q4 PRN PRN Reason: Shortness Of Breath Or Wheezin Stop: 04/30/24 21:43 Amlodipine Besylate (Amlodipine Besylate 5 Mg Tab) 10 mg PO DAILY [facility] Stop: 05/01/24 08:59 Last Admin: 04/01/24 07:50 Dose: 10 mg Aspirin (Aspirin 81 Mg Ectab) 81 mg PO QAM [facility] Stop: 05/01/24 08:59 Last Admin: 04/01/24 07:50 Dose: 81 mg Atorvastatin Calcium (Atorvastatin 40 Mg Tab) 40 mg PO DAILY [facility] Stop: 05/01/24 08:59 Last Admin: 04/01/24 07:51 Dose: 40 mg Cetirizine HCl (Cetirizine Hcl 10 Mg Tablet) 10 mg PO DAILY [facility] Stop: 05/01/24 08:59 Last Admin: 04/01/24 07:50 Dose: 10 mg Clopidogrel Bisulfate (Clopidogrel Bisulfate 75 Mg Tab) 75 mg PO QAM [facility] Stop: 05/01/24 08:59 Last Admin: 04/01/24 07:50 Dose: 75 mg Dextrose (Dextrose 50% 50 Ml Syringe) 25 - 50 ml IV UD PRN; Protocol PRN Reason: Hypoglycemia Protocol Stop: 04/30/24 21:43 Famotidine (Famotidine 40 Mg Tablet) 40 mg PO BID [facility] Stop: 04/30/24 21:43 Last Admin: 04/01/24 07:49 Dose: 40 mg Glucagon (Glucagon For Inj 1 Mg Vial) 1 mg SQ UD PRN; Protocol PRN Reason: Hypoglycemia Protocol Stop: 04/30/24 21:43 Glucose (Glucose 40% Gel 15 Gm Tube) 15 - 30 gm PO UD PRN; Protocol PRN Reason: Hypoglycemia Protocol Stop: 04/30/24 21:43 Glucose (Glucose 10 Tab/Tube) 4 - 8 tab PO UD PRN; Protocol PRN Reason: Hypoglycemia Treatment Stop: 04/30/24 21:43 Insulin Aspart (Insulin Aspart Per Unit Charge) 0 units SC ACHS [facility] Stop: 04/30/24 21:43 Last Admin: 04/01/24 12:01 Dose: 8 units Levothyroxine Sodium (Levothyroxine Sodium 175 Mcg Tablet) 175 mcg PO DAILYBB [facility] Stop: 05/01/24 06:29 Last Admin: 04/01/24 05:58 Dose: 175 mcg Lisinopril (Lisinopril 40 Mg Tab) 40 mg PO DAILY [facility] Stop: 05/01/24 08:59 Last Admin: 04/01/24 07:49 Dose: 40 mg Magnesium Hydroxide (Magnesium Hydroxide Susp 30 Ml Udc) 30 ml PO Q12H PRN PRN Reason: Constipation Stop: 04/30/24 21:43 Meclizine HCl (Meclizine Hcl 25 Mg Tab) 25 mg PO Q6H PRN PRN Reason: Dizziness or Vertigo Stop: 04/30/24 21:43 Metoprolol Succinate (Metoprolol Succ 25mg Ext Rel Tab) 25 mg PO QAM [facility] Stop: 05/01/24 08:59 Last Admin: 04/01/24 07:50 Dose: 25 mg Miscellaneous (Carbohydrates For Hypoglycemia ) 15 - 30 gm PO UD PRN PRN Reason: Hypoglycemia Protocol Stop: 04/30/24 21:43 Montelukast Sodium (Montelukast Sodium 10 Mg Tablet) 10 mg PO DAILY [facility] Stop: 05/01/24 08:59 Last Admin: 04/01/24 07:50 Dose: 10 mg Multivitamins (Multivitamin Tab) 1 tab PO DAILY [facility] Stop: 05/01/24 08:59 Last Admin: 04/01/24 07:50 Dose: 1 tab Ondansetron HCl (Ondansetron Inj 2 Mg/Ml 2 Ml Vial) 4 mg IV Q6H PRN PRN Reason: Nausea Stop: 04/30/24 21:43 Polyethylene Glycol (Polyethylene (Miralax) 17 Gm Pack) 17 gm PO DAILY PRN PRN Reason: Constipation Stop: 04/30/24 21:43 Tramadol HCl (Tramadol Hcl 50 Mg Tablet) 50 mg PO BID PRN PRN Reason: Pain Stop: 04/30/24 21:43 Last Admin: 03/31/24 22:19 Dose: 50 mg (6) HLD (hyperlipidemia) Hyperlipidemia type: unspecified Qualified Code(s): E78.5 - Hyperlipidemia, unspecified (7) DM II (diabetes mellitus, type II), controlled Diabetes mellitus complication status: without complication Diabetes mellitus fdc insulin use: without extermination inspector use Qualified Code(s): E11.9 - Type 2 diabetes mellitus without complications (8) HTN (hypertension) Hypertension type: unspecified Qualified Code(s): I10 - Essential (primary) hypertension (9) Asthma Asthma complication type: uncomplicated Asthma persistence: unspecified Asthma severity: unspecified severity Qualified Code(s): J45.909 - Unspecified asthma, uncomplicated (10) Esophageal reflux Esophagitis presence: esophagitis presence not specified Qualified Code(s): K21.9 - Gastro-esophageal reflux disease without esophagitis (13) Hypothyroidism, unspecified Hypothyroidism type: unspecified Qualified Code(s): E03.9 - Hypothyroidism, unspecified
--- OUTSIDE RECORDS SUMMARY | 2024-04-01 23:02 | External Medical Summary | Summary of Care ---
Author Name Unknown Organization [facility] Address [address] [place] [address] Phone [phone] Care Team Providers Care Cyber Reverse Engineer Name Role Phone Sophie Licea MD Primary Care Provide r Reason for Referral * Precert (Within 10 days (routine)) - Authorized Specialty Diagnoses / Procedures Referred By Contac t Referred To Contact Cardiac Studies Diagnoses Hospital discharge follow-up Cerebrovascular accident (CVA), unspecified mechanism (HCC) Procedures ECHO, COMPLETE (2D), TRANS-THORACIC Isaías Ramirez PA-C [address] [place] [address] Referral ID Status Reason Start Date Expiration Date V isits Requested Visits Authorized [id number] Authorized Precert 03/25/2024 04/25/2024 999 999 Reason for Visit * Reason Comments NEW PATIENT Establishing care. S OB due to being out of shape. Edema in LE ongoing and tight in his shoes. Hemorrhoids have been bleed- not in the last 2-3 days. Denies chest pain, palpitations and dizziness. Currently wearing a Zio monitor. Hospital Follow-Up [facility] 03/07-03/09/24- [facility] [place]. Encounter Details Date Type Department Care Team (Late st Contact Info) Description 03/25/2024 11:30 AM EDT Office Visit Cardiology, [facility] [address] [place] [id number] Isaías Ramirez PA-C [address] [place] [address] Hospital discharge follow-up*; HTN, GOAL BELOW 140/90; Acute diastolic congestive heart failure (HCC); Uncomplicated hypertension; Dyslipidemia, goal LDL below 70; Essential hypertension with goal blood pressure less than 140/90; Cerebrovascular accident (CVA), unspecified mechanism (HCC); Encounter for monitoring diuretic therapy Allergies Active Allergy Reactions Criticality Noted Date Comments Ibuprofen 02/28/2008 Stomach problems Nsaids 01/10/2010 Has stomach problems Salicylates 10/17/2003 Nosebleeds documented as of this encounter (statuses as of 03/28/2024) Medications Medication Sig Dispensed Refills Start Date End Date Status Multiple Vitamins-Minerals (MULTIVITAMIN ADULT) TABS Active [place]fford-3 Fatty Acids (FISH OIL) 1200 MG CAPS Active Ascorbic Acid (VITAMIN C) 500 MG CAPS Active Glucosamine 500 MG Capsule Take 1 Capsule by mouth in the morning and 1 Capsule before bedtime. Active B Iuouren-Opungf-YV (B COMPLETE) TABS Take by mouth. Act jonathan cetirizine (ZYRTEC) 10 MG Tablet Take 1 Tab by mouth daily. 8 Active Turmeric 500 MG Capsule Take 1 Capsule by mouth in the morning. Active MEDICAL INSTRUCTIONS Use as directed. CPAP at bedtime on RA Active oxygen GAS 3 LPM bled through CPAP 10-13 cwp during all hours of sleep 1 Each 9 Active OneTouch Verio w/Device KitIndications:Type 2 diabetes mellitus with hemoglobin A1c goal of less than 7.0% ([facility]) Test once a day E11.9 1 Kit 1 Active Fluticasone Propionate 50 MCG/ACT Nasal [...] OF BREATH 18 g 1 3 Active CPAP every night at bedtime. Active metFORMIN HCl 1000 MG Oral Tablet (Glucophage)Indicat ions:Type 2 diabetes mellitus with hemoglobin A1c goal of less than 7.0% (HCC) Take 1 Tablet by mouth daily. 180 Tablet 2 3 Active OneTouch Verio In Vitro Strip (Glucose Blood)Indications:T ype 2 diabetes mellitus with hemoglobin A1c goal of less than 7.0% (HCC) TEST ONCE A DAY DX E11.9 100 Strip 1 3 Active [employer] (VIC)Touch Delica Lancets 33GIndications:Type 2 diabetes mellitus with hemoglobin A1c goal of less than 7.0% (HCC) TEST ONCE A DAY DX E11.9 100 Each 1 3 Active DexEQUISO G6 TransmitterIndicati ons:Type 2 diabetes mellitus with hemoglobin A1c goal of less than 7.0% (HCC) USE DIRECTED . USE WITH [employer] ELVIRA FOR GLUCOSE MONITORING. DXE11.9 4 Each 1 3 Active Trulicity 3 MG/0.5ML [...] THE MORNING 90 Tablet 3 4 Active Metoprolol Succinate [...] the morning. 90 Tablet 3 4 Active traMADol HCl 50 MG Oral Tablet (Ultram)Indications :Generalized osteoarthritis of multiple sites Take 1 Tablet by mouth 2 times a day as needed for Pain, Severe. 60 Tablet 4 Active Aspirin 81 MG Oral Tablet Delayed Release Take 1 Tablet by mouth in the morning. 4 Active Clopidogrel Bisulfate 75 MG Oral Tablet (pLAVix) Take 1 Tablet by mouth in the morning. 4 Active Dexcom G6 SensorIndications:T ype 2 diabetes mellitus with hemoglobin A1c goal of less than 7.0% (HCC) USE DIRECTED. USE WITH [employer] CLARITY ELVIRA FOR GLUCOSE MONITORING. DXE11.9 3 Each 5 4 Active Atorvastatin Calcium 40 MG Oral Tablet (Lipitor)Indication s:Dyslipidemia, goal LDL below 100,Cerebrovascular disease,Type 2 diabetes mellitus with hemoglobin A1c goal of less than 7.0% (HCC) Take 1 Tablet by mouth in the morning. 90 Tablet 3 4 Active Montelukast Sodium 10 MG Oral Tablet (Singulair) TAKE 1 TABLET BY MOUTH EVERY DAY IN THE EVENING 90 Tablet 3 4 Active Beet Root 500 MG Oral Capsule Take 1 Capsule by mouth in the morning and 1 Capsule before bedtime. Active Furosemide 20 MG Oral Tablet (Lasix)Indications: Acute diastolic congestive heart failure (HCC) Take 1 Tablet by mouth in the morning. 31 Tablet 5 4 Active Spironolactone 25 MG Oral Tablet (Aldactone)Indicati ons:Acute diastolic congestive heart failure (HCC) Take 0.5 Tablets by mouth in the morning. 16 Tablet 5 4 Active hydroCHLOROthiazide 25 MG Oral Tablet (Hydrodiuril)Indica tions:HTN, goal below 140/90 TAKE 1 TABLET BY MOUTH EVERY DAY IN THE MORNING 30 Tablet 5 4 03/25/20 24 Discontinued documented as of this encounter (statuses as of 03/28/2024) Active Problems Problem Noted Date Diagnosed Date Cerebrovascular disease 03/14/2024 Type 2 diabetes mellitus wit h hemoglobin [...] as of this encounter (statuses as of 03/28/2024) Resolved Problems Problem Noted Date Diagnosed Date [...] excess calories 02/08/2018 12/14/2023 Other chronic sinusitis 02/05/2018 04/2 07/2019 Snoring 02/05/2018 08/30/2018 Daytime somnolence 02/05/2018 8 [employer] demyelination 07/25/2015 02/08/2018 Overview: Nonspecific white matter [...] as of this encounter (statuses as of 03/28/2024) Immunizations Name Administration Dates Next Due COVID-19 mRNA, LNP-s, No Pre serve, 2-Dose Series ([employer]) 09/17/2021,08/27/2021 Pneumococcal Conjugate Vacci ne, 20-valent (Ehacdui79) 04/28/2022 Pneumococcal Polysaccharide PPV23 (Pneumovax) 02/06/2009 Seasonal [...] Sign Reading Time Taken Comments Blood Pressure 136/76 03/25/2024 11:25 AM EDT Pulse 72 03/25/2024 11:25 AM EDT Temperature - - Respiratory Rate 16 03/25/2024 11:25 AM EDT Oxygen Saturation - - Inhaled Oxygen Concentration - - Weight 128.1 kg (282 lb 8 oz) 03/25/2024 11:25 A M EDT Height - - Body Mass Index 40.53 03/14/2024 8:13 AM EDT documented in this encounter Progress Notes * Isaías Ramirez PA-C - 03/25/2024 11:30 AM EDT Cardiology Consultation History of Present Illness: Naresh Almendarez is a 58 year old male referred today by Self, Dr. Sophie Licea MD. Reason(s) for consultation: Recent CVA. Mr. Almendarez is a 58-year-old male with history of hypertension, dyslipidemia, type 2 diabetes mellitus, obesity, obstructive sleep apnea on CPAP therapy, hypothyroidism, and asthma. Patient notes previously being told of an irregular heartbeat every now and then, asymptomatic. He specifically denies history of CAD, VA, CHF, atrial fibrillation, heart murmur, rheumatic fever, or scarlet fever. Patient hospitalized at [facility] March 07, 2024 to March 09, 2024, presenting withvertigo/ataxia, symptoms starting several days prior to presentation. Brain MRI revealed a 9 mm acute infarct within the left posterior frontal lobe at the high convexity, old lacunar infarcts withinthe bilateral basal ganglia and thalami, microvascular ischemic changes, mild atrophy. Neurology recommended dual antiplatelet therapy for at least 3 weeks. Aspirin and clopidogrel added. Atorvastatin increased from 20 mg/day to 40 mg/day. Cardiology was not involved except to interpret the restingechocardiography Patient notes chronic bilateral lower extremity peripheral edema. No chest pain or discomfort. No palpitations. Stable exertional dyspnea. No resting dyspnea. No orthopnea or PND. CPAP utilized at nighttime with supplemental oxygen. No headaches. No near syncope or syncope. No fevers or chills. Intermittent hemorrhoidal bleeding. No melena. No hematuria. Notes "lost control of equilibrium" post CVA. Zio placed through PCP on March 17, 2024, to be removed on March 31, 2024. Data: Initial blood pressure was 196/109, elevated throughout the entire hospitalization. EKG on March 07, 2024 revealed normal sinus rhythm at 72 bpm with left axis deviation, incomplete right bundle branch block, minimal voltage criteria for LVH, QTc 455 ms. I do not see any mention of atrial arrhythmias on telemetry. LDL 58 mg/dL on 03/08/2024 HgA1c 6.1%. March 07, 2024 CTA of the head showed no hemorrhage, mass effect, or evidence of acute territorial ischemia. March 07, 2024 CT angiogram of the brain and neck were unremarkable, minimal calcified plaque at the carotid bulb. March 08, 2024 TTE Interpretation Summary ([facility], Dr. Joy): Technically limited. No comparison study available. Normal LV systolic function. Ejection fraction 55 to 60%. Mild concentric LVH. Mildly dilated left atrium. Agitated saline contrast injected though with suboptimal imaging. 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 Irritable bowel syndrome K58.9 Reflux esophagitis K21.00 HTN, GOAL BELOW 140/90 I10 Dyslipidemia, goal LDL below 100 E78.5 Other specified disorders of rotator cuff syndrome of shoulder and allied disorders LAO0101 Family history of MS (multiple sclerosis) Z82.0 Degenerative arthritis of finger M19.049 Generalized osteoarthritis of multiple sites M15.9 Rotator cuff syndrome of both shoulders M75.101, M75.102 Serologic abnormality R89.4 Paresthesia R20.2 Chronic maxillary sinusitis J32.0 Hypertrophy of both inferior nasal turbinates J34.3 Deviated nasal septum J34.2 PAOLA on CPAP G47.33 Controlled substance agreement signed Z79.899 Type 2 diabetes mellitus with hemoglobin A1c goal of less than 7.0% ([facility]) E11.9 Cerebrovascular disease I67.9 Past Medical History: Diagnosis Date Allergic rhinitis hayfever 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 chol 257, ldl 183, start Lipitor Generalized osteoarthritis of multiple sites 06/30/2016 HTN, goal below 140/90 10/28/2005 177/104 given Castapres Hypothyroidism 12/11/2003 tsh 5.86 Irritable bowel syndrome Mild intermittent asthma without complication Morbid obesity due to excess calories ([facility]) 02/08/2018 Other specified acquired hypothyroidism 12/11/2003 tsh [...] performed by Yokasta Mendoza MD at END[facility]COPY [facility] CYSTOSCOPY 02/29/2012 stent placed CYSTOSCOPY 01/18/[address] Silver in office ECHO EXAM OF HEART (2D ECHO) 03/09/2024 mild conc LVH, EF 55-60% FLUORO ARTHROGRAM SHOULDER 01/14/2007 no evidence for rotator cuff tear FRAGMENT KIDNEY STONE BY SHOCK WAVE 06/23/[address] Cr FRAGMENT KIDNEY STONE BY SHOCK WAVE 03/12/2012 ESWL (Extracorporeal Shock Wave Lithotripsy) MRI BRAIN W WO CONTRAST 07/2015 mult foci T2 prolong-repeat 1 year MRI BRAIN W WO CONTRAST 03/07/2024 9 mm left posterior frontal infarct, old lacunar infarcts OTHER (INFORMATION) repair of deviated septum REMOVAL OF NOSE POLYP(S), EXTENSIVE 1994 REPAIR NASAL SEPTUM DEFECT 1994 SINUS SURGERY PROCEDURE NEC 1994 VASECTOMY 02/22/2010 Family History: Mother: Hypertension,? Heart problems. Father: in an accident at work, age 41.Siblings: One sister and 2 brothers, all with hypertension. Social History: Reformed smoker having quit in 1994 after smoking up to 1 pack per day times 10 years. Reformed smokeless tobacco user, quitting in 2005. Alcohol: 2 drinks per year. . One child without cardiac issues. Works at [employer]. Lives in [place]. Complete Review of Systems: Constitutional: No fevers, sweats, or chills. HEENT: Glasses. + Sinus issues. No history of cataracts, macular degeneration, or glaucoma. No history of amaurosis fugax. Pulmonary: + PAOLA. + CPAP with supplemental oxygen. Slight asthma. No emphysema/COPD. No history of PE. Cardiac: See above. GI/Abd: GERD. Hiatal hernia. Hemorrhoidal bleeding. IBS. Diverticulosis. No dysphagia. Kidney: Stones No liver problems. No history of pancreatic issues. Vascular: No history of carotid artery disease, AAA, or lower extremity claudication/PAD. Hematologic: No coagulation disorder, anemia, or abnormal bleeding. Musculoskeletal: Arthritis. Bilateral rotator cuff issues. Bilateral knee pain, steroid injections typically every 6 months Neurologic: + CVA. No history of seizure disorder. Male : "Overactive prostate" Endocrine: Type II diabetes mellitus. Hypothyroidism. Complete Review of Systems is as stated above, negative, or noncontributory. Review of patient's allergies indicates: Allergen Reactions Ibuprofen Stomach problems Nsaids Has stomach problems Salicylates Nosebleeds Current Outpatient Medications Medication Sig Dispense Refill Multiple Vitamins-Minerals (MULTIVITAMIN ADULT) TABS Strafford-3 Fatty Acids (FISH OIL) 1200 MG CAPS Ascorbic Acid (VITAMIN C) 500 MG CAPS Glucosamine 500 MG Capsule Take 1 Capsule by mouth in the morning and 1 Capsule before bedtime. B Eqwlati-Btkcam-NK (B COMPLETE) TABS Take by mouth. cetirizine (ZYRTEC) 10 MG Tablet Take 1 Tab by mouth daily. Turmeric 500 MG Capsule Take 1 Capsule by mouth in the morning. MEDICAL INSTRUCTIONS Use as directed. CPAP at bedtime on RA oxygen GAS 3 LPM bled through CPAP 10-13 cwp during all hours of sleep 1 Each 0 [employer] (VIC)Touch Verio w/Device Kit Test once a day E11.9 1 Kit 0 Fluticasone Propionate 50 MCG/ACT Nasal Suspension (Flonase) INSTILL 2 SPRAYS INTO EACH NOSTRIL TWICE DAILY NEEDED FOR NASAL SYMPTOMS AFTER SALINE IRRIGATIONS 48 mL 4 Sildenafil Citrate 100 MG Oral Tablet TAKE 1 TAB BY MOUTH ONCE FOR 1 DOSE. 1-4 HOURS BEFORE INTERCOURSE, NO MORE THAN 1 DOSE IN 24 HOURS. 6 Tablet 3 Albuterol Sulfate HFA 108 (90 Base) MCG/ACT Inhalation Aerosol Solution INHALE 2 PUFFS BY MOUTH EVERY 4 HOURS NEEDED FOR COUGH,WHEEZING, OR SHORTNESS OF BREATH 18 g 1 CPAP every night at bedtime. metFORMIN HCl 1000 MG Oral Tablet (Glucophage) Take 1 Tablet by mouth daily. 180 Tablet 2 OneTouch Verio In Vitro Strip (Glucose Blood) TEST ONCE A DAY DX E11.9 100 Strip 1 [employer] (VIC)Touch Delica Lancets 33G TEST ONCE A DAY DX E11.9 100 Each 1 [employer] G6 Transmitter USE DIRECTED . USE WITH [employer] CLARITY ELVIRA FOR GLUCOSE MONITORING. DXE11.9 4 Each 1 Trulicity 3 MG/0.5ML Subcutaneous Solution [...] DAY IN THE MORNING 90 Tablet 3 Metoprolol Succinate ER 25 MG Oral Tablet Extended Release 24 Hour (toPROL XL) TAKE 1 TABLET BY MOUTH EVERY DAY IN THE MORNING STRENGTH: 25 MG 90 Tablet 2 Levothyroxine Sodium 175 MCG Oral Tablet (Levoxyl) Take 1 Tablet by mouth daily first thing in the morning. 90 Tablet 3 traMADol HCl 50 MG Oral Tablet (Ultram) Take 1 Tablet by mouth 2 times a day as needed for Pain, Severe. 60 Tablet 0 Aspirin 81 MG Oral Tablet Delayed Release Take 1 Tablet by mouth in the morning. Clopidogrel Bisulfate 75 MG Oral Tablet (pLAVix) Take 1 Tablet by mouth in the morning. [employer] G6 Sensor USE DIRECTED. USE WITH [employer] CLARITY ELVIRA FOR GLUCOSE MONITORING. DXE11.9 3 Each 5 Atorvastatin Calcium 40 MG Oral Tablet (Lipitor) Take 1 Tablet by mouth in the morning. 90 Tablet 3 Montelukast Sodium 10 MG Oral Tablet (Singulair) TAKE 1 TABLET BY MOUTH EVERY DAY IN THE EVENING 90Tablet 3 hydroCHLOROthiazide 25 MG Oral Tablet (Hydrodiuril) TAKE 1 TABLET BY MOUTH EVERY DAY IN THE [id number] Tablet 5 No current facility-administered medications for this visit. OBJECTIVE/PHYSICAL EXAMINATION: BP 136/76 | Pulse 72 | Resp 16 | Wt 128.1 kg (282 lb 8 oz) | BMI 40.53 kg/m | BSA 2.52 m Blood pressure on my evaluation was 144/76 General: Alert and oriented x3. No acute distress. Pleasant. Comfortable. Cooperative. Skin: No rash Eyes: PER. Conjunctiva pink, sclera clear. HENT: Normocephalic. Atraumatic. Neck: No carotid bruits. No JVD. Heart: RRR. No murmur. No rub. No gallop. PMI is nondisplaced. Lungs: Clear to auscultation. No wheeze. No rales. No rhonchi Abdomen: +BS. Soft. Nontender. No masses. No organomegaly. Extremities: 1 to 2+ pretibial edema. No clubbing. No cyanosis. Pulses: radial=2/4, posterior tibial=2/4. Limited neurological examination: No focal deficit. Additional Data: EKG on June 28, 2019 revealed sinus rhythm with frequent premature atrial complexes, left anterior fascicular block, LVH. March 25, 2021 DSE Interpretation Summary (as per Dr. Amanda): The Dobutamine stress echo is negative for inducible ischemia. The left ventricular cavity size is normal. The LV wall thickness is mildly increased (concentric). The left ventricular wall motion is normal. The qualitative LV ejection fraction is 55- 59% (normal). The left ventricular diastolic function is mildly abnormal (grade I). The aortic root is mildly enlarged. The proximal ascending thoracic aorta is normal sized. EKG on March 25, 2024 revealed normal sinus rhythm at 64 bpm with left axis deviation, possible left atrial enlargement, pulmonary disease pattern, moderate voltage criteria for LVH. ASSESSMENT: CVA February 2024, posterior left frontal lobe Chronic bilateral subcortical ischemic strokes on brain MRI, [facility], February 2024 History of atrial ectopy, without documented history of atrial fibrillation thus far Hypertension, uncontrolled Diastolic congestive heart failure, decompensated Dyslipidemia with an optimal LDL cholesterol goal less than 70, preferably less than 55 mg/dL. Atorvastatin increased to 40 mg/day in February 2024. Type 2 diabetes mellitus Obstructive sleep apnea, on CPAP therapy with supplemental oxygen at nighttime Hypothyroidism Options of management discussed with patient. Via shared decision making, plan as outlined below. RECOMMENDATIONS/PLAN: Await Zio monitor findings. Refer to Electrophysiology for Loop implantation if Zio benign. Repeat resting echocardiography at [facility], with agitated saline administration Discontinue hydrochlorothiazide 25 mg/day Start furosemide 20 mg/day Start spironolactone 12.5 mg/day Check a basic metabolic panel in 10 to 14 days. Reassess lipids and LFTs in May/June. Aggressive risk factor and lifestyle modification reviewed. Continue antiplatelet therapy and moderate intensity statin therapy Continue CPAP with supplemental oxygen at nighttime I thought about decreasing amlodipine dosing to aid peripheral edema though decided not at this point to due to uncontrolled hypertension Mr. Almendarez states that he understands the proposed plan and verbally consents. Proper use and risksof the above listed medications and/or changes discussed. Patient advised to call with any questions, concerns, comments, etc. Cardiac follow-up in 6 weeks or as needed. ER with emergencies. Isaías Ramirez PA-C Department of Cardiology I spent a total of 40-54 minutes (exact time 42 mins) on the date of service in preparation, delivery, and documentation of the care provided to Naresh Almendarez excluding any time spent in the performance of separately billed services. This visit involved medical care services related to at least one serious condition or complex condition requiring ongoing care. This chart was completed in part utilizing [employer] Voice Recognition Software. Grammatical errors, random word insertions, prounoun errors, and incomplete sentences are an occasional consequence of this system due to software l imitations, ambient noise, and hardware issues. Any formal questions or concerns about the content,text, or information contained within the body of this dictation should be directly addressed to the provider for clarification. documented in this encounter Procedure Notes * Zuhair Joy DO - 03/25/2024 11:33 AM EDTAssociated Order(s): EKG REASON FOR STUDY: HTN;HTN CONCLUSIONS: Normal sinus rhythm Left axis deviation Pulmonary disease Moderate voltage criteria for LVH, may be normal variant Abnormal ECG When compared with ECG of -2020 19:02, Premature atrial complexes are no longer Present Ventricular Rate: 64 Atrial Rate: 64 NE Interval: 164 QRS Duration: 98 QT/QTc: 424/437 ms P-R-T Sheldon: 34 : -43 : 1 degrees documented in this encounter Nursing Notes * Oscar Perez LPN - 03/25/2024 11:23 AM EDT Patient identified by full name and date of Chief Complaint Patient presents with NEW PATIENT Establishing care. SOB due to being out of shape. Edema in LE ongoing and tight in his shoes. Hemorrhoids have been bleed- not in the last 2-3 days. Denies chest pain, palpitations and dizziness. Currently wearing a Zio monitor. Hospital Follow-Up [facility] 03/07-03/09/24- Stroke. Examination Room: 2 Name: Naresh Almendarez Date of : (1965). Reason for Visit: New Patient Interim Hospitalization(s): [facility] 03/07-03/09/24 Problems/Concerns: See chief complaint Chest Pain/SOB: See chief complaint [facility] Discussed: Not applicable [facility] is a way you can talk to your provider online through e-mail. Would you like to sign up? I can activate it for you? ALREADY ACTIVE Patient was instructed to not get up on the exam table until directed and assisted by their provider; patient is to remain seated in the chair/ wheelchair/ exam table for fall prevention and safety reasons. Patient is aware to have assistance to step down off exam table with personnel. Patient voiced full comprehension of instructions. documented in this encounter Plan of Treatment Upcoming Encounters Date Type Department Care Team (Late st Contact Info) Description 04/01/2024 11:20 AM EDT Office Visit Neurology [facility] [address] [facility] [place] [address] Kenia Mehta PA-C [address] [facility] [place] [address] 04/14/2024 9:15 AM EDT Cardiac Studies Cardiac Studies, [facility] [address] [place] [address] 05/02/2024 10:30 AM EDT Office Visit Cardiology, [facility] [address] [place] [address] Elizabeth Porter CRNP [address] [place] [address] 05/13/2024 10:00 AM EDT Office Visit Rheumatology [address] [place] [phone] Kristopher Toure MD [address] [place] [address] [place] [address] 05/17/2024 9:30 AM EDT Office Visit [facility] Gerri Haque [place] [address] [place] [phone] Sun Brush CRNP [address] [place] [address] 06/14/2024 6:20 PM EDT Office Visit Family Medicine [address] [place] [phone] Lukas Bain [address] [place] [address] 07/15/2024 8:00 AM EDT Office Visit Rheumatology [address] [place] [phone] Lakisha Valverde CRNP [address] [facility] [place] [address] 08/11/2024 8:00 AM EDT Office Visit Allergy/Immunology [facility] [place] [address] [place] [address] Narda Castellano PA-C [address] [place] [address] 12/19/2024 6:40 PM EST Office Visit Family Medicine [address] Yariel [place] [phone] Sophie Licea MD [address] [place] [address] [place] [place] [id number] Scheduled Orders Name Type Priority Associated Diagnoses Orde r Schedule ECHO, COMPLETE (2D), TRANS-THORACIC Echocardiology Routine Hospital discharge follow-up Cerebrovascular accident (CVA), unspecified mechanism (HCC) Expected: 04/01/2024, Expires: 04/25/2026 BASIC METABOLIC PANEL Lab Routine Acute diastolic congestive heart failure (HCC) Encounter for monitoring diuretic therapy Expected: 03/25/2024, Expires: 03/25/2025 Scheduled Procedures Name Priority Associated Diagnoses Date/Ti me COLONOSCOPY FLEXIBLE PROXIMAL DIAGNOSTIC Recall Colon cancer screening Health Maintenance Due Date Last Done Comments Hepatitis B (1 of 3 - 19+ 3-dose series) 1984 Cologuard 2010 Fecal Occult Blood Test 2010 Sigmoidoscopy 2010 Depression Screening 02/27/2021 02/28/2020 COVID-19 Vaccine ( season) 2023 09/17/2021, 08/27/2021 Diabetic Eye Exam 10/01/2023 10/01/2022, 09/16/2021 Albumin/Creatinine Ratio 06/08/2024 06/08/2023, 04/10 HbA1c 06/22/2024 12/23/2023, 04/0 02/2023, 10/03/2022, Additional [...] Procedure Name Priority Date/Time Associated Diagnosis Comments NE ECG ROUTINE ECG W/LEAST 12 LDS W/I&R Routine 03/25/2024 11:33 AM EDT HTN, GOAL BELOW 140/90 documented in this encounter Results * EKG (03/25/2024 11:33 AM EDT) 03/25/2024 11:3 3 AM EDT Narrative Procedure Note Zuhair Joy DO - 03/25/2024 11:33 AM EDT REASON FOR STUDY: HTN;HTN CONCLUSIONS: Normal sinus rhythm Left axis deviation Pulmonary disease Moderate voltage criteria for LVH, may be normal variant Abnormal ECG When compared with ECG of 11-Mar-2021 19:02, Premature atrial complexes are no longer Present Ventricular Rate: 64 Atrial Rate: 64 NE Interval: 164 QRS Duration: 98 QT/QTc: 424/437 ms P-R-T Sheldon: 34 : -43 : 1 degrees Isaías Ramirez PA-C EKG Performing Organization Address City/State/ZIP Co nm Phone Number [facility] documented in this encounter Visit Diagnoses Diagnosis Hospital discharge follow-up- Primary Other follow-up examination HTN, GOAL BELOW 140/90 Unspecified essential hypertension Acute diastolic congestive heart failure (HCC) Acute diastolic heart failure Uncomplicated hypertension Unspecified essential hypertension Dyslipidemia, goal LDL below 70 Other and unspecified hyperlipidemia Essential hypertension with goal blood pressure less than 140/90 Cerebrovascular accident (CVA), unspecified mechanism (HCC) Encounter for monitoring diuretic therapy Encounter for therapeutic drug monitoring documented in this encounter Care Teams Cyber Reverse Engineer Relationship Specialty Start Date End Date Sophie Licea MD [address] [place] [address] [place] [phone] PCP - General Family Medicine 03/07/19 documented as of this encounter
--- OUTSIDE RECORDS SUMMARY | 2024-04-01 23:02 | External Medical Summary | Summary of Care ---
Author Name Unknown Organization [facility] Address [address] [place] [address] Phone [phone] Care Team Providers Care Tape Transferrer Name Role Phone Sophie Licea MD Primary Care Provide r Reason for Visit * Reason Onset Date Comments Advice 03/14/2024 Encounter Details Date Type Department Care Team (Late st Contact Info) Description 03/14/2024 Telephone Family Medicine [address] [phone] Sophie Licea MD [address] [place], [place] [address] [address] Advice Allergies Active Allergy Reactions Criticality Noted Date Comments Ibuprofen 02/28/2008 Stomach problems Nsaids 01/10/2010 Has stomach problems Salicylates 10/17/2003 Nosebleeds documented as of this encounter (statuses as of 03/14/2024) Medications Medication Sig Dispensed Refills Start Date End Date Status Multiple Vitamins-Minerals (MULTIVITAMIN ADULT) TABS 0 Active D Hanis-3 Fatty Acids (FISH OIL) 1200 MG CAPS 0 Active Ascorbic Acid (VITAMIN C) 500 MG CAPS 0 Active Glucosamine 500 MG Capsule Take 1 Capsule by mouth in the morning and 1 Capsule before bedtime. 0 Active B Wfsznym-Izyzin-QS (B COMPLETE) TABS Take by mouth. 0 [...] of sleep 1 Each 0 09/09/2019 Active OneTouch Verio w/Device KitIndications:Type 2 diabetes mellitus with hemoglobin A1c goal of less than 7.0% (HCC) Test once a day E11.9 1 Kit 0 09/16/2021 Active Fluticasone Propionate 50 MCG/ACT Nasal Suspension (Flonase) INSTILL 2 SPRAYS INTO EACH NOSTRIL TWICE DAILY NEEDED FOR NASAL SYMPTOMS AFTER SALINE IRRIGATIONS 48 mL 4 08/04/2022 Active Sildenafil Citrate 100 MG Oral TabletIndications:Er [...] OF BREATH 18 g 1 04/10/2023 Active CPAP every night at bedtime. 0 Active hydroCHLOROthiazide 25 MG Oral Tablet (Hydrodiuril)Indicat ions:HTN, goal below 140/90 Take 1 Tablet by mouth in the morning. 90 Tablet 1 06/08/2023 Active metFORMIN HCl 1000 MG Oral Tablet (Glucophage)Indicati ons:Type 2 diabetes mellitus with hemoglobin A1c goal of less than 7.0% (HCC) Take 1 Tablet by mouth daily. 180 Tablet 2 06/08/2023 Active JOYsee Interaction Science and TechnologyTouch Verio In Vitro Strip (Glucose Blood)Indications:Ty pe 2 diabetes mellitus with hemoglobin A1c goal of less than 7.0% (HCC) TEST ONCE A DAY DX E11.9 100 Strip 1 06/09/2023 Active JOYsee Interaction Science and TechnologyTouch Delica Lancets 33GIndications:Type 2 diabetes mellitus with hemoglobin A1c goal of less than 7.0% (HCC) TEST ONCE A DAY DX E11.9 100 Each 1 06/09/2023 Active DexmWater G6 TransmitterIndicatio ns:Type 2 diabetes mellitus with hemoglobin A1c goal of less than 7.0% (HCC) USE DIRECTED . USE WITH [employer] CLARITY ELVIRA FOR GLUCOSE MONITORING. DXE11.9 4 Each 1 07/29/2023 Active Trulicity 3 MG/0.5ML Subcutaneous Solution Pen-injector [...] THE MORNING 90 Tablet 3 11/23/2023 Active Metoprolol Succinate [...] the morning. 90 Tablet 3 02/09/2024 Active traMADol HCl 50 MG Oral Tablet (Ultram)Indications: Generalized osteoarthritis of multiple sites Take 1 Tablet by mouth 2 times a day as needed for Pain, Severe. 60 Tablet 0 03/10/2024 Active Aspirin 81 MG Oral Tablet Delayed Release Take 1 Tablet by mouth in the morning. 0 03/09/2024 Active Clopidogrel Bisulfate 75 MG Oral Tablet (pLAVix) Take 1 Tablet by mouth in the morning. 0 03/09/2024 Active Dexcom G6 SensorIndications:Ty pe 2 diabetes mellitus with hemoglobin A1c goal of less than 7.0% (HCC) USE DIRECTED. USE WITH [employer] CLARITY ELVIRA FOR GLUCOSE MONITORING. DXE11.9 3 Each 5 03/14/2024 Active Atorvastatin Calcium 40 MG Oral Tablet (Lipitor)Indications :Dyslipidemia, goal LDL below 100,Cerebrovascular disease,Type 2 diabetes mellitus with hemoglobin A1c goal of less than 7.0% (HCC) Take 1 Tablet by mouth in the morning. 90 Tablet 3 03/14/2024 Active Montelukast Sodium 10 MG Oral Tablet (Singulair) TAKE 1 TABLET BY MOUTH EVERY DAY IN THE EVENING 90 Tablet 3 03/14/2024 Active documented as of this encounter (statuses as of 03/14/2024) Active Problems Problem Noted Date Diagnosed Date [...] as of this encounter (statuses as of 03/14/2024) Resolved Problems Problem Noted Date Diagnosed Date [...] Snoring 02/05/2018 08/30/2018 Daytime somnolence 02/05/2018 8 HAND FINISHER demyelination 07/25/2015 02/08/2018 Overview: Nonspecific white matter [...] as of this encounter (statuses as of 03/14/2024) Immunizations Name Administration Dates Next Due COVID-19 mRNA, LNP-s, No Pre serve, 2-Dose Series (Pfizer) 09/17/2021,08/27/2021 Pneumococcal Conjugate Vacci ne, 20-valent ([id number]) 04/28/2022 Pneumococcal Polysaccharide PPV23 (Pneumovax) 02/06/2009 Seasonal [...] encounter Miscellaneous Notes * Telephone Encounter - Lorena Stanley RN - 03/14/2024 4:37 PM EDT [place] will call pt to schedule * Telephone Encounter - Mulugeta Roche MD - 03/14/2024 4:21 PM EDT ZIO ordered * Telephone Encounter - Lorena Stanley RN - 03/14/2024 4:17 PM EDT We do not do Holter Monitors any longer.. Does he need a ZIO * Telephone Encounter - Taina Costello OSA - 03/14/2024 9:55 AM EDT Patient was admitted to [facility] 03[facility]07-03[facility]09/2024. He stated they told him that he would need a heart monitor. No one gave him a order or put a referral in for cardiology. He is asking if Dr. Rochecan order a Holter monitor for him to have put on. He did see Dr. Roche today, but forgot to mention he needed a monitor. Please call patient back. documented in this encounter Plan of Treatment Upcoming Encounters Date Type Department Care Team (Late st Contact Info) Description 04/01/2024 11:20 AM EDT Office Visit Neurology [facility] [address] [facility] [place] [address] Kenia Mehta PA-C [address] [facility] [place] [address] 05/17/2024 9:30 AM EDT Office Visit Sleep Disorders Ctr [facility] [address] [place] [phone] Sun Brush CRNP [address] [place] [address] 06/14/2024 6:20 PM EDT Office Visit Family [address] [phone] Lukas Bain CRNP [address] [place] [address] [place] [address] 07/15/2024 8:00 AM EDT Office Visit Rheumatology [address] [place] [phone] Lakisha Valverde CRNP [address] [facility] [place] [address] 08/11/2024 8:00 AM EDT Office Visit Allergy/Immunology [facility] [place] [address] [place] [address] Narda Castellano PA-C [address] [place] [address] 12/19/2024 6:40 PM EST Office Visit Family Medicine [address] [place] [phone] Sophie Licea MD [address] [place] [address] [place] [address] Scheduled Orders Name Type Priority Associated Diagnoses Orde r Schedule EXTERNAL EKG 8 TO 15 DAYS Holter Routine Cerebrovascular disease, arteriosclerotic, post-stroke Expected: 03/15/2024 (Approximate), Expires: 03/14/2025 Scheduled Procedures Name Priority Associated Diagnoses Date/Ti [...] as of this encounter Visit Diagnoses Diagnosis Cerebrovascular disease, arteriosclerotic, post-stroke- Primary Cerebral atherosclerosis documented in this encounter Care Teams Tape Transferrer Relationship Specialty Start Date End Date Sophie Licea MD [address] [place] [address] [place] [address] PCP - General Family Medicine 03/07/19 documented as of this encounter
--- OUTSIDE RECORDS SUMMARY | 2024-04-01 23:02 | External Medical Summary | Summary of Care ---
Author Name Unknown Organization [facility] Address [address] [place] [address] Phone [phone] Care Team Providers Care Supply Chain Business Analyst Name Role Phone Sophie Licea MD Primary Care Provide r Reason for Visit * Reason Comments Home Monitoring - Heart Failure Zio carlos alvarenga Encounter Details Date Type Department Care Team (Late st Contact Info) Description 03/16/2024 8:00 AM EDT Nurse Only Ancillary [address] [place] [address] Harvey, Nurse [address] [place] [phone] Home Monitoring - Heart Failure (Zio monit... Allergies Active Allergy Reactions Criticality Noted Date Comments Ibuprofen 02/28/2008 Stomach problems Nsaids 01/10/2010 Has stomach problems Salicylates 10/17/2003 Nosebleeds documented as of this encounter (statuses as of 03/16/2024) Medications Medication Sig Dispensed Refills Start Date End Date Status Multiple Vitamins-Minerals (MULTIVITAMIN ADULT) TABS 0 Active Lindon-3 Fatty Acids (FISH OIL) 1200 MG CAPS 0 Active Ascorbic Acid (VITAMIN C) 500 MG CAPS 0 Active Glucosamine 500 MG Capsule Take 1 Capsule by mouth in the morning and 1 Capsule before bedtime. 0 Active B Mrpewhu-Gdkaij-GS (B COMPLETE) TABS Take by mouth. 0 [...] DX E11.9 100 Strip 1 06/09/2023 Active EDANTouch Delica Lancets 33GIndications:Type 2 diabetes mellitus with hemoglobin A1c goal of less than 7.0% (HCC) TEST ONCE A DAY DX E11.9 100 Each 1 06/09/2023 Active DexTicketmaster G6 TransmitterIndicatio ns:Type 2 diabetes mellitus with hemoglobin A1c goal of less than 7.0% (HCC) USE DIRECTED . USE WITH [employer] CLARITY ELVIRA FOR GLUCOSE MONITORING. DXE11.9 4 [...] than 7.0% (HCC) USE DIRECTED. USE WITH [employer] ELVIRA FOR GLUCOSE MONITORING. DXE11.9 3 Each [...] as of this encounter (statuses as of 03/16/2024) Active Problems Problem Noted Date Diagnosed Date [...] as of this encounter (statuses as of 03/16/2024) Resolved Problems Problem Noted Date Diagnosed Date [...] Snoring 02/05/2018 08/30/2018 Daytime somnolence 02/05/2018 8 SCIENTIFIC HELPER demyelination 07/25/2015 02/08/2018 Overview: Nonspecific white matter [...] as of this encounter (statuses as of 03/16/2024) Immunizations Name Administration Dates Next Due COVID-19 mRNA, LNP-s, No Pre serve, 2-Dose Series (Pfizer) 09/17/2021,08/27/2021 Pneumococcal Conjugate Vacci ne, 20-valent ([id number]) 04/28/2022 Pneumococcal Polysaccharide PPV23 (Pneumovax) 02/06/2009 Seasonal [...] 8:40 PM EDT Sexual Orientation Straight 02/25/2022 8 :40 PM EDT Job Start Date Occupation Industry Not on file Not on file Not on file documented as of this encounter Nursing Notes * Dayday Anne LPN - 03/16/2024 8:06 AM EDT 03/16/24 8:06 AM Date to Remove: 03/30/24 Time to Remove: 08:00 AM Serial Number: [id number] Ordering Provider: CC Results: Dr.Anuja Anne LPN Zio patch applied in clinic, as per provider orders. documented in this encounter Plan of Treatment Upcoming Encounters Date Type Department Care Team (Late st Contact Info) Description 03/25/2024 11:30 AM EDT Office Visit Cardiology, [facility] [address] [place] [address] Isaías Ramirez PA-C [address] [place] [address] 04/01/2024 11:20 AM EDT Office Visit Neurology [facility] [address] [place] [address] Kenia Mehta PA-C [address] [place] [address] 05/17/2024 9:30 AM EDT Office Visit Sleep Disorders Ctr [facility] 132 [facility] [place] [phone] Sun Brush CRNP 132 [facility] [place] [address] 06/14/2024 6:20 PM EDT Office Visit Family Medicine [address] [place] [phone] Lukas Bain CRNP [address] [place] [address] [place] [address] 07/15/2024 8:00 AM EDT Office Visit Rheumatology [address] [place] [phone] Lakisha Valverde CRNP [address] [place] [address] [place] [address] 08/11/2024 8:00 AM EDT Office Visit Allergy/Immunology [facility] [place] [address] [place] [address] Narda Castellano PA-C 200 [facility] [place] [address] 12/19/2024 6:40 PM EST Office Visit Family Medicine [address] [place] [phone] Sophie Licea MD [address] [place] [address] [place] [address] Scheduled Procedures Name Priority Associated Diagnoses Date/Ti [...] 04/29/2022, Additional history exists TSH 12/23/2024 12/23/2023, 05/11, 02/10/2023, Additional history exists Colonoscopy 02/10/2026 02/11/2016, [...] filedocumented as of this encounter Care Teams Supply Chain Business Analyst Relationship Specialty Start Date End Date Sophie Licea MD [address] [place] [address] [place] [phone] PCP - General Family Medicine 03/07/19 documented as of this encounter
--- OUTSIDE RECORDS SUMMARY | 2024-04-01 23:02 | External Medical Summary | Summary of Care ---
Author Name Unknown Organization [facility] Address [address] [place] [address] Phone [phone] Care Team Providers Care Branch Or Department Chief Librarian Name Role Phone Sophie Licea MD Primary Care Provide r Reason for Visit * Reason Comments eRx-Medication Refill Encounter Details Date Type Department Care Team (Late st Contact Info) Description 03/18/2024 Refill Family Medicine [address] [phone] Hayley Vera PAKira [address] [place] [address] HTN, goal below 140/90 Allergies Active Allergy Reactions Criticality Noted Date Comments Ibuprofen 02/28/2008 Stomach problems Nsaids 01/10/2010 Has stomach problems Salicylates 10/17/2003 Nosebleeds documented as of this encounter (statuses as of 03/20/2024) Medications Medication Sig Dispensed Refills Start Date End Date Status Multiple Vitamins-Minerals (MULTIVITAMIN ADULT) TABS 0 Active Bunker-3 Fatty Acids (FISH OIL) 1200 MG CAPS 0 Active Ascorbic Acid (VITAMIN C) 500 MG CAPS 0 Active Glucosamine 500 MG Capsule Take 1 Capsule by mouth in the morning and 1 Capsule before bedtime. 0 Active B Zxunmfg-Qobmdp-BW (B COMPLETE) TABS Take by mouth. 0 [...] of sleep 1 Each 0 9 Active OneTouch Verio w/Device KitIndications:Type 2 [...] CPAP every night at bedtime. 0 Active metFORMIN HCl 1000 MG Oral Tablet [...] 7.0% (HCC) USE DIRECTED . USE WITH DEXRed Clay G6 CLARITY ELVIRA FOR GLUCOSE MONITORING. DXE11.9 [...] needed for Pain, Severe. 60 Tablet 0 4 Active Aspirin 81 MG Oral Tablet Delayed Release Take 1 Tablet by mouth in the morning. 0 4 Active Clopidogrel Bisulfate 75 MG Oral Tablet (pLAVix) Take 1 Tablet by mouth in the morning. 0 4 Active Dexcom G6 SensorIndications:T ype 2 diabetes mellitus with hemoglobin A1c goal of less than 7.0% (HCC) USE DIRECTED. USE WITH [employer] CLARITY ELVIRA FOR GLUCOSE MONITORING. DXE11.9 3 [...] THE EVENING 90 Tablet 3 4 Active hydroCHLOROthiazide 25 MG Oral Tablet (Hydrodiuril)Indica tions:HTN, goal below 140/90 TAKE 1 TABLET BY MOUTH EVERY DAY IN THE MORNING 30 Tablet 5 4 Active hydroCHLOROthiazide 25 MG Oral Tablet (Hydrodiuril)Indica tions:HTN, goal below 140/90 Take 1 Tablet by mouth in the morning. 90 Tablet 1 3 03/20/20 24 Discontinued documented as of this encounter (statuses as of 03/20/2024) Active Problems Problem Noted Date Diagnosed Date [...] as of this encounter (statuses as of 03/20/2024) Resolved Problems Problem Noted Date Diagnosed Date [...] Snoring 02/05/2018 08/30/2018 Daytime somnolence 02/05/2018 8 TIMBER CRUISER demyelination 07/25/2015 02/08/2018 Overview: Nonspecific white matter [...] as of this encounter (statuses as of 03/20/2024) Immunizations Name Administration Dates Next Due COVID-19 mRNA, LNP-s, No Pre serve, 2-Dose Series (Pfizer) 09/17/2021,08/27/2021 Pneumococcal Conjugate Vacci ne, 20-valent ([id number]) 04/28/2022 Pneumococcal Polysaccharide PPV23 (Pneumovax) 02/06/2009 Seasonal [...] encounter Miscellaneous Notes * Telephone Encounter - Gertrude Holbrook, [facility] - 03/20/2024 2:44 AM EDTSigned Prescriptions: Disp Refills hydroCHLOROthiazide 25 MG Oral Tablet (Hyd*30 Tab*5 Sig: TAKE 1 TABLET BY MOUTH EVERY DAY IN THE MORNINGAuthorizing Provider: SOPHIE LICEA User:GERTRUDE HOLBROOK Electronically signed by Gertrude Holbrook [facility] at 03/20/2024 2:44 AM EDT documented in this encounter Plan of Treatment Upcoming Encounters Date Type Department Care Team (Late st Contact Info) Description 03/25/2024 11:30 AM EDT Office Visit Cardiology, [facility] [address] [place] [address] Isaías Ramirez PA-C [address] [place] [address] 04/01/2024 11:20 AM EDT Office Visit Neurology [facility] [place] [address] Kenia Mehta PA-C [facility] [place] [address] 05/17/2024 9:30 AM EDT Office Visit Sleep Disorders [facility] [address] [place] [phone] Sun Brush CRNP [address] [place] [address] 06/14/2024 6:20 PM EDT Office Visit Family Medicine [address] [place] [phone] Lukas Bain CRNP [address] [place] [address] [place] [address] 07/15/2024 8:00 AM EDT Office Visit Rheumatology [address] [place] [phone] Lakisha Valverde CRNP [address] [facility] [place] [address] 08/11/2024 8:00 AM EDT [facility] [place] [facility] [place] [address] Narda Castellano PA-C [address] [place] [address] 12/19/2024 6:40 PM EST Office Visit Family Medicine [address] [place] [phone] Sophie Licea MD [address] [place] [address] [place] [address] Scheduled Procedures Name Priority Associated Diagnoses Date/Ti me COLONOSCOPY FLEXIBLE PROXIMAL DIAGNOSTIC Recall Colon cancer screening Health Maintenance Due Date Last Done Comments Hepatitis B (1 of 3 - 19+ 3-dose series) 1984 Cologuard 2010 Fecal Occult Blood Test 2010 Sigmoidoscopy 2010 Depression Screening 02/27/2021 02/28/2020 COVID-19 Vaccine ( season) 2023 09/17/2021, 08/27/2021 Diabetic Eye Exam 10/01/2023 10/01/2022, 09/16/2021 Albumin/Creatinine Ratio 06/08/2024 06/08/2023, 06/11/2021 HbA1c 06/22/2024 12/23/2023, 04/0 02/2023, 10/03/2022, Additional [...] hypertension documented in this encounter Care Teams Branch Or Department Chief Librarian Relationship Specialty Start Date End Date Sophie Licea MD [address] [place] [address] [place] [phone] PCP - General Family Medicine 03/07/19 documented as of this encounter
--- OUTSIDE RECORDS SUMMARY | 2024-04-01 23:02 | External Medical Summary | Summary of Care ---
Author Name Unknown Organization [facility] Address [address] [place] [address] Phone [phone] Care Team Providers Care Seafood Clerk Name Role Phone Sophie Licea MD Primary Care Provide r Reason for Visit * Reason Onset Date Comments Medication Problem 03/30/2024 Medication Refill 03/30/2024 Encounter Details Date Type Department Care Team (Late st Contact Info) Description 03/30/2024 Refill Family Medicine [address] [phone] Sophie Licea MD [address] [place] [address] [place] [address] Allergies Active Allergy Reactions Criticality Noted Date Comments Ibuprofen 02/28/2008 Stomach problems Nsaids 01/10/2010 Has stomach problems Salicylates 10/17/2003 Nosebleeds documented as of this encounter (statuses as of 03/30/2024) Medications Medication Sig Dispensed Refills Start Date End Date Status Multiple Vitamins-Minerals (MULTIVITAMIN ADULT) TABS Active [place]-3 Fatty Acids (FISH OIL) 1200 MG CAPS Active Ascorbic Acid (VITAMIN C) 500 MG CAPS Active Glucosamine 500 MG Capsule Take 1 Capsule by mouth in the morning and 1 Capsule before bedtime. Active B Creemrz-Yyjbzz-CA (B COMPLETE) TABS Take by mouth. Act jonathan cetirizine (ZYRTEC) 10 MG Tablet Take 1 Tab by mouth daily. 02/15/2018 Active Turmeric 500 MG Capsule Take 1 Capsule by mouth in the morning. Active MEDICAL INSTRUCTIONS Use as directed. CPAP at bedtime on RA Active oxygen GAS 3 LPM bled through CPAP 10-13 cwp during all hours of sleep 1 Each 09/09/2019 Active OneTouch Verio w/Device KitIndications:Type 2 diabetes mellitus with hemoglobin A1c goal of less than 7.0% (HCC) Test once a day E11.9 1 Kit 09/16/2021 Active Fluticasone Propionate 50 MCG/ACT Nasal Suspension (Flonase) INSTILL 2 SPRAYS INTO EACH NOSTRIL TWICE DAILY NEEDED FOR NASAL SYMPTOMS AFTER SALINE IRRIGATIONS 48 mL 4 08/04/2022 Active Sildenafil Citrate 100 MG Oral TabletIndications:E [...] 04/10/2023 Active CPAP every night at bedtime. Active metFORMIN HCl 1000 MG Oral Tablet (Glucophage)Indicat ions:Type 2 diabetes mellitus with hemoglobin A1c goal of less than 7.0% (HCC) Take 1 Tablet by mouth daily. 180 Tablet 2 06/08/2023 Active Effortless EnergyToSynapse Wireless Verio In Vitro Strip (Glucose Blood)Indications:T ype 2 diabetes mellitus with hemoglobin A1c goal of less than 7.0% (HCC) TEST ONCE A DAY DX E11.9 100 Strip 1 06/09/2023 Active [employer] Delpankaj Lancets 33GIndications:Type 2 diabetes mellitus with hemoglobin A1c goal of less than 7.0% (HCC) TEST ONCE A DAY DX E11.9 100 Each 1 06/09/2023 Active Dexcom G6 TransmitterIndicati ons:Type 2 diabetes mellitus with hemoglobin A1c goal of less than 7.0% (HCC) USE DIRECTED . USE WITH [facility]EX[facility] G6 CLARITY ELVIRA FOR GLUCOSE MONITORING. DXE11.9 [...] as needed for Pain, Severe. 60 Tablet 03/10/2024 Active Aspirin 81 MG Oral Tablet Delayed Release Take 1 Tablet by mouth in the morning. 03/09/2024 Active Dexcom G6 SensorIndications:T ype 2 diabetes mellitus with hemoglobin A1c goal of less than 7.0% (HCC) USE DIRECTED. USE WITH Circa G6 CLARITY ELVIRA FOR GLUCOSE MONITORING. DXE11.9 3 [...] THE EVENING 90 Tablet 3 03/14/2024 Active Beet Root 500 MG Oral Capsule Take 1 Capsule by mouth in the morning and 1 Capsule before bedtime. Active Furosemide 20 MG Oral Tablet (Lasix)Indications: Acute diastolic congestive heart failure (HCC) Take 1 Tablet by mouth in the morning. 31 Tablet 5 03/25/2024 Active Spironolactone 25 MG Oral Tablet (Aldactone)Indicati ons:Acute diastolic congestive heart failure (HCC) Take 0.5 Tablets by mouth in the morning. 16 Tablet 5 03/25/2024 Active Clopidogrel Bisulfate 75 MG Oral Tablet (pLAVix) Take 1 Tablet by mouth in the morning. 30 Tablet 11 03/30/2024 Active Clopidogrel Bisulfate 75 MG Oral Tablet (pLAVix) Take 1 Tablet by mouth in the morning. 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 Authorizing Provider: SOPHIE LICEA * Telephone Encounter - Natalie Bello LPN - 03/30/2024 1:48 PM EDT Patient states he was in the hospital 2 weeks ago for a stroke Admitted to [facility] 03/07-03/09 for CVA involving 9 mm infarct of the left posterior frontal lobe, and onMRI also had old lacunar infarcts. He is going to be out of med this week: Clopidogrel Bisulfate 75 MG Oral Tablet (pLAVix) Take 1 Tablet by mouth in the morning. Was seen on 03/14 for hospital follow up Script pended below for review Pharmacy is also unable to get Trulicity He is completely out of med Took last dose prior to hospital admission Pharmacy recommended that he call PCP office to see if something else could be ordered for him Patient states that he is willing to come back in to see [facility] again Pharm selected. Please advise. * Telephone Encounter - Joy Mann OSA - 03/30/2024 1:46 PM EDT Reason for patient's call: asking to speak nurse about concerns Caller was transferred to [facility] at the nurse line. documented in this encounter Plan of Treatment Upcoming Encounters Date Type Department Care Team (Late st Contact Info) Description 04/01/2024 11:20 AM EDT Office Visit Neurology [facility] [address] [place] [address] Kenia Mehta PA-C [address] [facility] [place] [address] 04/14/2024 9:15 AM EDT Cardiac Studies Cardiac Studies, [facility] [address] [facility] [place] [address] 05/02/2024 10:30 AM EDT Office Visit Cardiology, [facility] [address] [facility] [place] [address] Elizabeth Porter CRNP 132 [facility] [place] [address] 05/13/2024 10:00 AM EDT Office Visit Rheumatology [address] [place] [phone] Kristopher Toure MD [facility] [place] [address] 05/17/2024 9:30 AM EDT Office Visit Sleep Disorders Ctr [facility] [address] [facility] [place] [phone] Sun Brush CRNP 132 [facility] [place] [address] 06/14/2024 6:20 PM EDT Office Visit Family Medicine [address] [place] [phone] Lukas Bain [address] [place] [address] 07/15/2024 8:00 AM EDT Office Visit Rheumatology [address] [place] [phone] Lakisha Valverde, WRAPPER LEAF INSPECTOR [address] [employer] [place] [address] 08/11/2024 8:00 AM EDT Office Visit Allergy/Immunology [facility] [place] [address] [place] [address] Narda Castellano PA-C [address] [place] [address] 12/19/2024 6:40 PM EST Office Visit Family Medicine [address] [place] [phone] Sophie Licea MD [address] [place] [address] [place] [address] Scheduled Procedures Name Priority Associated Diagnoses Date/Ti [...] Cancer Screening 02/10/2026 Lipid Panel 12/23/2028 12/23/2023, 02/2023, 04/29/2022, Additional history exists DTaP,Tdap,and Td [...] filedocumented as of this encounter Care Teams Seafood Clerk Relationship Specialty Start Date End Date Sophie Licea MD [address] [place] [address] [place] [address] PCP - General Family Medicine 03/07/19 documented as of this encounter
--- OUTSIDE RECORDS SUMMARY | 2024-04-01 23:02 | External Medical Summary | Summary of Care ---
Author Name Unknown Organization [facility] Address [address] [place] [address] Phone [phone] Care Team Providers Care Apparel Embroidery Digitizer Name Role Phone Sophie Licea MD Primary Care Provide r Reason for Visit * Reason Onset Date Comments Medication Refill 03/14/2024 Encounter Details Date Type Department Care Team (Late st Contact Info) Description 03/14/2024 Refill Allergy/Immunology [facility] [address] [place] [address] Kali Asher MD [address] [facility] [place] [address] Allergies Active Allergy Reactions Criticality Noted Date Comments Ibuprofen 02/28/2008 Stomach problems Nsaids 01/10/2010 Has stomach problems Salicylates 10/17/2003 Nosebleeds documented as of this encounter (statuses as of 03/14/2024) Medications Medication Sig Dispensed Refills Start Date End Date Status Multiple Vitamins-Minerals (MULTIVITAMIN ADULT) TABS 0 Active [place]-3 Fatty Acids (FISH OIL) 1200 MG CAPS 0 Active Ascorbic Acid (VITAMIN C) 500 MG CAPS 0 Active Glucosamine 500 MG Capsule Take 1 Capsule by mouth in the morning and 1 Capsule before bedtime. 0 Active B Vqqaxdg-Lcxmev-GL (B COMPLETE) TABS Take by mouth. 0 [...] mouth daily. 180 Tablet 2 06/08/2023 Active FrogmetricsToDefense.Net Verio In Vitro Strip (Glucose Blood)Indications:T ype 2 diabetes mellitus with hemoglobin A1c goal of less than 7.0% (HCC) TEST ONCE A DAY DX E11.9 100 Strip 1 06/09/2023 Active FrogmetricsTouch Delica Lancets 33GIndications:Type 2 diabetes mellitus with hemoglobin A1c goal of less than 7.0% (HCC) TEST ONCE A DAY DX E11.9 100 Each 1 06/09/2023 Active DexClicko G6 TransmitterIndicati ons:Type 2 diabetes mellitus with hemoglobin A1c goal of less than 7.0% (HCC) USE DIRECTED . USE WITH DNAtriX G6 CLARITY ELVIRA FOR GLUCOSE MONITORING. DXE11.9 [...] the morning. 0 03/09/2024 Active Dexcom G6 SensorIndications:T ype 2 diabetes mellitus with hemoglobin A1c goal of less than 7.0% (HCC) USE DIRECTED. USE WITH [employer] CLARITY ELVIRA FOR GLUCOSE MONITORING. DXE11.9 3 [...] THE EVENING 90 Tablet 3 03/14/2024 Active Montelukast Sodium 10 MG Oral Tablet (Singulair) TAKE 1 TABLET BY MOUTH EVERY DAY IN THE EVENING 30 Tablet 11 02/17/2024 4 Discontinu ed(Refill) documented as of this [...] Snoring 02/05/2018 08/30/2018 Daytime somnolence 02/05/2018 8 PROPERTY ASSESSMENT MONITOR demyelination 07/25/2015 02/08/2018 Overview: Nonspecific white matter changes. 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 015 Tobacco use disorder 10/31/2005 010 Arthropathy of shoulder region 10/28/2005 03/07/2019 Overview: Seen in [facility] ER for left shoulder pain radiating to [...] (Pfizer) 09/17/2021,08/27/2021 Pneumococcal Conjugate Vacci ne, 20-valent ([id number]) 04/28/2022 Pneumococcal Polysaccharide PPV23 (Pneumovax) 02/06/2009 Seasonal [...] Telephone Encounter - Kali Asher MD - 03/14/2024 3:53 PM EDTSigned Prescriptions: Disp Refills Montelukast Sodium 10 MG Oral Tablet (Sing*90 Tab*3 Sig: TAKE 1 TABLET BY MOUTH EVERY DAY IN THE EVENING Authorizing Provider: AKLI ASHER * Telephone Encounter - Beth Carter LPN - 03/14/2024 2:34 PM EDT Fax received from pharmacy requesting 90 day supply. Pending Prescriptions: Disp Refills Montelukast Sodium 10 MG Oral Tablet (Sin*90 Tab*3 Sig: TAKE 1 TABLET BY MOUTH EVERY DAY IN THE EVENING Last Visit: 08/11/2023 (in office), Visit date not found (telemedicine) Next Visit: 08/11/2024 Last date the medication was ordered: 02/17/24 Health Maintenance Topic Date Due Hepatitis B (1 of 3 - 19+ 3-dose series) Never done Depression Screening 02/27/2021 COVID-19 Vaccine (2022- season) 2023 Diabetic Eye Exam 10/01/2023 Albumin/Creatinine [...] 04/01/2024 11:20 AM EDT Office Visit Neurology [facility] [address] [place] [address] Kenia Mehta PA-C [address] [place] [address] 05/17/2024 9:30 AM EDT Office Visit [facility] Disorders Ctr [facility] [employer] [address] [place] [phone] Sun Brush CRNP [address] [place] [address] 06/14/2024 6:20 PM EDT Office Visit Family Medicine [address] [place] [phone] Lukas Bain CRNP [address] [place] [address] [place] [address] 07/15/2024 8:00 AM EDT Office Visit Rheumatology [address] [place] [phone] Lakisha Valverde CRNP [address] [place] [address] [place] [address] 08/11/2024 8:00 AM EDT Office Visit Allergy/Immunology [facility] [employer] [address] [place] [address] Narda Castellano PA-C 200 [facility] [place] [address] 12/19/2024 6:40 PM EST Office Visit Family Medicine [address] [place] [phone] Sophie Licea MD [address] [place] [address] [place] [address] Scheduled Procedures Name Priority [...] 04/29/2022, Additional history exists TSH 12/23/2024 12/23/2023, 073 11/2022, 02/10/2023, Additional history exists Colonoscopy 02/10/2026 [...] filedocumented as of this encounter Care Teams Apparel Embroidery Digitizer Relationship Specialty Start Date End Date Sophie Licea MD [address] [place] [address] [place] [address] PCP - General Family Medicine 03/07/19 documented as of this encounter
--- OUTSIDE RECORDS SUMMARY | 2024-04-01 23:02 | External Medical Summary | Summary of Care ---
Author Name Unknown Organization [facility] Address [address] [place] [address] Phone [phone] Care Team Providers Care Branch Officer Name Role Phone Sophie Licea MD Primary Care Provide r Reason for Visit * Reason Onset Date Comments Advice 03/14/2024 Encounter Details Date Type Department Care Team (Late st Contact Info) Description 03/14/2024 Telephone Family Medicine [address] [phone] Sophie Licea MD [address] [place], [place] [address] [address] Advice Allergies Active Allergy Reactions Criticality Noted Date Comments Ibuprofen 02/28/2008 Stomach problems Nsaids 01/10/2010 Has stomach problems Salicylates 10/17/2003 Nosebleeds documented as of this encounter (statuses as of 03/14/2024) Medications Medication Sig Dispensed Refills Start Date End Date Status Multiple Vitamins-Minerals (MULTIVITAMIN ADULT) TABS 0 Active [place]-3 Fatty Acids (FISH OIL) 1200 MG CAPS 0 Active Ascorbic Acid (VITAMIN C) 500 MG CAPS 0 Active Glucosamine 500 MG Capsule Take 1 Capsule by mouth in the morning and 1 Capsule before bedtime. 0 Active B Krycdbl-Pkbecd-LV (B COMPLETE) TABS Take by mouth. 0 [...] mouth daily. 180 Tablet 2 06/08/2023 Active PromocoTouch Verio In Vitro Strip (Glucose Blood)Indications:Ty pe 2 diabetes mellitus with hemoglobin A1c goal of less than 7.0% (HCC) TEST ONCE A DAY DX E11.9 100 Strip 1 06/09/2023 Active PromocoTouch Delica Lancets 33GIndications:Type 2 diabetes mellitus with hemoglobin A1c goal of less than 7.0% (HCC) TEST ONCE A DAY DX E11.9 100 Each 1 06/09/2023 Active DexTaxify G6 TransmitterIndicatio ns:Type 2 diabetes mellitus with hemoglobin A1c goal of less than 7.0% (HCC) USE DIRECTED . USE WITH miradio.fm CLARITY ELVIRA FOR GLUCOSE MONITORING. DXE11.9 4 [...] than 7.0% (HCC) USE DIRECTED. USE WITH miradio.fm CLARITY ELVIRA FOR GLUCOSE MONITORING. 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 Does he need a ZIO * Telephone Encounter - Taina Costello OSA - 03/14/2024 9:55 AM EDT Patient was admitted to [facility] 03/07-03/09/2024. He stated they told him that he would need a heart monitor. No one gave him a order or put a referral in for cardiology. He is asking if Dr. Quintana order a Holter monitor for him to have put on. He did see Dr. Roche today, but forgot to mention he needed a monitor. Please call patient back. documented in this encounter Plan of Treatment Upcoming Encounters Date Type Department Care Team (Late st Contact Info) Description 04/01/2024 11:20 AM EDT Office Visit Neurology [facility] [place] [address] Kenia Mehta PA-C 200 [facility] [place] [address] 05/17/2024 9:30 AM EDT Office Visit Sleep Disorders Ctr [facility] 132 [facility] [place] [phone] Sun Brush CRNP [address] [place] [address] 06/14/2024 6:20 PM EDT Office Visit Family Medicine [address] [place] [phone] Lukas Bain CRNP [address] [place] [address] [place] [address] 07/15/2024 8:00 AM EDT Office Visit Rheumatology [address] [place] [phone] Lakisha Valverde, DI [address] [facility] [place] [address] 08/11/2024 8:00 AM EDT Office [facility] [address] [facility] [place] [address] Narda Castellano PA-C 200 [facility] [place] [address] 12/19/2024 6:40 PM EST Office Visit Family Medicine [address] [place] [phone] Sophie Licea MD [address] [place] [address] [place] [address] Scheduled Orders Name Type Priority Associated Diagnoses Orde r Schedule EXTERNAL EKG 8 TO 15 DAYS Holter Routine Cerebrovascular disease, arteriosclerotic, post-stroke Expected: 03/15/2024 (Approximate), Expires: 03/14/2025 Scheduled Procedures Name Priority Associated Diagnoses Date/Ti me COLONOSCOPY FLEXIBLE PROXIMAL DIAGNOSTIC Recall Colon cancer screening Health Maintenance Due Date Last Done Comments Hepatitis B (1 of - 19+ 3-dose series) 1984 Cologuard 2010 Fecal Occult Blood Test 2010 Sigmoidoscopy 2010 Depression Screening 02/27/2021 02/28/2020 COVID-19 Vaccine ( season) 2023 09/17/2021, 08/27/2021 Diabetic Eye Exam 10/01/2023 10/01/2022, 09/16/2021 Albumin/Creatinine Ratio 06/08/2024 06/08/2023, 06/2 11/2021 HbA1c 06/22/2024 12/23/2023, 04/0 02/2023, 10/03/2022, Additional history exists Diabetic Foot Exam 12/14/2024 12/14/2023, 1 12/01/2021, 09/16/2021 GFR 12/23/2024 12/23/2023, 0 02/2023, 04/29/2022, Additional history exists TSH 12/23/2024 12/23/2023, 05/11, 02/10/2023, Additional history exists Colonoscopy 02/10/2026 02/11/2016, 02/11/2016 Colorectal Cancer Screening 02/10/2026 Lipid Panel 12/23/2028 12/23/2023, 0 02/2023, 04/29/2022, Additional history exists DTaP,Tdap,and Td [...] atherosclerosis documented in this encounter Care Teams Branch Officer Relationship Specialty Start Date End Date Sophie Licea MD [address] [place] [address] [place] [phone] PCP - General Family Medicine 03/07/19 documented as of this encounter
--- OUTSIDE RECORDS SUMMARY | 2024-04-01 23:03 | External Medical Summary | Summary of Care ---
Author Name Unknown Organization [facility] Address [address] [place] [address] Phone [phone] Care Team Providers Care Upper Cutter Out Name Role Phone Sophie Licea MD Primary Care Provide r Reason for Visit * Reason Onset Date Comments Medication Refill 03/10/2024 Encounter Details Date Type Department Care Team (Late st Contact Info) Description 03/10/2024 Refill Family Medicine [address] [phone] Sophie Licea MD [address] [place] [address] [place] [address] Generalized osteoarthritis of multiple sites Allergies Active Allergy Reactions Criticality Noted Date Comments Ibuprofen 02/28/2008 Stomach problems Nsaids 01/10/2010 Has stomach problems Salicylates 10/17/2003 Nosebleeds documented as of this encounter (statuses as of 03/11/2024) Medications Medication Sig Dispensed Refills Start Date End Date Status Multiple Vitamins-Minerals (MULTIVITAMIN ADULT) TABS 0 Active [place]-3 Fatty Acids (FISH OIL) 1200 MG CAPS 0 Active Ascorbic Acid (VITAMIN C) 500 MG CAPS 0 Active Glucosamine 500 MG Capsule Take 1 Capsule by mouth in the morning and 1 Capsule before bedtime. 0 Active B Bviugri-Btjhth-BK (B COMPLETE) TABS Take by mouth. 0 [...] mouth daily. 180 Tablet 2 06/08/2023 Active EnergyHubToSolais Lighting Verio In Vitro Strip (Glucose Blood)Indications:Ty pe 2 diabetes mellitus with hemoglobin A1c goal of less than 7.0% (HCC) TEST ONCE A DAY DX E11.9 100 Strip 1 06/09/2023 Active OneTouch Delica Lancets 33GIndications:Type 2 diabetes mellitus with hemoglobin A1c goal of less than 7.0% (HCC) TEST ONCE A DAY DX E11.9 100 Each 1 06/09/2023 Active DexShuoren Hitech G6 TransmitterIndicatio ns:Type 2 diabetes mellitus with hemoglobin A1c goal of less than 7.0% (HCC) USE DIRECTED . USE WITH MyTrainer ELVIRA FOR GLUCOSE MONITORING. DXE11.9 4 Each 1 07/29/2023 Active DexShuoren Hitech G6 SensorIndications:Ty pe 2 diabetes mellitus with hemoglobin A1c goal of less than 7.0% ([facility]) USE DIRECTED. USE WITH Newsgrape CLARITY ELVIRA FOR GLUCOSE MONITORING. DXE11.9 9 [...] the morning. 90 Tablet 3 02/09/2024 Active Montelukast Sodium 10 MG Oral Tablet (Singulair) TAKE 1 TABLET BY MOUTH EVERY DAY IN THE EVENING 30 Tablet 11 02/17/2024 Active traMADol HCl 50 MG Oral Tablet [...] mouth in the morning. 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 07/25/2015 02/08/2018 Overview: Nonspecific white matter [...] as of this encounter (statuses as of 03/11/2024) Immunizations Name Administration Dates Next Due COVID-19 mRNA, LNP-s, No Pre serve, 2-Dose Series (Pfizer) 09/17/2021,08/27/2021 Pneumococcal Conjugate Vacci ne, 20-valent ([id number]) 04/28/2022 Pneumococcal Polysaccharide PPV23 (Pneumovax) 02/06/2009 Seasonal [...] encounter Miscellaneous Notes * Telephone Encounter - Randa Hummel [facility] - 03/11/2024 12:34 PM EDTRefused Prescriptions: Disp Refills traMADol HCl 50 MG Oral Tablet (Ultram) 60 Tab*0 Refused By: Lis HUMMEL for Refusal: Duplicate Request documented in this encounter Plan of Treatment Upcoming Encounters Date Type Department Care Team (Late st Contact Info) Description 03/14/2024 8:20 AM EDT Office Visit Family Medicine [address] [place] [phone] Mulugeta Roche MD [address] [place] [address] [place] [phone] 04/01/2024 11:20 AM EDT Office Visit Neurology [facility] [place] [address] [facility] [place] [address] Kenia Mehta PA-C [address] [facility] [place] [address] 05/17/2024 9:30 AM EDT Office Visit Sleep Disorders Ctr Gerri Haque, [place] [address] [place] [phone] Sun Brush CRNP [address] [place] [address] 06/14/2024 6:20 PM EDT Office Visit Family Medicine [address] [place] [phone] Lukas Bain CRNP [address] [place] [address] [place] [address] 07/15/2024 8:00 AM EDT Office Visit Rheumatology [address] [place] [phone] Lakisha Valverde CRNP [address] [place] [address] [place] [address] 08/11/2024 8:00 AM EDT Office Visit Allergy/Immunology [facility] [place] [address] [place] [address] Narda Castellano PA-C [address] [place] [address] 12/19/2024 6:40 PM EST Office Visit Family [address] [phone] Sophie Licea MD [address] [place] [address] [place] [phone] Scheduled Procedures Name Priority Associated Diagnoses Date/Ti me COLONOSCOPY FLEXIBLE PROXIMAL DIAGNOSTIC Recall Colon cancer screening Health Maintenance Due Date Last Done Comments Hepatitis B (1 of 3 - 19+ 3-dose series) 1984 Cologuard 2010 Fecal Occult Blood Test 2010 Sigmoidoscopy 2010 Depression Screening 02/27/2021 02/28/2020 COVID-19 Vaccine ( season) 2023 09/17/2021, 08/27/2021 Diabetic Eye Exam 10/01/2023 10/01/2022, 09/16/2021 Albumin/Creatinine Ratio 06/08/2024 06/08/2023, 0611/2021 HbA1c 06/22/2024 12/23/2023, 04/0 02/2023, 10/03/2022, Additional [...] as of this encounter Visit Diagnoses Diagnosis Generalized osteoarthritis of multiple sites Generalized osteoarthrosis, involving multiple sites documented in this encounter Care Teams Upper Cutter Out Relationship Specialty Start Date End Date Sophie Licea MD [address] [place] [address] [place] [address] PCP - General Family Medicine 03/07/19 documented as of this encounter
--- OUTSIDE RECORDS SUMMARY | 2024-04-01 23:03 | External Medical Summary | Summary of Care ---
Author Name Unknown Organization [facility] Address [address] [place] [address] Phone [phone] Care Team Providers Care Human Relations Teacher Name Role Phone Sophie Licea MD Primary Care Provide r Reason for Visit * Reason Comments Hospital Follow-Up Encounter Details Date Type Department Care Team (Latest Contact Info) Description 03/14/2024 8:20 AM EDT Office Visit Family Medicine [address] [phone] Mulugeta Roche MD [address] [place] [address] [place] [phone] Cerebrovascular disease*; Dyslipidemia, goal LDL below 100; Type 2 diabetes mellitus with hemoglobin A1c goal of less than 7.0% ([facility]) Allergies Active Allergy Reactions Criticality Noted Date Comments Ibuprofen 02/28/2008 Stomach problems Nsaids 01/10/2010 Has stomach problems Salicylates 10/17/2003 Nosebleeds documented as of this encounter (statuses as of 03/14/2024) Medications Medication Sig Dispensed Refills Start Date End Date Status Multiple Vitamins-Minerals (MULTIVITAMIN ADULT) TABS 0 Active Carey-3 Fatty Acids (FISH OIL) 1200 MG CAPS 0 Active Ascorbic Acid (VITAMIN C) 500 MG CAPS 0 Active Glucosamine 500 MG Capsule Take 1 Capsule by mouth in the morning and 1 Capsule before bedtime. 0 Active B Ngtrdst-Nocvfj-VE (B COMPLETE) TABS Take by mouth. 0 [...] 7.0% (HCC) USE DIRECTED . USE WITH DEXCOM G6 CLARITY ELVIRA FOR GLUCOSE MONITORING. DXE11.9 4 Each 1 07/29/2023 Active Dexcom G6 SensorIndications:T ype 2 diabetes mellitus with hemoglobin A1c goal of less than 7.0% ([facility]) USE DIRECTED. USE WITH DEXLattice Power G6 CLARITY ELVIRA FOR GLUCOSE MONITORING. DXE11.9 9 Each 1 09/07/2023 Active Trulicity 3 MG/0.5ML Subcutaneous Solution Pen-injector (Dulaglutide) INJECT 3 MG UNDER THE SKIN ONCE A WEEK. 0.5 mL 10/19/2023 Active Famotidine 40 MG Oral Tablet [...] mouth in the morning. 0 03/09/2024 Active Atorvastatin Calcium 40 MG Oral Tablet (Lipitor)Indication s:Dyslipidemia, goal LDL below 100,Cerebrovascular disease,Type 2 diabetes mellitus with hemoglobin A1c goal of less than 7.0% (HCC) Take 1 Tablet by mouth in the morning. 90 Tablet 3 03/14/2024 Active Atorvastatin Calcium 20 MG Oral Tablet (Lipitor) TAKE 1 TABLET BY MOUTH EVERY DAY IN THE MORNING 9 Tablet 3 11/23/2023 4 Discontinu ed(Patient preference /discontin uation) documented as of this encounter (statuses as [...] Snoring 02/05/2018 08/30/2018 Daytime somnolence 02/05/2018 8 CUSTOMS APPRAISER demyelination 07/25/2015 02/08/2018 Overview: Nonspecific white matter [...] (Pfizer) 09/17/2021,08/27/2021 Pneumococcal Conjugate Vacci ne, 20-valent ([id number]) 04/28/2022 Pneumococcal Polysaccharide PPV23 (Pneumovax) 02/06/2009 Seasonal [...] Sign Reading Time Taken Comments Blood Pressure 148/80 03/14/2024 8:13 AM EDT Pulse 82 03/14/2024 8:13 AM EDT Temperature 36 C (96.8 F) 03/14/2024 8:13 AM EDT Respiratory Rate 16 03/14/2024 8:13 AM EDT Oxygen Saturation 94% 03/14/2024 8:13 AM EDT Inhaled Oxygen Concentration - - Weight 126.1 kg (278 lb) 03/14/2024 8:13 AM EDT Height 177.8 cm (5' 10") 03/14/2024 8:13 AM EDT Body Mass Index 39.89 03/14/2024 8:13 AM EDT documented in this encounter Progress Notes * Mulugeta Roche MD - 03/14/2024 8:17 AM EDT Narinder was admitted to [facility] 03/07-03/09 for CVA involving 9 mm infarct of the left posterior frontal lobe, and on MRI also had old lacunar infarcts. Needs a work note. He was bumped to atorvastatin 40 mg.Needs a prescription. He feels fine now. Not dizzy. 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 Irritable bowel syndrome K58.9 Reflux esophagitis K21.00 HTN, GOAL BELOW 140/90 I10 Dyslipidemia, goal LDL below 100 E78.5 Other specified disorders of rotator cuff syndrome of shoulder and allied disorders [id number] Family history of MS (multiple sclerosis) Z82.0 [...] 7.0% ([facility]) E11.9 Past Medical History: Diagnosis Date Allergic rhinitis hayfever 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 urachal cyst Calculus of kidney s/p eswl ureteral stent removal 07/02/01 Chronic maxillary sinusitis 01/29/2018 CVA (cerebral vascular accident) (HCC) 03/07/2024 9 mm left posterior frontal infacts, [...] excess calories ([facility]) 02/08/2018 Other specified acquired hypothyroidism 12/11/2003 tsh [...] performed by Yokasta Mendoza MD at ENDOSCOPY [facility] CYSTOSCOPY 02/29/2012 stent placed CYSTOSCOPY 01/18/2018 done [...] SINUS SURGERY PROCEDURE NEC 1994 VASECTOMY 02/22/2010 Review of patient's allergies indicates: Allergen Reactions Ibuprofen Stomach problems Nsaids Has stomach problems Salicylates Nosebleeds Social History Socioeconomic History Marital status: Spouse name: Not on file Number of children: 0 Years of education: Not on file Highest education level: Not on file Occupational History Not on file Tobacco Use Smoking status: Former Current packs/day: 0.00 Average packs/day: 0.1 packs/day for 10.0 years (1.0 ttl pk-yrs) Types: Cigarettes Start date: 11/09/1984 Quit date: 11/09/1994 Years since quittin.3 Smokeless tobacco: Former Types: Chew Quit date: [...] on file Housing Stability: Not on file Current Outpatient Medications Medication Sig Dispense Refill Multiple Vitamins-Minerals (MULTIVITAMIN ADULT) TABS Carey-3 Fatty Acids (FISH OIL) 1200 MG CAPS Ascorbic Acid (VITAMIN C) 500 MG CAPS Glucosamine 500 MG Capsule Take 1 Capsule by mouth in the morning and 1 Capsule before bedtime. B Mdpjnxl-Ldmgjh-NM (B COMPLETE) TABS Take by mouth. cetirizine (ZYRTEC) 10 MG Tablet Take 1 Tab by mouth daily. Turmeric 500 MG Capsule Take 1 Capsule by mouth in the morning. MEDICAL INSTRUCTIONS Use as directed. CPAP at bedtime on RA oxygen GAS 3 LPM bled through CPAP 10-13 cwp during all hours of sleep 1 Each 0 Geomericsuch Verio w/Device Kit Test once a day [...] g 1 CPAP every night at bedtime. hydroCHLOROthiazide 25 [...] G6 Transmitter USE DIRECTED . USE WITH Azooo CLARITY ELVIRA FOR GLUCOSE MONITORING. DXE11.9 4 Each 1 Dexcom G6 Sensor USE DIRECTED. USE WITH DEXLattice Power G6 CLARITY ELVIRA FOR GLUCOSE MONITORING. DXE11.9 [...] thing in the morning. 90 Tablet 3 Montelukast Sodium 10 MG Oral Tablet (Singulair) TAKE 1 TABLET BY MOUTH EVERY DAY IN THE EVENING 30Tablet 11 traMADol HCl 50 MG Oral Tablet (Ultram) Take 1 Tablet by mouth 2 times a day as needed for Pain, Severe. 60 Tablet 0 Aspirin 81 MG Oral Tablet Delayed Release Take 1 Tablet by mouth in the morning. Clopidogrel Bisulfate 75 MG Oral Tablet (pLAVix) Take 1 Tablet by mouth in the morning. No current facility-administered medications for this visit. Immunization History Administered Date(s) Administered COVID-19 mRNA, LNP-s, No Preserve, 2-Dose Series (CR2) 08/27/2021, 09/17/2021 Pneumococcal Conjugate Vaccine, 20-valent ([id number]) 04/28/2022 Pneumococcal Polysaccharide PPV23 (Pneumovax) 02/06/2009 Seasonal Influenza, PF, 6 M & above, IM , (FluLaval or Fluzone) 08/30/2018, 07/22/2019, 07/27/2020, 07/30/2021, 08/04/2022, 08/11/2023 Seasonal Influenza, Quadrivalent, No Preserve, IM 08/25/2015, 10/07/2016, 07/20/2017 Seasonal Influenza, Split, IIV3, With Preserve, Inj 09/07/2008, 08/15/2009, 08/02/2010, 08/27/2011,07/26/2012, 08/25/2014 TD - Tetanus/Diptheria (ADULT) 06/05/2004 TDAP (age 10 and older)(Boostrix) 03/20/2022 TDAP (age 11 and older)(Adacel) 04/02/2011 Zoster Vaccine Recombinant (Shingrix) 07/27/2020, 11/05/2020 Lab Results Component Value Date/Time HEMOGLOBIN A1C - [facility] 6.3 (H) 12/23/2023 08:41 AM HEMOGLOBIN A1C - [facility] 6.0 (H) 02/10/2023 10:32 AM HEMOGLOBIN A1C - [facility] 9.1 (H) 10/03/2022 07:49 AM HEMOGLOBIN A1C - [facility] 6.1 (H) 03/26/2020 08:08 AM HEMOGLOBIN A1C - [facility] 5.6 08/31/2019 04:06 PM HEMOGLOBIN A1C - [facility] 5.9 (H) 08/30/2018 12:25 PM Results for orders placed or performed in visit on 12/23/23 LIPID PANEL WITH DIRECT LDL IF TG IS HIGH Result Value Ref Range Triglycerides 158 <=174 mg/dL Cholesterol 158 <200 mg/dL HDL Cholesterol 41 >39 mg/dL Non-HDL Cholesterol 117 <=159 mg/dL LDL Cholesterol 85 <=129 mg/dL atorvastatin was increased and he is on aspirin and Plavix for now. He uses a Dexcom O: Blood pressure 148/80, pulse 82, temperature 36 C (96.8 F), resp. rate 16, height 1.778 m (5' 10"), weight 126.1 kg (278 lb), SpO2 94%. General appearance: well developed, well nourished and in no acute distress. Neck is supple without adenopathy or thyromegaly. Chest is symmetrical and moves normally. The lungs are clear without wheezes, rales, rhonchi or rubs, and the heart is regular without murmurs or gallops, or ectopy. PMI not displaced. A: Cerebrovascular disease (Primary) - Atorvastatin Calcium 40 MG Oral Tablet (Lipitor); Take 1 Tablet by mouth in the morning. - RETURN TO WORK OR SCHOOL Dyslipidemia, goal LDL below 100 - Atorvastatin Calcium 40 MG Oral Tablet (Lipitor); Take 1 Tablet by mouth in the morning. - RETURN TO WORK OR SCHOOL Type 2 diabetes mellitus with hemoglobin A1c goal of less than 7.0% (HCC) - Atorvastatin Calcium 40 MG Oral Tablet (Lipitor); Take 1 Tablet by mouth in the morning. - RETURN TO WORK OR SCHOOL He sees neurology . Follow Up: Return if symptoms worsen or fail to improve. documented in this encounter Nursing Notes * Lorena Stanley RN - 03/14/2024 8:17 AM EDT [facility] D/C 03/09/24 pt had a Stroke Atorvastatin was increased to 40 mg daily needs a refill. Pt is on Plavix and ASA. Feeling good now pt needs a Doc note from 03/08/24 thru today, to return tomorrow 03/15/24 documented in this encounter Plan of Treatment Upcoming Encounters Date Type Department Care Team (Late st Contact Info) Description 04/01/2024 11:20 AM EDT Office Visit Neurology [facility] [place] [address] [place] [address] Kenia Mehta PA-C [facility] [place] [address] 05/17/2024 9:30 AM EDT Office Visit Sleep Disorders Ctr Gerri Haque [place] [address] [place] [phone] Sun Brush CRNP [address] [facility] [place] [address] 06/14/2024 6:20 PM EDT Office Visit Family Medicine [address] [place] [phone] Lukas Bain CRNP [address] [place] [address] [place] [address] 07/15/2024 8:00 AM EDT Office Visit Rheumatology [address] [place] [phone] Lakisha Valverde CRNP [facility] [place] [address] 08/11/2024 8:00 AM EDT Office Visit Allergy/Immunology [facility] [place] [address] [place] [address] Narda Castellano PA-C [address] [place] [address] 12/19/2024 6:40 PM EST Office Visit Family Medicine [address] [place] [phone] Sophie Licea MD [address] [place] [address] [place] [phone] Scheduled Procedures Name Priority Associated Diagnoses Date/Ti [...] Cancer Screening 02/10/2026 Lipid Panel 12/23/2028 12/23/2023, 040 02/2023, 04/29/2022, Additional history exists DTaP,Tdap,and Td [...] of this encounter Visit Diagnoses Diagnosis Cerebrovascular disease- Primary Cerebrovascular disease, unspecified Dyslipidemia, goal LDL below 100 Other and unspecified hyperlipidemia Type 2 diabetes mellitus with hemoglobin A1c goal of less than 7.0% (HCC) documented in this encounter Care Teams Human Relations Teacher Relationship Specialty Start Date End Date Sophie Licea MD [address] [place] [address] [place] [phone] PCP - General Family Medicine 03/07/19 documented as of this encounter
--- OUTSIDE RECORDS SUMMARY | 2024-04-01 23:03 | External Medical Summary | Summary of Care ---
Author Name Unknown Organization [facility] Address [address] [place] [address] Phone [phone] Care Team Providers Care Rv Repair Technician Name Role Phone Sophie Licea MD Primary Care Provide r Reason for Referral * Medication Prior Authorization - Closed Specialty Diagnoses / Procedures Referred By Contac t Referred To Contact Diagnoses Generalized osteoarthritis of multiple sites Sophie Licea MD [address] [place] [address] [place] [address] Referral ID Status Reason Start Date Expiration Date Visits Re quested Visits Authorized [id number] Closed 999 999 Reason for Visit * Reason Comments eRx-Medication Refill Encounter Details Date Type Department Care Team (Late st Contact Info) Description 03/08/2024 Refill Family Medicine [address] [phone] Sophie Licea MD [address] [employer] [address] [address] Generalized osteoarthritis of multiple sites Allergies Active Allergy Reactions Criticality Noted Date Comments Ibuprofen 02/28/2008 Stomach problems Nsaids 01/10/2010 Has stomach problems Salicylates 10/17/2003 Nosebleeds documented as of this encounter (statuses as of 03/10/2024) Medications Medication Sig Dispensed Refills Start Date End Date Status Multiple Vitamins-Minerals (MULTIVITAMIN ADULT) TABS 0 Active Rosharon-3 Fatty Acids (FISH OIL) 1200 MG CAPS 0 Active Ascorbic Acid (VITAMIN C) 500 MG CAPS 0 Active Glucosamine 500 MG Capsule Take 1 Capsule by mouth in the morning and 1 Capsule before bedtime. 0 Active B Gngxisd-Tmzxjf-LM (B COMPLETE) TABS Take by mouth. 0 [...] Each 0 9 Active OneTouch Verio w/Device KitIndications:Typ e 2 diabetes mellitus with hemoglobin A1c goal of less than 7.0% (HCC) Test once a day E11.9 1 Kit 0 1 Active Fluticasone Propionate 50 MCG/ACT Nasal Suspension (Flonase) INSTILL 2 SPRAYS INTO EACH NOSTRIL TWICE DAILY NEEDED FOR NASAL SYMPTOMS AFTER SALINE IRRIGATIONS 48 mL 4 2 Active Sildenafil Citrate 100 MG Oral TabletIndications: Erectile dysfunction TAKE 1 TAB BY MOUTH ONCE FOR 1 DOSE. 1-4 HOURS BEFORE INTERCOURSE, NO MORE THAN 1 DOSE IN 24 HOURS. 6 Tablet 3 3 Active Albuterol Sulfate HFA 108 (90 Base) MCG/ACT Inhalation Aerosol SolutionIndication s:Mild intermittent asthma without complication INHALE 2 PUFFS BY MOUTH EVERY 4 HOURS NEEDED FOR COUGH,WHEEZING, OR SHORTNESS OF BREATH 18 g 1 3 Active CPAP every night at bedtime. 0 Active hydroCHLOROthiazid e 25 MG Oral Tablet (Hydrodiuril)Indic ations:HTN, goal below 140/90 Take 1 Tablet by mouth in the morning. 90 Tablet 1 3 Active metFORMIN HCl 1000 MG Oral Tablet (Glucophage)Indica tions:Type 2 diabetes mellitus with hemoglobin A1c goal of less than 7.0% (HCC) Take 1 Tablet by mouth daily. 180 Tablet 2 3 Active OneTouch Verio In Vitro Strip (Glucose Blood)Indications: Type 2 diabetes mellitus with hemoglobin A1c goal of less than 7.0% (HCC) TEST ONCE A DAY DX E11.9 100 Strip 1 3 Active OneTouch Delica Lancets 33GIndications:Typ e 2 diabetes mellitus with hemoglobin A1c goal of less than 7.0% ([facility]) TEST ONCE A DAY DX E11.9 100 Each 1 3 Active Dexcom G6 TransmitterIndicat ions:Type 2 diabetes mellitus with hemoglobin A1c goal of less than 7.0% (HCC) USE DIRECTED . USE WITH S-cubism CLARITY ELVIRA FOR GLUCOSE MONITORING. DXE11.9 4 Each 1 3 Active DexIgnitAd G6 SensorIndications: Type 2 diabetes mellitus with hemoglobin A1c goal of less than 7.0% (HCC) USE DIRECTED. USE WITH Air Button ELVIRA FOR GLUCOSE MONITORING. DXE11.9 9 Each 1 3 Active Trulicity 3 MG/0.5ML Subcutaneous Solution Pen-injector (Dulaglutide) INJECT 3 MG UNDER THE SKIN ONCE A WEEK. 0.5 mL 10 3 Active Famotidine 40 MG Oral Tablet (Pepcid)Indication s:Reflux esophagitis TAKE 1 TABLET BY MOUTH EVERY DAY IN THE MORNING AND AT BEDTIME 180 Tablet 1 3 Active Lisinopril 40 MG Oral TabletIndications: HTN, goal below 140/90 TAKE 1 TABLET BY MOUTH EVERY DAY IN THE MORNING 90 Tablet 1 3 Active amLODIPine Besylate 10 MG Oral Tablet (Norvasc)Indicatio ns:HTN, goal below 140/90 TAKE 1 TABLET BY MOUTH EVERY DAY IN THE MORNING 90 Tablet 3 4 Active Atorvastatin Calcium 20 MG Oral Tablet (Lipitor) TAKE 1 TABLET BY MOUTH EVERY DAY IN THE MORNING 9 Tablet 3 4 Active Metoprolol Succinate ER 25 MG Oral Tablet Extended Release 24 Hour (toPROL XL)Indications:HTN , goal below 140/90 TAKE 1 TABLET BY MOUTH EVERY DAY IN THE MORNING STRENGTH: 25 MG 90 Tablet 2 4 Active Levothyroxine Sodium 175 MCG Oral Tablet (Levoxyl)Indicatio ns:Acquired hypothyroidism Take 1 Tablet by mouth daily first thing in the morning. 90 Tablet 3 4 Active Montelukast Sodium 10 MG Oral Tablet (Singulair) TAKE 1 TABLET BY MOUTH EVERY DAY IN THE EVENING 30 Tablet 11 4 Active traMADol HCl 50 MG Oral Tablet (Ultram)Indication s:Generalized osteoarthritis of multiple sites Take 1 Tablet by mouth 2 times a day as needed for Pain, Severe. 60 Tablet 0 4 Active Triamcinolone Acetonide 0.1 % External Cream (ARISTOCORT)Indica tions:Other eczema APPLY TO AFFECTED AREA TWICE A DAY 60 g 1 0 024 Discontinued(Ky dication List Clean Up) traMADol HCl 50 MG Oral Tablet (Ultram)Indication s:Generalized osteoarthritis of multiple sites TAKE 1 TABLET BY MOUTH TWICE A DAY NEEDED FOR PAIN 60 Tablet 0 3 024 Discontinued documented as of this encounter (statuses as of 03/10/2024) Active Problems Problem Noted Date Diagnosed Date [...] as of this encounter (statuses as of 03/10/2024) Resolved Problems Problem Noted Date Diagnosed Date [...] Snoring 02/05/2018 08/30/2018 Daytime somnolence 02/05/2018 8 MARKETING DEVELOPMENT REPRESENTATIVE demyelination 07/25/2015 02/08/2018 Overview: Nonspecific white matter changes. 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 015 Tobacco use disorder 10/31/2005 010 Arthropathy of shoulder region 10/28/2005 03/07/2019 Overview: Seen in [facility] ER for left shoulder pain radiating to [...] as of this encounter (statuses as of 03/10/2024) Immunizations Name Administration Dates Next Due COVID-19 mRNA, LNP-s, No Pre serve, 2-Dose Series (Pfizer) 09/17/2021,08/27/2021 Pneumococcal Conjugate Vacci ne, 20-valent ([id number]) 04/28/2022 Pneumococcal Polysaccharide PPV23 (Pneumovax) 02/06/2009 Seasonal [...] Telephone Encounter - Sophie Licea MD - 03/10/2024 3:37 PM EDT Signed Prescriptions: Disp Refills traMADol HCl 50 MG Oral Tablet (Ultram) 60 Tab*0 Sig: Take 1 Tablet by mouth 2 times a day as needed for Pain, Severe. Authorizing Provider: SOPHIE LICEA * Telephone Encounter - Gibson, [facility] - 03/10/2024 3:16 PM EDT Pending Prescriptions: Disp Refills traMADol HCl 50 MG Oral Tablet [Pharmacy M*60 Tab* Sig: TAKE 1 TABLET BY MOUTH TWICE A DAY NEEDED FOR PAIN * Telephone Encounter - Kristopher Musa, [facility] - 03/09/2024 5:49 PM EDTPending Prescriptions: Disp Refills traMADol HCl 50 MG Oral Tablet [Pharmacy M*60 Tab* Sig: TAKE 1 TABLET BY MOUTH TWICE A DAY NEEDED FOR PAIN * Telephone Encounter - Kristopher Musa RPh - 03/09/2024 5:48 PM EDT I have reviewed the patients controlled substance dispensing history in the Prescription Drug Monitoring Program in compliance with the [facility] regulations before prescribing a controlled substance. PDMP checked on 03/09/2024. Pending Prescriptions: Disp Refills traMADol HCl 50 MG Oral Tablet (Ultram) [*60 Tab* Sig: TAKE 1 TABLET BY MOUTH TWICE A DAY NEEDED FOR PAIN Last Visit: 12/14/2023 (in office), Visit date not found (telemedicine) Next Visit: 03/14/2024 Date medication was last filled: 04-10-23 Date medication is due for refill: 05-09-23 Pharmacy: [id number] [id number] [facility] Is this request for a controlled substance? Yes and Urine Drug Screen was completed Toxicology results: Results for orders placed or performed in [...] results can be found in Results Review. Please approve if appropriate. Thanks, Jayant Stout.Ph. Clinical Pharmacist [facility] [phone] ext [phone] 03/09/2024,5:48 PM documented in this encounter Plan of Treatment Upcoming Encounters Date Type Department Care Team (Late st Contact Info) Description 03/14/2024 8:20 AM EDT Office Visit Family [address] [place] [address] Mulugeta Roche MD [address] [place] [address] [place] [address] 04/01/2024 11:20 AM EDT Office Visit Neurology [facility] [place] [address] [place] [address] Kenia Mehta PA-C [address] [place] [address] 05/17/2024 9:30 AM EDT [facility] [place] [address] [facility] [place] [phone] Sun Brush CRNP 132 [facility] [place] [address] 06/14/2024 6:20 PM EDT Office Visit Family Medicine [address] [place] [phone] Lukas Bain CRNP [address] [place] [address] [place] [address] 07/15/2024 8:00 AM EDT Office Visit Rheumatology [address] [place] [phone] Lakisha Valverde CRNP [address] [place] [address] [place] [address] 08/11/2024 8:00 AM EDT Office Visit Allergy/Immunology [place] Daniela Garcia [facility] [place] [address] Narda Castellano PA-C 200 [facility] [place] [address] 12/19/2024 6:40 PM EST Office Visit Family Medicine [address] [place] [phone] Sophie Licea MD [address] [place] [address] [place] [address] Scheduled Procedures Name Priority Associated Diagnoses Date/Ti [...] sites documented in this encounter Care Teams Rv Repair Technician Relationship Specialty Start Date End Date Sophie Licea MD [address] [place] [address] [place] [address] PCP - General Family Medicine 03/07/19 documented as of this encounter
--- OUTSIDE RECORDS SUMMARY | 2024-04-01 23:03 | External Medical Summary | Summary of Care ---
Author Name Unknown Organization [facility] Address [address] [facility] [place] [address] Phone [phone] Care Team Providers Care Regional Medical Director Name Role Phone Sophie Licea MD Primary Care Provide r Reason for Visit * Reason Onset Date Comments Hospital Follow-Up 03/10/2024 Rud[facility] for [facility] Encounter Details Date Type Department Care Team (Late st Contact Info) Description 03/10/2024 Telephone [address] [place] [phone] Filomena Molina, RONAL Hospital Follow-Up ([facility]ud[facility] for [facility]) Allergies Active Allergy Reactions Criticality Noted Date Comments Ibuprofen 02/28/2008 Stomach problems Nsaids 01/10/2010 Has stomach problems Salicylates 10/17/2003 Nosebleeds documented as of this encounter (statuses as of 03/10/2024) Medications Medication Sig Dispensed Refills Start Date End Date Status Multiple Vitamins-Minerals (MULTIVITAMIN ADULT) TABS 0 Active Kimper-3 Fatty Acids (FISH OIL) 1200 MG CAPS 0 Active Ascorbic Acid (VITAMIN C) 500 MG CAPS 0 Active Glucosamine 500 MG Capsule Take 1 Capsule by mouth in the morning and 1 Capsule before bedtime. 0 Active B Woiqddu-Dzqnpt-CQ (B COMPLETE) TABS Take by mouth. 0 [...] DX E11.9 100 Strip 1 06/09/2023 Active Genetic TechnologiesTouch Delpankaj Lancets 33GIndications:Type 2 diabetes mellitus with hemoglobin A1c goal of less than 7.0% (HCC) TEST ONCE A DAY DX E11.9 100 Each 1 06/09/2023 Active DexSocialMadeSimple G6 TransmitterIndicati ons:Type 2 diabetes mellitus with hemoglobin A1c goal of less than 7.0% (HCC) USE DIRECTED . USE WITH [employer] CLARITY ELVIRA FOR GLUCOSE MONITORING. DXE11.9 4 Each 1 07/29/2023 Active Dexcom G6 SensorIndications:T ype 2 diabetes mellitus with hemoglobin A1c goal of less than 7.0% ([facility]) USE DIRECTED. USE WITH [employer] CLARITY ELVIRA FOR GLUCOSE MONITORING. DXE11.9 9 [...] THE EVENING 30 Tablet 11 02/17/2024 Active Aspirin 81 MG Oral Tablet Delayed Release Take 1 Tablet by mouth in the morning. 0 03/09/2024 Active Clopidogrel Bisulfate 75 MG Oral Tablet (pLAVix) Take 1 Tablet by mouth in the morning. 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 07/25/2015 02/08/2018 Overview: Nonspecific white matter [...] (Pfizer) 09/17/2021,08/27/2021 Pneumococcal Conjugate Vacci ne, 20-valent ([id number]) 04/28/2022 Pneumococcal Polysaccharide PPV23 (Pneumovax) 02/06/2009 Seasonal [...] encounter Miscellaneous Notes * Telephone Encounter - Filomena Molina RN - 03/10/2024 1:31 PM EDT Transitions of Care Note Reason for Referral:Recent Admission Phone visit for follow up: ruddy Admitted to: [facility], Date: 03.07.24 Discharged to: home, Date: 03.09.24 Diagnosis driving hospitalization: Acute CVA (cerebrovascular accident) Source/Contact: Patient SUBJECTIVE Consent: Verbal consent for review of hospital discharge: Yes REVIEW OF SYSTEMS Patient/Other Reports: Current patient/caregiver problems or concerns: none CV: Denies problems Pulmonary: Denies problems, he does use 3L of oxygen with cpap Chills/Sweats/Fever:Denies chills/sweats Denies fever Appetite:Denies problems such as nausea, vomiting, burning, decreased appetite Current diet: DM Bowel: denies problems Bladder: denies problems Wound (If applicable): N/A Pain:Denies Sleep:Denies problems FUNCTIONAL STATUS: ADL'S: Needs Assistance With:N/A as pt is independent IADL'S: Needs Assistance With:N/A as pt is independent Cognitive and Mental Health: denies problems, alert and oriented x 3, and able to communicate, understand instructions, process information. MEDICATION RECONCILIATION Medications: Reports all medications taken as prescribed. OBJECTIVE ASSESSMENT Medication Risk Assessment: No risks identified Did patient fail outpatient treatment? No Discharge instructions available for review? Yes PLAN Symptom Monitoring Interventions:Member/caregiver education - signs and symptoms to contact PrimaryCare (DO NOT DELETE-Three kendrick symptoms patient is to report to PCP) 1. Sudden numbness or weakness 2. confusion 3. Sob/chest pain [employer] [facility] Care Manager of Care interventions/Action Plan: 5 - 7 day follow-up with PCP in place - Date: 03.14.24 Educated on role of RUDDY completed with patient/caregiver. Educated patient/caregiver on patient right to have input on RUDDY plan of care. Verification of Home Health/DME if indicated: NO Identified Care Gaps: Yes Care Gaps closed this call: Transition of Care follow-up communication Re-evaluation of Plan of Care and progress towards goals achievement: Patient education this visit: Verbal, patient doing well, stay hydrated and discuss ?cardiology referral Plan to follow-up as previously scheduled, instructed to call Primary Care Provider with change in symptoms or as needed before next follow-up, verbalizes understanding and agrees with plan. Recommend ZioPatch at DC if no evidence of arrhythmia during inpatient monitoring hgbA1c 6.1; fasting lipids: TG 234, LDL 58, HDL 35; homocysteine: pending Recommend DAPT for at least 3 weeks- Plavix + Aspirin Recommend high dose statin therapy indefinitely if tolerated: increase from 20 to 40mg po daily Follow up outpatient neurology appointment scheduled with Dr. Mehta on 04/01 Discuss if patient needs to est with cardiology Filomena Molina, RONAL documented in this encounter Plan of Treatment Upcoming Encounters Date Type Department Care Team (Late st Contact Info) Description 03/14/2024 8:20 AM EDT Office Visit Family Medicine [address] [place] [phone] Mulugeta Roche MD [address] [place] [address] [place] [address] 04/01/2024 11:20 AM EDT Office Visit Neurology [facility] [place] [address] [place] [address] Kenia Mehta PA-C [address] [place] [address] 05/17/2024 9:30 AM EDT Office Visit Sleep Disorders Ctr [facility], [place] [address] [place] [phone] Sun Brush CRNP [address] [place] [address] 06/14/2024 6:20 PM EDT Office Visit Family [address] [place] [phone] Lukas Bain CRNP [address] [place] [address] [place] [address] 07/15/2024 8:00 AM EDT Office Visit Rheumatology [address] [place] [phone] Lakisha Valverde CRNP [address] [place] [address] [place] [address] 08/11/2024 8:00 AM EDT Office Visit Allergy/Immunology [facility] [place] [address] [place] [address] Narda Castellano PA-C [address] [place] [address] 12/19/2024 6:40 PM EST Office Visit Family Medicine [address] [place] [phone] Sophie Licea MD [address] [place] [address] [place] [address] Scheduled Procedures Name Priority Associated Diagnoses Date/Ti [...] filedocumented as of this encounter Care Teams Regional Medical Director Relationship Specialty Start Date End Date Sophie Licea MD [address] [place] [address] [place] [phone] PCP - General Family Medicine 03/07/19 documented as of this encounter
--- OUTSIDE RECORDS SUMMARY | 2024-04-01 23:03 | External Medical Summary | Summary of Care ---
Author Name Unknown Organization [facility] Address [address] [place] [address] Phone [phone] Care Team Providers Care Pediatric Neurologist Name Role Phone Sophie Licea MD Primary Care Provide r Reason for Visit * Reason Comments eRx-Medication Refill Encounter Details Date Type Department Care Team (Late st Contact Info) Description 03/11/2024 Refill Pharmacy, [address] [place] [address] Sophie Licea MD [address] [place] [address] [place] [phone] Type 2 diabetes mellitus with hemoglobin A1c goal of less than 7.0% ([facility]) Allergies Active Allergy Reactions Criticality Noted Date Comments Ibuprofen 02/28/2008 Stomach problems Nsaids 01/10/2010 Has stomach problems Salicylates 10/17/2003 Nosebleeds documented as of this encounter (statuses as of 03/14/2024) Medications Medication Sig Dispensed Refills Start Date End Date Status Multiple Vitamins-Minerals (MULTIVITAMIN ADULT) TABS 0 Active Starbuck-3 Fatty Acids (FISH OIL) 1200 MG CAPS 0 Active Ascorbic Acid (VITAMIN C) 500 MG CAPS 0 Active Glucosamine 500 MG Capsule Take 1 Capsule by mouth in the morning and 1 Capsule before bedtime. 0 Active B Hiythzq-Twjelt-FC (B COMPLETE) TABS Take by mouth. 0 [...] DX E11.9 100 Each 1 3 Active DexUltra Electronics G6 TransmitterIndicati ons:Type 2 diabetes mellitus with hemoglobin A1c goal of less than 7.0% (HCC) USE DIRECTED . USE WITH [employer] CLARITY ELVIRA FOR GLUCOSE MONITORING. DXE11.9 4 [...] goal of less than 7.0% ([facility]) USE DIRECTED. USE WITH [employer] CLARITY ELVIRA FOR GLUCOSE MONITORING. DXE11.9 3 Each 5 4 Active Dexcom G6 SensorIndications:T ype 2 diabetes mellitus with hemoglobin A1c goal of less than 7.0% (HCC) USE DIRECTED. USE WITH DEXPayoneer G6 CLARITY ELVIRA FOR GLUCOSE MONITORING. 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 USE WITH DEXCOM G6 CLARITY ELVIRA FOR GLUCOSE MONITORING. DXE11.9 Authorizing Provider: SOPHIE LICEA * Telephone Encounter - Katie Garcia [facility] - 03/14/2024 8:33 AM EDT Pending Prescriptions: Disp Refills Dexcom G6 Sensor [Pharmacy Med Name: DEXCO* 5 Sig: USE DIRECTED. USE WITH DEXCOM G6 CLARITY ELVIRA FOR GLUCOSE MONITORING. DXE11.9 documented in this encounter Plan of Treatment Upcoming Encounters Date Type Department Care Team (Late st Contact Info) Description 04/01/2024 11:20 AM EDT Office Visit Neurology [facility] [address] [place] [address] Kenia Mehta PA-C 200 [facility] [place] [address] 05/17/2024 9:30 AM EDT Office Visit Sleep Disorders Ctr [facility] [address] [place] [phone] Sun Brush CRNP 132 [place] [address] 06/14/2024 6:20 PM EDT Office Visit Family Medicine [address] [place] [phone] Lukas Bain CRNP [address] [place] [address] [place] [address] 07/15/2024 8:00 AM EDT Office Visit Rheumatology [address] [place] [phone] Lakisha Valverde, DI [address] [facility] [place] [address] 08/11/2024 8:00 AM EDT Office Visit Allergy/Immunology [facility] [address] [place] [address] Narda Castellano PA-C [address] [place] [address] 12/19/2024 6:40 PM EST Office Visit Family Medicine [address] [place] [phone] Sophie Licea MD [address] [place] [address] [place] [phone] Scheduled Procedures Name Priority Associated Diagnoses Date/Ti me COLONOSCOPY FLEXIBLE PROXIMAL DIAGNOSTIC Recall Colon cancer screening Health Maintenance Due Date Last Done Comments Hepatitis B (1 of 3 - 19+ 3-dose series) 1984 Cologuard 2010 Fecal Occult Blood Test 2010 Sigmoidoscopy 2010 Depression Screening 02/27/2021 02/28/2020 COVID-19 Vaccine ( season) 2023 09/17/2021, 08/27/2021 Diabetic Eye Exam 10/01/2023 10/01/2022, 09/16/2021 Albumin/Creatinine Ratio 06/08/2024 06/08/2023, 062 11/2021 HbA1c 06/22/2024 12/23/2023, 04/0 02/2023, 10/03/2022, [...] (HCC) documented in this encounter Care Teams Pediatric Neurologist Relationship Specialty Start Date End Date Sophie Licea MD [address] [place] [address] [place] [address] PCP - General Family Medicine 03/07/19 documented as of this encounter
[2024-04-02 06:55] LABS: Basophils # (auto) 0.06 K/uL (0.00-0.20); Basophils % (auto) 0.9 %; Hemoglobin 13.9 g/dl (14.0-18.0); Immature Granulocytes # (auto) 0.02 K/uL (0.01-0.20); Immature Granulocytes % (auto) 0.3 %; Lymphocytes # (auto) 1.24 K/uL (1.20-3.40); Lymphocytes % (auto) 18.6 %; Mean Corpuscular Hgb Conc 34.8 g/dL (32.0-36.0); Mean Corpuscular Volume 86.2 fL (80.0-100.0); Mean Platelet Volume 10.1 fL (9.4-12.4); Neutrophils # (auto) 4.56 K/uL (1.40-6.50); Neutrophils % (auto) 68.2 %; Platelet Count 234 K/uL (130-400); RDW Coefficient of Variation 12.6 % (11.5-14.5); RDW Standard Deviation 39.3 fL (36.4-46.3); Red Blood Count 4.64 M/uL (4.70-6.10); White Blood Count 6.68 K/ul (4.8-10.8)
[2024-04-02 07:21] LABS: BUN Creatinine Ratio 14.4 (10-20); Calcium 8.6 mg/dl (8.6-10.3); Creatinine Clr Calc Pharmacy 115.6 ml/min; Est GFR (African American) 108.7 ml/min; Est GFR (Non-African American) 93.8 ml/min; Magnesium 2.2 mg/dl (1.7-2.4); Phosphorus 2.8 mg/dl (2.5-4.9); Potassium 3.9 mmol/L (3.5-5.1)
[2024-04-02] MEDS: FUROSEMIDE 20 MG TAB PO SCH (08:49)
[2024-04-02] MEDS: SPIRONOLACTONE 12.5 MG TAB PO SCH (08:49)
--- NOTE | 2024-04-02 11:34 | Electrocardiogram Report ---
Test Reason : Blood Pressure : / mmHG Vent. Rate : 054 BPM Atrial Rate : 054 BPM P-R Int : 166 ms QRS Dur : 094 ms QT Int : 464 ms P-R-T Axes : 036 -35 003 degrees QTc Int : 440 ms Sinus bradycardia Left axis deviation Minimal voltage criteria for LVH, may be normal variant Abnormal ECG When compared with ECG of 01-APR-2024 04:27, No significant change was found Confirmed by Noam Collazo ([id number]) on 04/02/2024 11:34:01 AM Referred By: REFERRED SELF Confirmed By:Noam Collazo
--- NOTE | 2024-04-02 14:55 | Hospitalist Progress Note ---
Date of Service April 02, 2024 Assessment & Plan (1) Acute headache: Plan: Presented to the ED today via EMS for evaluation of sudden onset severe headache with associated nausea and dizziness. PMHx of HTN, DM type II, hypothyroidism, HLD, asthma, IBS, diverticulosis, cerebrovascular disease/recent CVA and PAOLA on CPAP who Head CT performed in the ED revealed no acute findings. Head CTA and Neck CTA imaging performed in the ED were both clear, no evidence of acute findings. Labs, UA unremarkable. Routine urine culture pending. Neuro Telehealth did see patient in the ED and he was administered the followinmg po aspirin, 40mg po atorvastatin and 5mg IV metoclopramide (w/ resolution of nausea). MRI w/ + w/o contrast -revealed recent stroke as mentioned in the report Patient did have a Zio patch in place from PCP that was removed yesterday, but those results are not yet available. He has been feeling much better since admission and denies any more neurological symptoms Appreciate neurology input and recommendation We will continue management for symptoms of nausea and vomiting Continue aspirin, Lipitor, Plavix as before Orthostatic vitals to evaluate orthostatic changes and treat accordingly Will continue with current medical management, PT and OT evaluation Avoid any tramadol for headache No new neurological symptoms Has had PT and OT evaluation and recommended home He does not need any help at home and will be discharged home this afternoon For headache Will try IV magnesium, Toradol., Benadryl, Compazine and IV fluid as advised Headache is resolved Of note, patient was recently admitted 03/07/24-03/09/24 and diagnosed with an acute ischemic stroke following initial presentation of vertigo/ataxia symptoms. Brain MRI during that stay revealed a 9mm infarct within the left posterior frontal lobe at the convexity, old lacunar infarcts within the bilateral basal ganglia/thalami and mild atrophy/microvascular ischemic changes. No thrombolytics were given at that time. Neurology had recommended dual antiplatelet therapy for at least 3 weeks. Aspirin and clopidogrel were added. Atorvastatin was increased from 20 mg/day to 40 mg/day. Cardiology was not involved except to interpret the resting echocardiography, which revealed the following: LVEF = 55-60%, mild concentric left ventricular hypertrophy and a mildly dilated left atrium. Patient did have a Zio patch in place from PCP that was removed yesterday, but those results are not yet available. He was scheduled to see neurology in the o/p clinic tomorrow. Patient did f/u with [facility] on 03/25/24, and they discontinued his previous prescription of hydrochlorothiazide. (2) Dizziness on standing: Plan: As above No orthostatic changes and no symptoms Will be discharged home and was advised to take precautions to prevent falls (3) Nausea alone: (4) History of ischemic stroke: (5) PAOLA on CPAP: Plan: -May continue CPAP at bedtime. (6) HLD (hyperlipidemia): Plan: -Continue atorvastatin, fasting lipid profile ordered to be completed in the AM. (7) DM II (diabetes mellitus, type II), controlled: Plan: -Hold home metformin, normally has Dexcom on his arm. Most recent hemoglobin A1C 6.1 on 03/08/24. -SSI therapy ordered, BSG checks ACHS. Repeat hemoglobin A1C in AM. (8) HTN (hypertension): Plan: -Continue amlodipine, lisinopril and metoprolol succinate. -Was seen by the solar project coordination specialist as an outpatient recently and his hydrochlorothiazide was discontinued -He has been put on his spironolactone and furosemide on top of lisinopril which will be continued -Blood pressure remains controlled at 147/78 (9) Asthma: Plan: -Order placed for PRN albuterol inhaler, continue montelukast. Stable exertional dyspnea at baseline. -O2 sat 96% on RA, no acute exacerbation or respiratory complaints. -May continue use of cetirizine for seasonal allergies. -No shortness of breath and or wheezing (10) Esophageal reflux: Plan: -Continue famotidine (11) Morbid obesity: Plan: -Diet and exercise to be encouraged throughout hospital stay, BMI 39.8 on admission. (12) Generalized osteoarthritis of multiple sites: Plan: -Continue duloxetine, tramadol (13) Hypothyroidism, unspecified: Plan: -Continue levothyroxine DVT Prophylaxis: SCDs, TEDs - For now Code Status: Full Code PCP: Sophie Licea MD Dispo: Admit to PCU/Telemetry He will be discharged home this afternoon Admission and Anticipated Discharge Date Admission Date: March 31, 2024 Subjective 04/01/2024 The patient was seen and examined in telemetry unit He has been feeling much better Minimal weakness involving the left upper extremity and no other neurological symptoms Denies any other significant symptoms 04/02/2024 The patient was seen and examined in telemetry unit He has been feeling much better and denies any significant symptoms Minimal numbness involving the left upper extremity is persisting without any deficiency in power Denies any other neurological symptoms Has had physical therapy and recommended home Review of Systems Review of Systems: All systems reviewed and are unremarkable except as noted below Physical Exam Physical Exam: Lying in bed without any acute distress Constitutional: well developed, well nourished, + ill appearing and + obese Eyes: PERRL, conjunctivae normal, anicteric sclerae ENMT: external ear and nose normal, oropharynx normal Neck: trachea midline, no thyromegaly Respiratory: no respiratory distress Auscultation: lungs clear to auscultation bilaterally Cardiovascular: Rate/Rhythm: regular rate and regular rhythm; not tachycardic Heart Sounds: normal S1 and normal S2; no murmur Extremities: no edema Gastrointestinal (Abdomen): Inspection/Auscultation: normal bowel sounds; abdomen not distended Percussion/Palpation: abdomen soft; abdomen nontender Musculoskeletal: No acute arthritis involving any of the joints Neurologic: normal touch/pain/proprioception, moves all extremities and + focal motor deficit (Minimal weakness involving left upper extremity) Psychiatric: A+Ox3, euthymic affect Lymphatic: no cervical or axillary lymphadenopathy Results & Data Results & Data Vital Signs (Past 12 Hours) Vital Signs Temp Pulse Pulse Resp BP Pulse Ox O2 Del Method 04/02/24 11:32 36.9 C 55 L 18 147/78 H 96 Room Air 04/02/24 07:37 36.7 C 89 18 151/76 H 93 Room Air 04/02/24 07:34 54 L 04/02/24 03:43 36.6 C 55 L 20 136/77 99 BiPAP Laboratory Results Short CBC 04/02/24 Range/Units 05:23 WBC 6.68 (4.8-10.8) K/ul Hgb 13.9 L (14.0-18.0) g/dl Hct 40.0 L (42.0-52.0) % Plt Count 234 (130-400) K/uL BMP 04/02/24 05:23 Sodium 136 Potassium 3.9 Chloride 104 Carbon Dioxide 27 BUN 13 Creatinine 0.90 Glucose 121 H Calcium 8.6 Medications Administered Current Inpatient Medications Acetaminophen (Acetaminophen 325 Mg Tab) 650 mg PO Q4H PRN PRN Reason: Pain or Fever Stop: 04/30/24 21:43 Al Hydrox/Mg Hydrox/Simethicone (Aluminum/Magnesium Susp 30 Ml Udc) 15 ml PO Q4H PRN PRN Reason: Dyspepsia Stop: 04/30/24 21:43 Albuterol (Albuterol Hfa 8 Gm Inhaler) 2 puffs INH Q4 PRN PRN Reason: Shortness Of Breath Or Wheezin Stop: 04/30/24 21:43 Amlodipine Besylate (Amlodipine Besylate 5 Mg Tab) 10 mg PO DAILY [facility] Stop: 05/01/24 08:59 Last Admin: 04/02/24 08:48 Dose: 10 mg Aspirin (Aspirin 81 Mg Ectab) 81 mg PO QAM [facility] Stop: 05/01/24 08:59 Last Admin: 04/02/24 08:49 Dose: 81 mg Atorvastatin Calcium (Atorvastatin 40 Mg Tab) 40 mg PO DAILY [facility] Stop: 05/01/24 08:59 Last Admin: 04/02/24 08:49 Dose: 40 mg Cetirizine HCl (Cetirizine Hcl 10 Mg Tablet) 10 mg PO DAILY [facility] Stop: 05/01/24 08:59 Last Admin: 04/02/24 08:49 Dose: 10 mg Clopidogrel Bisulfate (Clopidogrel Bisulfate 75 Mg Tab) 75 mg PO QAM [facility] Stop: 05/01/24 08:59 Last Admin: 04/02/24 08:49 Dose: 75 mg Dextrose (Dextrose 50% 50 Ml Syringe) 25 - 50 ml IV UD PRN; Protocol PRN Reason: Hypoglycemia Protocol Stop: 04/30/24 21:43 Famotidine (Famotidine 40 Mg Tablet) 40 mg PO BID [facility] Stop: 04/30/24 21:43 Last Admin: 04/02/24 08:49 Dose: 40 mg Furosemide (Furosemide 20 Mg Tab) 20 mg PO QAM [facility] Stop: 05/02/24 08:59 Last Admin: 04/02/24 08:49 Dose: 20 mg Glucagon (Glucagon For Inj 1 Mg Vial) 1 mg SQ UD PRN; Protocol PRN Reason: Hypoglycemia Protocol Stop: 04/30/24 21:43 Glucose (Glucose 40% Gel 15 Gm Tube) 15 - 30 gm PO UD PRN; Protocol PRN Reason: Hypoglycemia Protocol Stop: 04/30/24 21:43 Glucose (Glucose 10 Tab/Tube) 4 - 8 tab PO UD PRN; Protocol PRN Reason: Hypoglycemia Treatment Stop: 04/30/24 21:43 Insulin Aspart (Insulin Aspart Per Unit Charge) 0 units SC ACHS [facility] Stop: 04/30/24 21:43 Last Admin: 04/02/24 13:11 Dose: 6 units Levothyroxine Sodium (Levothyroxine Sodium 175 Mcg Tablet) 175 mcg PO DAILYBB [facility] Stop: 05/01/24 06:29 Last Admin: 04/02/24 05:29 Dose: 175 mcg Lisinopril (Lisinopril 40 Mg Tab) 40 mg PO DAILY [facility] Stop: 05/01/24 08:59 Last Admin: 04/02/24 08:49 Dose: 40 mg Magnesium Hydroxide (Magnesium Hydroxide Susp 30 Ml Udc) 30 ml PO Q12H PRN PRN Reason: Constipation Stop: 04/30/24 21:43 Meclizine HCl (Meclizine Hcl 25 Mg Tab) 25 mg PO Q6H PRN PRN Reason: Dizziness or Vertigo Stop: 04/30/24 21:43 Metoprolol Succinate (Metoprolol Succ 25mg Ext Rel Tab) 25 mg PO QAM [facility] Stop: 05/01/24 08:59 Last Admin: 04/02/24 08:49 Dose: 25 mg Miscellaneous (Carbohydrates For Hypoglycemia ) 15 - 30 gm PO UD PRN PRN Reason: Hypoglycemia Protocol Stop: 04/30/24 21:43 Montelukast Sodium (Montelukast Sodium 10 Mg Tablet) 10 mg PO DAILY [facility] Stop: 05/01/24 08:59 Last Admin: 04/02/24 08:49 Dose: 10 mg Multivitamins (Multivitamin Tab) 1 tab PO DAILY [facility] Stop: 05/01/24 08:59 Last Admin: 04/02/24 08:49 Dose: 1 tab Ondansetron HCl (Ondansetron Inj 2 Mg/Ml 2 Ml Vial) 4 mg IV Q6H PRN PRN Reason: Nausea Stop: 04/30/24 21:43 Polyethylene Glycol (Polyethylene (Miralax) 17 Gm Pack) 17 gm PO DAILY PRN PRN Reason: Constipation Stop: 04/30/24 21:43 Spironolactone (Spironolactone 12.5 Mg Tab) 12.5 mg PO DAILY [facility] Stop: 05/02/24 08:59 Last Admin: 04/02/24 08:49 Dose: 12.5 mg Tramadol HCl (Tramadol Hcl 50 Mg Tablet) 50 mg PO BID PRN PRN Reason: Pain Stop: 04/30/24 21:43 Last Admin: 04/01/24 19:46 Dose: 50 mg (6) HLD (hyperlipidemia) Hyperlipidemia type: unspecified Qualified Code(s): E78.5 - Hyperlipidemia, unspecified (7) DM II (diabetes mellitus, type II), controlled Diabetes mellitus custodial insulin use: without parts counterman use Diabetes mellitus complication status: without complication Qualified Code(s): E11.9 - Type 2 diabetes mellitus without complications (8) HTN (hypertension) Hypertension type: unspecified Qualified Code(s): I10 - Essential (primary) hypertension (9) Asthma Asthma severity: unspecified severity Asthma persistence: unspecified Asthma complication type: uncomplicated Qualified Code(s): J45.909 - Unspecified asthma, uncomplicated (10) Esophageal reflux Esophagitis presence: esophagitis presence not specified Qualified Code(s): K21.9 - Gastro-esophageal reflux disease without esophagitis (13) Hypothyroidism, unspecified Hypothyroidism type: unspecified Qualified Code(s): E03.9 - Hypothyroidism, unspecified
[2024-04-03 06:43] LABS: BUN Creatinine Ratio 14.1 (10-20); Calcium 8.5 mg/dl (8.6-10.3); Creatinine Clr Calc Pharmacy 105.2 ml/min; Est GFR (African American) 96.9 ml/min; Est GFR (Non-African American) 83.6 ml/min; Potassium 3.7 mmol/L (3.5-5.1)
--- NOTE | 2024-04-03 13:08 | Hospitalist Progress Note ---
Date of Service April 03, 2024 Assessment & Plan (1) Acute headache: Plan: Presented to the ED today via EMS for evaluation of sudden onset severe headache with associated nausea and dizziness. PMHx of HTN, DM type II, hypothyroidism, HLD, asthma, IBS, diverticulosis, cerebrovascular disease/recent CVA and PAOLA on CPAP who Head CT performed in the ED revealed no acute findings. Head CTA and Neck CTA imaging performed in the ED were both clear, no evidence of acute findings. Labs, UA unremarkable. Routine urine culture pending. Neuro Telehealth did see patient in the ED and he was administered the followinmg po aspirin, 40mg po atorvastatin and 5mg IV metoclopramide (w/ resolution of nausea). MRI w/ + w/o contrast -revealed recent stroke as mentioned in the report Patient did have a Zio patch in place from PCP that was removed yesterday, but those results are not yet available. He has been feeling much better since admission and denies any more neurological symptoms Appreciate neurology input and recommendation We will continue management for symptoms of nausea and vomiting Continue aspirin, Lipitor, Plavix as before Orthostatic vitals to evaluate orthostatic changes and treat accordingly Will continue with current medical management, PT and OT evaluation Avoid any tramadol for headache No new neurological symptoms Has had PT and OT evaluation and recommended home He does not need any help at home and will be discharged home this afternoon Denies any more acute symptoms and wants to go home Ambulating in the hallway without difficulties and will be discharged home this afternoon For headache Will try IV magnesium, Toradol., Benadryl, Compazine and IV fluid as advised Headache is resolved No more headache and no neurological symptoms Of note, patient was recently admitted 03/07/24-03/09/24 and diagnosed with an acute ischemic stroke following initial presentation of vertigo/ataxia symptoms. Brain MRI during that stay revealed a 9mm infarct within the left posterior frontal lobe at the convexity, old lacunar infarcts within the bilateral basal ganglia/thalami and mild atrophy/microvascular ischemic changes. No thrombolytics were given at that time. Neurology had recommended dual antiplatelet therapy for at least 3 weeks. Aspirin and clopidogrel were added. Atorvastatin was increased from 20 mg/day to 40 mg/day. Cardiology was not involved except to interpret the resting echocardiography, which revealed the following: LVEF = 55-60%, mild concentric left ventricular hypertrophy and a mildly dilated left atrium. Patient did have a Zio patch in place from PCP that was removed yesterday, but those results are not yet available. He was scheduled to see neurology in the o/p clinic tomorrow. Patient did f/u with [facility] on 03/25/24, and they discontinued his previous prescription of hydrochlorothiazide. (2) Dizziness on standing: Plan: As above No orthostatic changes and no symptoms Will be discharged home and was advised to take precautions to prevent falls No more orthostatic changes (3) Nausea alone: (4) History of ischemic stroke: (5) PAOLA on CPAP: Plan: -May continue CPAP at bedtime. (6) HLD (hyperlipidemia): Plan: -Continue atorvastatin, fasting lipid profile ordered to be completed in the AM. (7) DM II (diabetes mellitus, type II), controlled: Plan: -Hold home metformin, normally has Dexcom on his arm. Most recent hemoglobin A1C 6.1 on 03/08/24. -SSI therapy ordered, BSG checks ACHS. Repeat hemoglobin A1C in AM. (8) HTN (hypertension): Plan: -Continue amlodipine, lisinopril and metoprolol succinate. -Was seen by the talent acquisition specialist as an outpatient recently and his hydrochlorothiazide was discontinued -He has been put on his spironolactone and furosemide on top of lisinopril which will be continued -Blood pressure remains controlled at 147/78 (9) Asthma: Plan: -Order placed for PRN albuterol inhaler, continue montelukast. Stable exertional dyspnea at baseline. -O2 sat 96% on RA, no acute exacerbation or respiratory complaints. -May continue use of cetirizine for seasonal allergies. -No shortness of breath and or wheezing (10) Esophageal reflux: Plan: -Continue famotidine (11) Morbid obesity: Plan: -Diet and exercise to be encouraged throughout hospital stay, BMI 39.8 on admission. (12) Generalized osteoarthritis of multiple sites: Plan: -Continue duloxetine, tramadol (13) Hypothyroidism, unspecified: Plan: -Continue levothyroxine DVT Prophylaxis: SCDs, TEDs - For now Code Status: Full Code PCP: Sophie Licea MD Dispo: Admit to PCU/Telemetry He will be discharged home this afternoon Admission and Anticipated Discharge Date Admission Date: March 31, 2024 Subjective 04/01/2024 The patient was seen and examined in telemetry unit He has been feeling much better Minimal weakness involving the left upper extremity and no other neurological symptoms Denies any other significant symptoms 04/02/2024 The patient was seen and examined in telemetry unit He has been feeling much better and denies any significant symptoms Minimal numbness involving the left upper extremity is persisting without any deficiency in power Denies any other neurological symptoms Has had physical therapy and recommended home 04/03/2024 The patient was seen and examined in telemetry He has been much better and wants to go home He has been ambulating in the hallway without difficulties Dizziness has been improved a lot No more unsteady on feet and wants to go back to work on Thursday Review of Systems Review of Systems: All systems reviewed and are unremarkable except as noted below Physical Exam Physical Exam: Lying in bed without any acute distress Constitutional: well developed, well nourished, + ill appearing and + obese Eyes: PERRL, conjunctivae normal, anicteric sclerae ENMT: external ear and nose normal, oropharynx normal Neck: trachea midline, no thyromegaly Respiratory: no respiratory distress Auscultation: lungs clear to auscultation bilaterally Cardiovascular: Rate/Rhythm: regular rate and regular rhythm; not tachycardic Heart Sounds: normal S1 and normal S2; no murmur Extremities: no edema Gastrointestinal (Abdomen): Inspection/Auscultation: normal bowel sounds; abdomen not distended Percussion/Palpation: abdomen soft; abdomen nontender Neurologic: normal touch/pain/proprioception, moves all extremities and + focal motor deficit (Minimal weakness involving left upper extremity) Psychiatric: A+Ox3, euthymic affect Lymphatic: no cervical or axillary lymphadenopathy Results & Data Results & Data Vital Signs (Past 12 Hours) Vital Signs Temp Pulse Pulse Resp BP BP Pulse Ox 04/03/24 11:15 36.6 C 56 L 18 153/76 H 96 04/03/24 10:01 36.6 C 60 18 156/80 H 125/92 97 04/03/24 07:28 36.6 C 60 18 156/80 H 97 04/03/24 07:09 52 L 04/03/24 03:59 36.5 C 55 L 20 148/70 H 95 O2 Del Method 04/03/24 11:15 Room Air 04/03/24 10:01 04/03/24 07:28 Room Air 04/03/24 07:09 04/03/24 03:59 Room Air Laboratory Results [facility] 04/03/24 05:27 Sodium 136 Potassium 3.7 Chloride 103 Carbon Dioxide 26 BUN 14 Creatinine 0.99 Glucose 120 H Calcium 8.5 L Medications Administered Current Inpatient Medications Acetaminophen (Acetaminophen 325 Mg Tab) 650 mg PO Q4H PRN PRN Reason: Pain or Fever Stop: 04/30/24 21:43 Al Hydrox/Mg Hydrox/Simethicone (Aluminum/Magnesium Susp 30 Ml Udc) 15 ml PO Q4H PRN PRN Reason: Dyspepsia Stop: 04/30/24 21:43 Albuterol (Albuterol Hfa 8 Gm Inhaler) 2 puffs INH Q4 PRN PRN Reason: Shortness Of Breath Or Wheezin Stop: 04/30/24 21:43 Amlodipine Besylate (Amlodipine Besylate 5 Mg Tab) 10 mg PO DAILY [facility] Stop: 05/01/24 08:59 Last Admin: 04/03/24 08:32 Dose: 10 mg Aspirin (Aspirin 81 Mg Ectab) 81 mg PO QAM [facility] Stop: 05/01/24 08:59 Last Admin: 04/03/24 08:32 Dose: 81 mg Atorvastatin Calcium (Atorvastatin 40 Mg Tab) 40 mg PO DAILY [facility] Stop: 05/01/24 08:59 Last Admin: 04/03/24 08:32 Dose: 40 mg Cetirizine HCl (Cetirizine Hcl 10 Mg Tablet) 10 mg PO DAILY [facility] Stop: 05/01/24 08:59 Last Admin: 04/03/24 08:32 Dose: 10 mg Clopidogrel Bisulfate (Clopidogrel Bisulfate 75 Mg Tab) 75 mg PO QAM [facility] Stop: 05/01/24 08:59 Last Admin: 04/03/24 08:32 Dose: 75 mg Dextrose (Dextrose 50% 50 Ml Syringe) 25 - 50 ml IV UD PRN; Protocol PRN Reason: Hypoglycemia Protocol Stop: 04/30/24 21:43 Famotidine (Famotidine 40 Mg Tablet) 40 mg PO BID [facility] Stop: 04/30/24 21:43 Last Admin: 04/03/24 08:32 Dose: 40 mg Furosemide (Furosemide 20 Mg Tab) 20 mg PO QAM [facility] Stop: 05/02/24 08:59 Last Admin: 04/03/24 08:33 Dose: 20 mg Glucagon (Glucagon For Inj 1 Mg Vial) 1 mg SQ UD PRN; Protocol PRN Reason: Hypoglycemia Protocol Stop: 04/30/24 21:43 Glucose (Glucose 40% Gel 15 Gm Tube) 15 - 30 gm PO UD PRN; Protocol PRN Reason: Hypoglycemia Protocol Stop: 04/30/24 21:43 Glucose (Glucose 10 Tab/Tube) 4 - 8 tab PO UD PRN; Protocol PRN Reason: Hypoglycemia Treatment Stop: 04/30/24 21:43 Insulin Aspart (Insulin Aspart Per Unit Charge) 0 units SC ACHS [facility] Stop: 04/30/24 21:43 Last Admin: 04/03/24 12:20 Dose: 10 units Levothyroxine Sodium (Levothyroxine Sodium 175 Mcg Tablet) 175 mcg PO DAILYBB [facility] Stop: 05/01/24 06:29 Last Admin: 04/03/24 05:28 Dose: 175 mcg Lisinopril (Lisinopril 40 Mg Tab) 40 mg PO DAILY [facility] Stop: 05/01/24 08:59 Last Admin: 04/03/24 08:32 Dose: 40 mg Magnesium Hydroxide (Magnesium Hydroxide Susp 30 Ml Udc) 30 ml PO Q12H PRN PRN Reason: Constipation Stop: 04/30/24 21:43 Meclizine HCl (Meclizine Hcl 25 Mg Tab) 25 mg PO Q6H PRN PRN Reason: Dizziness or Vertigo Stop: 04/30/24 21:43 Metoprolol Succinate (Metoprolol Succ 25mg Ext Rel Tab) 25 mg PO QAM [facility] Stop: 05/01/24 08:59 Last Admin: 04/03/24 08:32 Dose: 25 mg Miscellaneous (Carbohydrates For Hypoglycemia ) 15 - 30 gm PO UD PRN PRN Reason: Hypoglycemia Protocol Stop: 04/30/24 21:43 Montelukast Sodium (Montelukast Sodium 10 Mg Tablet) 10 mg PO DAILY [facility] Stop: 05/01/24 08:59 Last Admin: 04/03/24 08:33 Dose: 10 mg Multivitamins (Multivitamin Tab) 1 tab PO DAILY [facility] Stop: 05/01/24 08:59 Last Admin: 04/03/24 08:32 Dose: 1 tab Ondansetron HCl (Ondansetron Inj 2 Mg/Ml 2 Ml Vial) 4 mg IV Q6H PRN PRN Reason: Nausea Stop: 04/30/24 21:43 Polyethylene Glycol (Polyethylene (Miralax) 17 Gm Pack) 17 gm PO DAILY PRN PRN Reason: Constipation Stop: 04/30/24 21:43 Spironolactone (Spironolactone 12.5 Mg Tab) 12.5 mg PO DAILY [facility] Stop: 05/02/24 08:59 Last Admin: 04/03/24 08:32 Dose: 12.5 mg Tramadol HCl (Tramadol Hcl 50 Mg Tablet) 50 mg PO BID PRN PRN Reason: Pain Stop: 04/30/24 21:43 Last Admin: 04/02/24 17:45 Dose: 50 mg (6) HLD (hyperlipidemia) Hyperlipidemia type: unspecified Qualified Code(s): E78.5 - Hyperlipidemia, unspecified (7) DM II (diabetes mellitus, type II), controlled Diabetes mellitus long-term insulin use: without terminal operator use Diabetes mellitus complication status: without complication Qualified Code(s): E11.9 - Type 2 diabetes mellitus without complications (8) HTN (hypertension) Hypertension type: unspecified Qualified Code(s): I10 - Essential (primary) hypertension (9) Asthma Asthma severity: unspecified severity Asthma persistence: unspecified Asthma complication type: uncomplicated Qualified Code(s): J45.909 - Unspecified asthma, uncomplicated (10) Esophageal reflux Esophagitis presence: esophagitis presence not specified Qualified Code(s): K21.9 - Gastro-esophageal reflux disease without esophagitis (13) Hypothyroidism, unspecified Hypothyroidism type: unspecified Qualified Code(s): E03.9 - Hypothyroidism, unspecified
== END 2024-04-03 14:53 | disposition home or self-care (01) | DRG 103 ==
LOC: ED 13:09 → SUATTDRO 14:35 → 2S 14:35 → INTOOBSV 14:35 → 2S 21:13

== ENCOUNTER 2025-08-14 11:01 | Observation (INO) ==
--- NOTE | 2025-08-14 11:43 | Emergency Department Note ---
History of Present Illness General Chief complaint: Leg Injury/Pain Stated complaint: R LEG PAIN, GROIN PAIN Time Seen by Provider: 08/14/25 11:33 History of Present Illness Maximum Pain Intensity: 3 This is a 59-year-old male who presents to the emergency department via EMS with complaints of "right leg weakness". The patient notes that today while at work around 89 AM he began with right leg weakness. He described initially as while walking around the foot felt like it was "slipping" and then he felt like the knee was going to "buckle" and then the whole leg. He notes this happened about 3 times. This was associated with frontal headache as well which persists. He notes that when sitting the right leg symptoms seem to resolve but when he attempts to walk for any distance is the right leg symptoms return. Patient is anticoagulated on oral Eliquis, last dose was this morning. He notes history of CVA/atrial fibrillation. No abdominal pain. No preceding or current illness. No fevers. The patient notes that the right leg symptoms have completely resolved at this time. Frontal headache persists and he notes is worsening at this time. No trauma. No injury. No bowel or bladder incontinence. No numbness or tingling in the genital region. Home Medications Medication Instructions Recorded Confirmed Type ascorbic acid (vitamin C) 500 mg 500 mg PO DAILY 06/28/19 08/14/25 History tablet (Vitamin C) famotidine 40 mg tablet 40 mg PO BID 06/28/19 08/14/25 History lisinopril 40 mg tablet 40 mg PO QAM 06/28/19 08/14/25 History montelukast 10 mg tablet 10 mg PO DAILY 06/28/19 08/14/25 History tramadol 50 mg tablet 50 mg PO BID PRN Pain 06/28/19 08/14/25 History vitamin B complex 1 tab PO DAILY 06/28/19 08/14/25 History albuterol sulfate 90 mcg/actuation 2 puff inhalation Q4 PRN Shortness 08/28/22 08/14/25 History aerosol inhaler Of Breath Or Wheezing glucosamine sulfate 500 mg tablet 500 mg PO DAILY 08/28/22 08/14/25 History (Glucosamine) metoprolol succinate 25 mg 50 mg PO QAM 08/28/22 08/14/25 History tablet,extended release 24 hr multivitamin 1 tab PO DAILY 08/28/22 08/14/25 History turmeric 400 mg capsule 400 mg PO DAILY 08/28/22 08/14/25 History levothyroxine 175 mcg tablet 175 mcg PO QAM 03/07/24 08/14/25 History spironolactone 25 mg tablet 25 mg PO DAILY 04/01/24 08/14/25 History apixaban 5 mg tablet (Eliquis) 5 mg PO BID 07/14/25 08/14/25 History atorvastatin 40 mg tablet 40 mg PO QAM 07/14/25 08/14/25 History furosemide 40 mg tablet 60 mg PO QAM 07/14/25 08/14/25 History metformin 1,000 mg tablet 1,000 mg PO QAM 07/14/25 08/14/25 History pantoprazole 40 mg tablet,delayed 40 mg PO DAILYBB 07/14/25 08/14/25 History release tadalafil 20 mg tablet 20 mg PO DIRECTED PRN Sexual 07/14/25 08/14/25 History [place] tirzepatide 5 mg/0.5 mL 5 mg subcut WK 07/14/25 08/14/25 History subcutaneous pen injector (Mounjaro) Allergies Allergy/AdvReac Type Severity Reaction Status Date / Time aspirin AdvReac Intermediate nose bleeds Verified 07/14/25 11:27 NSAIDS (Non-Steroidal AdvReac Intermediate to avoid Verified 07/14/25 11:27 Anti-Inflamma d/t stomach/esophagus irritation Pork/Porcine Containing AdvReac Intermediate diarrhea Verified 07/14/25 11:27 Products Past Med/Surg History Problem List (Updated 08/14/25 @ 17:26 by Lenin Vallejo PA-C) Headache (Acute) Transient right leg weakness (Acute) TIA (transient ischemic attack) Stroke-like symptoms (Acute) Nausea (Acute) Dizziness (Acute) Generalized osteoarthritis of multiple sites Nausea alone Dizziness on standing Acute headache (Acute) Hypothyroidism, unspecified Esophageal reflux History of ischemic stroke (Acute) Morbid obesity PAOLA on CPAP HLD (hyperlipidemia) DM II (diabetes mellitus, type II), controlled HTN (hypertension) Asthma Head injury (Acute) Medical History Acute CVA (cerebrovascular accident) Diverticulitis Bronchitis Right knee injury Hydronephrosis History of deviated nasal septum Surgical History Hx of vasectomy Hx of cystoscopy Hx of sinus surgery Family History Other Cancer Diabetes Heart disease Hypertension Social History Smoking Status: Former smoker Tobacco Type: Cigarettes Smoking End Date: 20+ yrs ago; Second Hand Exposure: Yes (at work); Do You Dip or Chew Tobacco: No; Tobacco Cessation Education Requested by Patient: No Hx Alcohol Use: Yes Alcohol type: beer Hx Substance Use: No Preferred Language: [place] Communication Ability: Effective Moisture Meter Reader Required: No Beliefs That Will Affect Care: None Current Living Situation: Alone Other Information That Helps Us Care for You: No Feels Safe at Home: Yes Safety Concerns: Feels Safe At This Time Assistive Devices: CPAP, Denture - Upper, Denture - Lower, Glasses and Hearing Aid - Bilateral Review of Systems A total of 10 systems reviewed and were otherwise negative Physical Exam Vital Signs Vital Signs - 24 hr 08/14/25 11:22 08/14/25 11:40 08/14/25 11:40 Temperature 36.7 C Temperature Source Oral Pulse Rate 65 55 L Pulse Rate [Apical] 61 Pulse Rhythm Regular Pulse Rhythm [Apical] Regular Pulse Strength [Apical] Normal Respiratory Rate 18 14 12 Respiratory Effort / Characteristics Non-Labored Non-Labored Respiratory Depth Normal Normal Respiratory Pattern Regular Regular Blood Pressure 127/79 Blood Pressure [Right Arm] 104/82 Blood Pressure Mean 95 Blood Pressure Mean [Right Arm] 89 Blood Pressure Position [Right Arm] Sitting Pulse Oximetry 97 96 95 Oxygen Delivery Method Room Air Room Air Room Air Sepsis Recent Fever Within 48 Hours No Sepsis New/Unexplained Change in Mental Status N/A Sepsis Action Taken by Nursing No Action Required 08/14/25 12:12 08/14/25 13:06 Temperature Temperature Source Pulse Rate 58 L Pulse Rate [Apical] 57 L Pulse Rhythm Pulse Rhythm [Apical] Regular Pulse Strength [Apical] Normal Respiratory Rate 23 Respiratory Effort / Characteristics Non-Labored Spontaneous Respiratory Depth Normal Respiratory Pattern Regular Blood Pressure Blood Pressure [Right Arm] 129/78 Blood Pressure Mean Blood Pressure Mean [Right Arm] 95 Blood Pressure Position [Right Arm] Sitting Pulse Oximetry 95 Oxygen Delivery Method Room Air Sepsis Recent Fever Within 48 Hours Sepsis New/Unexplained Change in Mental Status Sepsis Action Taken by Nursing VITAL SIGNS - Vital signs and nursing notes were reviewed. Stable and afebrile. GENERAL -59-year-old male appearing his stated age who is in no acute distress. Communicates well with provider and answers questions appropriately. SKIN - Without rashes. No meningeal or petechial rash. The right lower extremity reveals no wounds. HEAD - NC/AT. EYES - PERRL with EOMI bilaterally. Sclera anicteric. EARS - No deformities of external structures noted on gross examination bilaterally. NOSE - Midline and without cyanosis. No epistaxis or purulent drainage noted. MOUTH/OROPHARYNX - Without perioral cyanosis. NECK - Neck with FROM. No nuchal rigidity. LUNGS - CTA CARDIAC -irregular rate and rhythm ABDOMEN - Abdominal contour normal without pulsations or visible masses. BS normoactive all four quadrants. No tenderness, palpable masses, hepatosplenomegaly, or ascites noted. EXTREMITIES - No clubbing or peripheral cyanosis. +5/5 strength noted in UE/LE bilaterally. Patient able to straight leg raise bilaterally against resistance. No deficits noted. NEUROLOGIC - Cranial nerves II through XII grossly intact. Sensory intact to light touch throughout. PSYCH -alert, oriented and pleasant on exam Course Administered Medications Insulin Aspart (Insulin Aspart Per Unit Charge) 0 units SC ACHS NETO Stop: 09/13/25 16:35 Last Admin: 08/14/25 17:15 Dose: 4 units Documented By: LUCIO Co-signed By: CMP Discontinued Medications Ioversol (Optiray 320 125ml) 118 ml IV ONCE ONE Stop: 08/14/25 12:50 Last Admin: 08/14/25 12:49 Dose: 118 ml Documented By: SIENNA Medical Decision Making Laboratory Data 08/14/25 12:01 08/14/25 12:01 Lab Results 08/14/25 08/14/25 Range/Units 12:01 12:02 WBC 6.46 (4.8-10.8) K/ul RBC 4.78 (4.70-6.10) M/uL Hgb 13.7 L (14.0-18.0) g/dl POC Hgb 13.9 L (14.0-18.0) g/dl Hct 40.9 L (42.0-52.0) % POC Hct 41 L (42-52) % MCV 85.6 (80.0-100.0) fL MCH 28.7 (25.0-34.0) pg MCHC 33.5 (32.0-36.0) g/dL RDW Std Deviation 41.6 (36.4-46.3) fL RDW Coeff of Chang 13.4 (11.5-14.5) % Plt Count 235 (130-400) K/uL MPV 9.9 (9.4-12.4) fL Immature Gran % (Auto) 0.5 % Neut % (Auto) 68.5 % Lymph % (Auto) 19.7 % [place] % (Auto) 8.7 % Eos % (Auto) 1.7 % Baso % (Auto) 0.9 % Neut # (Auto) 4.43 (1.40-6.50) K/uL Lymph # (Auto) 1.27 (1.20-3.40) K/uL [place] # (Auto) 0.56 (0.11-0.59) K/uL Eos # (Auto) 0.11 (0.00-0.50) K/uL Baso # (Auto) 0.06 (0.00-0.20) K/uL Immature Gran # (Auto) 0.03 (0.01-0.20) K/uL PT 10.9 (9.0-12.0) Seconds INR 1.0 (0.9-1.1) APTT 32 H (21-31) Seconds PTT Ratio 1.2 POC Sodium 137 (135-144) mmol/L Sodium 136 (136-145) mmol/L POC Potassium 3.9 (3.3-5.0) mmol/L Potassium 3.9 (3.5-5.1) mmol/L POC Chloride 103 (101-112) mmol/L Chloride 103 (98-107) mmol/L Carbon Dioxide 26 (21-32) mmol/L POC Total CO2 23 L (24-31) mmol/L Anion Gap 7 (3-11) POC Anion Gap 15.0 L (16-25) mmol/L POC BUN 17 (7-18) mg/dl BUN 17 (6-23) mg/dl Creatinine 0.97 (0.6-1.4) mg/dl POC Creatinine 1.1 (0.6-1.3) mg/dl Est Cr Clr Drug Dosing Not Reportable eGFR 89.93 BUN/Creatinine Ratio 17.5 (10-20) Glucose 93 (70-99(Fasting)) mg/dl POC Glucose (other) 94 (70-99) mg/dl Calcium 9.5 (8.6-10.3) mg/dl POC Ioniz Calcium Stefan 1.20 (1.12-1.32) mmol/l Total Bilirubin 0.7 (0.2-1.0) mg/dl AST 22 (13-39) U/L ALT 22 (7-52) U/L Alkaline Phosphatase 57 (34-104) U/L Troponin I High Sens 7.3 (0-20) pg/ml Total Protein 7.4 (6.0-8.3) gm/dl Albumin 4.3 (3.4-5.0) gm/dl Globulin 3.1 (2.5-4.0) gm/dl Albumin/Globulin Ratio 1.4 (0.9-2) TSH 1.934 (0.300-4.500) uIu/ml Imaging Data Radiologist's Impression: Head CTA 08/14/25 11:40 CT angio head wo/w CLINICAL HISTORY: 59 years-old Male with frontal headache, R leg weakness. Acute stroke like symptoms COMPARISON STUDY: CTA neck of same day, brain MRI 03/31/2024, CT head 03/31/2024 TECHNIQUE: Unenhanced axial CT scan of the brain is performed. Subsequently, following the IV administration of 118 cc of Optiray, CT angiogram of the brain was performed from the skull base to the vertex. Images are reviewed in the axial, sagittal, and coronal planes. 3-D MIPS images are created and assessed. IV contrast was administered without complication. All measurements were obtained according to NASCET criteria. A dose lowering technique was utilized adhering to the principles of ALARA. CT DOSE: 1353.83 mGy.cm FINDINGS: CT BRAIN: There is no acute intracranial hemorrhage, midline shift, hydrocephalus, intracranial mass, territorial ischemia or abnormal extra-axial collections. Involutional changes with probable chronic microvascular ischemic disease. Probable tiny chronic lacunar infarcts of the basal ganglia. Partially empty sella. No abnormal intra-axial or extra-axial enhancement. Trace left mastoid effusion. CT ANGIOGRAM OF THE BRAIN: The imaged bilateral internal carotid arteries are patent. The bilateral anterior and middle cerebral arteries are also patent. Mild stenosis of the distal right vertebral artery secondary to atherosclerosis. origin of the right posterior cerebral artery. There is no aneurysm, high-grade stenosis, or proximal branch occlusion identified. Dural sinuses appear patent. IMPRESSION: 1. No acute intracranial abnormality. 2. Unremarkable CTA of the head. ACT 112: Negative or not required by law. The above report was generated using voice recognition software. It may contain grammatical, syntax or spelling errors. Electronically signed by: Lokesh Irby M.D. 08/14/2025 1:07 PM Neck CTA 08/14/25 11:40 CT angio neck with con CLINICAL HISTORY: frontal headache, R leg weakness. TECHNIQUE: Following the IV administration of 120 of Optiray, CT angiogram of the neck was performed from the aortic arch to the skull base. Images are reviewed in the axial, sagittal, and coronal planes. 3-D MIPS images are created and assessed. IV contrast was administered without complication. All measurements were calculated based on NASCET criteria. A dose lowering technique was utilized adhering to the principles of ALARA. COMPARISON STUDY: 03/31/2024 FINDINGS: There are minimal carotid bulb calcifications. There are mild calcifications distally at the internal carotid arteries. No significant narrowing or occlusion seen at the common or internal carotid arteries bilaterally or the vertebral arteries bilaterally. Stable enlarged thyroid gland. IMPRESSION: No significant arterial narrowing or occlusion seen at the neck. ACT 112: Negative or not required by law. The above report was generated using voice recognition software. It may contain grammatical, syntax or spelling errors. Electronically signed by: Yusef Rangel M.D. 08/14/2025 12:58 PM [facility] Narrative Patient was seen and evaluated as above in room B02. Review was performed of triage nursing notes and vital signs. I did review pertinent previous visits and patient history. After obtaining a thorough history and physical examination the above work up was performed. Patient presents with the above symptoms. He noted intermittent right leg weakness. On exam, there is no weakness presently. EKG per my interpretation reveals sinus bradycardia at a rate of 59 bpm. QTc 431. QRS 94. No ST elevation on this rhythm tracing. The patient has an NIHSS of 0 at time of exam. I will note the patient is not a TNK candidate as he is currently anticoagulated on DOAC, Eliquis. This was last taken this morning. Options of care were discussed with the patient. IV access was established. Labs were drawn. No leukocytosis. Minor anemia with hemoglobin of 13.7. Coags without significant disturbance. No evidence of kidney or liver failure. TSH feels euthyroid state. Troponin within normal range. CT angio head and neck were obtained. Results as above. These were essentially negative for acute standpoint. Noting the patient's intermittent right leg weakness subjective symptoms with hx of prior CVA/comorbidities I do believe that further evaluation and management in the inpatient setting is warranted. Case discussed with the hospitalist service. Please refer to further documentation regarding his stay. GCS: 15 In the evaluation and treatment of this patient the following differential diagnoses were entertained: CVA, TIA, intracranial hemorrhage, electrolyte disturbance, infection, cauda equina syndrome, claudication, epidural hematoma, among others. Impression & Plan Stroke-like symptoms, Transient right leg weakness, Headache Discharge Plan Visit Data Chief Complaint: Leg Injury/Pain Stated Complaint: R LEG PAIN, GROIN PAIN ED Provider: Daryn Morgan ED Midlevel Provider: Lenin Vallejo Discharge Problem: Stroke-like symptoms, Transient right leg weakness, Headache Patient Disposition: Admitted As Inpatient Condition: Good Discharge Instructions Interventions: ED Discharge Assessment Last Done: 08/14/25 16:08
[2025-08-14 12:22] LABS: Hematocrit (blood only) 40.9 % (42.0-52.0); Hemoglobin 13.7 g/dl (14.0-18.0); Immature Granulocytes # (auto) 0.03 K/uL (0.01-0.20); Immature Granulocytes % (auto) 0.5 %; Mean Corpuscular Hemoglobin 28.7 pg (25.0-34.0); Mean Corpuscular Volume 85.6 fL (80.0-100.0); Platelet Count 235 K/uL (130-400); RDW Standard Deviation 41.6 fL (36.4-46.3); Red Blood Count 4.78 M/uL (4.70-6.10); White Blood Count 6.46 K/ul (4.8-10.8)
[2025-08-14 12:38] LABS: Alanine Aminotransferase 22 U/L (7-52); Albumin Globulin Ratio 1.4 (0.9-2); Albumin Level 4.3 gm/dl (3.4-5.0); Alkaline Phosphatase 57 U/L (34-104); Anion Gap 7 (3-11); Bilirubin,Total 0.7 mg/dl (0.2-1.0); Blood Urea Nitrogen 17 mg/dl (6-23); Calcium 9.5 mg/dl (8.6-10.3); Carbon Dioxide 26 mmol/L (21-32); Chloride 103 mmol/L (98-107); Globulin 3.1 gm/dl (2.5-4.0); Glucose 93 mg/dl (70-99(Fasting)); Potassium 3.9 mmol/L (3.5-5.1); Sodium 136 mmol/L (136-145); Total Protein 7.4 gm/dl (6.0-8.3)
[2025-08-14 12:40] LABS: INR 1.0 (0.9-1.1); Partial Thromboplastin Time 32 Seconds (21-31); Prothrombin Time 10.9 Seconds (9.0-12.0)
[2025-08-14 12:49] LABS: Thyroid Stimulating Hormone 1.934 uIu/ml (0.300-4.500)
[2025-08-14] MEDS: OPTIRAY 320 125ml IV ONE (12:49)
--- NOTE | 2025-08-14 13:00 | CT Scan Report ---
CT angio neck with con CLINICAL HISTORY: frontal headache, R leg weakness. TECHNIQUE: Following the IV administration of 120 of Optiray, CT angiogram of the neck was performed from the aortic arch to the skull base. Images are reviewed in the axial, sagittal, and coronal plane s. 3-D MIPS images are created and assessed. IV contrast was administered without complication. All m easurements were calculated based on NASCET criteria. A dose lowering technique was utilized adherin g to the principles of ALARA. COMPARISON STUDY: 03/31/2024 FINDINGS: There are minimal carotid bulb calcifications. There are mild calcifications distally at th e internal carotid arteries. No significant narrowing or occlusion seen at the common or internal car otid arteries bilaterally or the vertebral arteries bilaterally. Stable enlarged thyroid gland. IMPRESSION: No significant arterial narrowing or occlusion seen at the neck. ACT 112: Negative or not required by law. The above report was generated using voice recognition software. It may contain grammatical, syntax o r spelling errors. Electronically signed by: Yusef Rangel M.D. 08/14/2025 12:58 PM
--- NOTE | 2025-08-14 13:09 | CT Scan Report ---
CT angio head wo/w CLINICAL HISTORY: 59 years-old Male with frontal headache, R leg weakness. Acute stroke like sympt oms COMPARISON STUDY: CTA neck of same day, brain MRI 03/31/2024, CT head 03/31/2024 TECHNIQUE: Unenhanced axial CT scan of the brain is performed. Subsequently, following the IV adminis tration of 118 cc of Optiray, CT angiogram of the brain was performed from the skull base to the vert ex. Images are reviewed in the axial, sagittal, and coronal planes. 3-D MIPS images are created and a ssessed. IV contrast was administered without complication. All measurements were obtained according to NASCET criteria. A dose lowering technique was utilized adhering to the principles of ALARA. CT DOSE: 1353.83 mGy.cm FINDINGS: CT BRAIN: There is no acute intracranial hemorrhage, midline shift, hydrocephalus, intracranial mass, territori al ischemia or abnormal extra-axial collections. Involutional changes with probable chronic microvasc ular ischemic disease. Probable tiny chronic lacunar infarcts of the basal ganglia. Partially empty s maru. No abnormal intra-axial or extra-axial enhancement. Trace left mastoid effusion. CT ANGIOGRAM OF THE BRAIN: The imaged bilateral internal carotid arteries are patent. The bilateral anterior and middle cerebral arteries are also patent. Mild stenosis of the distal right vertebral artery secondary to atheroscle rosis. origin of the right posterior cerebral artery. There is no aneurysm, high-grade stenosis , or proximal branch occlusion identified. Dural sinuses appear patent. IMPRESSION: 1. No acute intracranial abnormality. 2. Unremarkable CTA of the head. ACT 112: Negative or not required by law. The above report was generated using voice recognition software. It may contain grammatical, syntax o r spelling errors. Electronically signed by: Lokesh Irby M.D. 08/14/2025 1:07 PM
--- NOTE | 2025-08-14 14:23 | History & Physical Report ---
Date of Service August 14, 2025 Assessment & Plan (1) TIA (transient ischemic attack): Plan: Patient is a 59 year old M with a past medical history of CVA 02/2024 on anticoagulation w/ Eliquis, HTN, Afib, HTN, DM Type II non-insulin dependent, morbid obesity, PAOLA on CPAP, HLD, hypothyroidism, OA with chronic LBP presenting with RLE weakness since this morning. Patient reports having on and off RLE weakness that started this morning, feels like the right leg is dragging, numbness/weakness starts in the knee and extends to feet. Lasts several minutes and relieved after sitting. Reports having a history of LBP and follows [facility] pain clinic at [facility], most recent steroid injection was less than 6 months ago. TIA in setting of stroke-like symptoms with H/O CVA 2023 * Admit to [facility] for observation for r/o stroke * Stroke-like sx RLE weakness w/ symptom onset this morning x 3 episodes; on Eliquis for h/o Afib * Head CT, CVA head/neck without acute CVA * Obtain MRI Brain wo contrast for R/O stroke-ordered and pending * Echo from 06/2025 showing LV wall thickness is moderately increased; LV ejection fraction is 55-59%; Grade I left ventricular diastolic function ; left atrium is moderately enlarged (42-48 ml/m^2). Mild mitral regurgitation is present. The aortic root is moderately enlarged. (4.4 cm). * Has Loop recorder with 1 episode of PAF x 7 minutes from 07/2025 * Follows [facility], last seen 08/07/25; decreased diuretic dosing at that time, mild hypervolemia noted. #Hypertension * BP Goal 140/90 * Continue home meds and trend BP's * Renal functioning stable #Diabetes Type II, non-insulin dependent * Most recent A1C 7.2% * Hold home mounjaro and metformin * SSI while inpatient-> Goal BSG 110-140 * Accucheck ACHS #Hyperlipidemia * Continue home statin #PAOLA * CPAP nightly per protocol * O2 as needed to maintain sats >92% DVT Ppx: on Eliquis Code status: Full PCP: Dr. Sophie Licea Dispo: Admit for obs Patient seen in collaboration with Dr. Jackson. Please see addendum.I spent a total of 60 minutes coordinating, documenting and providing care for this patient excluding time spent in the performance of separately billed services or time spent by another provider/QHP. (2) Stroke-like symptoms: (3) HTN (hypertension): (4) DM II (diabetes mellitus, type II), controlled: (5) HLD (hyperlipidemia): (6) PAOLA on CPAP: History of Present Illness Primary Care Provider: Sophie Licea MD Patient is a 59 year old M with a past medical history of CVA 02/2024 on anticoagulation w/ Eliquis, HTN, Afib, HTN, DM Type II non-insulin dependent, morbid obesity, PAOLA on CPAP, HLD, hypothyroidism, OA with chronic LBP presenting with RLE weakness since this morning. Patient reports having on and off RLE weakness that started this morning, feels like the right leg is dragging, numbness/weakness starts in the knee and extends to feet. Lasts several minutes and relieved after sitting. Reports having a history of LBP and follows [facility] pain clinic at [facility], most recent steroid injection was less than 6 months ago. Denies fever, chills, weight loss, dizziness, headache, cognitive changes, vision/hearing changes, chest pain, SOB, swelling, difficulty breathing, urinary concerns, N/V/D, joint swelling/pain, skin rashes, lesions, bleeding, bruising. In the emergency department, patient was hemodynamically stable with no signs of infection or sepsis. Lab workup unremarkable. History of CVA in February 2024 and has been anticoagulated with Eliquis. No focal deficits or changes. He has baseline vision deficit with corrective lenses. Tinnitus to bilateral ears and wears hearing aides. History of Afib with rate control on Metoprolol. Has a loop recorder and follows [facility]. EKG w/ sinus barbara, vent rate 59 bpm, QTc 431. Trop normal. Imaging obtained for suspected CVA in the setting of RLE weakness. Head CT revealed tiny chronic lacunar infarcts of the basal ganglia, no acute findings. CTA Head/Neck showing mild stenosis of the distal right vertebral artery secondary to atherosclerosis; No significant arterial narrowing or occlusion seen at the neck. As per external chart review, Echo from 06/2025 showing LV wall thickness is moderately increased; LV ejection fraction is 55-59%; Grade I left ventricular diastolic function ; left atrium is moderately enlarged (42-48 ml/m^2). Mild mitral regurgitation is present. The aortic root is moderately enlarged. (4.4 cm). Loop recorder placed 05/18/2024 with interrogation on 07/30/25 revealed an episode of PAF x 7 minutes and 11 seconds with an average ventricular rate of 65 bpm. Last seen by [facility] on 08/07/25 with med changes- diuretic dosing. History obtained primarily from the patient and via hospitalization record. External chart review obtained from [employer]. Allergies Allergy/AdvReac Type Severity Reaction Status Date / Time aspirin AdvReac Intermediate nose bleeds Verified 07/14/25 11:27 NSAIDS (Non-Steroidal AdvReac Intermediate to avoid Verified 07/14/25 11:27 Anti-Inflamma d/t stomach/esophagus irritation Pork/Porcine Containing AdvReac Intermediate diarrhea Verified 07/14/25 11:27 Products Home Medications Medication Instructions Recorded Confirmed Type ascorbic acid (vitamin C) 500 mg 500 mg PO DAILY 06/28/19 08/14/25 History tablet (Vitamin C) famotidine 40 mg tablet 40 mg PO BID 06/28/19 08/14/25 History lisinopril 40 mg tablet 40 mg PO QAM 06/28/19 08/14/25 History montelukast 10 mg tablet 10 mg PO DAILY 06/28/19 08/14/25 History tramadol 50 mg tablet 50 mg PO BID PRN Pain 06/28/19 08/14/25 History vitamin B complex 1 tab PO DAILY 06/28/19 08/14/25 History albuterol sulfate 90 mcg/actuation 2 puff inhalation Q4 PRN Shortness 08/28/22 08/14/25 History aerosol inhaler Of Breath Or Wheezing glucosamine sulfate 500 mg tablet 500 mg PO DAILY 08/28/22 08/14/25 History (Glucosamine) metoprolol succinate 25 mg 50 mg PO QAM 08/28/22 08/14/25 History tablet,extended release 24 hr multivitamin 1 tab PO DAILY 08/28/22 08/14/25 History turmeric 400 mg capsule 400 mg PO DAILY 08/28/22 08/14/25 History levothyroxine 175 mcg tablet 175 mcg PO QAM 03/07/24 08/14/25 History spironolactone 25 mg tablet 25 mg PO DAILY 04/01/24 08/14/25 History apixaban 5 mg tablet (Eliquis) 5 mg PO BID 07/14/25 08/14/25 History atorvastatin 40 mg tablet 40 mg PO QAM 07/14/25 08/14/25 History furosemide 40 mg tablet 60 mg PO QAM 07/14/25 08/14/25 History metformin 1,000 mg tablet 1,000 mg PO QAM 07/14/25 08/14/25 History pantoprazole 40 mg tablet,delayed 40 mg PO DAILYBB 07/14/25 08/14/25 History release tadalafil 20 mg tablet 20 mg PO DIRECTED PRN Sexual 07/14/25 08/14/25 History Bonney tirzepatide 5 mg/0.5 mL 5 mg subcut WK 07/14/25 08/14/25 History subcutaneous pen injector (Mounjaro) Past Med/Surg History Problem List (Updated 08/14/25 @ 17:26 by Lenin Vallejo PA-C) Headache (Acute) Transient right leg weakness (Acute) TIA (transient ischemic attack) Stroke-like symptoms (Acute) Nausea (Acute) Dizziness (Acute) Generalized osteoarthritis of multiple sites Nausea alone Dizziness on standing Acute headache (Acute) Hypothyroidism, unspecified Esophageal reflux History of ischemic stroke (Acute) Morbid obesity PAOLA on CPAP HLD (hyperlipidemia) DM II (diabetes mellitus, type II), controlled HTN (hypertension) Asthma Head injury (Acute) Medical History Acute CVA (cerebrovascular accident) Diverticulitis Bronchitis Right knee injury Hydronephrosis History of deviated nasal septum Surgical History Hx of vasectomy Hx of cystoscopy Hx of sinus surgery Family History Other Cancer Diabetes Heart disease Hypertension Social History Smoking Status: Former smoker Tobacco Type: Cigarettes Smoking End Date: 20+ yrs ago; Second Hand Exposure: Yes (at work); Do You Dip or Chew Tobacco: No; Tobacco Cessation Education Requested by Patient: No Hx Alcohol Use: Yes Alcohol type: beer Hx Substance Use: No Preferred Language: French Communication Ability: Effective Hand Potter Required: No Beliefs That Will Affect Care: None Current Living Situation: Alone Other Information That Helps Us Care for You: No Feels Safe at Home: Yes Safety Concerns: Feels Safe At This Time Assistive Devices: CPAP, Denture - Upper, Denture - Lower, Glasses and Hearing Aid - Bilateral Review of Systems Review of Systems: All systems reviewed & are unremarkable except as noted in HPI & below Physical Exam Physical Exam: VITALS: Reviewed. WEIGHT/BMI reviewed. GEN: Healthy appearing, well-developed, NAD. PSYCH: Good Judgment. AOx3. Normal memory, mood, and affect. HEENT -Head: NC/AT; -Eyes: PERRL, EOMI. No discharge or redn ess; -Ears: External ears are normal. Hearing intact with B/L hearing aides. -Nose: Normal nares. -Mouth and throat: MMM. Normal gums, muc paola, palate,. Good dentition. NECK: Supple, with no masses. CV: S1, S2 with no murmur or extra beats, RRR, no m/r/g. LUNGS: CTAB, no w/r/c. ABD: Soft, nontender, round, NBS, no masses or organomegaly. : N/A SKIN: Warm, well perfused. No skin rashes or abnormal lesions. MSK: No deformities, Strength 5/5 BLE EXT: No clubbing, cyanosis, or edema. NEURO: Ambulating with no limitations. Normal muscle strength and tone. No focal deficits. Results & Data Results & Data Vital Signs (Past 12 Hours) Vital Signs Temp Pulse Pulse Resp BP BP Pulse Ox 08/14/25 13:06 57 L 23 129/78 95 08/14/25 12:12 58 L 08/14/25 11:40 55 L 12 95 08/14/25 11:40 61 14 104/82 96 08/14/25 11:22 36.7 C 65 18 127/79 97 O2 Del Method 08/14/25 13:06 Room Air 08/14/25 12:12 08/14/25 11:40 Room Air 08/14/25 11:40 Room Air 08/14/25 11:22 Room Air Laboratory Results Short CBC 08/14/25 Range/Units 12:01 WBC 6.46 (4.8-10.8) K/ul Hgb 13.7 L (14.0-18.0) g/dl Hct 40.9 L (42.0-52.0) % Plt Count 235 (130-400) K/uL BMP 08/14/25 12:01 Sodium 136 Potassium 3.9 Chloride 103 Carbon Dioxide 26 BUN 17 Creatinine 0.97 Glucose 93 Calcium 9.5 Liver Function 08/14/25 Range/Units 12:01 Total Bilirubin 0.7 (0.2-1.0) mg/dl AST 22 (13-39) U/L ALT 22 (7-52) U/L Alkaline Phosphatase 57 (34-104) U/L Albumin 4.3 (3.4-5.0) gm/dl Diagnostic Findings Head CTA 08/14/25 11:40 CT angio head wo/w CLINICAL HISTORY: 59 years-old Male with frontal headache, R leg weakness. Acute stroke like symptoms COMPARISON STUDY: CTA neck of same day, brain MRI 03/31/2024, CT head 03/31/2024 TECHNIQUE: Unenhanced axial CT scan of the brain is performed. Subsequently, following the IV administration of 118 cc of Optiray, CT angiogram of the brain was performed from the skull base to the vertex. Images are reviewed in the axial, sagittal, and coronal planes. 3-D MIPS images are created and assessed. IV contrast was administered without complication. All measurements were obtained according to NASCET criteria. A dose lowering technique was utilized adhering to the principles of ALARA. CT DOSE: 1353.83 mGy.cm FINDINGS: CT BRAIN: There is no acute intracranial hemorrhage, midline shift, hydrocephalus, intracranial mass, territorial ischemia or abnormal extra-axial collections. Involutional changes with probable chronic microvascular ischemic disease. Probable tiny chronic lacunar infarcts of the basal ganglia. Partially empty sella. No abnormal intra-axial or extra-axial enhancement. Trace left mastoid effusion. CT ANGIOGRAM OF THE BRAIN: The imaged bilateral internal carotid arteries are patent. The bilateral anterior and middle cerebral arteries are also patent. Mild stenosis of the distal right vertebral artery secondary to atherosclerosis. origin of the right posterior cerebral artery. There is no aneurysm, high-grade stenosis, or proximal branch occlusion identified. Dural sinuses appear patent. IMPRESSION: 1. No acute intracranial abnormality. 2. Unremarkable CTA of the head. ACT 112: Negative or not required by law. The above report was generated using voice recognition software. It may contain grammatical, syntax or spelling errors. Electronically signed by: Lokesh Irby M.D. 08/14/2025 1:07 PM Neck CTA 08/14/25 11:40 CT angio neck with con CLINICAL HISTORY: frontal headache, R leg weakness. TECHNIQUE: Following the IV administration of 120 of Optiray, CT angiogram of the neck was performed from the aortic arch to the skull base. Images are reviewed in the axial, sagittal, and coronal planes. 3-D MIPS images are created and assessed. IV contrast was administered without complication. All measurements were calculated based on NASCET criteria. A dose lowering technique was utilized adhering to the principles of ALARA. COMPARISON STUDY: 03/31/2024 FINDINGS: There are minimal carotid bulb calcifications. There are mild calcifications distally at the internal carotid arteries. No significant narrowing or occlusion seen at the common or internal carotid arteries bilaterally or the vertebral arteries bilaterally. Stable enlarged thyroid gland. IMPRESSION: No significant arterial narrowing or occlusion seen at the neck. ACT 112: Negative or not required by law. The above report was generated using voice recognition software. It may contain grammatical, syntax or spelling errors. Electronically signed by: Yusef Rangel M.D. 08/14/2025 12:58 PM Supervising Physician Co-Signing Physician Notes Attending Addendum: Case reviewed with the advanced practitioner. I have personally performed a history and physical examination on the patient. I have reviewed the advanced practitioner's documentation on the date of service referenced in note, and I agree with, and take responsibility for the plan of care. please refer to her notes for full details patient seen and examined, records reviewed by myself as well on exam, patient seen resting in bed, sitting up states he feels better overall no recurrence of R lower leg weakness no other symptoms VS noted and reviewed oriented x 3, not in distress, speaks in sentences with no effort nor accessory muscle use normal rate, regular rhythm, no murmurs clear breath sounds bilaterally non distended, soft, nontender no bipedal edema, erythema, warmth motor strength 5/5 on all ext, no other gross focal neuro deficits all labs, imaging noted and reviewed ASSESSMENT AND PLAN> EPISODES OF R LOWER LEG WEAKNESS A FIB ON ELIQUIS, HISTORY OF CVA Brain MRI: no acute CVA continue Elialma rosa Neuro consulted other diagnoses and plan of care as per advanced practitioner's notes I spent a total of 40 minutes coordinating, documenting, and providing care for this patient, excluding time spent in the performance of separately billed services or time spent by another provider/QHP. Eugene Jackson MD (3) HTN (hypertension) Hypertension type: unspecified Qualified Code(s): I10 - Essential (primary) hypertension (5) HLD (hyperlipidemia) Hyperlipidemia type: unspecified Qualified Code(s): E78.5 - Hyperlipidemia, unspecified
[2025-08-14] MEDS ORDERED: DEXTROSE 50% 50 ML SYRINGE IV PRN (16:36)
[2025-08-14] MEDS ORDERED: MAGNESIUM HYDROXIDE SUSP 30 ML UDC PO PRN (16:36)
[2025-08-14] MEDS ORDERED: ALUMINUM/MAGNESIUM SUSP 30 ML UDC PO PRN (16:36)
[2025-08-14] MEDS ORDERED: CARBOHYDRATES FOR HYPOGLYCEMIA PO PRN (16:36)
[2025-08-14] MEDS ORDERED: GLUCOSE 10 TAB/TUBE PO PRN (16:36)
[2025-08-14] MEDS ORDERED: MELATONIN 3 MG TAB PO PRN (16:36)
[2025-08-14] MEDS ORDERED: GLUCAGON FOR INJ 1 MG VIAL SQ PRN (16:36)
[2025-08-14] MEDS ORDERED: ONDANSETRON INJ 2 MG/ML 2 ML VIAL IV PRN (16:36)
[2025-08-14] MEDS ORDERED: POLYETHYLENE (MIRALAX) 17 GM PACK PO PRN (16:36)
[2025-08-14] MEDS ORDERED: GLUCOSE 40% GEL 15 GM TUBE PO PRN (16:36)
[2025-08-14] MEDS: INSULIN ASPART PER UNIT CHARGE SC SCH (17:15)
--- NOTE | 2025-08-14 19:00 | Magnetic Resonance Report ---
MRI of the brain performed without IV contrast History: Rule out stroke Comparison: March 31, 2024 Technique: Sagittal T1-weighted and axial T2-weighted, T2/FLAIR and diffusion-weighted with ADC map images of the brain were obtained without IV contrast. Findings: No evidence for intracranial mass lesion, mass-effect, midline shift, or abnormal extra-axial fluid collection. The ventricles and sulci are within normal limits for age. Mild chronic microvascular ischemic changes. Small chronic lacunar infarcts in the basal ganglia bilaterally. No abnormally reduced diffusion or evidence for acute infarct. Normal intravascular flow voids. Left-sided mastoid air cell effusion. Impression: Normal brain MRI Electronically signed by Sony Mendoza 08-14-2025 6:59 PM
[2025-08-14] MEDS: APIXABAN 5 MG TABLET PO SCH (20:27)
[2025-08-14] MEDS: FAMOTIDINE 20 MG TAB PO SCH (20:28)
[2025-08-15] MEDS: LEVOTHYROXINE SODIUM 175 MCG TABLET PO SCH (05:37)
[2025-08-15 06:28] LABS: Hematocrit (blood only) 41.7 % (42.0-52.0); Hemoglobin 13.8 g/dl (14.0-18.0); Mean Corpuscular Hemoglobin 28.6 pg (25.0-34.0); Mean Corpuscular Volume 86.5 fL (80.0-100.0); Platelet Count 214 K/uL (130-400); RDW Standard Deviation 41.8 fL (36.4-46.3); Red Blood Count 4.82 M/uL (4.70-6.10); White Blood Count 7.14 K/ul (4.8-10.8)
[2025-08-15 06:50] LABS: Anion Gap 6.0 (3-11); Blood Urea Nitrogen 16.0 mg/dl (6-23); Calcium 9.3 mg/dl (8.6-10.3); Carbon Dioxide 27.0 mmol/L (21-32); Chloride 103.0 mmol/L (98-107); Creatinine Clr Calc Pharmacy 105.9 ml/min; Glucose 106.0 mg/dl (70-99(Fasting)); Magnesium 2.2 mg/dl (1.7-2.4); Potassium 3.9 mmol/L (3.5-5.1); Sodium 136.0 mmol/L (136-145)
[2025-08-15 08:57] LABS: Hemoglobin A1C 5.9 % (4.5-5.6)
[2025-08-15] MEDS: ATORVASTATIN 40 MG TAB PO SCH (09:00)
[2025-08-15] MEDS ORDERED: FUROSEMIDE 20 MG TAB PO SCH (09:00)
[2025-08-15] MEDS: ASCORBIC ACID 500 MG TAB PO SCH (09:00)
[2025-08-15] MEDS ORDERED: SPIRONOLACTONE 25 MG TAB PO SCH (09:00)
[2025-08-15] MEDS: FUROSEMIDE 40 MG TAB PO SCH (09:01)
[2025-08-15] MEDS: SPIRONOLACTONE 12.5 MG TAB PO SCH (09:04)
[2025-08-15] MEDS: MULTIVITAMIN TAB PO SCH (09:04)
[2025-08-15] MEDS: METOPROLOL SUCC 50MG EXT REL TAB PO SCH (09:10)
[2025-08-15 09:21] LABS: Creatine Kinase 129.0 U/L (30-223)
--- NOTE | 2025-08-15 09:45 | Electrocardiogram Report ---
Test Reason : Blood Pressure : */* mmHG Vent. Rate : 59 BPM Atrial Rate : 59 BPM P-R Int : 170 ms QRS Dur : 94 ms QT Int : 436 ms P-R-T Axes : 9 -40 -4 degrees QTcB Int : 431 ms Sinus bradycardia Left axis deviation Incomplete right bundle branch block Minimal voltage criteria for LVH, may be normal variant ( R in aVL ) Abnormal ECG When compared with ECG of 14-Jul-2025 09:47, Sinus rhythm has replaced Atrial fibrillation Vent. rate has decreased by 78 bpm Incomplete right bundle branch block is now Present T wave amplitude has decreased in Anterolateral leads Confirmed by Noam Collazo ([id number]) on 08/15/2025 9:44:56 AM Referred By: Confirmed By: Noam Collazo
[2025-08-15] MEDS: ACETAMINOPHEN 325 MG TAB PO PRN (11:50)
--- NOTE | 2025-08-15 12:56 | Neurology Consultation ---
Date of Consultation August 15, 2025 Assessment & Plan (1) Transient right leg weakness: Mr. Almendarez is a 59 yo M presents with transient right-leg weakness, facial numbness, and orthostatic dizziness in the setting of prior strokes and negative recent neuroimaging. Given the pattern of weakness upon standing would check orthostatics. Seems to be at baseline currently. Alternative possibilities include recrudescence from his prior strokes, migraine or lumbar stenosis, though spinal issues would not explain the headache/dizziness/facial numbness. From a vascular perspective he is medically optimized. This is not consistent with a TIA or stroke. - Check orthostatic blood pressures to exclude pressure drop on standing. - Continue observation for symptom recurrence. - Consider physical therapy referral. - Neurology follow-up if symptoms persist. Telehealth Consultation Telehealth Information Telehealth Information: I performed this visit using a real-time telehealth connection between my lo cation and the patients location ([facility]). After connecting through interactive tele-video, patient was identified by name and date of and/or wristband check.Patient (or authorized healthcare chemical sales representative) was informed that this was a telemedicine visit and it was being conducted confidentially over secure lines. My office door was closed and no one else was present in the room with me.Patient (or authorized healthcare chemical sales representative) provided consent to proceed with the visit, expressed an understanding of privacy and security of the telemedicine visit, and gave permission to have a hospital chemical sales representative in the room in order to assist with the visit and to conduct portions of the visit, as needed. I informed the patient (or authorized healthcare chemical sales representative) that I reviewed their record and presented the opportunity for them to ask any questions regarding the visit today. The patient agreed to participate. History of Present Illness Reason for Consultation: R leg weakness Requesting Physician: Dr. Parisi Attending Physician: Ethan Parisi MD History of Present Illness Mr. Almendarez is a 59 yo M presenting with right-leg weakness that was described as jello-y, accompanied by facial numbness, a worsened baseline headache, and light-headedness upon standing; the leg weakness persisted at the time of interview. He reported a history of similar leg weakness years earlier that prompted evaluation for multiple sclerosis with negative results, and he acknowledged prior micro strokes, including one presenting with vertigo 18 months earlier. He denied recent illness or fall, stated that his chronic back issues scheduled for injection treatment in October could be contributory, and mentioned long-standing diabetes and sleep apnea. Noted peripheral neuropathy diagnosis. Denies any new back pain or shooting pain into the leg. Allergies Allergy/AdvReac Type Severity Reaction Status Date / Time aspirin AdvReac Intermediate nose bleeds Verified 07/14/25 11:27 NSAIDS (Non-Steroidal AdvReac Intermediate to avoid Verified 07/14/25 11:27 Anti-Inflamma d/t stomach/esophagus irritation Pork/Porcine Containing AdvReac Intermediate diarrhea Verified 07/14/25 11:27 Products Home Medications Medication Instructions Recorded Confirmed Type ascorbic acid (vitamin C) 500 mg 500 mg PO DAILY 06/28/19 08/14/25 History tablet (Vitamin C) famotidine 40 mg tablet 40 mg PO BID 06/28/19 08/14/25 History lisinopril 40 mg tablet 40 mg PO QAM 06/28/19 08/14/25 History montelukast 10 mg tablet 10 mg PO DAILY 06/28/19 08/14/25 History tramadol 50 mg tablet 50 mg PO BID PRN Pain 06/28/19 08/14/25 History vitamin B complex 1 tab PO DAILY 06/28/19 08/14/25 History albuterol sulfate 90 mcg/actuation 2 puff inhalation Q4 PRN Shortness 08/28/22 08/14/25 History aerosol inhaler Of Breath Or Wheezing glucosamine sulfate 500 mg tablet 500 mg PO DAILY 08/28/22 08/14/25 History (Glucosamine) metoprolol succinate 25 mg 50 mg PO QAM 08/28/22 08/14/25 History tablet,extended release 24 hr multivitamin 1 tab PO DAILY 08/28/22 08/14/25 History turmeric 400 mg capsule 400 mg PO DAILY 08/28/22 08/14/25 History levothyroxine 175 mcg tablet 175 mcg PO QAM 03/07/24 08/14/25 History spironolactone 25 mg tablet 25 mg PO DAILY 04/01/24 08/14/25 History apixaban 5 mg tablet (Eliquis) 5 mg PO BID 07/14/25 08/14/25 History atorvastatin 40 mg tablet 40 mg PO QAM 07/14/25 08/14/25 History furosemide 40 mg tablet 60 mg PO QAM 07/14/25 08/14/25 History metformin 1,000 mg tablet 1,000 mg PO QAM 07/14/25 08/14/25 History pantoprazole 40 mg tablet,delayed 40 mg PO DAILYBB 07/14/25 08/14/25 History release tadalafil 20 mg tablet 20 mg PO DIRECTED PRN Sexual 07/14/25 08/14/25 History [place] tirzepatide 5 mg/0.5 mL 5 mg subcut WK 07/14/25 08/14/25 History subcutaneous pen injector (Mounjaro) Patient History Medical History Acute CVA (cerebrovascular accident) Diverticulitis Bronchitis Right knee injury Hydronephrosis History of deviated nasal septum Surgical History Hx of vasectomy Hx of cystoscopy Hx of sinus surgery Family History Other Cancer Diabetes Heart disease Hypertension Social History Smoking Status: Former smoker Tobacco Type: Cigarettes Smoking End Date: 20+ yrs ago; Second Hand Exposure: Yes (at work); Do You Dip or Chew Tobacco: No; Tobacco Cessation Education Requested by Patient: No Hx Alcohol Use: Yes Alcohol type: beer Hx Substance Use: No Preferred Language: Latvian Communication Ability: Effective 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 Oriented to person, place, and time. Fluent. Comprehension intact. Affect appropriate. Cranial Nerves: II: pupils 3/3 to 2/2, mendiola grossly intact. III/IV/: Versions intact without nystagmus, no gaze preference. VII: Facial expression symmetric VIII: Hearing intact to voice Motor: Strength was symmetric and antigravity throughout. Pronator drift was absent. There were no abnormal movements. Results & Data Vital Signs (Past 12 Hours) Vital Signs Temp Pulse Pulse Pulse Resp BP Pulse Ox 08/15/25 12:12 36.4 C L 69 16 148/86 H 97 08/15/25 11:08 36.5 C 56 L 16 143/86 H 96 08/15/25 07:48 36.4 C L 57 L 14 119/77 94 08/15/25 07:00 55 L 08/15/25 02:17 36.7 C 54 L 18 130/79 98 08/15/25 02:17 60 15 97 O2 Del Method O2 Flow Rate 08/15/25 12:12 Room Air 08/15/25 11:08 Room Air 08/15/25 07:48 Room Air 08/15/25 07:00 08/15/25 02:17 CPAP 08/15/25 02:17 3 Laboratory Results Abnormal lab results 08/15/25 08/15/25 Range/Units 05:42 07:18 Hgb 13.8 L (14.0-18.0) g/dl Hct 41.7 L (42.0-52.0) % Glucose 106 H (70-99(Fasting)) mg/dl POC Glucose 113 H (70-99) mg/dl Hemoglobin A1c 5.9 H (4.5-5.6) % Diagnostic Findings Head CTA 08/14/25 11:40 CT angio head wo/w CLINICAL HISTORY: 59 years-old Male with frontal headache, R leg weakness. Acute stroke like symptoms COMPARISON STUDY: CTA neck of same day, brain MRI 03/31/2024, CT head 03/31/2024 TECHNIQUE: Unenhanced axial CT scan of the brain is performed. Subsequently, following the IV administration of 118 cc of Optiray, CT angiogram of the brain was performed from the skull base to the vertex. Images are reviewed in the axial, sagittal, and coronal planes. 3-D MIPS images are created and assessed. IV contrast was administered without complication. All measurements were obtained according to NASCET criteria. A dose lowering technique was utilized adhering to the principles of ALARA. CT DOSE: 1353.83 mGy.cm FINDINGS: CT BRAIN: There is no acute intracranial hemorrhage, midline shift, hydrocephalus, intracranial mass, territorial ischemia or abnormal extra-axial collections. Involutional changes with probable chronic microvascular ischemic disease. Probable tiny chronic lacunar infarcts of the basal ganglia. Partially empty sella. No abnormal intra-axial or extra-axial enhancement. Trace left mastoid effusion. CT ANGIOGRAM OF THE BRAIN: The imaged bilateral internal carotid arteries are patent. The bilateral anterior and middle cerebral arteries are also patent. Mild stenosis of the distal right vertebral artery secondary to atherosclerosis. origin of the right posterior cerebral artery. There is no aneurysm, high-grade stenosis, or proximal branch occlusion identified. Dural sinuses appear patent. IMPRESSION: 1. No acute intracranial abnormality. 2. Unremarkable CTA of the head. ACT 112: Negative or not required by law. The above report was generated using voice recognition software. It may contain grammatical, syntax or spelling errors. Electronically signed by: Lokesh Irby M.D. 08/14/2025 1:07 PM Neck CTA 08/14/25 11:40 CT angio neck with con CLINICAL HISTORY: frontal headache, R leg weakness. TECHNIQUE: Following the IV administration of 120 of Optiray, CT angiogram of the neck was performed from the aortic arch to the skull base. Images are r eviewed in the axial, sagittal, and coronal planes. 3-D MIPS images are created and assessed. IV contrast was administered without complication. All measurements were calculated based on NASCET criteria. A dose lowering technique was utilized adhering to the principles of ALARA. COMPARISON STUDY: 03/31/2024 FINDINGS: There are minimal carotid bulb calcifications. There are mild calcifications distally at the internal carotid arteries. No significant narrowing or occlusion seen at the common or internal carotid arteries bilaterally or the vertebral arteries bilaterally. Stable enlarged thyroid gland. IMPRESSION: No significant arterial narrowing or occlusion seen at the neck. ACT 112: Negative or not required by law. The above report was generated using voice recognition software. It may contain grammatical, syntax or spelling errors. Electronically signed by: Yusef Rangel M.D. 08/14/2025 12:58 PM Brain MRI 08/14/25 16:11 MRI of the brain performed without IV contrast History: Rule out stroke Comparison: March 31, 2024 Technique: Sagittal T1-weighted and axial T2-weighted, T2/FLAIR and diffusion-weighted with ADC map images of the brain were obtained without IV contrast. Findings: No evidence for intracranial mass lesion, mass-effect, midline shift, or abnormal extra-axial fluid collection. The ventricles and sulci are within normal limits for age. Mild chronic microvascular ischemic changes. Small chronic lacunar infarcts in the basal ganglia bilaterally. No abnormally reduced diffusion or evidence for acute infarct. Normal intravascular flow voids. Left-sided mastoid air cell effusion. Impression: Normal brain MRI Electronically signed by Sony Mendoza 08-14-2025 6:59 PM
[2025-08-15] MEDS: LACTATED RINGER'S 500 ML IV SCH (13:37)
[2025-08-15] MEDS: OPTIRAY 320 100ml IV ONE (13:55)
--- NOTE | 2025-08-15 15:00 | CT Scan Report ---
CT lumbar spine wo/w con HISTORY: 59 years-old Male Right Leg weakness, Back Pain acute low back pain with right lower leg we akness COMPARISON: CT abdomen and pelvis 06/06/2025 TECHNIQUE: Multiple axial CT images of the spine were obtained with and without IV contrast. A dose l owering technique was used consistent with the principals of LESLYE. FINDINGS: The imaged intra-abdominal bilateral structures are unremarkable. No paravertebral edema or fluid col lections. Mild lumbar levoscoliosis. Mild to moderate degeneration of the SI joints. No acute fractur e, subluxation or endplate erosion. Suboptimal evaluation of the central canal and neural foramen by CT technique. Mild multilevel spondylotic spurring, intervertebral disc space narrowing with annular disc bulging and moderate to severe facet arthrosis. Mild epidural lipomatosis of the lower lumbar sp ine. T12-L1: No central canal or neural foraminal narrowing. L1-L2: Small posterior annular disc bulge. 6 x 3 mm left paracentral disc protrusion causes mild left lateral recess narrowing. Patent central canal and right neural foramen. Mild left neural foraminal stenosis. L2-L3: Small posterior annular disc bulge. No central canal or foraminal narrowing. L3-L4: Spondylitic spurring with small circumferential annular disc bulge. Ligamentum flavum thickeni ng with severe facet arthrosis. Superimposed 11 x 4 mm right lateral recess/right foraminal disc prot rusion on image 234 series 5. Moderate lateral recess narrowing with minimal right foraminal stenosis . The central canal and left neural foramen are patent. L4-L5: Spondylotic spurring with small circumferential annular disc bulge. Ligamentum flavum thickeni ng with severe facet arthrosis. Small posterior annular disc bulge. Ligamentum flavum thickening with severe facet arthrosis. Moderate narrowing of the lateral recesses with mild central canal stenosis, AP dimension of the thecal sac measuring 9 mm. Mild left with mild to moderate right neural foramina l narrowing. L5-S1: Circumferential disc osteophyte complex, most pronounced posteriorly. Ligamentum flavum thicke oscar with severe facet arthrosis causes minimal central canal stenosis with AP dimension of the theca l sac measuring 9 mm. Moderate to severe narrowing of the lateral recesses. Moderate bilateral neural foraminal stenosis. IMPRESSION: 1. No acute fracture or subluxation. 2. Discogenic degeneration with spondylotic spurring and facet arthrosis as above causing multilevel neural foraminal narrowing, moderate bilaterally at L5-S1. 3. No high-grade central canal stenosis. 4. Mild lumbar levoscoliosis. ACT 112: Negative or not required by law. The above report was generated using voice recognition software. It may contain grammatical, syntax o r spelling errors. Electronically signed by: Lokesh Irby M.D. 08/15/2025 2:58 PM
--- NOTE | 2025-08-15 15:13 | Hospitalist Progress Note ---
Date of Service August 15, 2025 Assessment & Plan (1) TIA (transient ischemic attack): Plan: Patient is a 59 year old M with a past medical history of CVA 02/2024 on anticoagulation w/ Eliquis, HTN, Afib, HTN, DM Type II non-insulin dependent, morbid obesity, PAOLA on CPAP, HLD, hypothyroidism, OA with chronic LBP presenting with RLE weakness since this morning. Patient reports having on and off RLE weakness that started this morning, feels like the right leg is dragging, numbness/weakness starts in the knee and extends to feet. Lasts several minutes and relieved after sitting. Reports having a history of LBP and [facility], most recent steroid injection was less than 6 months ago. Strokelike symptoms H/O CVA Presents with dizziness, intermittent transient right leg weakness Unclear etiology --MRI Brain: No acute process --CTA head/Neck: No acute intracranial abnormality. Unremarkable CTA of the head. No significant arterial narrowing or occlusion seen at the neck. --Lumbar CT:No acute fracture or subluxation. Discogenic degeneration with spondylotic spurring and facet arthrosis as above causing multilevel neural foraminal narrowing, moderate bilaterally at L5-S1. No high-grade central canal stenosis. Mild lumbar levoscoliosis. --Normal TSH --Prior H/O Lyme's disease: Currently denies any tick bite. Lyme screen negative for IgM. Follow-up Western blot studies --Orthostatics not contributory Continue Lipitor, also on Eliquis Appreciate neurology input May need follow-up with neurology upon discharge for possible EMG Paroxysmal atrial fibrillation Continue metoprolol succinate 50 mg daily On Eliquis for anticoagulation Hypertension Continue lisinopril, metoprolol Monitor blood pressure DM II HbA1c 5.9 Hold p.o. meds Continue insulin while hospitalized Monitor blood glucose levels Hyperlipidemia Continue statin PAOLA Continue CPAP at bedtime DVT Px: Eliquis Code status: Full Code (2) Stroke-like symptoms: (3) HTN (hypertension): (4) DM II (diabetes mellitus, type II), controlled: (5) HLD (hyperlipidemia): (6) PAOLA on CPAP: Admission and Anticipated Discharge Date Admission Date: August 14, 2025 Subjective Patient is seen and examined at bedside Patient had a brief episode of dizziness associated with some right leg weakness Discussed with neurology today Headache much improved today Reports chronic bilateral feet numbness which she attributes to diabetes Chronic lower back pain Denies any chest pain, dyspnea, nausea, vomiting, abdominal pain Review of Systems Review of Systems: All systems reviewed & are unremarkable except as noted in Subjective Physical Exam Physical Exam: Physical Exam: Vitals signs as noted above General Appearance:Obese, no apparent distress Head: normocephalic, Atraumatic Eyes: normal inspection, EOMI Neck: supple, Trachea midline Respiratory/Chest: Normal breath sounds, CTA, No accessory muscle use Cardiovascular: S1, S2, No murmur Abdomen/GI:Soft, Non tender, Bowel sounds present Extremities/Musculoskeletal:normal inspection, no edema Neurologic/Psych:AAOX3, grossly no focal neurological deficits,+ hearing aids Skin: normal color, warm Results & Data Results & Data Vital Signs (Past 12 Hours) Vital Signs Temp Pulse Pulse Pulse Resp BP Pulse Ox 08/15/25 12:54 67 146/86 H 08/15/25 12:54 64 137/87 08/15/25 12:12 36.4 C L 69 16 148/86 H 97 08/15/25 11:08 36.5 C 56 L 16 143/86 H 96 08/15/25 07:48 36.4 C L 57 L 14 119/77 94 08/15/25 07:00 55 L O2 Del Method 08/15/25 12:54 08/15/25 12:54 08/15/25 12:12 Room Air 08/15/25 11:08 Room Air 08/15/25 07:48 Room Air 08/15/25 07:00 Laboratory Results Short CBC 08/15/25 Range/Units 05:42 WBC 7.14 (4.8-10.8) K/ul Hgb 13.8 L (14.0-18.0) g/dl Hct 41.7 L (42.0-52.0) % Plt Count 214 (130-400) K/uL BMP 08/15/25 05:42 Sodium 136 Potassium 3.9 Chloride 103 Carbon Dioxide 27 BUN 16 Creatinine 0.96 Glucose 106 H Calcium 9.3 Cardiac Enzymes 08/15/25 Range/Units 05:42 Total Creatine Kinase 129 (30-223) U/L (3) HTN (hypertension) Hypertension type: unspecified Qualified Code(s): I10 - Essential (primary) hypertension (5) HLD (hyperlipidemia) Hyperlipidemia type: unspecified Qualified Code(s): E78.5 - Hyperlipidemia, unspecified
[2025-08-16] MEDS ORDERED: ATROPINE SULFATE 0.1 MG/ML 10ML SYR IV PRN (01:39)
[2025-08-16 02:27] LABS: Hematocrit (blood only) 40.2 % (42.0-52.0); Hemoglobin 13.9 g/dl (14.0-18.0); Immature Granulocytes # (auto) 0.02 K/uL (0.01-0.20); Immature Granulocytes % (auto) 0.3 %; Mean Corpuscular Hemoglobin 29.5 pg (25.0-34.0); Mean Corpuscular Volume 85.4 fL (80.0-100.0); Platelet Count 224 K/uL (130-400); RDW Standard Deviation 40.5 fL (36.4-46.3); Red Blood Count 4.71 M/uL (4.70-6.10); White Blood Count 7.58 K/ul (4.8-10.8)
[2025-08-16 02:43] LABS: Anion Gap 6.0 (3-11); Blood Urea Nitrogen 15.0 mg/dl (6-23); Calcium 9.2 mg/dl (8.6-10.3); Carbon Dioxide 26.0 mmol/L (21-32); Chloride 103.0 mmol/L (98-107); Creatinine Clr Calc Pharmacy 100.7 ml/min; Glucose 103.0 mg/dl (70-99(Fasting)); Magnesium 2.1 mg/dl (1.7-2.4); Potassium 3.8 mmol/L (3.5-5.1); Sodium 135.0 mmol/L (136-145)
--- NOTE | 2025-08-16 09:43 | Electrocardiogram Report ---
Test Reason : Blood Pressure : */* mmHG Vent. Rate : 54 BPM Atrial Rate : 54 BPM P-R Int : 174 ms QRS Dur : 100 ms QT Int : 470 ms P-R-T Axes : 26 -37 7 degrees QTcB Int : 445 ms Sinus bradycardia with marked sinus arrhythmia with Premature atrial complexes Left axis deviation Abnormal ECG When compared with ECG of 14-Aug-2025 11:56, Premature atrial complexes are now Present Incomplete right bundle branch block is no longer Present Confirmed by Noam Collazo ([id number]) on 08/16/2025 9:43:13 AM Referred By: REFERRED SELF Confirmed By: Noam Collazo
[2025-08-16] MEDS ORDERED: methylPREDNISolone 4 MG TAB, 6 DAY TAPER PO SCH (11:00)
[2025-08-16] MEDS: methylPREDNISolone 4 MG TAB PO SCH ×2 (11:14→12:41)
--- NOTE | 2025-08-16 13:06 | Magnetic Resonance Report ---
MRI OF THE LUMBAR SPINE WITHOUT CONTRAST CLINICAL HISTORY: RLE weakness/paresthesias COMPARISON STUDY: Lumbar spine CT August 15, 2025. TECHNIQUE: Utilizing a 1.5 Paula magnet and dedicated coil, multiplanar, multiecho imaging of the alesha ar spine was performed without IV contrast. FINDINGS: For purposes of numbering on this exam, the L5-S1 disc space is assigned to axial image 23 of 25. Ali gnment of the lumbar spine is anatomic. Vertebral body heights are maintained. There are no fractures . There is no marrow replacement. No intracanalicular mass or fluid collection is present. Conus term inates at the inferior L1 level. A 7.8 cm T2 hyperintense left lower pole renal lesion is suboptimall y assessed on unenhanced exam but favors a cyst. L1-2: There is mild disc space narrowing with minimal disc bulge. The central canal and neural forame n are patent. L2-3: The central canal and neural foramen are patent. There is mild facet arthrosis. L3-4: There is moderate facet arthrosis. The central canal and neural foramen are patent. L4-5: There is severe facet arthrosis. Ligamentous hypertrophy is noted. There is minimal disc bulge with a small central annular tear. The central canal is patent. The neural foramen are patent. L5-S1: Mild disc space narrowing. A central posterior disc osteophyte complex is noted. This correspo nds to the finding on CT of August 15, 2025. There is moderate facet arthrosis. The central canal is patent. There is moderate bilateral neural foraminal stenosis due to disc osteophyte complex and face t arthrosis. IMPRESSION: 1. No lumbar spine fracture or subluxation. 2. Central posterior disc osteophyte complex at L5-S1, as shown on CT. No central canal stenosis. Mod erate bilateral neural foraminal stenosis at L5-S1 due to disc osteophyte complex and facet arthrosis . 3. Overall, mild degenerative disc disease and moderate facet arthrosis within the lumbar spine. ACT 112: Negative or not required by law. Electronically signed by: Bryan Herr M.D. 08/16/2025 1:05 PM
--- NOTE | 2025-08-16 17:34 | Hospitalist Progress Note ---
Date of Service August 16, 2025 Assessment & Plan (1) TIA (transient ischemic attack): Plan: Mr. Almendarez is a 59 year old M with a past medical history of CVA 02/2024 on anticoagulation w/ Eliquis, HTN, Afib, HTN, DM Type II non-insulin dependent, morbid obesity, PAOLA on CPAP, HLD, hypothyroidism, OA with chronic LBP presenting with RLE weakness since this morning. Patient reports having on and off RLE weakness that started this morning, feels like the right leg is dragging, numbness/weakness starts in the knee and extends to feet. Lasts several minutes and relieved after sitting. Reports having a history of LBP and [facility] [place], most recent steroid injection was less than [address] lumbar spine revealed left sided bulging of disc which is known to patient, but nothing that appears to contribute to reported symptoms. MRI of spine ordered and revealed central posterior disc osteophyte complex at L5-S1, as shown on CT. No central canal stenosis. Moderate bilateral neural foraminal stenosis at L5-S1 due to disc osteophyte complex and facet arthrosis. Low suspicion for stroke at this time Start medrol dose ilan and walker provided for patient to continue pcp follow up #Strokelike symptoms #prior CVA Presents with dizziness, intermittent transient right leg weakness Unclear etiology --MRI Brain: No acute process --CTA head/Neck: No acute intracranial abnormality. Unremarkable CTA of the h ead. No significant arterial narrowing or occlusion seen at the neck. --Lumbar CT:No acute fracture or subluxation. Discogenic degeneration with spondylotic spurring and facet arthrosis as above causing multilevel neural foraminal narrowing, moderate bilaterally at L5-S1. No high-grade central canal stenosis. Mild lumbar levoscoliosis. Lumbar MRI ordered, results as above Normal TSH Lyme negative Orthostatics not contributory Continue Lipitor, also on Eliquis Appreciate neurology input: from vascular perspective patient is optimized per neurologist Would recommend neurology follow up for emg #Paroxysmal atrial fibrillation Continue metoprolol succinate 50 mg daily On Eliquis for anticoagulation #Asymptomatic bradycardia dose reduced metoprolol from 50--> 25 #Hypertension Continue lisinopril, metoprolol Monitor blood pressure #DM II HbA1c 5.9 Hold p.o. meds Continue insulin while hospitalized Monitor blood glucose levels #Hyperlipidemia Continue statin #PAOLA Continue CPAP at bedtime DVT Px: Eliquis Code status: Full Code (2) Stroke-like symptoms: (3) HTN (hypertension): (4) DM II (diabetes mellitus, type II), controlled: (5) HLD (hyperlipidemia): (6) PAOLA on CPAP: Admission and Anticipated Discharge Date Admission Date: August 14, 2025 Subjective reports main concern being right leg weakness with thigh numbness denies any further headache or dizziness reports chronic back pain and follow up with pain management Physical Exam Constitutional: WD/WN, vitals as above Respiratory: normal respiratory effort, lungs clear to auscultation Cardiovascular: RRR, no murmur, no edema Gastrointestinal (Abdomen): normal bowel sounds, soft, nontender, no hepatosplenomegaly Results & Data Results & Data Vital Signs (Past 12 Hours) Vital Signs Temp Pulse Pulse Resp BP Pulse Ox O2 Del Method 08/16/25 15:24 36.6 C 65 18 145/83 H 94 Room Air 08/16/25 14:05 76 08/16/25 11:33 36.4 C L 64 20 144/83 H 97 Room Air 08/16/25 07:56 36.6 C 60 20 140/74 97 Room Air 08/16/25 07:03 71 Laboratory Results Short CBC 08/16/25 Range/Units 02:10 WBC 7.58 (4.8-10.8) K/ul Hgb 13.9 L (14.0-18.0) g/dl Hct 40.2 L (42.0-52.0) % Plt Count 224 (130-400) K/uL BMP 08/16/25 02:10 Sodium 135 L Potassium 3.8 Chloride 103 Carbon Dioxide 26 BUN 15 Creatinine 1.01 Glucose 103 H Calcium 9.2 Medications Administered Home Medications Medication Instructions Recorded Confirmed Last Taken ascorbic acid (vitamin C) 500 mg 500 mg PO DAILY 06/28/19 08/14/25 08/14/25 tablet (Vitamin C) famotidine 40 mg tablet 40 mg PO BID 06/28/19 08/14/25 08/14/25 lisinopril 40 mg tablet 40 mg PO QAM 06/28/19 08/14/25 08/14/25 montelukast 10 mg tablet 10 mg PO DAILY 06/28/19 08/14/25 03/06/24 tramadol 50 mg tablet 50 mg PO BID PRN Pain 06/28/19 08/14/25 03/06/24 vitamin B complex 1 tab PO DAILY 06/28/19 08/14/25 08/14/25 albuterol sulfate 90 mcg/actuation 2 puff inhalation Q4 PRN Shortness 08/28/22 08/14/25 03/06/24 aerosol inhaler Of Breath Or Wheezing glucosamine sulfate 500 mg tablet 500 mg PO DAILY 08/28/22 08/14/25 08/14/25 (Glucosamine) metoprolol succinate 25 mg 50 mg PO QAM 08/28/22 08/14/25 08/14/25 tablet,extended release 24 hr multivitamin 1 tab PO DAILY 08/28/22 08/14/25 08/14/25 turmeric 400 mg capsule 400 mg PO DAILY 08/28/22 08/14/25 08/14/25 levothyroxine 175 mcg tablet 175 mcg PO QAM 03/07/24 08/14/25 08/14/25 spironolactone 25 mg tablet 25 mg PO DAILY 04/01/24 08/14/25 08/14/25 apixaban 5 mg tablet (Eliquis) 5 mg PO BID 07/14/25 08/14/25 08/14/25 atorvastatin 40 mg tablet 40 mg PO QAM 07/14/25 08/14/25 08/14/25 furosemide 40 mg tablet 60 mg PO QAM 07/14/25 08/14/25 08/14/25 metformin 1,000 mg tablet 1,000 mg PO QAM 07/14/25 08/14/25 08/14/25 pantoprazole 40 mg tablet,delayed 40 mg PO DAILYBB 07/14/25 08/14/25 08/14/25 release tadalafil 20 mg tablet 20 mg PO DIRECTED PRN Sexual 07/14/25 08/14/25 Unknown [place] tirzepatide 5 mg/0.5 mL 5 mg subcut WK 07/14/25 08/14/25 Unknown subcutaneous pen injector (Mounjaro) methylprednisolone 4 mg tablet See Rx Instructions .Route 08/16/25 Unknown .COMPLEX #18 tabs Active Medications Generic Name Dose Route Start Last Admin Trade Name Freq PRN Reason Stop Dose Admin Acetaminophen 650 mg 08/14/25 16:36 08/16/25 12:41 Acetaminophen 325 Mg Tab PO 09/13/25 16:35 650 mg Q4H PRN Administration Pain or Fever Apixaban 5 mg 08/14/25 21:00 08/16/25 08:18 Apixaban 5 Mg Tablet PO 09/13/25 20:59 5 mg BID NETO Administration Ascorbic Acid 500 mg 08/15/25 09:00 08/16/25 08:18 Ascorbic Acid 500 Mg Tab PO 09/14/25 08:59 500 mg DAILY NETO Administration Atorvastatin Calcium 40 mg 08/15/25 09:00 08/16/25 08:18 Atorvastatin 40 Mg Tab PO 09/14/25 08:59 40 mg QAM NETO Administration Famotidine 40 mg 08/14/25 21:00 08/16/25 08:17 Famotidine 20 Mg Tab PO 09/13/25 20:59 40 mg BID NETO Administration Furosemide 40 mg 08/15/25 09:00 08/16/25 08:18 Furosemide 40 Mg Tab PO 09/14/25 08:59 40 mg QAM ENTO Administration Insulin Aspart 0 units 08/14/25 16:36 08/16/25 16:59 Insulin Aspart Per Unit Charge SC 09/13/25 16:35 8 units ACHS NETO Administration Levothyroxine Sodium 175 mcg 08/15/25 06:30 08/16/25 05:33 Levothyroxine Sodium 175 Mcg Tablet PO 09/14/25 06:29 175 mcg DAILYBB NETO Administration Lisinopril 40 mg 08/15/25 09:00 08/16/25 08:18 Lisinopril 40 Mg Tab PO 09/14/25 08:59 40 mg QAM NETO Administration Methylprednisolone 8 mg 08/16/25 11:15 08/16/25 11:14 Methylprednisolone 4 Mg Tab PO 08/16/25 21:01 8 mg 1115,2100 NETO Administration Methylprednisolone 4 mg 08/16/25 13:00 08/16/25 17:00 Methylprednisolone 4 Mg Tab PO 08/16/25 18:01 4 mg 1300,1800 NETO Administration Multivitamins 1 tab 08/15/25 09:00 08/16/25 08:18 Multivitamin Tab PO 09/14/25 08:59 1 tab DAILY NETO Administration Pantoprazole Sodium 40 mg 08/15/25 06:30 08/16/25 05:33 Pantoprazole 40 Mg Tab PO 09/14/25 06:29 40 mg DAILYBB NETO Administration Spironolactone 12.5 mg 08/15/25 09:00 08/15/25 09:06 Spironolactone 12.5 Mg Tab PO 09/14/25 08:59 12.5 mg DAILY NETO Administration Tramadol HCl 50 mg 08/14/25 20:07 08/16/25 11:51 Tramadol Hcl 50 Mg Tablet PO 09/13/25 20:06 50 mg BID PRN Administration moderate to severe pain (3) HTN (hypertension) Hypertension type: unspecified Qualified Code(s): I10 - Essential (primary) hypertension (5) HLD (hyperlipidemia) Hyperlipidemia type: unspecified Qualified Code(s): E78.5 - Hyperlipidemia, unspecified
[2025-08-17 02:01] LABS: Lyme Antibodies, WB IgG NEGATIVE (NEGATIVE); Lyme Antibodies, WB IgM NEGATIVE (NEGATIVE)
[2025-08-17] MEDS: methylPREDNISolone 4 MG TAB PO SCH ×2 (06:42→21:51)
[2025-08-17] MEDS: METOPROLOL SUCC 25MG EXT REL TAB PO SCH (08:36)
--- NOTE | 2025-08-17 08:58 | Electrocardiogram Report ---
Test Reason : Blood Pressure : */* mmHG Vent. Rate : 50 BPM Atrial Rate : 50 BPM P-R Int : 170 ms QRS Dur : 98 ms QT Int : 460 ms P-R-T Axes : 26 -39 13 degrees QTcB Int : 419 ms Sinus bradycardia with marked sinus arrhythmia Left axis deviation Abnormal ECG When compared with ECG of 14-Aug-2025 11:56, Incomplete right bundle branch block is no longer Present Confirmed by Noam Collazo ([id number]) on 08/17/2025 8:58:13 AM Referred By: REFERRED SELF Confirmed By: Noam Collazo
--- NOTE | 2025-08-17 10:10 | Hospitalist Progress Note ---
Date of Service August 17, 2025 Assessment & Plan (1) TIA (transient ischemic attack): Plan: Mr. Almendarez is a 59 year old M with a past medical history of CVA 02/2024 on anticoagulation w/ Eliquis, HTN, Afib, HTN, DM Type II non-insulin dependent, morbid obesity, PAOLA on CPAP, HLD, hypothyroidism, OA with chronic LBP presenting with RLE weakness since this morning. Patient reports having on and off RLE weakness that started this morning, feels like the right leg is dragging, numbness/weakness starts in the knee and extends to feet. Lasts several minutes and relieved after sitting. Reports having a history of LBP and [facility], most recent steroid injection was less than [address] lumbar spine revealed left sided bulging of disc which is known to patient, but nothing that appears to contribute to reported symptoms. MRI of spine ordered and revealed central posterior disc osteophyte complex at L5-S1, as shown on CT. No central canal stenosis. Moderate bilateral neural foraminal stenosis at L5-S1 due to disc osteophyte complex and facet arthrosis. Low suspicion for stroke at this time Continue medrol dose ilan and walker provided for patient to continue pcp follow up Will consult orthospine for eval at patients request to ensure comprehensive eval prior to discharge with neuro follow up and emg. #Strokelike symptoms #prior CVA Presents with dizziness, intermittent transient right leg weakness Unclear etiology --MRI Brain: No acute process --CTA head/Neck: No acute intracranial abnormality. Unremarkable CTA of the head. No significant arterial narrowing or occlusion seen at the neck. --Lumbar CT:No acute fracture or subluxation. Discogenic degeneration with spondylotic spurring and facet arthrosis as above causing multilevel neural foraminal narrowing, moderate bilaterally at L5-S1. No high-grade central canal stenosis. Mild lumbar levoscoliosis. Lumbar MRI ordered, results as above Normal TSH Lyme negative Orthostatics not contributory Continue Lipitor, also on Eliquis Appreciate neurology input: from vascular perspective patient is optimized per neurologist Would recommend neurology follow up for emg #Degenerative spine disease #Left sided posterior disc bulge #RLE paraesthesias Orthospine consult placed -Review of mri didnt reveal any severe areas of stenosis requiring immediate intervention however will defer to orthospine at patients request #Paroxysmal atrial fibrillation Continue metoprolol succinate 50 mg daily On Eliquis for anticoagulation #Asymptomatic bradycardia dose reduced metoprolol from 50--> 25 #Hypertension Continue lisinopril, metoprolol Monitor blood pressure #DM II HbA1c 5.9 Hold p.o. meds Continue insulin while hospitalized Monitor blood glucose levels #Hyperlipidemia Continue statin #PAOLA Continue CPAP at bedtime DVT Px: Eliquis Code status: Full Code (2) Stroke-like symptoms: (3) HTN (hypertension): (4) DM II (diabetes mellitus, type II), controlled: (5) HLD (hyperlipidemia): (6) PAOLA on CPAP: Admission and Anticipated Discharge Date Admission Date: August 16, 2025 Subjective Reports not feeling entirely safe at home given right thigh numbness nd sensation leg may give out. Patient would like orthospine discussion before leaving given concerns in case there is an operable fix Physical Exam Constitutional: WD/WN, vitals as above Respiratory: normal respiratory effort, lungs clear to auscultation Cardiovascular: RRR, no murmur, no edema Gastrointestinal (Abdomen): normal bowel sounds, soft, nontender, no hepatosplenomegaly Musculoskeletal: no cyanosis or clubbing, extremities motor strength 5/5 Results & Data Results & Data Vital Signs (Past 12 Hours) Vital Signs Temp Pulse Pulse Resp BP Pulse Ox O2 Del Method 08/17/25 07:24 36.4 C L 65 18 135/80 96 Room Air 08/17/25 03:18 36.5 C 63 18 147/83 H 98 CPAP 08/16/25 23:44 66 08/16/25 22:53 36.4 C L 77 18 147/88 H 98 CPAP 08/16/25 22:05 69 22 97 O2 Flow Rate 08/17/25 07:24 08/17/25 03:18 08/16/25 23:44 08/16/25 22:53 08/16/25 22:05 3 Medications Administered Home Medications Medication Instructions Recorded Confirmed Last Taken ascorbic acid (vitamin C) 500 mg 500 mg PO DAILY 06/28/19 08/14/25 08/14/25 tablet (Vitamin C) famotidine 40 mg tablet 40 mg PO BID 06/28/19 08/14/25 08/14/25 lisinopril 40 mg tablet 40 mg PO QAM 06/28/19 08/14/25 08/14/25 montelukast 10 mg tablet 10 mg PO DAILY 06/28/19 08/14/25 03/06/24 tramadol 50 mg tablet 50 mg PO BID PRN Pain 06/28/19 08/14/25 03/06/24 vitamin B complex 1 tab PO DAILY 06/28/19 08/14/25 08/14/25 albuterol sulfate 90 mcg/actuation 2 puff inhalation Q4 PRN Shortness 08/28/22 08/14/25 03/06/24 aerosol inhaler Of Breath Or Wheezing glucosamine sulfate 500 mg tablet 500 mg PO DAILY 08/28/22 08/14/25 08/14/25 (Glucosamine) metoprolol succinate 25 mg 50 mg PO QAM 08/28/22 08/14/25 08/14/25 tablet,extended release 24 hr multivitamin 1 tab PO DAILY 08/28/22 08/14/25 08/14/25 turmeric 400 mg capsule 400 mg PO DAILY 08/28/22 08/14/25 08/14/25 levothyroxine 175 mcg tablet 175 mcg PO QAM 03/07/24 08/14/25 08/14/25 spironolactone 25 mg tablet 25 mg PO DAILY 04/01/24 08/14/25 08/14/25 apixaban 5 mg tablet (Eliquis) 5 mg PO BID 07/14/25 08/14/25 08/14/25 atorvastatin 40 mg tablet 40 mg PO QAM 07/14/25 08/14/25 08/14/25 furosemide 40 mg tablet 60 mg PO QAM 07/14/25 08/14/25 08/14/25 metformin 1,000 mg tablet 1,000 mg PO QAM 07/14/25 08/14/25 08/14/25 pantoprazole 40 mg tablet,delayed 40 mg PO DAILYBB 07/14/25 08/14/25 08/14/25 release tadalafil 20 mg tablet 20 mg PO DIRECTED PRN Sexual 07/14/25 08/14/25 Unknown [place] tirzepatide 5 mg/0.5 mL 5 mg subcut WK 07/14/25 08/14/25 Unknown subcutaneous pen injector (Mounjaro) methylprednisolone 4 mg tablet See Rx Instructions .Route 08/16/25 Unknown .COMPLEX #18 tabs Active Medications Generic Name Dose Route Start Last Admin Trade Name Freq PRN Reason Stop Dose Admin Acetaminophen 650 mg 08/14/25 16:36 08/16/25 12:41 Acetaminophen 325 Mg Tab PO 09/13/25 16:35 650 mg Q4H PRN Administration Pain or Fever Apixaban 5 mg 08/14/25 21:00 08/17/25 08:34 Apixaban 5 Mg Tablet PO 09/13/25 20:59 5 mg BID NETO Administration Ascorbic Acid 500 mg 08/15/25 09:00 08/17/25 08:32 Ascorbic Acid 500 Mg Tab PO 09/14/25 08:59 500 mg DAILY NETO Administration Atorvastatin Calcium 40 mg 08/15/25 09:00 08/17/25 08:34 Atorvastatin 40 Mg Tab PO 09/14/25 08:59 40 mg QAM NETO Administration Famotidine 40 mg 08/14/25 21:00 08/17/25 08:40 Famotidine 20 Mg Tab PO 09/13/25 20:59 40 mg BID NETO Administration Furosemide 40 mg 08/15/25 09:00 08/17/25 08:35 Furosemide 40 Mg Tab PO 09/14/25 08:59 40 mg QAM NETO Administration Insulin Aspart 0 units 08/14/25 16:36 08/17/25 08:41 Insulin Aspart Per Unit Charge SC 09/13/25 16:35 8 units ACHS NETO Administration Levothyroxine Sodium 175 mcg 08/15/25 06:30 08/17/25 05:52 Levothyroxine Sodium 175 Mcg Tablet PO 09/14/25 06:29 175 mcg DAILYBB NETO Administration Lisinopril 40 mg 08/15/25 09:00 08/17/25 08:34 Lisinopril 40 Mg Tab PO 09/14/25 08:59 40 mg QAM NETO Administration Methylprednisolone 4 mg 08/17/25 07:00 08/17/25 06:42 Methylprednisolone 4 Mg Tab PO 08/17/25 18:01 4 mg 0700,1300,1800 NETO Administration Metoprolol Succinate 25 mg 08/17/25 09:00 08/17/25 08:36 Metoprolol Succ 25mg Ext Rel Tab PO 09/16/25 08:59 25 mg QAM NETO Administration Multivitamins 1 tab 08/15/25 09:00 08/17/25 08:33 Multivitamin Tab PO 09/14/25 08:59 1 tab DAILY NETO Administration Pantoprazole Sodium 40 mg 08/15/25 06:30 08/17/25 05:52 Pantoprazole 40 Mg Tab PO 09/14/25 06:29 40 mg DAILYBB NETO Administration Spironolactone 12.5 mg 08/15/25 09:00 08/17/25 08:33 Spironolactone 12.5 Mg Tab PO 09/14/25 08:59 12.5 mg DAILY NETO Administration Tramadol HCl 50 mg 08/14/25 20:07 08/16/25 11:51 Tramadol Hcl 50 Mg Tablet PO 09/13/25 20:06 50 mg BID PRN Administration moderate to severe pain (3) HTN (hypertension) Hypertension type: unspecified Qualified Code(s): I10 - Essential (primary) hypertension (5) HLD (hyperlipidemia) Hyperlipidemia type: unspecified Qualified Code(s): E78.5 - Hyperlipidemia, unspecified
[2025-08-18] MEDS: methylPREDNISolone 4 MG TAB PO SCH (06:16)
[2025-08-18 08:20] VITALS: RESP 20
[2025-08-18 11:30] VITALS: BP 121/68; PULSE 62; TEMP 97.9; O2SAT 96
--- NOTE | 2025-08-18 12:28 | Discharge Summary ---
Discharge Summary Date of Service August 18, 2025 Principal Dx & Hospital Course #1 = Principal Diagnosis (1) TIA (transient ischemic attack): Mr. Almendarez is a 59 year old M with a past medical history of CVA 02/2024 on anticoagulation w/ Eliquis, HTN, Afib, HTN, DM Type II non-insulin dependent, morbid obesity, PAOLA on CPAP, HLD, hypothyroidism, OA with chronic LBP presenting with RLE weakness since this morning. Patient reports having on and off RLE weakness that started this morning, feels like the right leg is dragging, numbness/weakness starts in the knee and extends to feet. Lasts several minutes and relieved after sitting. Reports having a history of LBP and [facility], most recent steroid injection was less than [address] lumbar spine revealed left sided bulging of disc which is known to patient, but nothing that appears to contribute to reported symptoms. MRI of spine ordered and revealed central posterior disc osteophyte complex at L5-S1, as shown on CT. No central canal stenosis. Moderate bilateral neural foraminal stenosis at L5-S1 due to disc osteophyte complex and facet arthrosis. Per neruology, symptoms were not consistent with TIA/stroke. Patient was started on medrol dose ilan and walker provided for patient to continue pcp follow up. Home health was offered to follow patient at home. Discussed over TT with orthospine, given lack of emergent symptoms/pain, patient can follow up as outpatient and prioritize EMG with neurology. Patient was noted to have asymptomatic bradycardia, however, rates were in low- mid 30s-40 while awake. Given these episodes, follow up with cardiology was made after discussing with Cards over TT. Patient advised to hold metoprolol. On day of discharge, patient was eating well, ambulating with support of his walker. Physcial therapy cleared patient to return home. Patient verbalized understanding of neuro follow up and plan for emg. #Strokelike symptoms #prior CVA Presents with dizziness, intermittent transient right leg weakness Unclear etiology --MRI Brain: No acute process --CTA head/Neck: No acute intracranial abnormality. Unremarkable CTA of the head. No significant arterial narrowing or occlusion seen at the neck. --Lumbar CT:No acute fracture or subluxation. Discogenic degeneration with spondylotic spurring and facet arthrosis as above causing multilevel neural foraminal narrowing, moderate bilaterally at L5-S1. No high-grade central canal stenosis. Mild lumbar levoscoliosis. Lumbar MRI ordered, results as above Normal TSH Lyme negative Orthostatics not contributory Continue Lipitor, also on Eliquis Appreciate neurology input: from vascular perspective patient is optimized per neurologist Would recommend neurology follow up for emg #Degenerative spine disease #Left sided posterior disc bulge #RLE paraesthesias Orthospine consult placed -Review of mri didnt reveal any severe areas of stenosis requiring immediate intervention however will defer to orthospine at patients request #Paroxysmal atrial fibrillation Continue metoprolol succinate 50 mg daily On Eliquis for anticoagulation #Asymptomatic bradycardia dose reduced metoprolol from 50--> 25 held after discussion with cardiology 2/2 hr down to 30s #Hypertension Continue lisinopril, hold metoprolol #DM II HbA1c 5.9 Hold p.o. meds Continue insulin while hospitalized Monitor blood glucose levels #Hyperlipidemia Continue statin #PAOLA Continue CPAP at bedtime (2) Stroke-like symptoms: (3) HTN (hypertension): (4) DM II (diabetes mellitus, type II), controlled: (5) HLD (hyperlipidemia): (6) PAOLA on CPAP: Notes For Next Care Provider -EMG for neuropathic like symptoms in RLE Medication Changes From Visit held metoprolol finish medrol dose ilan Admission HPI Per Admitting Provider Patient is a 59 year old M with a past medical history of CVA 02/2024 on anticoagulation w/ Eliquis, HTN, Afib, HTN, DM Type II non-insulin dependent, morbid obesity, PAOLA on CPAP, HLD, hypothyroidism, OA with chronic LBP presenting with RLE weakness since this morning. Patient reports having on and off RLE weakness that started this morning, feels like the right leg is dragging, numbness/weakness starts in the knee and extends to feet. Lasts several minutes and relieved after sitting. Reports having a history of LBP and follows [facility] pain clinic at [facility], most recent steroid injection was less than 6 months ago. Denies fever, chills, weight loss, dizziness, headache, cognitive changes, vision/hearing changes, chest pain, SOB, swelling, difficulty breathing, urinary concerns, N/V/D, joint swelling/pain, skin rashes, lesions, bleeding, bruising. In the emergency department, patient was hemodynamically stable with no signs of infection or sepsis. Lab workup unremarkable. History of CVA in February 2024 and has been anticoagulated with Eliquis. No focal deficits or changes. He has baseline vision deficit with corrective lenses. Tinnitus to bilateral ears and wears hearing aides. History of Afib with rate control on Metoprolol. Has a loop recorder and follows [id number]. EKG w/ sinus barbara, vent rate 59 bpm, QTc 431. Trop normal. Imaging obtained for suspected CVA in the setting of RLE weakness. Head CT revealed tiny chronic lacunar infarcts of the basal ganglia, no acute findings. CTA Head/Neck showing mild stenosis of the distal right vertebral artery secondary to atherosclerosis; No significant arterial narrowing or occlusion seen at the neck. As per external chart review, Echo from 06/2025 showing LV wall thickness is moderately increased; LV ejection fraction is 55-59%; Grade I left ventricular diastolic function ; left atrium is moderately enlarged (42-48 ml/m^2). Mild mitral regurgitation is present. The aortic root is moderately enlarged. (4.4 cm). Loop recorder placed 05/18/2024 with interrogation on 07/30/25 revealed an episode of PAF x 7 minutes and 11 seconds with an average ventricular rate of 65 bpm. [facility] with med changes- diuretic dosing. History obtained primarily from the patient and via hospitalization record. External chart review obtained from [facility]. Admission Exam Per Admitting Provider VITALS: Reviewed. WEIGHT/BMI reviewed. GEN: Healthy appearing, well-developed, NAD. PSYCH: Good Judgment. AOx3. Normal memory, mood, and affect. HEENT -Head: NC/AT; -Eyes: PERRL, EOMI. No discharge or redn ess; -Ears: External ears are normal. Hearing intact with B/L hearing aides. -Nose: Normal nares. -Mouth and throat: MMM. Normal gums, muc paola, palate,. Good dentition. NECK: Supple, with no masses. CV: S1, S2 with no murmur or extra beats, RRR, no m/r/g. LUNGS: CTAB, no w/r/c. ABD: Soft, nontender, round, NBS, no masses or organomegaly. : N/A SKIN: Warm, well perfused. No skin rashes or abnormal lesions. MSK: No deformities, Strength 5/5 BLE EXT: No clubbing, cyanosis, or edema. NEURO: Ambulating with no limitations. Normal muscle strength and tone. No focal deficits. Discharge Exam Constitutional WD/WN, vitals as above Respiratory normal respiratory effort, lungs clear to auscultation Cardiovascular RRR, no murmur, no edema Gastrointestinal (Abdomen) normal bowel sounds, soft, nontender, no hepatosplenomegaly Musculoskeletal no cyanosis or clubbing, extremities motor strength 5/5 Updated Medication List Medication Instructions Recorded Confirmed Type ascorbic acid (vitamin C) 500 mg 500 mg PO DAILY 06/28/19 08/14/25 History tablet (Vitamin C) famotidine 40 mg tablet 40 mg PO BID 06/28/19 08/14/25 History lisinopril 40 mg tablet 40 mg PO QAM 06/28/19 08/14/25 History montelukast 10 mg tablet 10 mg PO DAILY 06/28/19 08/14/25 History tramadol 50 mg tablet 50 mg PO BID PRN Pain 06/28/19 08/14/25 History vitamin B complex 1 tab PO DAILY 06/28/19 08/14/25 History albuterol sulfate 90 mcg/actuation 2 puff inhalation Q4 PRN Shortness 08/28/22 08/14/25 History aerosol inhaler Of Breath Or Wheezing glucosamine sulfate 500 mg tablet 500 mg PO DAILY 08/28/22 08/14/25 History (Glucosamine) multivitamin 1 tab PO DAILY 08/28/22 08/14/25 History turmeric 400 mg capsule 400 mg PO DAILY 08/28/22 08/14/25 History levothyroxine 175 mcg tablet 175 mcg PO QAM 03/07/24 08/14/25 History spironolactone 25 mg tablet 25 mg PO DAILY 04/01/24 08/14/25 History apixaban 5 mg tablet (Eliquis) 5 mg PO BID 07/14/25 08/14/25 History atorvastatin 40 mg tablet 40 mg PO QAM 07/14/25 08/14/25 History furosemide 40 mg tablet 60 mg PO QAM 07/14/25 08/14/25 History metformin 1,000 mg tablet 1,000 mg PO QAM 07/14/25 08/14/25 History pantoprazole 40 mg tablet,delayed 40 mg PO DAILYBB 07/14/25 08/14/25 History release tadalafil 20 mg tablet 20 mg PO DIRECTED PRN Sexual 07/14/25 08/14/25 History Jena tirzepatide 5 mg/0.5 mL 5 mg subcut WK 07/14/25 08/14/25 History subcutaneous pen injector (Reji) metoprolol succinate 25 mg 25 mg PO QAM #0 tabs 08/16/25 08/14/25 Rx tablet,extended release 24 hr methylprednisolone 4 mg tablet See Rx Instructions .Route 08/18/25 Rx .COMPLEX #8 tabs Hospital Stay Data Consultations 08/14/25 13:58 ED Decision to Admit Stat 08/14/25 19:20 Consult Neurology Routine 08/17/25 08:37 Consult Orthopedic Spine Surgery Routine Diagnostic Imagining Performed 08/14/25 11:40 CT angio head wo/w Stat CT angio neck with con Stat 08/14/25 16:11 MRI Brain [MR brain wo con] Urgent 08/15/25 13:00 CT lumbar spine wo/w con Urgent 08/16/25 09:29 MRI Lumbar Spine [MR lumbar spine wo con] Routine Pending Results Patient Have Any Pending Studies at Discharge: No Discharge Instructions Given to Patient (Per Discharging Provider) You were admitted for right-leg weakness. You scans were negative. Your back scans revealed chronic degenerative joint disease but no clear pathology consistent with your explained symptoms. Your symptoms are not consistent with a TIA or stroke. It is recommended you follow up with Neurology and consider a test called an "EMG" to test your nerves. You should follow with your pain doctors. You should follow with your [facility] -Your metoprolol will be held at this time. You will continue your steroid taper as follows: * Day 3:(1) after dinner, (1) at bedtime [8-mg] * Day 4: (1) before breakfast, (1) after lunch, (1) at bedtime [12-mg] * Day 5: (1) before breakfast, (1) at bedtime [8-mg] * Day 6: (1) before breakfast [4-mg] Total Time Total Time Spent Total Time Spent (In Minutes): 45
[2025-08-19] MEDS ORDERED: methylPREDNISolone 4 MG TAB PO SCH (07:00)
[2025-08-20] MEDS ORDERED: methylPREDNISolone 4 MG TAB PO SCH (07:00)
[2025-08-21] MEDS ORDERED: methylPREDNISolone 4 MG TAB PO SCH (07:00)
== END 2025-08-18 15:09 | disposition home health service (06) | DRG 93 ==
LOC: ED 11:01 → 2S 11:01 → SUATTDRO 14:44 → 2S 16:08 → SUATTDRO 08-16 17:34 → 2N 08-17 12:54